=== PATIENT | female | born 1945 | race Caucasian/White ===

== ENCOUNTER 2017-10-16 16:57 | Observation (INO) | payer OTHER ==
[2017-10-16] MEDS ORDERED: FUROSEMIDE 20 MG/ 2ML VIAL IV ONE (18:00)
[2017-10-16 18:02] LABS: Absolute Monocytes 0.8 K/uL (0.1-1.3); Absolute Neutrophil 4.8 K/uL (1.8-8.0); Basophils % 0.4 % (0-1.3); Eosinophils % 2.2 % (0-4.4); Hematocrit 35.9 % (36.0-45.0); Lymphocytes % 14.2 % (15.3-44.8); MCH 26.2 pg (27.0-35.0); MCV 81.9 fL (80-100); MPV 11.2 fL (7.6-11.3); Monocytes % 11.6 % (3.3-12.3); RBC Red Blood Cell Count 4.39 M/uL (3.86-4.86)
[2017-10-16 18:34] LABS: Urine White Blood Cell Casts OK
[2017-10-16 18:35] LABS: Blood Morphology Comment NOT SEEN (NOT SEEN); Platelet Estimate DECR
[2017-10-16 18:55] LABS: Albumin 3.9 g/dL (3.2-5.5); Bilirubin Total 1.7 mg/dL (0.3-1.2); Potassium 3.1 mEq/L (3.6-5.0); Protein, Total 6.8 g/dL (6.0-8.3)
[2017-10-16] MEDS ORDERED: OSELTAMIVIR 75 MG CAP PO ONE (19:32)
[2017-10-16] MEDS ORDERED: POTASSIUM 25 MEQ EFFERV TAB PO ONE (19:32)
[2017-10-16] MEDS: ALBUTEROL 2.5 MG/3 ML NEB SOL NEB SCH (20:19)
[2017-10-16] MEDS ORDERED: HOME MED 1 EA UNK (Gabapentin [Gralise] 300 MG) PO SCH (21:00)
[2017-10-16] MEDS ORDERED: APIXABAN 2.5 MG TABLET PO SCH (21:00)
[2017-10-16] MEDS: ATENOLOL 50 MG TAB PO SCH (21:46)
[2017-10-16] MEDS: HYDROCODONE/APAP 5/325 MG TAB PO PRN (21:46)
[2017-10-16] MEDS: ATORVASTATIN 20 MG TAB PO SCH (21:46)
[2017-10-17] MEDS: ALBUTEROL 2.5 MG/3 ML NEB SOL NEB SCH ×4 (01:14→20:15)
[2017-10-17 04:17] LABS: Urine Appearance CLEAR; Urine Bilirubin NEGATIVE (NEG); Urine Blood NEGATIVE (NEG); Urine Color YELLOW; Urine Glucose NEGATIVE (NEG); Urine Protein NEGATIVE (NEG); Urine Specific Gravity 1.015 (1.005-1.030); Urine pH 6.5 (5.0-7.0)
[2017-10-17 04:55] LABS: Urine Microscopic Reflex ORDER UMIC
[2017-10-17 05:28] LABS: Urine Bacteria <20 /HPF (<20); Urine Culture Reflex Order REFLEXED; Urine RBC <5 /HPF (NONE SEEN)
[2017-10-17] MEDS: AMLODIPINE 10 MG TAB PO SCH (08:49)
[2017-10-17] MEDS: DOXAZOSIN 4 MG TAB PO SCH (08:49)
[2017-10-17] MEDS: HYDROCODONE/APAP 5/325 MG TAB PO PRN ×2 (08:49→19:59)
[2017-10-17] MEDS: ATENOLOL 50 MG TAB PO SCH ×3 (08:49→20:00)
[2017-10-17] MEDS: GABAPENTIN 300 MG CAP PO SCH ×3 (08:49→20:00)
[2017-10-17] MEDS: FUROSEMIDE 40 MG TABLET PO SCH ×2 (08:49→16:48)
--- NOTE | 2017-10-17 08:59 | RAD REPORT ---
EXAM DESCRIPTION: Michael Pa And Lat (2 Views)10/17/2017 7:33 am CLINICAL HISTORY: Shortness of breath COMPARISON: October 16 FINDINGS: The mild bilateral interstitial lung opacities have mostly resolved. The heart remains enl arged IMPRESSION: The mild interstitial pulmonary edema has mostly resolved
--- NOTE | 2017-10-17 12:00 | ECHO ---
HEIGHT: 5 ft 4 in WEIGHT: 338 lb 0 oz DATE OF STUDY: 10/17/[address]: David Lemus MD 2-DIMENSIONAL: YES M.MODE: YES DOPPLER: YES COLOR FLOW: YES TDS: YES PORTABLE: NO DEFINITY: NO BUBBLE STUDY: NO DIAGNOSIS: CONGESTIVE HEART FAILURE CARDIAC HISTORY: CATHERIZATION: NO SURGERY: NO PROSTHETIC VALVE: NO PACEMAKER: NO MEASUREMENTS (cm) DIASTOLIC (NORMALS) SYSTOLIC (NORMALS) IVSd 0.9 (0.6-1.2) LA Diam 5.4 (1.9-4.0) LVEF 77% LVIDd 5.2 (3.5-5.7) LVIDs 2.8 (2.0-3.5) %FS 46% LVPWd 1.1 (0.6-1.2) Ao Diam 2.8 (2.0-3.7) 2 DIMENSIONAL ASSESSMENT: RIGHT ATRIUM: DILATED LEFT ATRIUM: DILATED RIGHT VENTRICLE: DILATED LEFT VENTRICLE: NORMAL TRICUSPID VALVE: NORMAL MITRAL VALVE: NORMAL PULMONIC VALVE: NORMAL AORTIC VALVE: NORMAL PERICARDIAL EFFUSION: NONE AORTIC ROOT: NORMAL LEFT VENTRICULAR WALL MOTION: NORMAL DOPPLER/COLOR FLOW: MILD MITRAL AND TRICUSPID REGURGITATION. ESTIMATED RIGHT VENTRICULAR SYSTOLIC PRESSURE 50mmHg. MODERATE PULMONARY HYPERTENSION. ESTIMATED RIGHT ATRIAL PRESSURE 15mmHg. COMMENTS: NORMAL LEFT VENTRICULAR EJECTION FRACTION. DILATED LEFT AND RIGHT ATRIUM. DILATED RIGHT VENTRICLE. MILD MITRAL AND TRICUSPID REGURGITATION. MODERATE PULMONARY HYPERTENSION. TECHNOLOGIST: Peggy LUQUE
[2017-10-17] MEDS ORDERED: FUROSEMIDE 20 MG/ 2ML VIAL IV ONE (18:00)
[2017-10-17] MEDS: ATORVASTATIN 20 MG TAB PO SCH (20:12)
[2017-10-17] MEDS: POTASSIUM CL SA 10 MEQ TAB PO SCH (20:12)
--- NOTE | 2017-10-17 23:00 | HP ---
Date of Admission: 10/16/2017 Chief Complaint: Shortness of breath, wheezing, and coughing. History Of Present Illness: This patient was brought to the office with history of congestion, wheez ing, and shortness of breath. Outpatient chest x-ray showed evidence of pulmonary edema. The patien t is admitted. The patient denied any chest pain. There is no history of diarrhea, nausea, or other systemic symptoms. Past Medical History: Positive for hyperlipidemia, history of congestive heart failure, sleep apnea, and hypertension. Family History: Noncontributory. Personal History: She is allergic to Cipro and iodine. Home Medicines: Norvasc, Eliquis, atenolol, doxazosin, Lasix, gabapentin, hydrocodone, lovastatin, a nd potassium chloride. Review of Systems: The patient denied any history of urinary symptoms. Physical Examination: General: Revealed a 72-year-old female, morbidly obese. HEENT: Negative. Neck: Supple, JVD negative. Chest: Bilateral wheezes and crackles. Heart: Irregularity noted. Abdomen: Soft, nontender. Extremities: Bilateral pedal edema noted. Laboratory Data: White count normal, hemoglobin 11. Chem profile; potassium 3.1, BNP 146. Platelet count 74. Chest x-ray was done as an outpatient, pulmonary edema. Assessment: 1.Congestive heart failure. 2.Hypertension. 3.Hyperlipidemia. 4.Pain management issues. 5.History of sleep apnea. Plan: The patient is started on home medications. She received IV Lasix. Pending recommendations b y Cardiology Service. She will be continued on these management. PRAVEEN/TRICIA Voice ID: [id number]
[2017-10-18] MEDS: ALBUTEROL 2.5 MG/3 ML NEB SOL NEB SCH ×4 (01:38→19:53)
[2017-10-18] MEDS ORDERED: FUROSEMIDE 20 MG/ 2ML VIAL IV ONE ×2 (08:37→18:22)
[2017-10-18] MEDS: AMLODIPINE 10 MG TAB PO SCH (09:20)
[2017-10-18] MEDS: POTASSIUM CL SA 10 MEQ TAB PO SCH ×2 (09:20→17:13)
[2017-10-18] MEDS: FUROSEMIDE 40 MG TABLET PO SCH ×2 (09:20→17:13)
[2017-10-18] MEDS: GABAPENTIN 300 MG CAP PO SCH ×4 (09:20→21:41)
[2017-10-18] MEDS: ATENOLOL 50 MG TAB PO SCH ×3 (09:20→21:42)
[2017-10-18] MEDS: DOXAZOSIN 4 MG TAB PO SCH (09:20)
[2017-10-18] MEDS: HYDROCODONE/APAP 5/325 MG TAB PO PRN ×2 (09:25→21:41)
[2017-10-18 09:54] LABS: Absolute Lymphocytes (CBC) 1.2 K/uL (0.7-4.9); Absolute Monocytes 0.5 K/uL (0.1-1.3); Basophils % 0.8 % (0-1.3); Eosinophils % 1.6 % (0-4.4); Hematocrit 36.1 % (36.0-45.0); Lymphocytes % 20.9 % (15.3-44.8); MCH 26.1 pg (27.0-35.0); MCV 81.4 fL (80-100); Monocytes % 8.1 % (3.3-12.3); RBC Red Blood Cell Count 4.43 M/uL (3.86-4.86)
--- NOTE | 2017-10-18 21:10 | PN ---
The patient is having less dyspnea. Her lungs clinically sound better. She still has significant pe aileen edema. She will receive another dose of IV Lasix this evening. The patient still is afebrile. As she is responding to these measures, she will be continued on diuresis. Her platelet count is bet ter, however, still it is low and her Eliquis will be on hold. PRAVEEN/TRICIA Voice ID: [id number] Report ID: [id number]
[2017-10-18] MEDS: ATORVASTATIN 20 MG TAB PO SCH (21:42)
[2017-10-19] MEDS: ALBUTEROL 2.5 MG/3 ML NEB SOL NEB SCH ×4 (01:35→20:04)
[2017-10-19 08:48] LABS: Absolute Lymphocytes (CBC) 1.4 K/uL (0.7-4.9); Absolute Monocytes 0.6 K/uL (0.1-1.3); Absolute Neutrophil 3.8 K/uL (1.8-8.0); Basophils % 0.7 % (0-1.3); Eosinophils % 2.4 % (0-4.4); Lymphocytes % 23.5 % (15.3-44.8); MCH 26.2 pg (27.0-35.0); MCV 81.7 fL (80-100); MPV 10.2 fL (7.6-11.3); Monocytes % 10.1 % (3.3-12.3); RBC Red Blood Cell Count 4.66 M/uL (3.86-4.86)
[2017-10-19] MEDS: DOXAZOSIN 4 MG TAB PO SCH (09:00)
[2017-10-19 09:39] LABS: BUN Blood Urea Nitrogen 12 mg/dL (6-20); Glomerular Filtration Rate > 90 mL/min (=/>90); Glucose Level 163 mg/dL (65-120)
[2017-10-19 09:45] LABS: Bicarbonate 33 mEq/L (21-31); Sodium Level 137 mEq/L (135-145)
[2017-10-19] MEDS: HYDROCODONE/APAP 5/325 MG TAB PO PRN ×3 (09:47→22:50)
[2017-10-19] MEDS: GABAPENTIN 300 MG CAP PO SCH ×3 (09:48→22:00)
[2017-10-19] MEDS: POTASSIUM CL SA 10 MEQ TAB PO SCH ×2 (09:48→16:01)
[2017-10-19] MEDS: ATENOLOL 50 MG TAB PO SCH ×3 (09:48→22:00)
[2017-10-19 09:49] LABS: Potassium 2.9 mEq/L (3.6-5.0)
[2017-10-19] MEDS: FUROSEMIDE 40 MG TABLET PO SCH ×2 (09:49→16:00)
[2017-10-19] MEDS: AMLODIPINE 10 MG TAB PO SCH (09:49)
[2017-10-19] MEDS ORDERED: DOXAZOSIN 2 MG TAB ONE (09:50)
[2017-10-19] MEDS ORDERED: POTASSIUM 25 MEQ EFFERV TAB PO ONE (10:30)
[2017-10-19 16:17] LABS: Potassium 3.4 mEq/L (3.6-5.0)
[2017-10-19] MEDS: POTASSIUM 25 MEQ EFFERV TAB PO SCH (17:58)
[2017-10-19] MEDS ORDERED: GUAIFENESIN/DM 5 ML UCUP PO PRN (20:31)
[2017-10-19] MEDS: ATORVASTATIN 20 MG TAB PO SCH (22:00)
--- NOTE | 2017-10-19 22:28 | PN ---
The patient still has some wheezing; however, she is feeling much better. Her extra IV Lasix has cau sed hypokalemia. This is corrected with the extra doses of KCl. The patient's potassium has come up . The patient does receive another extra dose of potassium and she will be re-evaluated in a.m. PRAVEEN/TRICIA Voice ID: [id number] Report ID: [id number]
[2017-10-20] MEDS: ALBUTEROL 2.5 MG/3 ML NEB SOL NEB SCH ×3 (01:22→13:39)
[2017-10-20] MEDS: DOXAZOSIN 4 MG TAB PO SCH (09:00)
[2017-10-20] MEDS ORDERED: DOXAZOSIN 2 MG TAB ONE (09:33)
[2017-10-20] MEDS: POTASSIUM 25 MEQ EFFERV TAB PO SCH (09:40)
[2017-10-20] MEDS: FUROSEMIDE 40 MG TABLET PO SCH (09:41)
[2017-10-20] MEDS: AMLODIPINE 10 MG TAB PO SCH (09:41)
[2017-10-20] MEDS: POTASSIUM CL SA 10 MEQ TAB PO SCH (09:42)
[2017-10-20] MEDS: GABAPENTIN 300 MG CAP PO SCH ×2 (09:43→14:00)
[2017-10-20] MEDS: ATENOLOL 50 MG TAB PO SCH ×2 (09:43→14:54)
[2017-10-20] MEDS: HYDROCODONE/APAP 5/325 MG TAB PO PRN ×2 (09:44→15:09)
--- NOTE | 2017-10-20 10:24 | CON ---
Chief Complaint: Dyspnea. Reason For Consultation: Right-sided congestive heart failure. History Of Present Illness: Mrs. Lawrence has had atrial fibrillation before. She has been known to hav e right-sided congestive heart failure before. We have been very suspicious that she has sleep apnea , but she has never actually done a sleep study. She has underlying hypertension and dyslipidemia. Her outpatient medications had been Eliquis 2.5 b.i.d., amlodipine, atenolol, furosemide, potassium c hloride, doxazosin, hydrocodone, gabapentin, and lovastatin. She reports drug allergies to ciproflox acin and iodine. She has never had myocardial infarction or stroke. Does not use tobacco, alcohol, or illegal drugs. In 2013, she had surgery for a broken bone. She has a problem with chronic pain. Physical Examination: General: She is 5 feet 4 inches, 322 pounds, morbidly obese. Body mass index 55. HEENT: Unremarkable. Lungs: Clear. There are some large airway sounds when she coughs. She still has some phlegm she is producing. Abdomen: Soft. Extremities: 1+ edema. Laboratory Data: Her laboratory exam reveals a hemoglobin of 12.2. Creatinine is 0.66, potassium is 3.4. B-natriuretic peptide is 146. Her echocardiogram shows a normal left ventricle. Left atrium is mildly dilated. The valves look close to normal and function normally. The right side of her hea rt is very dilated. Right atrium and right ventricle are very dilated. There is evidence of pulmona ry hypertension. The left ventricular ejection fraction is 77%. The estimated pulmonary artery pres sure is 50 mmHg. Estimated right atrial pressure is 15 mmHg. Impression: The patient has lung disease that is most likely caused by sleep apnea causing pulmonary hypertension, hypoventilation syndrome. We do not have a blood gas to confirm that. Her chest x-ra y would be consistent with that. I do not think it shows pulmonary edema or pneumonia. Diuretics an d evaluation to see if she would be a patient, who could benefit from CPAP treatment as an outpatient would be very useful. Thank you very much for your kind referral of Ms. Lawrence. I will follow her wi th you. ESPERANZA/TRICIA Voice ID: [id number] Report ID: [id number]
--- NOTE | 2017-10-21 11:34 | CON ---
Date of Consultation: 10/18/2017 The patient was admitted to Dr. Lemus's service on 10/16/2017. I saw the patient on 10/18/2017. Reason For Consultation: Congestive heart failure. History Of Present Illness: Mrs. Lawrence is a 72-year-old woman with history of hypertension, DVT, came in with congestive heart failure versus asthma type symptoms. The patient denied PND, orthopnea, or pedal edema. cough, wheezing, shortness of breath. Echocardiogram before I saw her show ed moderate pulmonary hypertension with normal ejection fraction. Chest x-ray showed congestive hear t failure that has resolved after IV Lasix. Past Medical History: As stated above. Allergies: SHE IS ALLERGIC TO CIPRO AND IODINE. Review of Systems: Negative. Social History: Negative. Family History: Noncontributory. Medications: Include Norvasc, potassium, lovastatin, Eliquis, Lasix, and atenolol. Physical Examination: Vital Signs: Mrs. Lawrence weighs 317 pounds. Her vital signs were stable and afebrile. HEENT: Negative. Neck: Supple. No bruit or JVD or lymphadenopathy. Chest: Clear to auscultation and percussion. Cardiac: Revealed tricuspid regurgitation and murmur. Regular rhythm and rate. No gallops or rubs. Abdomen: Obese, but benign. Extremities: Revealed trace edema. Diagnostic Data: Unremarkable. Her chest x-ray showed CHF that has resolved. Impression And Plan: 1.Acute on chronic diastolic congestive heart failure. 2.Mild pulmonary hypertension. 3.Asthma. 4.Morbid obesity. 5.Hypertension. 6.History of deep venous thrombosis, on Eliquis. I agree with her present regimen. The patient is not a candidate for stress test because of her weight. We will continue her present regimen and she can go home whenever it is okay with Dr. Lemus. GUS/ELIASL Voice ID: [id number] Report ID: [id number]
== END 2017-10-20 15:47 | disposition home or self-care (01) ==
LOC: 2ND 17:08 → INTOOBSV 17:08
PROVIDERS: ADMIT Internal Medicine; ATTEND Internal Medicine
DX: I11.0 Hypertensive heart disease with heart failure (principal); I50.33 Acute on chronic diastolic (congestive) heart failure; E66.01 Morbid (severe) obesity due to excess calories; Z68.43 Body mass index [BMI] 50.0-59.9, adult; J45.909 Unspecified asthma, uncomplicated; E87.6 Hypokalemia; G47.30 Sleep apnea, unspecified; E78.5 Hyperlipidemia, unspecified; Z79.01 Long term (current) use of anticoagulants; Z86.718 Personal history of other venous thrombosis and embolism
CPT/HCPCS: 36415 ×3; 71046; 80048 ×2; 80053; 83880; 85025 ×3; 87070; 87086; 87088; 87205; 87804 ×2; 93306; 94640; G0378; G0379; J1940 ×4; 81003; 81015

== ENCOUNTER 2019-02-27 07:13 | Emergency (ER) | payer OTHER ==
--- NOTE | 2019-02-27 08:29 | EDPHYS ---
Physician Documentation [facility] Name: Le Lawrence Age: 73 yrs Sex: Female : 1945 Arrival Date: 02/27/2019 Time: 07:27 Bed 14 Private MD: ED Physician Joel Bruce HPI: 02/27 08:10 This 73 yrs old Female presents to ER via EMS with complaints of Cut on 5th jr8 toe of Left Foot. 08:10 The patient presents with a laceration, 1 cm(s), clean, simple. The complaints affect jr8 the left foot. Onset: The symptoms/episode began/occurred acutely, today. Modifying factors: The symptoms are alleviated by nothing, the symptoms are aggravated by nothing. Associated signs and symptoms: The patient has no apparent associated signs or symptoms. Severity of symptoms: At their worst the symptoms were very mild, in the emergency department the symptoms are unchanged. The patient has not experienced similar symptoms in the past. The patient has not recently seen a physician. Stated that she was clipping her toes and accidently took a piece of skin off at tip of toe at the 5th digit. On Eliquis and has not been able to keep it from oozing . Historical: - Allergies: 07:12 Cipro; rb1 07:12 iodine; rb1 - Home Meds: 07:12 Furosemide Oral [Active]; Atenolol Oral [Active]; gabapentin oral oral [Active]; rb1 Eliquis oral [Active]; Lovastatin Oral [Active]; Hydrocodone-Acetaminophen Oral [Active]; amlodipine oral [Active]; - PMHx: 07:12 Neuropathy; Atrial Fib; Hypertension; rb1 - PSHx: 07:12 left elbow; rb1 - Immunization history:: Adult Immunizations up to date. - Social history:: Smoking status: Patient/guardian denies using tobacco. - Ebola Screening: : Patient negative for fever greater than or equal to 101.5 degrees Fahrenheit, and additional compatible Ebola Virus Disease symptoms. ROS: 08:10 Eyes: Negative for injury, pain, redness, and discharge, ENT: Negative for injury, jr8 pain, and discharge, Neck: Negative for injury, pain, and swelling, Cardiovascular: Negative for chest pain, palpitations, and edema, Respiratory: Negative for shortness of breath, cough, wheezing, and pleuritic chest pain, Abdomen/GI: Negative for abdominal pain, nausea, vomiting, diarrhea, and constipation, Back: Negative for injury and pain, MS/Extremity: Negative for injury and deformity, Neuro: Negative for headache, weakness, numbness, tingling, and seizure. 08:10 Skin: Positive for laceration(s). Exam: 08:10 Eyes: Pupils equal round and reactive to light, extra-ocular motions intact. Lids and jr8 lashes normal. Conjunctiva and sclera are non-icteric and not injected. Cornea within normal limits. Periorbital areas with no swelling, redness, or edema. ENT: Nares patent. No nasal discharge, no septal abnormalities noted. Tympanic membranes are normal and external auditory canals are clear. Oropharynx with no redness, swelling, or masses, exudates, or evidence of obstruction, uvula midline. Mucous membranes moist. Neck: Trachea midline, no thyromegaly or masses palpated, and no cervical lymphadenopathy. Supple, full range of motion without nuchal rigidity, or vertebral point tenderness. No Meningismus. Cardiovascular: Regular rate and rhythm with a normal S1 and S2. No gallops, murmurs, or rubs. Normal PMI, no JVD. No pulse deficits. Respiratory: Lungs have equal breath sounds bilaterally, clear to auscultation and percussion. No rales, rhonchi or wheezes noted. No increased work of breathing, no retractions or nasal flaring. Abdomen/GI: Soft, non-tender, with normal bowel sounds. No distension or tympany. No guarding or rebound. No evidence of tenderness throughout. Back: No spinal tenderness. No costovertebral tenderness. Full range of motion. MS/ Extremity: Pulses equal, no cyanosis. Neurovascular intact. Full, normal range of motion. Neuro: Awake and alert, GCS 15, oriented to person, place, time, and situation. Cranial nerves II-XII grossly intact. Motor strength 5/5 in all extremities. Sensory grossly intact. Cerebellar exam normal. Normal gait. 08:10 Skin: injury, laceration(s), the wound is approximately 1 cm(s), of the tip of 5th digit left foot, that can be described as clean, no foreign body, linear, with mild bleeding. Vital Signs: 07:12 BP 132 / 67; Pulse 70; Resp 19; Temp 97.7(O); Pulse Ox 100% on R/A; Weight 131.54 kg rb1 (R); Height 5 ft. 4 in. (162.56 cm) (R); Pain 5/10; 08:10 BP 133 / 69; Pulse 65; Resp 17; Temp 97.9(O); Pulse Ox 99% on R/A; Pain 0/10; rb1 08:48 BP 139 / 72; Pulse 68; Resp 17; Temp 98.1(O); Pulse Ox 99% on R/A; Pain 0/10; rb1 07:12 Body Mass Index 49.78 (131.54 kg, 162.56 cm) rb1 07:12 when she actually clipped the tip of her toe off. But denies current pain rb1 MDM: 07:41 Patient medically screened. jr8 08:27 Data reviewed: vital signs, nurses notes, and as a result, I will discharge patient. jr8 Data interpreted: Pulse oximetry: on room air is 100 %. Interpretation: normal. Counseling: I had a detailed discussion with the patient and/or guardian regarding: the historical points, exam findings, and any diagnostic results supporting the discharge/admit diagnosis, the need for outpatient follow up, a family practitioner, to return to the emergency department if symptoms worsen or persist or if there are any questions or concerns that arise at home. Administered Medications: No medications were administered Disposition: 14:19 Co-signature as Attending Physician, Joel Bruce MD I agree with the assessment and kdr plan of care. Disposition: 02/27/19 08:28 Discharged to Home. Impression: Laceration without foreign body of left lesser toe(s) without damage to nail. - Condition is Stable. - Discharge Instructions: Laceration Care, Adult. - Medication Reconciliation Form, Thank You Letter, Antibiotic Education, Prescription Opioid Use form. - Follow up: Private Physician; When: 5 - 6 days; Reason: Wound Recheck, Recheck today's complaints, Continuance of care, Re-evaluation by your physician. - Problem is new. - Symptoms have improved. Signatures: Joel Bruce MD MD [facility] Dallin Heller PA PA jr8 Mel Yap RN RN rb1 Corrections: (The following items were deleted from the chart) 08:58 08:28 02/27/2019 08:28 Discharged to Home. Impression: Laceration without foreign body rb1 of left lesser toe(s) without damage to nail. Condition is Stable. Forms are Medication Reconciliation Form, Thank You Letter, Antibiotic Education, Prescription Opioid Use. Follow up: Private Physician; When: 5 - 6 days; Reason: Wound Recheck, Recheck today's complaints, Continuance of care, Re-evaluation by your physician. Problem is new. Symptoms have improved. jr8
--- NOTE | 2019-02-27 08:29 | ER ---
Nurse's Notes [facility] Name: Le Lawrence Age: 73 yrs Sex: Female : 1945 Arrival Date: 02/27/2019 Time: 07:27 Bed 14 Private MD: Diagnosis: Laceration without foreign body of left lesser toe(s) without damage to nail Presentation: 02/27 07:12 Presenting complaint: EMS states: Pt. was cutting her toenails when she accidently cut rb1 the tip of her 5th toe off on the left foot. Pt. is taking Eliquis and is not able to get the bleeding stopped. Allergies to Cipro and Iodine. BP 108/56. Transition of care: patient was not received from another setting of care. Onset of symptoms was February 27, 2019. Risk Assessment: Do you want to hurt yourself or someone else? Patient reports no desire to harm self or others. Initial Sepsis Screen: Does the patient meet any 2 criteria? No. Patient's initial sepsis screen is negative. Does the patient have a suspected source of infection? No. Patient's initial sepsis screen is negative. Care prior to arrival: None. 07:12 Method Of Arrival: EMS: [facility] rb1 07:12 Acuity: CAROL 3 rb1 Triage Assessment: 07:12 General: Appears in no apparent distress. comfortable, obese, Behavior is calm, rb1 cooperative. Pain: Pain: Denies pain. 07:12 Neuro: Level of Consciousness is awake, alert, obeys commands, Oriented to person, rb1 place, time, situation, Reports neuropathy in her feet, reports not being able to feel anything. Cardiovascular: Capillary refill < 3 seconds is brisk in bilateral fingers. Respiratory: Airway is patent Respiratory effort is even, unlabored, Respiratory pattern is regular, symmetrical. GI: No signs and/or symptoms were reported involving the gastrointestinal system. : No signs and/or symptoms were reported regarding the genitourinary system. Derm: Skin is pink, warm \T\ dry. Musculoskeletal: 5th toe on left foot is bleeding, pt. reports that she cut the tip of her toe off while she was cutting her toenails. She takes Eliquis and is unable to control the bleeding. Historical: - Allergies: 07:12 Cipro; rb1 07:12 iodine; rb1 - Home Meds: 07:12 Furosemide Oral [Active]; Atenolol Oral [Active]; gabapentin oral oral [Active]; rb1 Eliquis oral [Active]; Lovastatin Oral [Active]; Hydrocodone-Acetaminophen Oral [Active]; amlodipine oral [Active]; - PMHx: 07:12 Neuropathy; Atrial Fib; Hypertension; rb1 - PSHx: 07:12 left elbow; rb1 - Immunization history:: Adult Immunizations up to date. - Social history:: Smoking status: Patient/guardian denies using tobacco. - Ebola Screening: : Patient negative for fever greater than or equal to 101.5 degrees Fahrenheit, and additional compatible Ebola Virus Disease symptoms. Screenin:12 Abuse screen: Denies threats or abuse. Nutritional screening: No deficits noted. rb1 Tuberculosis screening: No symptoms or risk factors identified. Fall Risk None identified. Assessment: 07:12 General: See triage assessment. rb1 08:10 Reassessment: Patient appears in no apparent distress at this time. Patient and/or rb1 family updated on plan of care and expected duration. Pain level reassessed. Patient is alert, oriented x 3, equal unlabored respirations, skin warm/dry/pink. bleeding is controlled. Will continue to monitor pt. before discharge. 08:40 Reassessment: Patient appears in no apparent distress at this time. Patient and/or rb1 family updated on plan of care and expected duration. Pain level reassessed. Patient is alert, oriented x 3, equal unlabored respirations, skin warm/dry/pink. Bleeding has stopped. Provider notified. Vital Signs: 07:12 BP 132 / 67; Pulse 70; Resp 19; Temp 97.7(O); Pulse Ox 100% on R/A; Weight 131.54 kg rb1 (R); Height 5 ft. 4 in. (162.56 cm) (R); Pain 5/10; 08:10 BP 133 / 69; Pulse 65; Resp 17; Temp 97.9(O); Pulse Ox 99% on R/A; Pain 0/10; rb1 08:48 BP 139 / 72; Pulse 68; Resp 17; Temp 98.1(O); Pulse Ox 99% on R/A; Pain 0/10; rb1 07:12 Body Mass Index 49.78 (131.54 kg, 162.56 cm) rb1 07:12 when she actually clipped the tip of her toe off. But denies current pain rb1 ED Course: 07:12 Arm band placed on right wrist. rb1 07:12 Patient has correct armband on for positive identification. Bed in low position. Call rb1 light in reach. Side rails up X 1. Pulse ox on. NIBP on. Warm blanket given. 07:27 Patient arrived in ED. rb1 07:32 Triage completed. rb1 07:40 Dallin Heller PA is PHCP. jr8 07:40 Joel Bruce MD is Attending Physician. jr8 08:57 Mel Yap, RN is Primary Nurse. rb1 08:58 No provider procedures requiring assistance completed. Patient did not have IV access rb1 during this emergency room visit. Administered Medications: No medications were administered Outcome: 08:28 Discharge ordered by . jr8 08:58 Patient left the ED. rb1 08:58 Discharged to home via wheelchair, with friend. rb1 08:58 Condition: stable 08:58 Discharge instructions given to patient, Instructed on discharge instructions, follow up and referral plans. Demonstrated understanding of instructions, follow-up care, Prescriptions given X none Signatures: Dallin Heller PA PA jr8 Mel Yap, RN RN rb1 Corrections: (The following items were deleted from the chart) 17:24 07:12 Pain: rb1 rb1 17:43 07:12 BP 132 / 67; Pulse 70bpm; Resp 19bpm; Pulse Ox 100% RA; Temp 97.7F Oral; 131.54 rb1 kg Reported; Height 5 ft. 4 in. Reported; BMI: 49.7; Pain 5/10; rb1
== END 2019-02-27 08:58 | disposition home or self-care (01) ==
LOC: ER 07:13
DX: S91.115A Laceration without foreign body of left lesser toe(s) without damage to nail, initial encounter (principal); W45.8XXA Other foreign body or object entering through skin, initial encounter; Y93.E8 Activity, other personal hygiene; I48.91 Unspecified atrial fibrillation; I10 Essential (primary) hypertension; Z79.01 Long term (current) use of anticoagulants; Z88.1 Allergy status to other antibiotic agents; Z88.8 Allergy status to other drugs, medicaments and biological substances
CPT/HCPCS: 99283

== ENCOUNTER 2020-08-01 18:40 | Observation (INO) | payer OTHER ==
--- NOTE | 2020-08-01 21:02 | RAD REPORT ---
EXAM DESCRIPTION: RAD - Chest Single View - 08/01/2020 8:52 pm CLINICAL HISTORY: SOB Chest pain. COMPARISON: Chest Pa And Lat (2 Views) dated 10/17/2017; Chest Pa And Lat (2 Views) dated 10/16/2017; Chest Pa And Lat (2 Views) dated 09/26/2016; CHEST PA AND LAT 2 VIEW dated 04/21/2013 FINDINGS: Portable technique limits examination quality. Mild interstitial pulmonary edema seen. The heart is significantly enlarged. No displaced fractures.A rthritic changes are noted in the left shoulder. IMPRESSION: Mild CHF.
[2020-08-01 22:02] LABS: Basophils % 0.4 % (0-1.3); Hematocrit 36.2 % (36.0-45.0); Lymphocytes % 13.8 % (15.3-44.8); MPV 10.3 fL (7.6-11.3); RBC Red Blood Cell Count 4.45 M/uL (3.86-4.86)
[2020-08-01 22:03] LABS: Protime INR 1.67
[2020-08-01] MEDS ORDERED: ONDANSETRON 4 MG/2 ML VIAL ONE (22:03)
[2020-08-01] MEDS ORDERED: LIDOCAINE 1% MPF 30 ML VIAL ONE (22:03)
[2020-08-01] MEDS ORDERED: FUROSEMIDE 40 MG/4 ML VIAL ONE (22:03)
[2020-08-01] MEDS ORDERED: MORPHINE 2 MG/ML SYR ONE (22:03)
[2020-08-01 22:17] LABS: Albumin 3.7 g/dL (3.4-5.0); Bilirubin Direct 0.2 mg/dL (0-0.2); Bilirubin Total 0.5 mg/dL (0.2-1.0); Potassium 3.6 mmol/L (3.5-5.1); Protein, Total 8.2 g/dL (6.4-8.2); Troponin (Emerg Dept Use Only) 0.08 ng/mL (0.0-0.045)
--- NOTE | 2020-08-01 23:06 | EDPHYS ---
Physician Documentation [facility] Name: Le Lawrence Age: 75 yrs Sex: Female : 1945 Arrival Date: 08/01/2020 Time: 18:43 Bed 8 Private MD: ED Physician Greg Hamm HPI: 08/01 22:58 This 75 yrs old Female presents to ER via Wheelchair with complaints of tw4 Shortness Of Breath, Spider Bite. 22:58 The patient has shortness of breath at rest. tw4 22:59 Onset: The symptoms/episode began/occurred 2 day(s) ago. Duration: The symptoms are tw4 continuous, and are unchanged since they started. The patient's shortness of breath has no apparent modifying factors. Associated signs and symptoms: The patient has no apparent associated signs or symptoms. Severity of symptoms: At their worst the symptoms were moderate in the emergency department the symptoms are unchanged. The patient has not experienced similar symptoms in the past. Historical: - Allergies: 19:01 Cipro; ll1 19:01 Iodine; ll1 19:01 Amoxicillin; ll1 - PMHx: 19:01 Atrial Fib; Hypertension; neuropathy; ll1 - PSHx: 19:01 left elbow; ll1 - Immunization history:: Flu vaccine is not up to date. - Social history:: Smoking status: Patient denies any tobacco usage or history of. ROS: 22:59 Constitutional: Negative for fever, chills, and weight loss, Eyes: Negative for injury, tw4 pain, redness, and discharge, Cardiovascular: Negative for chest pain, palpitations, and edema, Abdomen/GI: Negative for abdominal pain, nausea, vomiting, diarrhea, and constipation, Back: Negative for injury and pain, MS/Extremity: Negative for injury and deformity, Skin: Negative for injury, rash, and discoloration, Neuro: Negative for headache, weakness, numbness, tingling, and seizure. 22:59 Respiratory: Positive for shortness of breath, Negative for cough, dyspnea on exertion, hemoptysis, orthopnea, pleurisy. Exam: 22:59 Respiratory: the patient does not display signs of respiratory distress, Respirations: tw4 normal, Breath sounds: decreased breath sounds, are located in both bases. 23:01 Constitutional: This is a well developed, well nourished patient who is awake, alert, tw4 and in no acute distress. Head/Face: Normocephalic, atraumatic. Chest/axilla: Normal chest wall appearance and motion. Nontender with no deformity. No lesions are appreciated. Cardiovascular: Regular rate and rhythm with a normal S1 and S2. No gallops, murmurs, or rubs. Normal PMI, no JVD. No pulse deficits. Abdomen/GI: Soft, non-tender, with normal bowel sounds. No distension or tympany. No guarding or rebound. No evidence of tenderness throughout. Back: No spinal tenderness. No costovertebral tenderness. Full range of motion. 23:01 Musculoskeletal/extremity: Extremities: noted in the right leg: swelling, noted in the lateral aspect of left calf, left calf, medial aspect of left calf and left pillai: swelling. 23:01 Skin: abscess, that is moderate sized, approximately 10 cm(s), of the palmar aspect of right forearm, with drainage, with fluctuance, that is moderate, with induration, with pointing, that is obvious, with surrounding cellulitis, that is moderate, cellulitis, that is moderate, irregular, on the palmar aspect of right forearm. Vital Signs: 19:02 BP 125 / 62; Pulse 92; Resp 19; Temp 98.0; Pulse Ox 97% ; Weight 136.08 kg; Height 5 ll1 ft. 4 in. (162.56 cm); Pain 2/10; 23:00 BP 118 / 70; Pulse 80; Resp 16; Pulse Ox 99% ; rr5 08/02 00:08 BP 120 / 68; Pulse 89; Resp 18; Pulse Ox 97% on R/A; mg2 08/01 19:02 Body Mass Index 51.49 (136.08 kg, 162.56 cm) ll1 MDM: 08/01 21:00 Patient medically screened. tw4 22:59 Differential diagnosis: reactive airway disease. Data reviewed: vital signs, nurses tw4 notes. Data interpreted: Pulse oximetry:. Counseling: I had a detailed discussion with the patient and/or guardian regarding: the historical points, exam findings, and any diagnostic results supporting the discharge/admit diagnosis. Special discussion: I discussed with the patient/guardian in detail that at this point there is no indication for admission to the hospital. It is understood, however, that if the symptoms persist or worsen the patient needs to return immediately for re-evaluation. 08/01 21:00 Order name: Basic Metabolic Panel [facility] 08/01 22:57 Interpretation: Normal except: NA 135; GFR 54; GLUC 132. [facility] 08/01 21:00 Order name: CBC with Diff [facility] 08/01 22:57 Interpretation: Normal except: HGB 11.9; MCH 26.7; PLT 122; LYM% 13.8; MEIR% 78.1. [facility] 08/01 21:00 Order name: LFT's [facility] 08/01 22:58 Interpretation: Normal except: A/G 0.8; GLOB 4.5; ALT 11. [facility] 08/01 21:00 Order name: Magnesium [facility] 08/01 21:00 Order name: NT PRO-BNP [facility] 08/01 22:58 Interpretation: Normal except: NT PRO-BNP 1074. [facility] 08/01 21:00 Order name: PT-INR; Complete Time: 22:57 [facility] 08/01 22:58 Interpretation: Within normal limits: PT 19.5. [facility] 08/01 21:00 Order name: Troponin (emerg Dept Use Only) [facility] 08/01 22:58 Interpretation: Within normal limits: TROPED 0.08. [facility] 08/01 23:20 Order name: CBC with Automated Diff [facility] 08/01 23:20 Order name: Comprehensive Metabolic Panel [facility] 08/01 23:20 Order name: NT PRO-BNP [facility] 08/01 23:20 Order name: Troponin I [facility] 08/01 23:20 Order name: Troponin I [facility] 08/01 20:08 Order name: CXR XRAY; Complete Time: 21:23 [facility] 08/01 20:08 Order name: Document PUI#; Complete Time: 22:16 [facility] 08/01 20:08 Order name: Droplet/Contact Precautions; Complete Time: 20:56 [facility] 08/01 20:08 Order name: Labs collected and sent; Complete Time: 22:16 [facility] 08/01 20:08 Order name: O2 Per Protocol; Complete Time: 22:16 [facility] 08/01 21:00 Order name: EKG; Complete Time: 21:01 [facility] 08/01 23:20 Order name: Heart Healthy [facility] 08/01 23:20 Order name: Echo with Doppler [facility] 08/01 23:20 Order name: Troponin I [facility] 08/01 23:41 Order name: COVID-19/FLU A+B [facility] 08/01 21:00 Order name: Cardiac monitoring; Complete Time: 22:15 tw4 08/01 21:00 Order name: EKG - Nurse/Tech; Complete Time: 22:15 tw4 08/01 21:00 Order name: IV Saline Lock; Complete Time: 22:15 tw4 08/01 21:00 Order name: O2 Sat Monitoring; Complete Time: 22:15 tw4 Administered Medications: 22:00 Drug: Lasix 40 mg Route: IVP; Site: left hand; mg2 23:07 Follow up: Response: No adverse reaction rr5 22:54 Drug: Lidocaine (1 %) 5 mg {Note: administered by the provider.} Route: Infiltration; rr5 22:55 Drug: Clindamycin 600 mg Route: IVPB; Infused Over: 30 mins; Site: left hand; rr5 23:30 Follow up: Response: No adverse reaction; IV Status: Completed infusion; IV Intake: 03hxon3 23:04 Not Given (Patient Refused): Zofran (Ondansetron) 4 mg IVP once; over 2 minutes rr5 23:05 Not Given (Patient Refused): morphine 2 mg IVP once; (PAIN>8) RASS on ADMN: Combtv4, rr5 Very Agttd3, Agttd2, Rstlss1, AlertClm0, Drwsy-1, LtSdtn-2, ModSdtn-3, DpSdtn-4, UnArsble-5 x2 Disposition: 08/01/20 23:22 Hospitalization ordered by Jordi Hsu for Inpatient Admission. Preliminary diagnosis are Unspecified combined systolic (congestive) and diastolic (congestive) heart failure, Cellulitis of left upper limb, Cutaneous abscess of left upper limb, Non-ST elevation (NSTEMI) myocardial infarction. - Bed requested for Telemetry/MedSurg (Inpatient). - Status is Inpatient Admission. mg2 - Condition is Stable. - Problem is new. - Symptoms have improved. Signatures: Dispatcher [employer] [facility] Tracy Orosco RN RN Greg Hamm MD MD tw4 Cesar Cook RN RN [facility] George Conroy RN RN rr5 Owen Casillas RN RN ll1 Corrections: (The following items were deleted from the chart) 22:54 20:09 CORONAVIRUS+MR.LAB.BRZ ordered. [facility] EDMS 22:54 20:09 Influenza Screen (A \T\ B)+BA.LAB.BRZ ordered. [facility] EDMS 23:02 22:59 Constitutional: This is a well developed, well nourished patient who is awake, tw4 alert, and in no acute distress. Head/Face: Normocephalic, atraumatic. Chest/axilla: Normal chest wall appearance and motion. Nontender with no deformity. No lesions are appreciated. Cardiovascular: Regular rate and rhythm with a normal S1 and S2. No gallops, murmurs, or rubs. Normal PMI, no JVD. No pulse deficits. tw4 23:02 22:59 Abdomen/GI: Soft, non-tender, with normal bowel sounds. No distension or tympany. tw4 No guarding or rebound. No evidence of tenderness throughout. Back: No spinal tenderness. No costovertebral tenderness. Full range of motion. MS/ Extremity: Pulses equal, no cyanosis. Neurovascular intact. Full, normal range of motion. Neuro: Awake and alert, GCS 15, oriented to person, place, time, and situation. Cranial nerves II-XII grossly intact. Motor strength 5/5 in all extremities. Sensory grossly intact. Cerebellar exam normal. Normal gait. tw4 23:10 23:05 08/01/2020 23:05 Discharged to Home. Impression: Cellulitis of left upper limb; tw4 Cutaneous abscess of left upper limb; Unspecified combined systolic (congestive) and diastolic (congestive) heart failure. Condition is Stable. Forms are Medication Reconciliation Form, Thank You Letter, Antibiotic Education, Prescription Opioid Use. Follow up: Private Physician; When: Upon discharge from the Emergency Department; Reason: Recheck today's complaints, Continuance of care, Re-evaluation by your physician. Follow up: Amaury Cueto; When: Upon discharge from the Emergency Department; Reason: Recheck today's complaints, Continuance of care, Re-evaluation by your physician. Problem is new. Symptoms have improved. tw4 23:52 23:22 Hospitalization Ordered by Jordi Hsu MD for Inpatient Admission. mw Preliminary diagnosis is Unspecified combined systolic (congestive) and diastolic (congestive) heart failure; Cellulitis of left upper limb; Cutaneous abscess of left upper limb; Non-ST elevation (NSTEMI) myocardial infarction. Bed requested for Telemetry/MedSurg (Inpatient). Status is Inpatient Admission. Condition is Stable. Problem is new. Symptoms have improved. tw4 08/02 00:16 08/01 23:52 08/01/2020 23:22 Hospitalization Ordered by Jordi Hsu MD for mg2 Inpatient Admission. Preliminary diagnosis is Unspecified combined systolic (congestive) and diastolic (congestive) heart failure; Cellulitis of left upper limb; Cutaneous abscess of left upper limb; Non-ST elevation (NSTEMI) myocardial infarction. Bed requested for Telemetry/MedSurg (Inpatient). Status is Inpatient Admission. Condition is Stable. Problem is new. Symptoms have improved. mw
--- NOTE | 2020-08-01 23:06 | ER ---
Nurse's Notes [facility] Name: Le Lawrence Age: 75 yrs Sex: Female : 1945 Arrival Date: 08/01/2020 Time: 18:43 Bed 8 Private MD: Diagnosis: Unspecified combined systolic (congestive) and diastolic (congestive) heart failure;Cellulitis of left upper limb;Cutaneous abscess of left upper limb;Non-ST elevation (NSTEMI) myocardial infarction Presentation: 08/01 19:02 Chief complaint: Patient states: 1. Abscess to R FA for 9 days. Has surrounding ll1 cellulitis, drains bloody pus. No fever. 2. SOB with leg swelling for 2 days. Coronavirus screen: Client denies travel out of the [place] in the last 14 days. difficulty breathing, Client presents with at least one sign or symptom that may indicate coronavirus-19. Standard/surgical mask placed on the client. Ebola Screen: Patient denies travel to an Ebola-affected area in the 21 days before illness onset. Initial Sepsis Screen: Does the patient meet any 2 criteria? HR > 90 bpm. No. Patient's initial sepsis screen is negative. Does the patient have a suspected source of infection? Yes: Skin breakdown/wound. Risk Assessment: Do you want to hurt yourself or someone else? Patient reports no desire to harm self or others. Onset of symptoms was July 22, 2020. 19:02 Method Of Arrival: Wheelchair ll1 19:02 Acuity: CAROL 3 ll1 Triage Assessment: 22:00 Respiratory: Reports shortness of breath Onset: The symptoms/episode began/occurred rr5 gradually, the patient reports symptoms have resolved. 22:00 General: Appears in no apparent distress. comfortable, Behavior is calm, cooperative, rr5 appropriate for age. Historical: - Allergies: 19:01 Cipro; ll1 19:01 Iodine; ll1 19:01 Amoxicillin; ll1 - PMHx: 19:01 Atrial Fib; Hypertension; neuropathy; ll1 - PSHx: 19:01 left elbow; ll1 - Immunization history:: Flu vaccine is not up to date. - Social history:: Smoking status: Patient denies any tobacco usage or history of. Screenin:22 Abuse screen: Denies threats or abuse. Denies injuries from another. Nutritional mg2 screening: No deficits noted. Tuberculosis screening: No symptoms or risk factors identified. Fall Risk IV access (20 points). Assessment: 22:00 General: Appears in no apparent distress. comfortable, Behavior is calm, cooperative. mg2 Pain: Complains of pain in back and right arm. Neuro: Level of Consciousness is awake, alert, obeys commands, Oriented to person, place, time, situation. Cardiovascular: Rhythm is atrial fibrillation. Respiratory: Airway is patent Respiratory effort is even, unlabored, Respiratory pattern is regular, symmetrical, GI: No signs and/or symptoms were reported involving the gastrointestinal system. : No signs and/or symptoms were reported regarding the genitourinary system. EENT: No signs and/or symptoms were reported regarding the EENT system. Derm: Abscess located on right arm is half dollar sized. Musculoskeletal: Circulation, motion, and sensation intact. Capillary refill < 3 seconds. 23:06 Reassessment: Patient appears in no apparent distress at this time. rr5 08/02 00:00 Reassessment: Patient appears in no apparent distress at this time. Patient is alert, rr5 oriented x 3, equal unlabored respirations, skin warm/dry/pink. admitted transfer to medical surgical floor. 07:30 Reassessment:. mg2 Vital Signs: 08/01 19:02 BP 125 / 62; Pulse 92; Resp 19; Temp 98.0; Pulse Ox 97% ; Weight 136.08 kg; Height 5 ll1 ft. 4 in. (162.56 cm); Pain 2/10; 23:00 BP 118 / 70; Pulse 80; Resp 16; Pulse Ox 99% ; rr5 08/02 00:08 BP 120 / 68; Pulse 89; Resp 18; Pulse Ox 97% on R/A; mg2 08/01 19:02 Body Mass Index 51.49 (136.08 kg, 162.56 cm) ll1 ED Course: 08/01 18:43 Patient arrived in ED. rg4 19:01 Arm band placed on. ll1 19:05 Triage completed. ll1 19:55 Greg Hamm MD is Attending Physician. tw4 20:51 CXR XRAY In Process Unspecified. EDMS 21:25 George Conroy RN is Primary Nurse. rr5 21:45 Inserted saline lock: 20 gauge in left hand, using aseptic technique. Blood collected. mg2 22:22 Patient has correct armband on for positive identification. Door closed. Warm blanket mg2 given. 23:03 Amaury Cueto MD is Referral Physician. tw4 23:06 Assist provider with I \T\ D: of an abscess on Set up I\T\D tray. Performed by Greg rr 5 Hansel SANCHEZ Wound packed. iodoform gauze, Dressing with 4X4s, Patient tolerated. 23:11 Jordi Hsu MD is Hospitalizing Provider. tw4 08/02 00:08 Patient admitted, IV remains in place. mg2 Administered Medications: 08/01 22:00 Drug: Lasix 40 mg Route: IVP; Site: left hand; mg2 23:07 Follow up: Response: No adverse reaction rr5 22:54 Drug: Lidocaine (1 %) 5 mg {Note: administered by the provider.} Route: Infiltration; rr5 22:55 Drug: Clindamycin 600 mg Route: IVPB; Infused Over: 30 mins; Site: left hand; rr5 23:30 Follow up: Response: No adverse reaction; IV Status: Completed infusion; IV Intake: [id number] 23:04 Not Given (Patient Refused): Zofran (Ondansetron) 4 mg IVP once; over 2 minutes rr5 23:05 Not Given (Patient Refused): morphine 2 mg IVP once; (PAIN>8) RASS on ADMN: Combtv4, rr5 Very Agttd3, Agttd2, Rstlss1, AlertClm0, Drwsy-1, LtSdtn-2, ModSdtn-3, DpSdtn-4, UnArsble-5 x2 Intake: 23:30 IV: 50ml; Total: 50ml. rr5 Outcome: 23:05 Discharge ordered by . tw4 23:22 Decision to Hospitalize by Provider. 08/02 00:16 Admitted to Med/surg accompanied by tech, via wheelchair, room 223, with chart, Report mg2 called to HARVEY Alan Condition: stable Instructed on the need for admit, Demonstrated understanding of instructions. 00:16 Patient left the ED. mg2 Signatures: Dispatcher [employer] EDMS Kiara Brewster 4 Greg Hamm MD MD tw4 Cesar Cook RN RN mg2 George Conroy RN RN rr5 Owen Casillas RN RN ll1 Corrections: (The following items were deleted from the chart) 07:32 03 22:00 Respiratory: Airway is patent Respiratory effort is even, unlabored, rr5 Respiratory pattern is regular, symmetrical, mg2
[2020-08-01] MEDS ORDERED: CLINDAMYCIN 600MG/D5W 600 MG/50 ML BAG IV ONE (23:11)
--- NOTE | 2020-08-01 23:25 | P.HP ---
Certification for Inpatient Patient admitted to: Observation With expected LOS: <2 Midnights Patient will require the following post-hospital care: None Practitioner: I am a practitioner with admitting privileges, knowledge of patient current condition, hospital course, and medical plan of care. Services: Services provided to patient in accordance with Admission requirements found in Title 42 Section 412.3 of the Code of Federal Regulations Patient History Date of Service: 08/01/20 Reason for admission: SOB and spider bite History of Present Illness: Patient is 75 years of age morbidly obese and in complaining of shortness of breath past 3 days her atrial fibrillation became worse started having more palpitations patient also developed a right forearm spider bite for the past 7 days became worse came here to the emergency room and underwent incision and drainage by the ER physician still complaining of shortness of breath as some lower extremity edema for 3 weeks Allergies ciprofloxacin [From Cipro] Allergy (Verified 10/16/17 17:24) Nausea/Vomiting iodine Allergy (Verified 10/16/17 17:24) Itching/Hives/Rash Home Medications: Amlodipine [Norvasc] 10 mg PO DAILY 10/16/17 Apixaban [Eliquis] 5 mg PO BID 10/16/17 Doxazosin Mesylate 4 mg PO DAILY 10/16/17 Furosemide [Lasix] 40 mg PO BIDL 10/16/17 Gabapentin [Gralise] 300 mg PO TID 10/16/17 Hydrocodone 7.5/APAP 325 [Avery 7.5/325 mg] 1 tab PO TID 10/16/17 Lovastatin 40 mg PO BEDTIME 10/16/17 Potassium Chloride 20 meq PO BIDWM 10/16/17 atenoloL [Tenormin] 50 mg PO TID 10/16/17 - Past Medical/Surgical History Diabetic: No -: CHF -: HTN -: Afib -: diverticulosis - Social History Alcohol use: No CD- Drugs: No Caffeine use: No Review of Systems General: Weakness Respiratory: Shortness of Breath Cardiovascular: Edema Physical Examination - Vital Signs Temperature: 98 F Blood Pressure: 125/62 Pulse: 92 Respirations: 19 Pulse Ox (%): 95 - Physical Exam General: Alert, Mild distress Respiratory: Clear to auscultation bilaterally, Diminished, Crackles/rales Cardiovascular: Irregular heart rate/rhythm Gastrointestinal: Normal bowel sounds, Soft and benign Musculoskeletal: No clubbing, Other (Patient has a bandage on the right forearm) - Studies Laboratory Data (last 24 hrs) 08/01/20 21:35: PT 19.5 H, INR 1.67 08/01/20 21:35: WBC 7.1, Hgb 11.9 L, Hct 36.2, Plt Count 122 L 08/01/20 21:35: Sodium 135 L, Potassium 3.6, BUN 13, Creatinine 1.00, Glucose 132 H, Magnesium 2.0, Total Bilirubin 0.5, AST 17, ALT 11 L, Alkaline Phosphatase 70 Assessment and Plan - Problems (Diagnosis) (1) CHF (congestive heart failure) Onset Date: 10/30/17 Current Visit: No Status: Acute Plan: Patient is 75 years of age admitted with worsening dyspnea atrial fibrillation labs reviewed troponin is mildly elevated BNP is also elevated presume patient's home medications start on Lasix Qualifiers: Heart failure type: unspecified (2) Abscess of right forearm Current Visit: Yes Status: Acute Plan: Status post incision and drainage start on p.o. doxycycline - Advance Directives Does patient have a Living Will: No Does patient have a Durable POA for Healthcare: No
[2020-08-01 23:40] LABS: SARS-COV-2 RT PCR NEGATIVE (NEGATIVE)
[2020-08-02 00:30] VITALS: O2SAT 97
[2020-08-02 03:16] VITALS: BMI 51.5
[2020-08-02 06:11] LABS: Absolute Lymphocytes (CBC) 0.9 K/uL (0.7-4.9); Basophils % 0.6 % (0-1.3); Hematocrit 33.9 % (36.0-45.0); Lymphocytes % 13.7 % (15.3-44.8); MPV 10.2 fL (7.6-11.3); RBC Red Blood Cell Count 4.17 M/uL (3.86-4.86)
[2020-08-02 06:37] LABS: Albumin 3.5 g/dL (3.4-5.0); Bilirubin Total 0.5 mg/dL (0.2-1.0); Potassium 3.4 mmol/L (3.5-5.1); Protein, Total 7.7 g/dL (6.4-8.2)
[2020-08-02] MEDS: POTASSIUM CL SA 10 MEQ TAB PO SCH ×2 (08:00→16:57)
[2020-08-02] MEDS: GABAPENTIN 100 MG CAP PO SCH ×2 (08:31→13:16)
[2020-08-02] MEDS: FUROSEMIDE 40 MG/4 ML VIAL IV SCH ×2 (08:32→16:58)
[2020-08-02] MEDS: HYDROCODONE/APAP 7.5/325 MG TAB PO SCH ×2 (08:32→13:16)
[2020-08-02] MEDS ORDERED: DOXAZOSIN 2 MG TAB ONE (08:43)
[2020-08-02] MEDS ORDERED: AMLODIPINE 10 MG TAB PO SCH (09:00)
[2020-08-02] MEDS: atenoloL 50 MG TAB PO SCH ×2 (09:00→13:17)
[2020-08-02] MEDS ORDERED: APIXABAN 2.5 MG TABLET PO SCH (09:00)
[2020-08-02] MEDS ORDERED: DOXYCYCLINE 100 MG CAP PO SCH (09:00)
[2020-08-02] MEDS ORDERED: POTASSIUM CL SA 10 MEQ TAB PO ONE (09:00)
[2020-08-02] MEDS ORDERED: DOXAZOSIN 4 MG TAB PO SCH (09:00)
--- NOTE | 2020-08-02 10:29 | EKG ---
Test Date: 2020-08-01 Test Time: 21:40:34 Genetics Teacher: MG MEASUREMENT RESULTS: Intervals: Rate: 75 TX: QRSD: 92 QT: 410 QTc: 457 Delta: P: TX: QRS: 129 T: 37 INTERPRETIVE STATEMENTS: Atrial fibrillation with premature ventricular or aberrantly conducted complexes Low voltage QRS Septal infarct, age undetermined Lateral infarct, age undetermined Abnormal ECG Compared to ECG 10/03/2004 08:42:00 Ventricular premature complex(es) now present Low QRS voltage now present Sinus rhythm no longer present Myocardial infarct finding still present Electronically Signed On 08-02-20 10:27:49 [employer]ONEWORK TR[employer]ER by Amaury Cueto
--- NOTE | 2020-08-02 15:20 | ECHO ---
HEIGHT: 5 ft 4 in WEIGHT: 300 lb 0 oz DATE OF STUDY: 08/02/[address]: Jordi Hsu MD 2-DIMENSIONAL: YES M.MODE: YES DOPPLER: YES COLOR FLOW: YES TDS: PORTABLE: DEFINITY: BUBBLE STUDY: DIAGNOSIS: CONGESTIVE HEART FAILURE CARDIAC HISTORY: CATHERIZATION: SURGERY: PROSTHETIC VALVE: PACEMAKER: MEASUREMENTS (cm) DIASTOLIC (NORMALS) SYSTOLIC (NORMALS) IVSd 1.2 (0.6-1.2) LA Diam 5.4 (1.9-4.0) LVEF 55-60% LVIDd 5.2 (3.5-5.7) LVIDs 3.1 (2.0-3.5) %FS 42% LVPWd 1.4 (0.6-1.2) Ao Diam 2.9 (2.0-3.7) 2 DIMENSIONAL ASSESSMENT: RIGHT ATRIUM: NORMAL LEFT ATRIUM: NORMAL RIGHT VENTRICLE: NORMAL LEFT VENTRICLE: NORMAL TRICUSPID VALVE: SEVEVE TRICUSPID REGURGITATION MITRAL VALVE: NORMAL PULMONIC VALVE: NORMAL AORTIC VALVE: NORMAL PERICARDIAL EFFUSION: NONE AORTIC ROOT: NORMAL LEFT VENTRICULAR WALL MOTION: NORMAL DOPPLER/COLOR FLOW: SEE BELOW COMMENTS: NORMAL LEFT VENTRICULAR EJECTION FRACTION 55-60% WITH NORMAL WALL MOTION. SEVERE TRICUSPID REGURGITATION. MODERATE PULMONARY HYPERTENSION WITH RIGHT VENTRICULAR SYSTOLIC PRESSURE OF 55-60mmHg. TECHNOLOGIST: RADHA LUQUE
--- NOTE | 2020-08-02 16:11 | P.DS ---
Admission Date: 08/01/20 Discharge Date: 08/02/20 Disposition: [place] HOME/HOME HEALTH CARE Discharge Condition: FAIR Reason for Admission: SOB and spider bite Brief History of Present Illness: 75-year-old morbidly obese woman with a history of congestive heart failure, chronic atrial fibrillation presented to the emergency department with a complaint of increased lower extremity swelling, shortness of breath and palpitation. Patient also reported an abscess on the right forearm from spider bite 11 days ago. She took Bactrim without improvement. She was in atrial fibrillation but rate controllled. Chest x-ray demonstrated mild interstitial pulmonary edema. I and D was performed on her right forearm abscess by the ED provider and the wound packed. Patient was hospitalized for further management. Hospital Course: Patient placed under observation on the medical floor and treated with IV Lasix for CHF exacerbation. Echocardiogram performed demonstrated normal EF, severe tricuspid regurgitation and moderate pulmonary hypertension. Patient was placed on oral doxycycline for the forearm abscess. The abscess was evaluated by the wound care team. Wound care team recommend daily dressing with Santyl ointment, no packing. Patient requests to go home today. She is discharged with Cefuroxime and doxycycline to treat the abscess. Her home dose Lasix is 40 mg twice a day. Patient is instructed to take 60 mg twice a day for the next 7 days and then continue with her usual dose of 40 mg twice a day. Noted patient is also on metolazone and potassium supplementation. She is discharged with home health for wound care. Vital Signs/Physical Exam: Temp Pulse Resp BP Pulse Ox 97.9 F 71 18 125/57 L 95 08/02/20 12:00 08/02/20 12:08/02/20 12:00 08/02/20 12:08/02/20 12:00 General: Alert, In no apparent distress, Obese Neck: Supple, JVD not distended Respiratory: Clear to auscultation bilaterally, Normal air movement Cardiovascular: Normal S1 S2, Edema (2+ bilateral lower extremity edema.), Irregular heart rate/rhythm Gastrointestinal: Normal bowel sounds, Soft and benign, No tenderness Musculoskeletal: No swelling, No tenderness Integumentary: Other (Raised abscess s/p I&D and packing on the anterior aspect of the right forearm.) Neurological: Normal speech, Normal strength at 5/5 x4 extr Laboratory Data at Discharge: WBC 7.1 K/uL (4.3-10.9) 08/01/20 21:35 Hgb 11.9 g/dL (12.0-15.0) L 08/01/20 21:35 Hct 36.2 % (36.0-45.0) 08/01/20 21:35 Plt Count 122 K/uL (152-406) L 08/01/20 21:35 PT 19.5 SECONDS (9.5-12.5) H 08/01/20 21:35 INR 1.67 08/01/20 21:35 Sodium 135 mmol/L (136-145) L 08/01/20 21:35 Potassium 3.6 mmol/L (3.5-5.1) 08/01/20 21:35 BUN 13 mg/dL (7-18) 08/01/20 21:35 Creatinine 1.00 mg/dL (0.55-1.3) 08/01/20 21:35 Glucose 132 mg/dL (74-106) H 08/01/20 21:35 Magnesium 2.0 mg/dL (1.8-2.4) 08/01/20 21:35 Total Bilirubin 0.5 mg/dL (0.2-1.0) 08/01/20 21:35 AST 17 U/L (15-37) 08/01/20 21:35 ALT 11 U/L (12-78) L 08/01/20 21:35 Alkaline Phosphatase 70 U/L (45-117) 08/01/20 21:35 Troponin I 0.08 ng/mL (0.0-0.045) H 08/02/20 15:15 Home Medications: Amlodipine [Norvasc*] 10 mg PO DAILY 10/16/17 Apixaban [Eliquis *] 5 mg PO BID 10/16/17 Doxazosin Mesylate 4 mg PO DAILY 10/16/17 Hydrocodone 7.5/APAP 325 [[place] 7.5/325 mg*] 1 tab PO TID 10/16/17 Lovastatin 40 mg PO BEDTIME 10/16/17 Potassium Chloride 20 meq PO BIDWM 10/16/17 atenoloL [Tenormin*] 50 mg PO TID 10/16/17 Cefuroxime Axetil [Cefuroxime] 500 mg PO BID #14 tab 08/02/20 Collagenase [Santyl Ointment] 1 appl TOP DAILY #1 tube 08/02/20 Doxycycline Hyclate [Vibramycin] 100 mg PO BID #14 capsule 08/02/20 Furosemide [Lasix] 60 mg PO BID #60 tablet 08/02/20 Gabapentin 100 mg PO TID 08/02/20 metOLazone [Zaroxolyn*] 1 tab PO SEECOM 08/02/20 New Medications: Cefuroxime Axetil [Cefuroxime] 500 mg PO BID #14 tab Furosemide [Lasix] 60 mg PO BID #60 tablet Collagenase [Santyl Ointment] 1 appl TOP DAILY #1 tube Doxycycline Hyclate [Vibramycin] 100 mg PO BID #14 capsule Diet: AHA Activity: Ad juan Followup: David Lemus MD [Primary Care Provider] - 1-2 Weeks
[2020-08-02 17:05] VITALS: BP 114/56; TEMP 97.3
[2020-08-02] MEDS ORDERED: ATORVASTATIN 20 MG TAB PO SCH (21:00)
[2020-08-09] MEDS ORDERED: METOLAZONE 2.5 MG TABLET PO SCH (08:00)
== END 2020-08-02 18:45 | disposition home health service (06) ==
LOC: ER 18:40 → ERHOLD 23:15 → 2ND 08-02 00:04
PROVIDERS: ADMIT Internal Medicine Sleep Medicine; ATTEND Internal Medicine
PROC: 0H9DXZZ Drainage of Right Lower Arm Skin, External Approach (ICD-10-PCS; principal; 2020-08-01)
DX: I11.0 Hypertensive heart disease with heart failure (principal); I50.9 Heart failure, unspecified; E66.01 Morbid (severe) obesity due to excess calories; I48.20 Chronic atrial fibrillation, unspecified; I36.1 Nonrheumatic tricuspid (valve) insufficiency; L02.413 Cutaneous abscess of right upper limb; Z20.822 Contact with and (suspected) exposure to COVID-19; R94.31 Abnormal electrocardiogram [ECG] [EKG]; Z68.43 Body mass index [BMI] 50.0-59.9, adult; Z79.01 Long term (current) use of anticoagulants
CPT/HCPCS: 0240U; 36415; 71045; 80048; 80053; 80076; 82947; 83735; 83880; 84484; 85025; 85610; 93005; 93306; 96365; 96375; 99251; 99285; G0378; J1940; J2270; J2405

== ENCOUNTER 2022-09-09 19:08 | Inpatient (IN) | payer OTHER ==
--- OUTSIDE RECORDS SUMMARY | 2022-09-09 19:11 | XMS REPORT | Continuity of Care Document ---
:1945 Author Organization [facility] t Address [address] [place] [address] Care Team Providers Name Role Phone MICHAEL DORAN Attending Clinician Unavailable [id number] Attending Clinician Unavailable MD AMARI Attending Clinician Unavailable Payers Payer Name Policy Type Policy Number Effective Date Expiration Date S radha MCKAY 7 [id number] 2022 00:00:00 PLUS 42 OA Problems Condition Condition Condition Status Onset Resolution Last Treating Co mments Source Name Details Category Date Date Treatment Clinician Date Hyperlipid Hyperlipid Disease Active K elsey emia emia 1-16 Seybold 00:00: - 00 Externa l Neuropathy Neuropathy Disease Active K elsey 1-16 Seybold 00:00: - 00 Externa l Paroxysmal Paroxysmal Disease Active K elsey A-fib A-fib 1-16 Seybold 00:00: - 00 Externa l Primary Primary Disease Active Angela hypertensi hypertensi 1-16 Se ybold on on 00:00: - 00 Externa l Venous Venous Disease Active Angela insufficie insufficie 1-16 Se ybold ncy of ncy of 00:00: - both lower both lower 00 Ex terna extremitie extremitie l s s CHF CHF Disease Active Angela (congestiv (congestiv 1-16 Se ybold e heart e heart 00:00: - failure) failure) 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 Allergies, Adverse Reactions, Alerts Allergy Allergy Status Severity Reaction(s) Onset Inactive Treating Comm ents Source Name Type Date Date Clinician Augmenti Propensi Active Nausea and Ke lsey n ty to Vomiting -18 Seybold adverse 00:00: - reaction 00 Externa s l Ciproflo Propensi Active Other Angela baez ty to 3-20 reaction( Seybold Hydrochl adverse 00:00: s): - oride reaction 00 Nausea/Vo Exter na s miting l Iodine Propensi Active Other Angela ty to 3-20 reaction( Seybold adverse 00:00: s): - reaction 00 Itching/H Exter na s rasheed/Rash l Social History Social Habit Start Date Stop Date Quantity Comments Source Alcohol intake 2022-08-21 2022-08-21 Lifetime Angela Harkins bold - 00:00:00 00:00:00 non-drinker External (finding) Sex [birth year] Angela schneider - 00:00:00 00:00:00 External Smoking Status Start Date Stop Date Source Never smoked tobacco Angela Braswell old - External Medications Ordered Filled Start Stop Current Ordering Indication Dosage Frequency Signature Comments Components Source Medication Medication Date Date Medication? Clinician (SIG) Name Name Lovastatin Yes 40mg Take 40 mg K elsey 40 MG oral -23 by mouth Seybo ld Tablet 15:04: nightly - 04 Externa l metOLazone Yes 2.5mg Take 2.5 Ke lsey 2.5 MG oral 1-23 mg by Seybold Tablet 15:04: mouth - tablet 04 daily Externa l Doxazosin Yes 4mg Take 4 mg Obey jg Mesylate 4 -23 by mouth Seybo ld MG oral 15:04: nightly - Tablet 04 Externa l Amoxicillin 0 2022- No [id number] 1{tbl} Take 1 Angela -Pot 1-18 08-21 tablet by Seybold Clavulanate 00:00: 00:00 mouth 3 - 500-125 MG 00 :00 times Externa oral Tablet daily l Lovastatin Yes 40mg Take 40 mg K elsey 40 MG oral 1-16 by mouth Seybo ld Tablet 11:13: nightly - 31 Externa l metOLazone Yes 2.5mg Take 2.5 Ke lsey 2.5 MG oral 1-16 mg by Seybold Tablet 11:13: mouth - tablet 31 daily Externa l Doxazosin 2022-0 Yes 4mg Take 4 mg Obey sey Mesylate 4 1-16 by mouth Seybo ld MG oral 11:13: nightly - Tablet 31 Externa l Furosemide 2022-0 Yes 40mg Take 40 mg K elsey 40 MG oral 1-13 by mouth 2 Sey bold Tablet 00:00: times - 00 daily Externa l HYDROcodone 2022-0 Yes TAKE 1 Kaitlin ey -Acetaminop 1-13 TABLET 2 Seyb old hen 7.5-325 00:00: TO 3 TIMES - MG oral 00 A DAY Externa Tablet NEEDED FOR l PAIN Furosemide 2022-0 Yes 40mg Take 40 mg K elsey 40 MG oral 1-13 by mouth 2 Sey bold Tablet 00:00: times - 00 daily Externa l HYDROcodone 2022-0 Yes TAKE 1 Kaitlin ey -Acetaminop 1-13 TABLET 2 Seyb old hen 7.5-325 00:00: TO 3 TIMES - MG oral 00 A DAY Externa Tablet NEEDED FOR l PAIN Amlodipine 2022-0 Yes 10mg Take 10 mg K elsey Besylate 10 1-12 by mouth Seyb old MG oral 00:00: daily - Tablet 00 Externa l Atenolol 50 2022-0 Yes 50mg Take 50 mg Angela MG oral 1-12 by mouth 3 Seybol d Tablet 00:00: times - 00 daily Externa l Eliquis 5 2022-0 Yes 5mg Take 5 mg Obey sey MG oral 1-12 by mouth 2 Seybol d Tablet 00:00: times - 00 daily Externa l Amlodipine 2022-0 Yes 10mg Take 10 mg K elsey Besylate 10 1-12 by mouth Seyb old MG oral 00:00: daily - Tablet 00 Externa l Atenolol 50 2022-0 Yes 50mg Take 50 mg Angela MG oral 1-12 by mouth 3 Seybol d Tablet 00:00: times - 00 daily Externa l Eliquis 5 2022-0 Yes 5mg Take 5 mg Obey sey MG oral 1-12 by mouth 2 Seybol d Tablet 00:00: times - 00 daily Externa l Gabapentin 2021-07 Yes TAKE 1 Kelse y 100 MG oral 2-01 CAPSULE Seybo ld Capsule 00:00: THREE - 00 TIMES A Externa DAY FOR 28 l DAY(S) Gabapentin 2021-07 Yes TAKE 1 Kelse y 100 MG oral 2-01 CAPSULE Seybo ld Capsule 00:00: THREE - 00 TIMES A Externa DAY FOR 28 l DAY(S) Potassium 2021-07 Yes 20meq Take 20 Kaitlin ey Chloride 1-10 mEq by Seybold Marisol ER 20 00:00: mouth - MEQ oral 00 every Externa Tab CR morning l tablet Potassium 2021-07 Yes 20meq Take 20 Kaitlin ey Chloride 1-10 mEq by Seybold Marisol ER 20 00:00: mouth - MEQ oral 00 every Externa Tab CR morning l tablet Vital Signs Vital Name Observation Time Observation Value Comments Source Systolic blood 2022-08-21 20:59:00 123 mm[Hg] Angela Seybold - pressure External Diastolic blood 2022-08-21 20:59:00 68 mm[Hg] Obeyse sears Seybold - pressure External Heart rate 2022-08-21 20:59:00 59 /min Angela Blanco eybold - External Body temperature 2022-08-21 20:59:00 36.56 Pearl Katilin ey Seybold - External Respiratory rate 2022-08-21 20:59:00 14 /min Kailtin ey Seybold - External Body height 2022-08-21 20:59:00 160 cm Angela Blanco eybold - External Body weight 2022-08-21 20:59:00 114.306 kg Angela Blanco eybold - External BMI 2022-08-21 20:59:00 44.64 kg/m2 Angela S eybold - External Systolic blood 2022-08-14 16:59:00 104 mm[Hg] Angela Seybold - pressure External Diastolic blood 2022-08-14 16:59:00 54 mm[Hg] Twyla y Seybold - pressure External Heart rate 2022-08-14 16:59:00 81 /min Angela S eybold - External Body temperature 2022-08-14 16:59:00 36.56 Pearl Kaitlin ey Seybold - External Respiratory rate 2022-08-14 16:59:00 16 /min Kaitlin ey Seybold - External Body height 2022-08-14 16:59:00 160 cm Angela milanboarielle - External Body weight 2022-08-14 16:59:00 114.306 kg Angela ramos - External BMI 2022-08-14 16:59:00 44.64 kg/m2 Angela ramos - External Procedures This patient has no known procedures. Encounters Start End Encounter Admission Attending Care Care Encounter Source Date/Time Date/Time Type Type Clinicians Facility Department ID 2022-09-18 2022-09-18 Outpatient ANGELA DORAN [id number] Angela 14:00:00 14:00:00 MICHAEL Seybol d 2022-08-30 2022-08-30 Outpatient ANGELA DORAN [id number] Angela 00:00:00 00:00:00 MICHAEL Seybol d 2022-08-22 2022-08-22 Outpatient ANGELA JADE [id number] Angela 00:00:00 00:00:00 Seybol d 2022-08-22 2022-08-22 Outpatient ANGELA DORAN [id number] Angela 00:00:00 00:00:00 MICHAEL Seybol d 2022-08-21 2022-08-21 Outpatient LAB90 ANGELA JADE [id number] Angela 16:00:00 16:00:00 Seybol d 2022-08-21 2022-08-21 Outpatient ANGELA DORAN [id number] Angela 15:00:00 15:00:00 MICHAEL Seybol d 2022-08-16 2022-08-16 Outpatient ANGELA DORAN [id number] Angela 00:00:00 00:00:00 MICHAEL Seybol d 2022-08-15 2022-08-15 Outpatient ANGELA JADE [id number] Angela 00:00:00 00:00:00 Seybol d 2022-08-15 2022-08-15 Outpatient ANGELA JADE [id number] Angela 00:00:00 00:00:00 Seybol d 2022-08-15 2022-08-15 Outpatient ANGELA DORAN [id number] Angela 00:00:00 00:00:00 MICHAEL Seybol d 2022-08-15 2022-08-15 Outpatient ANGELA JADE [id number] Angela 00:00:00 00:00:00 Frenchol tyler 2022-08-14 2022-08-14 Outpatient LAB90 ANGELA JADE [id number] Angela 12:20:00 12:20:00 Juan Francisco scott 2022-08-14 2022-08-14 Outpatient ANGELA DORAN [id number] Angela 11:00:00 11:00:00 MICHAEL scott 2022-08-14 2022-08-14 Outpatient MYKELJGONEmilia JADE [id number] Angela 00:00:00 00:00:00 MD Juan Francisco AMAYA Results This patient has no known results.
--- NOTE | 2022-09-09 19:47 | RAD REPORT ---
EXAM DESCRIPTION: CTChest Abd Pelvis Wo Con - 09/09/2022 7:31 pm CLINICAL HISTORY: TRAUMA COMPARISON: Chest Single View dated 08/01/2020; Abdomen Wo Contrast dated 02/04/2021 TECHNIQUE: CT of the chest, abdomen, and pelvis was performed. All CT scans are performed using dose optimization technique as appropriate and may include automated exposure control or mA/KV adjustment according to patient size. FINDINGS: Thorax: Chest Wall: No abnormal mass Lungs: No acute abnormality. Pleura: No effusions or pneumothorax. Flory/Mediastinum: No lymphadenopathy. Aorta/Pulmonary Arteries: Unremarkable Heart: Cardiomegaly. Aortic valve calcifications. Abdomen/Pelvis: Liver: Low-density lesion posterior aspect of right hepatic lobe has water attenuation and is presuma maryse benign. It is unchanged since 2020. Biliary: Cholelithiasis. Extrahepatic biliary duct dilatation measuring 11 millimeters. Stomach: No significant focal abnormality. Duodenum: No significant focal abnormality. Pancreas: No significant abnormality. Spleen: No significant abnormality. Adrenal: No suspicious lesions. Kidney/ureter: No hydronephrosis. No renal calculi. Retroperitoneum: No retroperitoneal adenopathy. Vascular: No aneurysm. Bowel: Normal appendix. No bowel obstruction. Scattered air-fluid levels are present within the colon .. Peritoneum: Small fat containing umbilical hernias. Body wall edema. Bladder: Grossly unremarkable. Reproductive: No adnexal masses. Bones: Right L1, L2, L3 and L4 transverse process fractures left L1, L2, L3 transverse process fractu res. Multilevel degenerative changes are present in the spine. Grade 1 anterolisthesis of L4 on L5. Other: n/a IMPRESSION: Bilateral transverse process fractures in the lumbar spine. No other evidence of signifi cant trauma is identified. Cholelithiasis. Extrahepatic biliary duct dilatation. Correlate with LFTs. MRCP could further evaluat e if clinically indicated.
[2022-09-09] MEDS ORDERED: DIAZEPAM 5 MG TABLET ONE (19:51)
[2022-09-09 21:57] LABS: SARS-CoV-2 Antigen Rapid Res Negative (Negative)
--- NOTE | 2022-09-09 21:59 | EDPHYS ---
Physician Documentation [facility] Name: Le Lawrence Age: 77 yrs Sex: Female : 1945 Arrival Date: 09/09/2022 Time: 19:13 Bed 19 Private MD: ED Physician Faraz Flor HPI: 09/09 19:20 This 77 yrs old Female presents to ER via Unassigned with complaints of fall. snw 19:20 The patient presents with pain that is acute, and contusion. The symptoms are located snw in the mid back area. Onset: The symptoms/episode began/occurred suddenly, just prior to arrival. The pain does not radiate. The problem was sustained slipped and fell backward in bathroom, struck mid back on edge of bathtub, no contact with head, no LOC. Severity of symptoms: At their worst the symptoms were moderate. The patient has not experienced similar symptoms in the past. It is unknown whether or not the patient has recently seen a physician. pt took 2 hydrocodone prior to arrival. Historical: - Allergies: 19:26 Amoxicillin; ha1 19:26 Cipro; ha1 19:26 Iodine; ha1 - Home Meds: 19:26 amlodipine oral [Active]; Atenolol Oral [Active]; Eliquis Oral [Active]; Furosemide ha1 Oral [Active]; gabapentin Oral [Active]; Lovastatin Oral [Active]; - PMHx: 19:26 Atrial Fib; Hypertension; neuropathy; ha1 - Immunization history:: Adult Immunizations not up to date. - Social history:: Smoking status: unknown. ROS: 19:20 Constitutional: Negative for fever, chills, and weight loss, Eyes: Negative for injury, snw pain, redness, and discharge, ENT: Negative for injury, pain, and discharge, Neck: Negative for injury, pain, and swelling, Cardiovascular: Negative for chest pain, palpitations, and edema, Respiratory: Negative for shortness of breath, cough, wheezing, and pleuritic chest pain, Abdomen/GI: Negative for abdominal pain, nausea, vomiting, diarrhea, and constipation, : Negative for injury, bleeding, discharge, and swelling, MS/Extremity: Negative for injury and deformity, Skin: Negative for injury, rash, and discoloration, Neuro: Negative for headache, weakness, numbness, tingling, and seizure, Psych: Negative for depression, anxiety, suicide ideation, homicidal ideation, and hallucinations. 19:20 Back: Positive for injury or acute deformity, decreased range of motion, of the mid back area. Exam: 19:19 Constitutional: This is a well developed, well nourished patient who is awake, alert, snw and in no acute distress. Head/Face: Normocephalic, atraumatic. Eyes: Pupils equal round and reactive to light, extra-ocular motions intact. Lids and lashes normal. Conjunctiva and sclera are non-icteric and not injected. Cornea within normal limits. Periorbital areas with no swelling, redness, or edema. ENT: Nares patent. No nasal discharge, no septal abnormalities noted. Tympanic membranes are normal and external auditory canals are clear. Oropharynx with no redness, swelling, or masses, exudates, or evidence of obstruction, uvula midline. Mucous membranes moist. Neck: Trachea midline, no thyromegaly or masses palpated, and no cervical lymphadenopathy. Supple, full range of motion without nuchal rigidity, or vertebral point tenderness. No Meningismus. Chest/axilla: Normal chest wall appearance and motion. Nontender with no deformity. No lesions are appreciated. Cardiovascular: Regular rate and rhythm with a normal S1 and S2. No gallops, murmurs, or rubs. Normal PMI, no JVD. No pulse deficits. Respiratory: Lungs have equal breath sounds bilaterally, clear to auscultation and percussion. No rales, rhonchi or wheezes noted. No increased work of breathing, no retractions or nasal flaring. Abdomen/GI: Soft, non-tender, with normal bowel sounds. No distension or tympany. No guarding or rebound. No evidence of tenderness throughout. Skin: Warm, dry with normal turgor. Normal color with no rashes, no lesions, and no evidence of cellulitis. MS/ Extremity: Pulses equal, no cyanosis. Neurovascular intact. Full, normal range of motion. Neuro: Awake and alert, GCS 15, oriented to person, place, time, and situation. Cranial nerves II-XII grossly intact. Motor strength 5/5 in all extremities. Sensory grossly intact. Cerebellar exam normal. Normal gait. Psych: Awake, alert, with orientation to person, place and time. Behavior, mood, and affect are within normal limits. 19:19 Back: pain, that is moderate, of the mid back area, ROM is painful, muscle spasm, is appreciated in the mid back area. Vital Signs: 19:13 BP 145 / 65; Pulse 65; Resp 16 S; Pulse Ox 99% on R/A; ha1 19:23 BP 145 / 65; Pulse 65; Resp 16 S; Temp 98.4(O); Pulse Ox 99% on R/A; Weight 115.67 kg; ha1 Height 5 ft. 4 in. (162.56 cm); 20:00 BP 139 / 74; Pulse 64; Resp 20 S; Pulse Ox 99% on R/A; ha1 21:00 BP 129 / 55; Pulse 59; Resp 19 S; Pulse Ox 100% on R/A; ha1 22:00 BP 124 / 58; Pulse 62; Resp 19 S; Pulse Ox 99% on R/A; ha1 23:00 BP 146 / 99; Pulse 71; Resp 19 S; Pulse Ox 98% ; ha1 23:30 BP 140 / 95; Pulse 70; Resp 19 S; Pulse Ox 98% on R/A; ha1 09/10 00:06 BP 138 / 62; Pulse 64; Resp 18 S; Pulse Ox 99% on R/A; ha1 00:30 BP 139 / 70; Pulse 62; Resp 16 S; Pulse Ox 99% on R/A; 1 09/09 19:23 Body Mass Index 43.77 (115.67 kg, 162.56 cm) [facility] MDM: 09/09 19:23 Patient medically screened. snw 21:55 Differential diagnosis: arthritis, Fracture Obesity Osteoarthritis spinal injury. Data snw reviewed: vital signs, nurses notes, radiologic studies, CT scan. Consideration of Admission/Observation Patient was admitted/placed on observation. Management of patient was discussed with the following: Co Teacher: Dr. Lagunas, trauma consult. Management of patient was discussed with the following: Hospitalist: Stewart Moon. Care significantly affected by the following chronic conditions: Hypertension, a. fib. Counseling: I had a detailed discussion with the patient and/or guardian regarding: the historical points, exam findings, and any diagnostic results supporting the discharge/admit diagnosis, radiology results, the need for further work-up and treatment in the hospital. 09/09 21:24 Order name: SARS RAPID; Complete Time: 21:58 snw 09/09 21:54 Order name: CBC with Diff; Complete Time: 00:13 snw 09/09 19:19 Order name: CT Chest Abdomen Pelvis W/O Contrast; Complete Time: 19:57 snw 09/09 21:54 Order name: CMP; Complete Time: 00:13 snw 09/09 21:54 Order name: Lipase; Complete Time: 00:13 snw 09/09 21:54 Order name: SL; Complete Time: 23:57 snw Administered Medications: 19:48 Drug: Valium (diazepam) 10 mg Route: PO; ha1 20:00 Follow up: Response: No adverse reaction; Anxiety decreased; RASS: Alert and Calm (0) ha1 23:40 Drug: morphine 4 mg Route: IVP; Infused Over: 4 mins; Site: right antecubital; ha1 09/10 00:06 Follow up: Response: No adverse reaction; Pain is decreased; RASS: Alert and Calm (0) [facility] 09/09 23:44 Drug: Zofran (Ondansetron) 4 mg Route: IVP; Site: right antecubital; 1 09/10 00:05 Follow up: Response: No adverse reaction [facility] Disposition: 09/09 20:24 I reviewed the patient's care provided by Advanced Practice Provider \T\ agree w/ the ms3 diagnosis \T\ care plan. I personally saw the pt \T\ performed a substantive portion of the visit, incldng all aspects of the (History/Exam/Medical Decision Making). PA/NON CDL DRIVER's history reviewed, patient interviewed, and examined. HPI: 77-year-old female presents via [facility] 45 minutes after falling and striking her back on her bathtub. Patient states she was in her bathroom, lost balance, and fell backwards. Patient denies loss of consciousness. Patient denies neck pain. My personal exam of patient reveals: Patient is alert and orient x4, no apparent distress. Heart rate and rhythm are regular that murmurs rubs or gallops. Lungs clear to auscultation bilaterally. Abdomen is nontender to palpation with bowel sounds present. Patient with bilateral lumbar back pain. I agree with assessment and care plan and confirm the diagnosis (es) above. Disposition Summary: 09/09/22 21:58 Hospitalization Ordered Hospitalization Status: Observation snw Provider: Francisco Salazar Location: Telemetry/MedSurg (observation) snw Condition: Stable snw Problem: new snw Symptoms: are unchanged snw Bed/Room Type: Standard snw Room Assignment: 230(09/10/22 00:21) ll3 Diagnosis - Fall on same level from slipping, tripping and stumbling with subsequent striking snw against object - Fracture of lumbar vertebra - Transverse process fractures snw Forms: - Medication Reconciliation Form snw - SBAR form snw Signatures: Dispatcher [employer] EDMS Loretta Hayes, ERP IMPLEMENTATION CONSULTANT-C ERP IMPLEMENTATION CONSULTANT-Csnw Faraz Flor, DO ms3 Liya Car RN RN ll3 Nakita Willams RN RN ha1 Amina Florez, PASherryC PA-C sb4 Corrections: (The following items were deleted from the chart) 09/10 00:21 09/09 21:58 snw ll3
--- NOTE | 2022-09-09 21:59 | ER ---
Nurse's Notes [facility] Name: Le Lawrence Age: 77 yrs Sex: Female : 1945 Arrival Date: 09/09/2022 Time: 19:13 Bed 19 Private MD: Diagnosis: Fall on same level from slipping, tripping and stumbling with subsequent striking against object;Fracture of lumbar vertebra-Transverse process fractures Presentation: 09/09 19:20 Chief complaint: EMS states: 77 year old female called because she fell while at home. ha1 reports not losing conscious. 19:23 Coronavirus screen: Vaccine status: Patient reports being unvaccinated. Ebola Screen: ha1 No symptoms or risks identified at this time. Initial Sepsis Screen: Does the patient meet any 2 criteria? No. Patient's initial sepsis screen is negative. Does the patient have a suspected source of infection? No. Patient's initial sepsis screen is negative. Risk Assessment: Do you want to hurt yourself or someone else? Patient reports no desire to harm self or others. Onset of symptoms was September 09, 2022. 19:23 Method Of Arrival: EMS: [facility] ha1 19:23 Acuity: CAROL 2 ha1 Triage Assessment: 19:13 General: Appears uncomfortable, Behavior is cooperative. Pain: Complains of pain in mid ha1 back area Pain does not radiate. Pain currently is 9 out of 10 on a pain scale. Quality of pain is described as throbbing, Alleviated by rest. EENT: No deficits noted. No signs and/or symptoms were reported regarding the EENT system. Neuro: Level of Consciousness is awake, alert, obeys commands, Oriented to person, place, time, situation. Cardiovascular: Heart tones S1 S2 present. Respiratory: Airway is patent Respiratory effort is even, unlabored, Respiratory pattern is regular, symmetrical. GI: No signs and/or symptoms were reported involving the gastrointestinal system. Abdomen is non-distended, obese, Bowel sounds present X 4 quads. : No signs and/or symptoms were reported regarding the genitourinary system. Derm: Skin is fragile, Skin is pink, warm \T\ dry. Musculoskeletal: Circulation, motion, and sensation intact. Historical: - Allergies: 19:26 Amoxicillin; ha1 19:26 Cipro; ha1 19:26 Iodine; ha1 - Home Meds: 19:26 amlodipine oral [Active]; Atenolol Oral [Active]; Eliquis Oral [Active]; Furosemide ha1 Oral [Active]; gabapentin Oral [Active]; Lovastatin Oral [Active]; - PMHx: 19:26 Atrial Fib; Hypertension; neuropathy; ha1 - Immunization history:: Adult Immunizations not up to date. - Social history:: Smoking status: unknown. Screenin:13 [facility] ED Fall Risk Assessment (Adult) History of falling in the last 3 months, ha1 including since admission Yes- single mechanical fall (1 pt) Confusion or Disorientation No (0 pts) Intoxicated or Sedated No (0 pts) Impaired Gait Yes (1 pt) Mobility Assist Device Used Yes (1 pt) Altered Elimination No (0 pt) Score/Fall Risk Level 3 or more points = High Risk Oriented to surroundings, Maintained a safe environment, Educated pt \T\ family on fall prevention, incl call for assistance when getting out of bed, Assessed \T\ reinforced patient's understanding of fall precautions, Hourly rounding (assess needs \T\ fall precautionary measures) done. 19:30 Abuse screen: Denies threats or abuse. Denies injuries from another. Nutritional ha1 screening: No deficits noted. Tuberculosis screening: No symptoms or risk factors identified. Assessment: 19:13 Reassessment: see triage assessment. ha1 20:00 Reassessment: Patient and/or family updated on plan of care and expected duration. Pain ha1 level reassessed. Patient is alert, oriented x 3, equal unlabored respirations, skin warm/dry/pink. pain 6/10 Patient states symptoms have improved. 20:30 Reassessment: Patient and/or family updated on plan of care and expected duration. Pain ha1 level reassessed. Patient is alert, oriented x 3, equal unlabored respirations, skin warm/dry/pink. 21:30 Reassessment: Patient and/or family updated on plan of care and expected duration. Pain ha1 level reassessed. Patient is alert, oriented x 3, equal unlabored respirations, skin warm/dry/pink. 22:30 Reassessment: Patient and/or family updated on plan of care and expected duration. Pain ha1 level reassessed. Patient is alert, oriented x 3, equal unlabored respirations, skin warm/dry/pink. 23:30 Reassessment: Patient and/or family updated on plan of care and expected duration. Pain ha1 level reassessed. Patient is alert, oriented x 3, equal unlabored respirations, skin warm/dry/pink. pain 05/08. 02 00:30 Reassessment: Patient and/or family updated on plan of care and expected duration. Pain ha1 level reassessed. Patient is alert, oriented x 3, equal unlabored respirations, skin warm/dry/pink. being admitted. Vital Signs: 09/09 19:13 BP 145 / 65; Pulse 65; Resp 16 S; Pulse Ox 99% on R/A; ha1 19:23 BP 145 / 65; Pulse 65; Resp 16 S; Temp 98.4(O); Pulse Ox 99% on R/A; Weight 115.67 kg; ha1 Height 5 ft. 4 in. (162.56 cm); 20:00 BP 139 / 74; Pulse 64; Resp 20 S; Pulse Ox 99% on R/A; ha1 21:00 BP 129 / 55; Pulse 59; Resp 19 S; Pulse Ox 100% on R/A; ha1 22:00 BP 124 / 58; Pulse 62; Resp 19 S; Pulse Ox 99% on R/A; ha1 23:00 BP 146 / 99; Pulse 71; Resp 19 S; Pulse Ox 98% ; ha1 23:30 BP 140 / 95; Pulse 70; Resp 19 S; Pulse Ox 98% on R/A; ha1 09/10 00:06 BP 138 / 62; Pulse 64; Resp 18 S; Pulse Ox 99% on R/A; ha1 00:30 BP 139 / 70; Pulse 62; Resp 16 S; Pulse Ox 99% on R/A; ha1 09/09 19:23 Body Mass Index 43.77 (115.67 kg, 162.56 cm) 1 ED Course: 09/09 19:13 Patient arrived in ED. mw2 19:13 Patient has correct armband on for positive identification. Placed in gown. Bed in low ha1 position. Call light in reach. Side rails up X 1. 19:16 Loretta Hayes FNP-C is [facility]. snw 19:16 Faraz Flor DO is Attending Physician. snw 19:20 Willams, Nakita, RN is Primary Nurse. ha1 19:26 Triage completed. ha1 19:30 Arm band placed on right wrist. ha1 19:33 CT Chest Abdomen Pelvis W/O Contrast In Process Unspecified. EDMS 21:57 Francisco Salazar is Hospitalizing Provider. snw 22:47 COVID swab sent to lab. jw7 23:57 Lipase Sent. ha1 23:57 CMP Sent. ha1 23:57 CBC with Diff Sent. 1 09/10 00:06 Inserted saline lock: 22 gauge in right antecubital area, using aseptic technique. ll3 Blood collected. 00:41 No provider procedures requiring assistance completed. Patient admitted, IV remains in ha1 place. Administered Medications: 09/09 19:48 Drug: Valium (diazepam) 10 mg Route: PO; [facility] 20:00 Follow up: Response: No adverse reaction; Anxiety decreased; RASS: Alert and Calm (0) [facility] 23:40 Drug: morphine 4 mg Route: IVP; Infused Over: 4 mins; Site: right antecubital; [facility] 09/10 00:06 Follow up: Response: No adverse reaction; Pain is decreased; RASS: Alert and Calm (0) [facility] 09/09 23:44 Drug: Zofran (Ondansetron) 4 mg Route: IVP; Site: right antecubital; [facility] 09/10 00:05 Follow up: Response: No adverse reaction [facility] Medication: 00:42 VIS not applicable for this client. [facility] Outcome: 09/09 21:58 Decision to Hospitalize by Provider. snw 09/10 00:41 Admitted to Med/surg accompanied by nurse, family with patient, via stretcher, room ha1 218, Report called to HARVEY Otoole Condition: stable 00:43 Patient left the ED. [facility] Signatures: Dispatcher [employer] EDMA Loretta Hayes, AGUSTINA DIRECTOR OF COUNTERINTELLIGENCE-CsnTyler Lord mw2 Liya Car, RN RN 3 Gardenia Maurer jw7 Nakita Willams, RN RN [facility] Corrections: (The following items were deleted from the chart) 09/09 23:56 23:40 Zofran (Ondansetron) 4 mg IVP in right antecubital [place] [id number]
[2022-09-09] MEDS ORDERED: MORPHINE 4 MG/ML SYR ONE (22:59)
[2022-09-09] MEDS ORDERED: ONDANSETRON 4 MG/2 ML VIAL ONE (23:00)
[2022-09-10 00:04] LABS: Absolute Lymphocytes (CBC) 1.2 K/uL (0.7-4.9); Hematocrit 34.2 % (36.0-45.0); Lymphocytes % 14.2 % (15.3-44.8); MCV 80.8 fL (80-100); MPV 9.4 fL (7.6-11.3); RBC Red Blood Cell Count 4.23 M/uL (3.86-4.86)
[2022-09-10 00:13] LABS: Albumin 3.4 g/dL (3.4-5.0); Potassium 3.5 mmol/L (3.5-5.1); Protein, Total 6.9 g/dL (6.4-8.2)
[2022-09-10] MEDS ORDERED: ONDANSETRON 4 MG/2 ML VIAL IV PRN (00:25)
--- NOTE | 2022-09-10 00:28 | P.HP ---
Certification for Inpatient Patient admitted to: Observation With expected LOS: <2 Midnights Patient will require the following post-hospital care: None Practitioner: I am a practitioner with admitting privileges, knowledge of patient current condition, hospital course, and medical plan of care. Services: Services provided to patient in accordance with Admission requirements found in Title 42 Section 412.3 of the Code of Federal Regulations Patient History Date of Service: 09/10/22 Reason for admission: Lumbar Fracture History of Present Illness: Patient is a 77 year old female with past medical history of atrial fibrillation on eliquis, chronic diastolic congestive heart failure, hypertension, and morbid obesity who presented to the emergency department via EMS s/p fall. Patient reports she was at home, moved awkwardly, and fell down hitting her lower back on the edge of the bath tub. CT abdomen pelvis showed "Bilateral transverse process fractures in the lumbar spine. No other evidence of significant trauma is identified. Cholelithiasis. Extrahepatic biliary duct dilatation. Correlate with LFTs." LFTs negative. Patient with significant pain. No bowel/bladder incontinence or saddle paresthesias. General surgery was contacted and has agreed to consult. Patient is admitted for further management, pain control. Allergies ciprofloxacin [From Cipro] Allergy (Verified 10/16/17 17:24) Nausea/Vomiting iodine Allergy (Verified 10/16/17 17:24) Itching/Hives/Rash Home medications list reviewed: Yes Home Medications: Amlodipine [Norvasc*] 10 mg PO DAILY 10/16/17 Apixaban [Eliquis *] 5 mg PO BID 10/16/17 Doxazosin Mesylate 4 mg PO DAILY 10/16/17 Hydrocodone 7.5/APAP 325 [[place] 7.5/325 mg*] 1 tab PO TID 10/16/17 Lovastatin 40 mg PO BEDTIME 10/16/17 Potassium Chloride 20 meq PO BIDWM 10/16/17 atenoloL [Tenormin*] 50 mg PO TID 10/16/17 Cefuroxime Axetil [Cefuroxime] 500 mg PO BID #14 tab 08/02/20 Collagenase [Santyl Ointment] 1 appl TOP DAILY #1 tube 08/02/20 Doxycycline Hyclate [Vibramycin] 100 mg PO BID #14 capsule 08/02/20 Furosemide [Lasix] 60 mg PO BID #60 tablet 08/02/20 Gabapentin 100 mg PO TID 08/02/20 metOLazone [Zaroxolyn*] 1 tab PO SEECOM 08/02/20 - Past Medical/Surgical History Diabetic: No -: CHF -: HTN -: Afib -: diverticulosis -: neuropathy -: left elbow sx Psychosocial/ Personal History: Patient is . - Family History Family History: Reviewed- Non-Contributory - Social History Smoking Status: Never smoker Alcohol use: No CD- Drugs: No Caffeine use: No Place of Residence: Home Review of Systems Musculoskeletal: Back Pain Physical Examination - Vital Signs Temperature: 98.4 F Blood Pressure: 146/99 Pulse: 71 Respirations: 19 Pulse Ox (%): 98 - Physical Exam General: Alert, In no apparent distress, Obese HEENT: Atraumatic, EOMI, Sclerae nonicteric Neck: Supple, 2+ carotid pulse no bruit Respiratory: Clear to auscultation bilaterally, Normal air movement Cardiovascular: Regular rate/rhythm, Normal S1 S2 Gastrointestinal: Normal bowel sounds, No tenderness Musculoskeletal: Tenderness, Other (Pain with ROM) Integumentary: No rashes Neurological: Normal speech, Sensation intact, Normal affect - Studies Laboratory Data (last 24 hrs) 09/09/22 23:39: Sodium 141, Potassium 3.5, BUN 15, Creatinine 0.72, Glucose 113 H, Total Bilirubin 1.0, AST 14 L, ALT 11 L, Alkaline Phosphatase 43 L, Lipase 138 09/09/22 23:39: WBC 8.50, Hgb 11.2 L, Hct 34.2 L, Plt Count 108 L Assessment and Plan - Problems (Diagnosis) (1) Fracture of transverse process of lumbar vertebra Current Visit: Yes Status: Acute Qualifiers: Encounter type: initial encounter Fracture type: closed Qualified Code(s): S32.009A - Unspecified fracture of unspecified lumbar vertebra, initial encounter for closed fracture (2) CHF (congestive heart failure) Current Visit: Yes Status: Chronic Qualifiers: Heart failure type: diastolic Heart failure chronicity: chronic Qualified Code(s): I50.32 - Chronic diastolic (congestive) heart failure (3) Hyperlipidemia Current Visit: Yes Status: Chronic Qualifiers: Hyperlipidemia type: unspecified Qualified Code(s): E78.5 - Hyperlipidemia, unspecified (4) Hypertension Current Visit: Yes Status: Chronic Qualifiers: Hypertension type: primary hypertension Qualified Code(s): I10 - Essential (primary) hypertension (5) Atrial fibrillation Current Visit: Yes Status: Chronic Qualifiers: Atrial fibrillation type: paroxysmal Qualified Code(s): I48.0 - Paroxysmal atrial fibrillation - Plan Patient is admitted for pain control of bilateral transverse process fractures in the lumbar spine. General surgery, Dr. Lagunas, consulted. Repeat CBC in the morning. Physical therapy. Pain medications as needed. Continue home eliquis for VTE prophylaxis. Full code. Discharge Plan: Home Plan to discharge in: 24 Hours - Advance Directives Does patient have a Living Will: No Does patient have a Durable POA for Healthcare: No - Code Status/Comfort Care Code Status Assessed: Yes Code Status: Full Code Physician Review: Patient Assessed, Agree with Above Assessment and Plan Critical Care: No Time Spent Managing Pts Care (In Minutes): 50
[2022-09-10 01:26] VITALS: BMI 45.1
[2022-09-10] MEDS: MORPHINE 4 MG/ML SYR IV PRN ×2 (03:15→06:45)
[2022-09-10 03:56] LABS: Urine Bilirubin NEGATIVE (Negative); Urine Blood Negative (Negative); Urine Clarity Clear (Clear); Urine Color Light-Yellow (Yellow); Urine Glucose NEGATIVE (Negative); Urine Protein NEGATIVE (Negative); Urine Urobilinogen Normal (Normal); Urine pH 7.5 (5.0-7.0)
[2022-09-10 06:53] LABS: Absolute Lymphocytes (CBC) 1.1 K/uL (0.7-4.9); Lymphocytes % 16.4 % (15.3-44.8); MCV 80.8 fL (80-100); MPV 9.7 fL (7.6-11.3)
[2022-09-10 07:14] LABS: Magnesium 2.1 mg/dL (1.6-2.4); Phosphorus 3.8 mg/dL (2.5-4.9); Potassium 3.6 mmol/L (3.5-5.1)
[2022-09-10] MEDS ORDERED: HYDROCODONE/APAP 5/325 MG TAB PO PRN (07:44)
[2022-09-10] MEDS ORDERED: PNEUMOCOCCAL VACCINE 0.5 ML IMVAC ONE (08:00)
[2022-09-10] MEDS ORDERED: INFLUENZA VACCINE (for 6+ mo) 0.5 ML DOSE IMVAC ONE (08:00)
[2022-09-10] MEDS ORDERED: POTASSIUM 25 MEQ EFFERV TAB PO ONE (09:00)
[2022-09-10] MEDS ORDERED: CYCLOBENZAPRINE 10 MG TAB PO ONE (09:16)
[2022-09-10] MEDS: HYDROMORPHONE HCL 2 MG/ML inj IV PRN (09:27)
--- NOTE | 2022-09-10 11:54 | CON ---
Date of Consultation: 09/10/2022 Brief History Of Present Illness: The patient is a 77-year-old female with past medical history of a trial fibrillation, on Eliquis, chronic diastolic congestive heart failure, hypertension, morbid obes ity, who presents to the emergency room after a fall from standing. She had been using her walker an d fell backwards in the bathroom and hit her lower back area against the side of the bathtub and expe rienced some pain at that area and the area of her back. She has a history of chronic pain, has been seen by Dr. Herrera for bilateral rotator cuff chronic pain and shoulder pain, maintained on [place] at home. She states she has a high tolerance for pain medication. She has no other complaints. No dizziness. Denies amnesia to event. Denies chest pain, abdominal pain, pelvic pain, extremity pain, or any other issues. Past Medical History: Chronic pain, diastolic CHF, hypertension, atrial fibrillation, diverticulosis , neuropathy. Past Surgical History: Includes left elbow surgery. Social History: She is . She denies smoking, alcohol, or recreational drug use. Review of Systems: Ten-point review of systems other than HPI, denies. Physical Examination: Vital Signs: At the time of my examination, her BMI is 45.2. She has had a blood pressure of 119/68 , pulse 73, respiratory rate 16, temperature 98.4, SpO2 96% on room air. General: She is awake, alert, oriented. Psychiatric: She is appropriate, conversive. HEENT: She is normocephalic. Sclerae anicteric. Mucous membranes moist. Oropharynx clear. Neck: Supple without JVD. Chest: Expansion and excursion. Cardiovascular: Regular rate and rhythm. Pulmonary: Clear to auscultation bilaterally. Abdomen: Soft, nontender, nondistended. No rebound. No guarding. No focal peritonitis. Extremities: No clubbing, cyanosis, or edema. Pelvis: Stable. Back: She has lower lumbar tenderness bilaterally in the area of the supra just superior to her sacr um. Laboratory Data: Reveals a white blood cell count of 6.5, hemoglobin 11.1, hematocrit 34.0, platelet count is 103. Her sodium 139, potassium 3.6, chloride 104, carbon dioxide is 32, BUN 14, creatinine 0.67, glucose was 123, calcium 8.9, phosphorus 3.9, magnesium 2.1. Her LFTs at admission were total bilirubin was 1.0, AST 14, ALT 11, alkaline phosphatase 43. Her lipase was 139. UA was essentially negative. She had a CT traumagram chest, abdomen, and pelvis on 09/09/2022, officially read as righ t L1, L2, L3, L4 transverse process fractures, left L1-3 transverse process fractures, multilevel deg enerative changes are present in the spine, grade 1 anterior listhesis of L4 and L5. She has extrahe patic biliary ductal dilatation measuring 11 mm and cholelithiasis. She has a low-density lesion pos terior aspect of the right hepatic lobe unchanged since 2020, small fat containing umbilical hernias, bowel wall edema. Assessment And Plan: This is a 77-year-old female, who presents after a fall from standing with sanchez sverse process fractures. 1.IV fluid hydration. 2.Pain management. 3.Continue medical management per primary medical team. 4.Physical Therapy consulted. 5.Recommend transition to p.o. pain pills and coordination with her pain specialist tomorrow. 6.I have discussed the patient needs to have a workup for her biliary ductal dilatation as an outpat ient to follow up with gastrologist regarding this. She has explained this. She displayed understan ding of above stated plan and agrees to proceed as indicated. FERMIN/TRICIA Voice ID: [id number] Report ID: [id number]
--- NOTE | 2022-09-10 13:41 | P.PN ---
Date of Service: 09/10/22 Patient seen and examined. She states that she has been experiencing severe back pain and spasms overnight, not able to sleep due to the pain. CT spine result reviewed and noted bilateral transverse process fractures of L1, L2 and L3. Left transverse process of L4. Plan: Patient with uncontrolled pain on current IV morphine. She is complaining of itching to morphine. We will switch IV opioids to IV Dilaudid. P.o. [place] as needed. Flexeril for muscle relaxation. PT evaluation. Activity as tolerated. Hold antihypertensives as patient is currently normotensive. Resume other home medications.
[2022-09-10] MEDS: GABAPENTIN 100 MG CAP PO SCH ×2 (14:22→21:02)
[2022-09-10] MEDS: HYDROCODONE/APAP 10/325 TAB PO PRN ×2 (17:08→23:51)
[2022-09-10] MEDS: CYCLOBENZAPRINE 10 MG TAB PO PRN (18:22)
[2022-09-10] MEDS: FUROSEMIDE 20 MG TABLET PO SCH (21:00)
[2022-09-10] MEDS: ATORVASTATIN 20 MG TAB PO SCH (21:02)
[2022-09-10] MEDS: APIXABAN 5 MG TABLET PO SCH (21:02)
[2022-09-11] MEDS: CYCLOBENZAPRINE 10 MG TAB PO PRN ×2 (05:32→21:30)
[2022-09-11] MEDS: FUROSEMIDE 20 MG TABLET PO SCH ×2 (09:00→21:00)
[2022-09-11] MEDS: APIXABAN 5 MG TABLET PO SCH ×2 (09:48→21:19)
[2022-09-11] MEDS: POTASSIUM CL SA 10 MEQ TAB PO SCH (09:49)
[2022-09-11] MEDS: HYDROCODONE/APAP 10/325 TAB PO PRN (09:49)
[2022-09-11] MEDS: GABAPENTIN 100 MG CAP PO SCH ×3 (09:50→21:19)
--- NOTE | 2022-09-11 15:06 | RAD REPORT ---
EXAM DESCRIPTION: RAD - Ankle Right 3 View - 09/11/2022 2:19 pm CLINICAL HISTORY: Ankle pain. Swelling. Status post fall 2 days ago COMPARISON: None. TECHNIQUE: Three views of the right ankle were obtained. FINDINGS: No fracture, dislocation or periosteal reaction. Slight deformity and spurring at the base of the med ial malleolus, could reflect sequelae of remote sprain or fracture. Mild overlying soft tissue swelli ng. Moderate calcaneal spur. Scattered mild degenerative changes along the midfoot and forefoot. No j oint effusion seen. No joint space narrowing. IMPRESSION: No evidence of acute osseous abnormality. Mild soft tissue swelling overlying the medial malleolus, could relate to acute on top of chronic sprain. Please correlate clinically.
--- NOTE | 2022-09-11 15:14 | P.PN ---
Subjective Date of Service: 09/11/22 Chief Complaint: Lumbar Fracture Patient with intermittent lower back spasm limiting her mobility in bed. She also has intermittent severe back pain up to 8/10 in intensity. She also reports pain and has right ankle, worse with movement. No recorded fever. Physical Examination - Vital Signs Temperature: 98.9 F Blood Pressure: 106/46 Pulse: 86 Respirations: 14 Pulse Ox (%): 95 - Physical Exam General: Alert, Moderate distress (Due to pain) HEENT: Mucous membr. moist/pink, Sclerae nonicteric Neck: Supple, JVD not distended Respiratory: Clear to auscultation bilaterally, Normal air movement Cardiovascular: No edema, Regular rate/rhythm, Normal S1 S2 Gastrointestinal: Normal bowel sounds, Soft and benign, Non-distended Musculoskeletal: No warmth, Swelling (Mild right ankle swelling, tender to palpation.), Other (Lower back tenderness-bilateral paraspinal area.) Integumentary: No rashes, No cyanosis Neurological: Normal speech, Normal strength at 5/5 x4 extr, Cranial nerves 3-12 intact - Studies Laboratory Data (last 24 hrs) 09/11/22 03:31: Sodium 140, Potassium 4.0, BUN 14, Creatinine 0.65, Glucose 115 H Assessment And Plan - Current Problems (Diagnosis) (1) Chronic diastolic heart failure Current Visit: Yes Status: Acute (2) Fracture of transverse process of lumbar vertebra Current Visit: Yes Status: Acute Qualifiers: Encounter type: initial encounter Fracture type: closed Qualified Code(s): S32.009A - Unspecified fracture of unspecified lumbar vertebra, initial encounter for closed fracture (3) Atrial fibrillation Current Visit: Yes Status: Chronic Qualifiers: Atrial fibrillation type: paroxysmal Qualified Code(s): I48.0 - Paroxysmal atrial fibrillation (4) Hypertension Current Visit: Yes Status: Chronic Qualifiers: Hypertension type: primary hypertension Qualified Code(s): I10 - Essential (primary) hypertension (5) Chronic pain syndrome Current Visit: Yes Status: Acute - Plan Patient with uncontrolled pain secondary to multiple transverse process fractures. Patient need aggressive pain management. Continue IV hydromorphone, oral [place] Flexeril 3 times daily for muscle spasms. Noted patient at baseline takes 3 to 4 tablets of [place] 10/325 per day. Right ankle x-ray shows no fracture. It did report soft tissue swelling indicative of acute sprain. Continue PT. Activity as tolerated Diet as tolerated Resume other home medications for CHF and atrial fibrillation. Antihypertensives on hold due to soft blood pressure readings. Patient is on 3 L of oxygen by nasal cannula to maintain an oxygen saturation. I recommend incentive spirometer to curb Hypoxia secondary to atelectasis.
--- NOTE | 2022-09-11 18:09 | P.PN ---
Date of Service: 09/12/22 Subjective: slight improvement still requiring IV dilaudid for breakthrough falling asleep during our discussioon secodnay to pain medication ROS: A complete review of systems was performed and is negative except as mentioned above Physical Exam: Gen: alert, awake, NAD at rest HEENT: normal conjunctiva, sclera anicteric CV: regular rate & rhythm, no edema Pulm: non-labored respirations, clear bilaterally Abd: soft, non-tender, non-distended MSK: Mild right ankle swelling, tender to palpation, Lower back tenderness- bilateral paraspinal area. Neuro: normal speech, normal affect, moves all extremities vitals reviewed Problem List acute fracture of transverse process of lumbar vertebrae, s/p fall afib, paroxysmal; on chronic eliquis HTN Chronic diastolic heart failure Chronic pain syndrome Patient with uncontrolled pain secondary to multiple transverse process fractures slight improvement still requiring IV dilaudid Patient needs aggressive pain management. Continue IV hydromorphone, oral [place] Flexeril 3 times daily for muscle spasms. Noted patient at baseline takes 3 to 4 tablets of [place] 10/325 per day. Right ankle x-ray shows no fracture. +soft tissue swelling indicative of acute sprain. Continue PT. Activity as tolerated Diet as tolerated Resume other home medications for CHF and atrial fibrillation. O2 as needed VTE: home eliquis Code: full Dispo: SNF vs rehab
[2022-09-11] MEDS: ATORVASTATIN 20 MG TAB PO SCH (21:19)
[2022-09-12] MEDS: HYDROCODONE/APAP 10/325 TAB PO PRN ×3 (00:06→20:55)
[2022-09-12 07:27] LABS: Phosphorus 2.7 mg/dL (2.5-4.9)
[2022-09-12 07:29] LABS: Magnesium 2.1 mg/dL (1.6-2.4)
[2022-09-12] MEDS: POTASSIUM CL SA 10 MEQ TAB PO SCH (08:50)
[2022-09-12] MEDS: APIXABAN 5 MG TABLET PO SCH ×2 (08:50→20:54)
[2022-09-12] MEDS: FUROSEMIDE 20 MG TABLET PO SCH ×2 (08:50→20:53)
[2022-09-12] MEDS: GABAPENTIN 100 MG CAP PO SCH ×3 (08:50→20:54)
[2022-09-12] MEDS: HYDROMORPHONE HCL 2 MG/ML inj IV PRN ×2 (11:39→22:30)
[2022-09-12] MEDS: ATORVASTATIN 20 MG TAB PO SCH (20:54)
[2022-09-13] MEDS: HYDROMORPHONE HCL 2 MG/ML inj IV PRN (04:02)
[2022-09-13] MEDS ORDERED: HYDROMORPHONE HCL 1 MG/ML INJ IV PRN (07:08)
--- NOTE | 2022-09-13 07:09 | P.PN ---
Date of Service: 09/13/22 Subjective: slight improvement with some swelling and redness of b/l fingers reports was using closed fist to get up in bed low grade temp overnight ROS: A complete review of systems was performed and is negative except as mentioned above Physical Exam: Gen: alert, awake, NAD at rest HEENT: normal conjunctiva, sclera anicteric CV: regular rate & rhythm, no edema Pulm: non-labored respirations, clear bilaterally Abd: soft, non-tender, non-distended MSK: Mild right ankle swelling, significantly tender to palpation, Lower back tenderness-bilateral paraspinal area. Skin: b/l fingers - PIP joints with redness, swelling, mild tenderness Neuro: normal speech, normal affect, moves all extremities vitals reviewed Problem List acute fracture of transverse process of lumbar vertebrae, s/p fall afib, paroxysmal; on chronic eliquis HTN Chronic diastolic heart failure Chronic pain syndrome Patient with uncontrolled pain secondary to multiple transverse process fractures slight improvement still requiring IV dilaudid decrease dose and frequency working towards PO meds start lidocaine patch as well 09/13 Patient needs aggressive pain management. Continue oral [place] Flexeril 3 times daily for muscle spasms. Noted patient at baseline takes 3 to 4 tablets of [place] 10/325 per day. Right ankle x-ray shows no fracture. +soft tissue swelling indicative of acute sprain. tender. prohibiting patient from ambulating Continue PT. Activity as tolerated Diet as tolerated Resumed chronic home meds O2 as needed VTE: home eliquis Code: full Dispo: SNF vs rehab
[2022-09-13] MEDS: FUROSEMIDE 20 MG TABLET PO SCH ×2 (09:00→20:51)
[2022-09-13] MEDS: POTASSIUM CL SA 10 MEQ TAB PO SCH ×2 (09:21→09:22)
[2022-09-13] MEDS: HYDROCODONE/APAP 10/325 TAB PO PRN (09:21)
[2022-09-13] MEDS: APIXABAN 5 MG TABLET PO SCH ×2 (09:22→20:44)
[2022-09-13] MEDS: GABAPENTIN 100 MG CAP PO SCH ×3 (09:22→20:44)
[2022-09-13] MEDS: CYCLOBENZAPRINE 10 MG TAB PO PRN (13:13)
[2022-09-13] MEDS: LIDOCAINE 4% PATCH TOP SCH (15:32)
[2022-09-13] MEDS: ATORVASTATIN 20 MG TAB PO SCH (20:44)
[2022-09-14] MEDS: HYDROCODONE/APAP 10/325 TAB PO PRN ×3 (05:18→21:48)
--- NOTE | 2022-09-14 06:51 | P.PN ---
Date of Service: 09/14/22 Subjective: improving slowly no new/worsening symptoms ROS: A complete review of systems was performed and is negative except as mentioned above Physical Exam: Gen: alert, awake, NAD at rest HEENT: normal conjunctiva, sclera anicteric CV: regular rate & rhythm, no edema Pulm: non-labored respirations, clear bilaterally Abd: soft, non-tender, non-distended MSK: Mild right ankle swelling, significantly tender to palpation, Lower back tenderness-bilateral paraspinal area. Skin: b/l fingers - PIP joints with mnild redness,mild swelling Neuro: normal speech, normal affect, moves all extremities vitals reviewed Problem List acute fracture of transverse process of lumbar vertebrae, s/p fall afib, paroxysmal; on chronic eliquis HTN Chronic diastolic heart failure Chronic pain syndrome NIKI, suspected Patient admitted with uncontrolled pain secondary to multiple transverse process fractures slight improvement daily pain control decrease dilaudid start lidocaine patch as well 09/13 Continue oral [place] Flexeril 3 times daily for muscle spasms. Noted patient at baseline takes 3 to 4 tablets of [place] 10/325 per day. Right ankle x-ray shows no fracture. +soft tissue swelling indicative of acute sprain. tender. prohibiting patient from ambulating more Continue PT Activity as tolerated Diet as tolerated Resumed chronic home meds O2 as needed - reprots previously told in other hospital she likely has NIKI, never had formal sleep study; recommended sleep study as outpatient VTE: home eliquis Code: full Dispo: [facility]
[2022-09-14] MEDS: LIDOCAINE 4% PATCH TOP SCH ×2 (09:00→21:05)
[2022-09-14] MEDS: FUROSEMIDE 20 MG TABLET PO SCH ×2 (09:15→21:08)
[2022-09-14] MEDS: APIXABAN 5 MG TABLET PO SCH ×2 (09:16→21:04)
[2022-09-14] MEDS: GABAPENTIN 100 MG CAP PO SCH ×4 (09:16→21:05)
[2022-09-14] MEDS: ATORVASTATIN 20 MG TAB PO SCH (21:04)
[2022-09-15] MEDS: CYCLOBENZAPRINE 10 MG TAB PO PRN (04:48)
[2022-09-15] MEDS: MAGNESIUM HYDROXIDE 8% 30 ML PO PRN (06:57)
[2022-09-15] MEDS: DOCUSATE NA 100 MG CAP PO SCH ×2 (08:28→20:52)
[2022-09-15] MEDS: POTASSIUM CL SA 10 MEQ TAB PO SCH (08:28)
[2022-09-15] MEDS: HYDROCODONE/APAP 10/325 TAB PO PRN ×3 (08:28→23:19)
[2022-09-15] MEDS: GABAPENTIN 100 MG CAP PO SCH ×3 (08:28→20:50)
[2022-09-15] MEDS: FUROSEMIDE 20 MG TABLET PO SCH ×2 (08:29→20:50)
[2022-09-15] MEDS: APIXABAN 5 MG TABLET PO SCH ×2 (08:29→20:52)
--- NOTE | 2022-09-15 16:55 | P.PN ---
Date of Service: 09/15/22 Subjective: improving slowly no BM in several days, starting to feel rectal pressure passing flatus up until this morning, feels like stool is "Right there" but not coming out worked more with PT yesterday ROS: A complete review of systems was performed and is negative except as mentioned above Physical Exam: Gen: alert, awake, NAD at rest HEENT: normal conjunctiva, sclera anicteric CV: regular rate & rhythm, no edema Pulm: non-labored respirations, clear bilaterally Abd: soft, non-tender, non-distended MSK: Mild right ankle swelling, significantly tender to palpation, Lower back tenderness-bilateral paraspinal area. Skin: b/l fingers - PIP joints with mild redness, mild swelling Neuro: normal speech, normal affect, moves all extremities vitals reviewed Problem List acute fracture of transverse process of lumbar vertebrae, s/p fall afib, paroxysmal; on chronic eliquis HTN Chronic diastolic heart failure Chronic pain syndrome NIKI, suspected Patient admitted with uncontrolled pain secondary to multiple transverse process fractures slight improvement daily pain control decrease dilaudid further start lidocaine patch as well 09/13 Continue oral [place] Flexeril 3 times daily for muscle spasms. Noted patient at baseline takes 3 to 4 tablets of [place] 10/325 per day. Right ankle x-ray shows no fracture. +soft tissue swelling indicative of acute sprain. tender. prohibiting patient from ambulating more Continue PT Activity as tolerated Diet as tolerated Resumed chronic home meds O2 as needed - reports previously told in other hospital she likely has NIKI, never had formal sleep study; recommended sleep study as outpatient colace enema VTE: home eliquis Code: full Dispo: SNF
[2022-09-15] MEDS: ATORVASTATIN 20 MG TAB PO SCH (20:50)
[2022-09-15] MEDS: atenoloL 50 MG TAB PO SCH (20:51)
[2022-09-15] MEDS: LIDOCAINE 4% PATCH TOP SCH (20:52)
[2022-09-16] MEDS: HYDROMORPHONE HCL 0.5 MG/0.5 ML INJ IV PRN (01:40)
[2022-09-16 05:46] LABS: Hematocrit 26.5 % (36.0-45.0); MCV 79.8 fL (80-100); RBC Red Blood Cell Count 3.31 M/uL (3.86-4.86)
[2022-09-16 05:58] LABS: Potassium 3.6 mmol/L (3.5-5.1)
[2022-09-16] MEDS: GABAPENTIN 100 MG CAP PO SCH ×3 (09:40→20:45)
[2022-09-16] MEDS: APIXABAN 5 MG TABLET PO SCH ×2 (09:40→20:46)
[2022-09-16] MEDS: DOCUSATE NA 100 MG CAP PO SCH ×2 (09:40→20:45)
[2022-09-16] MEDS: POTASSIUM CL SA 10 MEQ TAB PO SCH (09:40)
[2022-09-16] MEDS: FUROSEMIDE 20 MG TABLET PO SCH ×2 (09:41→20:46)
[2022-09-16] MEDS: atenoloL 50 MG TAB PO SCH ×3 (09:41→20:44)
[2022-09-16] MEDS: HYDROCODONE/APAP 10/325 TAB PO PRN (10:54)
[2022-09-16] MEDS: MAGNESIUM HYDROXIDE 8% 30 ML PO PRN (14:07)
--- NOTE | 2022-09-16 16:41 | P.PN ---
Date of Service: 09/16/22 Subjective: improving ambulated more slightly increased redness of fingers, and R ankle tender had BM yesterday ROS: A complete review of systems was performed and is negative except as mentioned above Physical Exam: Gen: alert, awake, NAD at rest CV: regular rate & rhythm, no edema Pulm: non-labored respirations, clear bilaterally Abd: soft, non-tender, non-distended MSK: Mild right ankle swelling, tender to palpation, Lower back tenderness- bilateral paraspinal area. Skin: b/l fingers - PIP joints with mild redness, mild swelling - mostly on 2nd digits bilaterally Neuro: normal speech, normal affect, moves all extremities vitals reviewed Problem List acute fracture of transverse process of lumbar vertebrae, s/p fall afib, paroxysmal; on chronic eliquis HTN Chronic diastolic heart failure Chronic pain syndrome NIKI, suspected acute on chronic gout Patient admitted with uncontrolled pain secondary to multiple transverse process fractures slight improvement daily pain control decrease dilaudid further start lidocaine patch as well 09/13 Continue oral [place] Flexeril Noted patient at baseline takes 3 to 4 tablets of [place] 10/325 per day. Right ankle x-ray shows no fracture. +soft tissue swelling indicative of acute sprain. tender. prohibiting patient from ambulating more suspect acute gout flare, start prednisone 20mg daily; monitor closely with recent fracture, h/o CHF Continue PT Activity as tolerated Diet as tolerated Resumed chronic home meds O2 as needed - reports previously told in other hospital she likely has NIKI, never had formal sleep study; recommended sleep study as outpatient colace enema PRN hgb decreased, no evidence of bleed; suspect iron deficiency, some component from stress/fractures/blood draws recheck in am VTE: home eliquis Code: full Dispo: SNF once approved
[2022-09-16] MEDS: predniSONE 20 MG TAB PO SCH (16:57)
[2022-09-16] MEDS: LIDOCAINE 4% PATCH TOP SCH (20:44)
[2022-09-16] MEDS: ATORVASTATIN 20 MG TAB PO SCH (20:45)
[2022-09-17] MEDS: HYDROMORPHONE HCL 0.5 MG/0.5 ML INJ IV PRN (03:03)
[2022-09-17 03:19] LABS: Hematocrit 27.5 % (36.0-45.0); MCV 79.5 fL (80-100); MPV 8.9 fL (7.6-11.3); RBC Red Blood Cell Count 3.45 M/uL (3.86-4.86)
[2022-09-17 03:45] LABS: Potassium 3.8 mmol/L (3.5-5.1)
[2022-09-17] MEDS: predniSONE 20 MG TAB PO SCH (08:39)
[2022-09-17] MEDS: DOCUSATE NA 100 MG CAP PO SCH ×2 (08:39→20:11)
[2022-09-17] MEDS: APIXABAN 5 MG TABLET PO SCH ×2 (08:39→20:12)
[2022-09-17] MEDS: atenoloL 50 MG TAB PO SCH ×3 (08:40→20:13)
[2022-09-17] MEDS: FUROSEMIDE 20 MG TABLET PO SCH ×2 (08:40→20:12)
[2022-09-17] MEDS: GABAPENTIN 100 MG CAP PO SCH ×3 (08:40→20:13)
[2022-09-17] MEDS: POTASSIUM CL SA 10 MEQ TAB PO SCH (08:40)
[2022-09-17] MEDS ORDERED: POTASSIUM CL SA 10 MEQ TAB PO ONE (09:00)
[2022-09-17] MEDS: MAGNESIUM HYDROXIDE 8% 30 ML PO PRN (09:35)
--- NOTE | 2022-09-17 12:09 | P.PN ---
Date of Service: 09/17/22 Subjective: constipated again multiple joints aching; back aches still as well but overall seems to be improving ROS: A complete review of systems was performed and is negative except as mentioned above Physical Exam: Gen: alert, awake, NAD at rest CV: regular rate & rhythm, no edema Pulm: non-labored respirations, clear bilaterally Abd: soft, non-tender, non-distended MSK: Mild right ankle swelling, tender to palpation, Lower back tenderness-bilateral paraspinal area. Skin: b/l fingers - PIP joints: minimal erythema and swelling. back with hematoma and ecchymosis on right lwoer thorax Neuro: normal speech, normal affect, moves all extremities vitals reviewed Problem List acute fracture of transverse process of lumbar vertebrae, s/p fall afib, paroxysmal; on chronic eliquis hematoma, posterior thorax constiptation HTN Chronic diastolic heart failure Chronic pain syndrome NIKI, suspected acute on chronic gout Patient admitted with uncontrolled pain secondary to multiple transverse process fractures slight improvement daily pain control decrease dilaudid further start lidocaine patch as well 09/13 Continue oral [place] Flexeril Noted patient at baseline takes 3 to 4 tablets of [place] 10/325 per day. Right ankle x-ray shows no fracture. +soft tissue swelling indicative of acute sprain. tender. prohibiting patient from ambulating more suspect acute gout flare, start prednisone 20mg daily; monitor closely with recent fracture, h/o CHF Continue PT Activity as tolerated' Diet as tolerated Resumed chronic home meds O2 as needed - reports previously told in other hospital she likely has NIKI, never had formal sleep study; recommended sleep study as outpatient colace enema PRN hgb decreased, suspect secoondary to fall / hematoma, opn background of iron deficiency, some component from stress/fractures/blood draws recheck in am stable VTE: home eliquis Code: full Dispo: SNF once approved
[2022-09-17] MEDS: HYDROCODONE/APAP 10/325 TAB PO PRN ×2 (15:46→20:14)
[2022-09-17] MEDS: LIDOCAINE 4% PATCH TOP SCH (20:11)
[2022-09-17] MEDS: ATORVASTATIN 20 MG TAB PO SCH (20:13)
[2022-09-17] MEDS: CYCLOBENZAPRINE 10 MG TAB PO PRN (20:14)
[2022-09-18] MEDS: HYDROCODONE/APAP 10/325 TAB PO PRN ×3 (04:26→16:03)
[2022-09-18 06:18] LABS: Magnesium 2.3 mg/dL (1.6-2.4); Phosphorus 3.4 mg/dL (2.5-4.9); Potassium 3.2 mmol/L (3.5-5.1)
[2022-09-18] MEDS: POTASSIUM CL SA 10 MEQ TAB PO SCH (08:02)
[2022-09-18] MEDS: FUROSEMIDE 20 MG TABLET PO SCH (08:33)
[2022-09-18] MEDS: predniSONE 20 MG TAB PO SCH (08:33)
[2022-09-18] MEDS: GABAPENTIN 100 MG CAP PO SCH ×2 (08:33→16:03)
[2022-09-18] MEDS: DOCUSATE NA 100 MG CAP PO SCH (08:34)
[2022-09-18] MEDS: APIXABAN 5 MG TABLET PO SCH (08:34)
[2022-09-18] MEDS ORDERED: POTASSIUM CL SA 10 MEQ TAB PO ONE (09:00)
[2022-09-18] MEDS: atenoloL 50 MG TAB PO SCH ×2 (09:00→16:04)
[2022-09-18 09:08] VITALS: TEMP 97.2
[2022-09-18 09:45] VITALS: O2SAT 94
[2022-09-18 13:06] LABS: SARS-CoV-2 Antigen Rapid Res Negative (Negative)
--- NOTE | 2022-09-18 14:39 | RAD REPORT ---
EXAM DESCRIPTION: RAD - Knee Right 3 View - 09/18/2022 2:31 pm CLINICAL HISTORY: knee pain COMPARISON: No comparisons FINDINGS: Moderate tricompartmental osteoarthritis is present. Generalized osteopenia. No fracture o r joint effusion. If symptomology persists, consider MRI follow-up.
[2022-09-18 16:04] VITALS: BP 116/69
--- NOTE | 2022-09-25 17:59 | P.DS ---
Admission Date: 09/11/22 Discharge Date: 09/18/22 Disposition: TRANSFER TO SNF - REHAB Reason for Admission: Lumbar Fracture Consultations: General Surgery / Trauma - Dr. Lagunas Brief History of Present Illness: 77 year old female with past medical history of atrial fibrillation on eliquis, chronic diastolic congestive heart failure, hypertension, and morbid obesity who presented to the emergency department via EMS s/p fall. Patient reports she was at home, moved awkwardly, and fell down hitting her lower back on the edge of the bath tub. CT abdomen pelvis showed "Bilateral transverse process fractures in the lumbar spine. No other evidence of significant trauma is identified. Cholelithiasis. Extrahepatic biliary duct dilatation. Correlate with LFTs." LFTs negative. Patient with significant pain. No bowel/bladder incontinence or saddle paresthesias. General surgery was contacted and has agreed to consult. Patient is admitted for further management, pain control. Hospital Course: Problem List acute fracture of transverse process of lumbar vertebrae, s/p fall afib, paroxysmal; on chronic eliquis hematoma, posterior thorax; s/p fall acute on chronic anemia, blood loss and iron deficiency constiptation HTN Chronic diastolic heart failure Chronic pain syndrome NIKI, suspected acute on chronic gout Patient admitted with uncontrolled pain secondary to multiple transverse process fractures. She had gradual improvement with pain medication. She worked with PT and improvement each day. Physically limited secondary to ankle sprain, and as that got better, she developed a mild gout attack. Pain control with opioids, gabapentin, and muscle relaxers seemed to help. Prednisone was added for her gout attack which lead to further improvement of her pain. Throughout hospitalization she had constipation, which improved after enemas. She was started on daily stool softeners and miralax, to tirate as needed for soft bowel movement daily Right knee and ankle x-rays were negative for any acute fractures. Hemoglobin was noted to slightly downtrend. This was secondary to patient's fall, leading to hematoma on her back, and has iron deficiency anemia. Hemoglobin stabilized. She was too unsteady to safely be discharged home. She and her family were agreeable to SNF for ongoing rehab and monitoring of her pain. Vital Signs/Physical Exam: Temp Pulse Resp BP Pulse Ox 97.2 F 77 18 116/69 92 09/18/22 12:00 09/18/22 16:04 09/18/22 16:03 09/18/22 16:04 09/18/22 16:03 Physical Exam: Gen: alert, awake, NAD at rest CV: regular rate & rhythm, no edema Pulm: non-labored respirations, clear bilaterally Abd: soft, non-tender, non-distended MSK: Mild right ankle swelling, tender to palpation, Lower back tenderness- bilateral paraspinal area. Skin: b/l fingers - PIP joints: minimal erythema and swelling. back with hematoma and ecchymosis on right lower thorax Neuro: normal speech, normal affect, moves all extremities Laboratory Data at Discharge: WBC 8.60 K/uL (4.3-10.9) 09/17/22 02:55 Hgb 9.1 g/dL (12.0-15.0) L 09/17/22 02:55 Hct 27.5 % (36.0-45.0) L 09/17/22 02:55 Plt Count 223 K/uL (152-406) 09/17/22 02:55 Sodium 137 mmol/L (136-145) 09/18/22 05:23 Potassium 3.2 mmol/L (3.5-5.1) L D 09/18/22 05:23 BUN 18 mg/dL (7-18) 09/18/22 05:23 Creatinine 0.67 mg/dL (0.55-1.02) 09/18/22 05:23 Glucose 130 mg/dL (74-106) H 09/18/22 05:23 Phosphorus 3.4 mg/dL (2.5-4.9) 09/18/22 05:23 Magnesium 2.3 mg/dL (1.6-2.4) 09/18/22 05:23 Total Bilirubin 1.0 mg/dL (0.2-1.0) 09/09/22 23:39 AST 14 U/L (15-37) L 09/09/22 23:39 ALT 11 U/L (13-56) L 09/09/22 23:39 Alkaline Phosphatase 43 U/L (45-117) L 09/09/22 23:39 Lipase 138 U/L (73-393) 09/09/22 23:39 Home Medications: Apixaban [Eliquis *] 5 mg PO BID 10/16/17 Doxazosin Mesylate 4 mg PO BEDTIME 10/16/17 Lovastatin 40 mg PO BEDTIME 10/16/17 Potassium Chloride 20 meq PO DAILY 10/16/17 atenoloL [Tenormin*] 50 mg PO TID 10/16/17 Gabapentin 100 mg PO TID 08/02/20 Furosemide [Lasix] 40 mg PO BID 09/10/22 Cyclobenzaprine HCl [Flexeril] 10 mg PO TID PRN 09/18/22 Docusate [Colace Cap*] 100 mg PO BID cap 09/18/22 Hydrocodone 10/APAP 325 [[place] 10/325*] 1 tab PO TID 09/18/22 predniSONE [Prednisone*] 20 mg PO DAILY tab 09/18/22 Physician Discharge Instructions: Problem List acute fracture of transverse process of lumbar vertebrae, s/p fall afib, paroxysmal; on chronic eliquis hematoma, posterior thorax; s/p fall acute on chronic anemia, blood loss and iron deficiency constiptation HTN Chronic diastolic heart failure Chronic pain syndrome NIKI, suspected acute on chronic gout Patient admitted with uncontrolled pain secondary to multiple transverse process fractures. She had gradual improvement with pain medication. She worked with PT and improvement each day. Physically limited secondary to ankle sprain, and as that got better, she developed a mild gout attack. Pain control with opioids, gabapentin, and muscle relaxers seemed to help. Prednisone was added for her gout attack which lead to further improvement of her pain. Throughout hospitalization she had constipation, which improved after enemas. She was started on daily stool softeners and miralax, to tirate as needed for soft bowel movement daily Right knee and ankle x-rays were negative for any acute fractures. Hemoglobin was noted to slightly downtrend. This was secondary to patient's fall, leading to hematoma on her back, and has iron deficiency anemia. Hemoglobin stabilized. She was too unsteady to safely be discharged home. She and her family were agreeable to SNF for ongoing rehab and monitoring of her pain. Followup: NONE,NONE [Primary Care Provider] - Time spent managing pt's care (in minutes): 45
== END 2022-09-18 19:45 | DRG 552 ==
LOC: ER 19:08 → 2ND 09-10 00:23 → OBSVTOIN 09-11 13:30
PROVIDERS: ADMIT Internal Medicine; ATTEND Hospitalist
DX: S32.019A Unspecified fracture of first lumbar vertebra, initial encounter for closed fracture (principal); I50.32 Chronic diastolic (congestive) heart failure; Z68.41 Body mass index [BMI] 40.0-44.9, adult; E66.01 Morbid (severe) obesity due to excess calories; I11.0 Hypertensive heart disease with heart failure; I48.0 Paroxysmal atrial fibrillation; M10.9 Gout, unspecified; K59.00 Constipation, unspecified; E78.5 Hyperlipidemia, unspecified; G89.4 Chronic pain syndrome; S32.029A Unspecified fracture of second lumbar vertebra, initial encounter for closed fracture; S32.039A Unspecified fracture of third lumbar vertebra, initial encounter for closed fracture; S32.049A Unspecified fracture of fourth lumbar vertebra, initial encounter for closed fracture; S20.229A Contusion of unspecified back wall of thorax, initial encounter; Z88.1 Allergy status to other antibiotic agents; Z63.5 Disruption of family by separation and divorce; Z79.01 Long term (current) use of anticoagulants; Z91.048 Other nonmedicinal substance allergy status; Z79.899 Other long term (current) drug therapy; Z20.822 Contact with and (suspected) exposure to COVID-19; W01.10XA Fall on same level from slipping, tripping and stumbling with subsequent striking against unspecified object, initial encounter; Y92.091 Bathroom in other non-institutional residence as the place of occurrence of the external cause
CPT/HCPCS: 36415; 71250; 74176; 80048; 80053; 81003; 83036; 83540; 83690; 83735; 84100; 84466; 85025; 85027; 85044; 87811; 94010; 96374; 96375; 97110; 97116; 97161; 97530; 99285; G0378; J1170; J2001; J2405; J7512

== ENCOUNTER 2023-03-07 17:33 | Inpatient (IN) | payer OTHER ==
--- OUTSIDE RECORDS SUMMARY | 2023-03-07 17:40 | XMS REPORT | Continuity of Care Document ---
:1945 Author Organization [facility] t Address [address] [place] [address] [place] [id number] Care Team Providers Name Role Phone NIALL HARRIS Attending Clinician Unavailable [id number] Attending Clinician Unavailable MICHAEL DORAN Attending Clinician Unavailable THIEN COYNE Attending Clinician Unavailable NIC SANTANA Attending Clinician Unavailable GENEVIEVE CHOWDHURY Attending Clinician Unavailable CHELSEA CASTRO Attending Clinician Unavailable EMILI NEVAREZ Attending Clinician Unavailable MD AMARI Attending Clinician Unavailable Payers Payer Name Policy Type Policy Number Effective Date Expiration Date S radha MCKAY 7 [id number] 2022 00:00:00 PLUS 42 OA Problems Condition Condition Condition Status Onset Resolution Last Treating Co mments Source Name Details Category Date Date Treatment Clinician Date Chronic Chronic Disease Active Angela diastolic diastolic 01-05 Seyb old CHF CHF 00:00: - (congestiv (congestiv 00 Ex terna e heart e heart l failure) failure) Chronic Chronic Disease Active Angela anticoagul anticoagul - Se ybold ation ation 00:00: - 00 Externa l 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 Externa hyperlipid hyperlipid l emia 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 00 Installer Technician a sites sites l without without tophus tophus 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 Seyb 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 00:00: - pain pain 00 Externa without without l sciatica sciatica Chronic Chronic Disease Active Angela pain of pain of 6 Seybold both both 00:00: - shoulders shoulders 00 Exte rna l 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 00:00: - 00 Externa l Obesity Obesity Disease Active Angela due to due to 6 Seybold excess excess 00:00: - calories calories 00 Installer Technician a l Hypercoagu Hypercoagu Disease Active K feroz rondonle lable 3-07 Seybold state due state due 00:00: - to atrial to atrial 00 Exte rna fibrillati fibrillati l on on Hypercoagu Hypercoagu Disease Active K feroz lable lable 307 Seybold state due state due 00:00: - to atrial to atrial 00 Exte rna fibrillati fibrillati l on on Hyperlipid Hyperlipid Disease Active K feroz emia emia 1-16 Seybold 00:00: - 00 [...] Ex terna extremitie extremitie l s s Mixed Mixed Disease Active Angela hyperlipid hyperlipid 1-16 Se ybold emia emia 00:00: - 00 Externa l CHF CHF Disease Active Angela (congestiv (congestiv 1-16 Se ybold e heart e heart 00:00: - failure) failure) 00 Installer Technician a l Allergies, Adverse Reactions, Alerts Allergy Allergy Status Severity Reaction(s) Onset Inactive Treating Comm ents Source Name Type Date Date Clinician Ciprofib Propensi Active Angela rate ty to 2-20 Seybold adverse 00:00: - reaction 00 Externa s l Iodine I Propensi Active Angela 131 ty to 2-20 Seybold Tositumo adverse 00:00: - mab reaction 00 Externa s l Augmenti Propensi Active Nausea and Ke lsey n ty to Vomiting 1-18 Seybold adverse 00:00: - reaction 00 Externa s l Ciproflo Propensi Active Other Angela xacin ty to 3-20 reaction( Seybold Hydrochl adverse 00:00: s): - oride reaction 00 Nausea/Vo Exter na s miting l Iodine Propensi Active Other Angela ty to 3-20 reaction( Seybold adverse 00:00: s): - reaction 00 Itching/H Exter na s rasheed/Rash l Social History Social Habit Start Date Stop Date Quantity Comments Source Gender identity Angela schneider - External Sexual orientation Angela Hewitt - External Alcohol intake 2023-02-21 2023-02-21 Lifetime Angela Harkins bold - 00:00:00 00:00:00 non-drinker External (finding) History of Social 2022-08-14 2022-08-14 Angela Braswellold - function 00:00:00 00:00:00 External Sex [birth year] Angela schneider - 00:00:00 00:00:00 External Smoking Status Start Date Stop Date Source Never smoked tobacco Angela Braswell old - External Medications Ordered Filled Start Stop Current Ordering Indication Dosage Frequency Signature Comments Components Source Medication Medication Date Date Medication? Clinician (SIG) Name Name Famotidine Yes [id number] 20mg Take 1 Angela (Pepcid) 20 02-21 tablet (20 Se ybold MG oral 00:00: mg total) - tablet 00 by mouth 2 Externa times l daily Blood Yes [id number] Check BS K deandreorion Glucose 02-21 3 twice Seybold Monitoring 00:00: daily - Suppl 00 Externa (Blood l Glucose Monitor System) w/Device does not apply Kit Glucose Yes [id number] 1{each} 1 each by Angela Blood in 02-21 3 other Seybold vitro Strip 00:00: route - 00 daily Externa Check BS l twice daily Lancets 33G Yes [id number] 1U 1 unit by Angela does not 02-21 3 does not Seybold apply Misc 00:00: apply - 00 route 2 Externa times l daily Check BS twice daily Lovastatin 2022-0 Yes 40mg Take 1 Kelse y 40 MG oral 6-29 tablet (40 Sey bold Tablet 11:16: mg total) - 15 by mouth Externa nightly l Ferrous 2022-0 Yes 325mg Take 1 Angela Sulfate 325 6-29 tablet Seybol d (65 Fe) MG 11:16: (325 mg - oral Tablet 15 total) by Ext aaron mouth l daily (with breakfast) HYDROcodone 0 Yes [id number] 1{tbl} Q.[id number] Take 1 Angela -Acetaminop 6-29 [id number] tablet by Ahead hen 10 11:16: 3D mouth 3 - MG oral 15 times Externa Tablet daily as l needed for pain Lovastatin 0 Yes 40mg Take 1 Kelse y 40 MG oral 6-29 tablet (40 Sey bold Tablet 11:16: mg total) - 15 by mouth Externa nightly l Ferrous 0 Yes 325mg Take 1 Angela Sulfate 325 6-29 tablet Seybol d (65 Fe) MG 11:16: (325 mg - oral Tablet 15 total) by Ext aaron mouth l daily (with breakfast) HYDROcodone 2022-0 Yes [id number] 1{tbl} Q.[id number] Take 1 Angela -Acetaminop 6-29 [id number] tablet by Ahead hen 10 11:16: 3D mouth 3 - MG oral 15 times Externa Tablet daily as l needed for pain Allopurinol 0 Yes [id number] 300mg Take 1 Nagela 300 MG oral 6-29 tablet Seybol d Tablet 00:00: (300 mg - 00 total) by Externa mouth l daily Allopurinol 2022-0 Yes [id number] 300mg Take 1 Angela 300 MG oral 6-28 tablet Seybol d Tablet 00:00: (300 mg - 00 total) by Externa mouth l daily HYDROcodone 2022-0 Yes [id number] 1{tbl} Q.[id number] Take 1 Angela -Acetaminop 01-05 [id number] tablet by Seybold hen 10325 16:49: 3D mouth 3 - MG oral 29 times Externa Tablet daily as l needed for pain Polyethylen 2022-0 2022- No 17g Take 17 g Angela e Glycol 01-05 by mouth 2 Seyb old 3350 16:47: 00:00 times - (MiraLax) 59 :00 daily Externa 17 g oral l Pack Magnesium 2022-0 2022- No 30mL QD Take 30 mL K elsey Hydroxide 01-05 by mouth Seybo ld (MILK OF 16:47: 00:00 daily as - MAGNESIA 06 :00 needed Externa CONCENTRATE l OR) metOLazone Yes [id number] 2.5mg QD Take 1 Angela 2.5 MG oral 01-05 tablet Seybol d Tablet 00:00: (2.5 mg - tablet 00 total) by Externa mouth l daily as needed (edema) Potassium Yes [id number] 20meq Take 1 Angela Chloride 01-05 tablet (20 Seybo ld Marisol ER 20 00:00: mEq total) - MEQ oral 00 by mouth Externa Tab CR daily When l tablet taking Lasix Polyethylen Yes [id number] 17g QD Take 17 g Angela e Glycol 01-05 by mouth Seybold 3350 00:00: daily as - (MiraLax) 00 needed Externa 17 g oral (constipat l Pack ion) Gabapentin 0 Yes [id number] 100mg Take 1 Angela 100 MG oral 01-05 capsule Seybo ld Capsule 00:00: (100 mg - 00 total) by Externa mouth 2 l times daily Apixaban 2022-0 Yes [id number] 5mg Take 1 Ke lsey (Eliquis) 5 - tablet (5 Sey bold MG oral 00:00: mg total) - Tablet 00 by mouth 2 Externa times l daily metOLazone 2022-0 Yes [id number] 2.5mg QD Take 1 Angela 2.5 MG oral - tablet Seybol d Tablet 00:00: (2.5 mg - tablet 00 total) by Externa mouth l daily as needed (edema) Potassium 2022-0 Yes [id number] 20meq Take 1 Angela Chloride 6-09 tablet (20 Seybo ld Marisol ER 20 00:00: mEq total) - MEQ oral 00 by mouth Externa Tab CR daily When l tablet taking Lasix Polyethylen 2022-0 Yes [id number] 17g QD Take 17 g Angela e Glycol 6-09 by mouth Seybold 3350 00:00: daily as - (MiraLax) 00 needed Externa 17 g oral (constipat l Pack ion) Gabapentin 2022-0 Yes [id number] 100mg Take 1 Angela 100 MG oral 6-09 capsule Seybo ld Capsule 00:00: (100 mg - 00 total) by Externa mouth 2 l times daily Apixaban 2022-0 Yes [id number] 5mg Take 1 Ke lsey (Eliquis) 5 6-09 tablet (5 Sey bold MG oral 00:00: mg total) - Tablet 00 by mouth 2 Externa times l daily metOLazone 2022-0 Yes [id number] 2.5mg QD Take 1 Angela 2.5 MG oral 6-09 tablet Seybol d Tablet 00:00: (2.5 mg - tablet 00 total) by Externa mouth l daily as needed (edema) Potassium 2022-0 Yes [id number] 20meq Take 1 Angela Chloride 6-09 tablet (20 Seybo ld Marisol ER 20 00:00: mEq total) - MEQ oral 00 by mouth Externa Tab CR daily When l tablet taking Lasix Polyethylen 2022-0 Yes [id number] 17g QD Take 17 g Angela e Glycol 6-09 by mouth Seybold 3350 00:00: daily as - (MiraLax) 00 needed Externa 17 g oral (constipat l Pack ion) Gabapentin 2022-0 Yes [id number] 100mg Take 1 Angela 100 MG oral 6-09 capsule Seybo ld Capsule 00:00: (100 mg - 00 total) by Externa mouth 2 l times daily Apixaban 2022-0 Yes [id number] 5mg Take 1 Ke lsey (Eliquis) 5 6-09 tablet (5 Sey bold MG oral 00:00: mg total) - Tablet 00 by mouth 2 Externa times l daily Lovastatin 2023-0 Yes 40mg Take 1 Kelse y 40 MG oral 6-02 tablet (40 Sey bold Tablet 16:54: mg total) - 12 by mouth Externa nightly l Polyethylen 0 Yes 17g Take 17 g K elsey e Glycol 6-02 by mouth 2 Seybo ld 3350 16:54: times - (MiraLax) 12 daily Externa 17 g oral l Pack Magnesium 0 Yes 30mL QD Take 30 mL Ke lsey Hydroxide 6-02 by mouth Seybol d (MILK OF 16:54: daily as - MAGNESIA 12 needed Externa CONCENTRATE l OR) Ferrous 2022-0 Yes 325mg Take 1 Angela Sulfate 325 6-02 tablet Seybol d (65 Fe) MG 16:54: (325 mg - oral Tablet 12 total) by Ext aaron mouth l daily (with breakfast) Lovastatin 0 Yes 40mg Take 1 Kelse y 40 MG oral 6-02 tablet (40 Sey bold Tablet 16:54: mg total) - 12 by mouth Externa nightly l Ferrous 2022-0 Yes 325mg Take 1 Angela Sulfate 325 6-02 tablet Seybol d (65 Fe) MG 16:54: (325 mg - oral Tablet 12 total) by Ext aaron mouth l daily (with breakfast) metOLazone 2022-0 Yes [id number] 2.5mg Take 1 Angela 2.5 MG oral 6-02 tablet Seybol d Tablet 00:00: (2.5 mg - tablet 00 total) by Externa mouth l daily Spironolact 2022-0 Yes [id number] 25mg Take 1 Angela one 25 MG 6-02 tablet (25 Seyb old oral Tablet 00:00: mg total) - 00 by mouth Externa daily l Spironolact 2022-0 Yes [id number] 25mg Take 1 Angela one 25 MG 6-02 tablet (25 Seyb old oral Tablet 00:00: mg total) - 00 by mouth Externa daily l Spironolact 2022-0 Yes [id number] 25mg Take 1 Angela one 25 MG 6-02 tablet (25 Seyb old oral Tablet 00:00: mg total) - 00 by mouth Externa daily l Spironolact 2022-0 Yes [id number] 25mg Take 1 Angela one 25 MG 6-02 tablet (25 Seyb old oral Tablet 00:00: mg total) - 00 by mouth Externa daily l metOLazone 3-0 3- No [id number] 2.5mg Take 1 Angela 2.5 MG oral 6-09 04- tablet Seybo ld Tablet 00:00: 00:00 (2.5 mg - tablet 00 :00 total) by Externa mouth l daily metOLazone 3-0 3- No [id number] 2.5mg Take 1 Angela 2.5 MG oral 5-22 01- tablet Seybo ld Tablet 00:00: 00:00 (2.5 mg - tablet 00 :00 total) by Externa mouth l daily Doxazosin 3-0 3- No 4mg Take 4 mg Ke lsey Mesylate 4 3-08 03-08 by mouth Seyb old MG oral 12:34: 00:00 nightly - Tablet 01 :00 Externa l Lovastatin 2022-0 Yes 40mg Take 40 mg K elsey 40 MG oral 3-08 by mouth Seybo ld Tablet 11:48: nightly - 33 Externa l metOLazone 2022-0 Yes 2.5mg Take 2.5 Ke lsey 2.5 MG oral 3-08 mg by Seybold Tablet 11:48: mouth - tablet 33 daily Externa l Spironolact 2022-0 Yes [id number] 25mg Take 1 Angela one 25 MG 3-08 tablet (25 Seyb old oral Tablet 00:00: mg total) - 00 by mouth Externa daily l Allopurinol 2022-0 Yes [id number] 100mg Take 1 Angela 100 MG oral 3-08 tablet Seybol d Tablet 00:00: (100 mg - 00 total) by Externa mouth l daily Doxazosin 3-0 Yes [id number] 4mg Take 1 Ke lsey Mesylate 4 3-08 tablet (4 Seyb old MG oral 00:00: mg total) - Tablet 00 by mouth Externa nightly l Potassium 3-0 Yes [id number] 20meq Take 1 K elsey Chloride 3-08 tablet (20 Seybo ld Marisol ER 20 00:00: mEq total) - MEQ oral 00 by mouth Externa Tab CR every l tablet morning Allopurinol 2022-0 Yes [id number] 100mg Take 1 Angela 100 MG oral 3-08 tablet Seybol d Tablet 00:00: (100 mg - 00 total) by Externa mouth l daily Doxazosin 2023-0 Yes [id number] 4mg Take 1 Ke lsey Mesylate 4 3-08 tablet (4 Seyb old MG oral 00:00: mg total) - Tablet 00 by mouth Externa nightly l Potassium 2023-0 Yes [id number] 20meq Take 1 K elsey Chloride 3-08 tablet (20 Seybo ld Marisol ER 20 00:00: mEq total) - MEQ oral 00 by mouth Externa Tab CR every l tablet morning Allopurinol 3-0 Yes [id number] 100mg Take 1 Angela 100 MG oral 3-08 tablet Seybol d Tablet 00:00: (100 mg - 00 total) by Externa mouth l daily Doxazosin 2023-0 Yes [id number] 4mg Take 1 Ke lsey Mesylate 4 3-08 tablet (4 Seyb old MG oral 00:00: mg total) - Tablet 00 by mouth Externa nightly l Doxazosin 2023-0 Yes [id number] 4mg Take 1 Ke lsey Mesylate 4 3-08 tablet (4 Seyb old MG oral 00:00: mg total) - Tablet 00 by mouth Externa nightly l Doxazosin 2023-0 Yes [id number] 4mg Take 1 Ke lsey Mesylate 4 3-08 tablet (4 Seyb old MG oral 00:00: mg total) - Tablet 00 by mouth Externa nightly l Potassium 2023-0 2023- No [id number] 20meq Take 1 Angela Chloride 3-08 06-09 tablet (20 Seyb old Marisol ER 20 00:00: 00:00 mEq total) - MEQ oral 00 :00 by mouth Externa Tab CR every l tablet morning Spironolact 2023-0 2023- No [id number] 25mg Take 1 Angela one 25 MG 3-08 06-02 tablet (25 Sey bold oral Tablet 00:00: 00:00 mg total) - 00 :00 by mouth Externa daily l Spironolact 2023-0 2023- No Kelse y one 25 MG 3-05 03-08 Seybold oral Tablet 00:00: 00:00 - 00 :00 Externa l Cyclobenzap 3-0 Yes 10mg 10 mg Kelse y rine HCl 5 2-20 Seybold MG oral 00:00: - Tablet 00 Externa l Docusate 2022-0 Yes 100mg 100 mg Angela Sodium 100 2-20 Seybold MG oral 00:00: - Capsule 00 Externa l predniSONE 2022-0 Yes 20mg 20 mg Angela (DELTASONE) 2-20 Seybold 20 MG oral 00:00: - tablet 00 Externa l Cyclobenzap 2022-0 Yes 10mg Q.25D Take 2 Obey sey rine HCl 5 2-20 tablets Seybol d MG oral 00:00: (10 mg - Tablet 00 total) by Externa mouth l every 6 hours as needed (pain) Docusate 2022-0 Yes 100mg Take 1 Angela Sodium 100 2-20 capsule Seybol d MG oral 00:00: (100 mg - Capsule 00 total) by Externa mouth 2 l times daily predniSONE 2022-0 Yes 20mg 1 tablet Obey sey (DELTASONE) 2-20 (20 mg Seybol d 20 MG oral 00:00: total) - tablet 00 Externa l Docusate 2022-0 Yes 100mg Take 1 Angela Sodium 100 2-20 capsule Seybol d MG oral 00:00: (100 mg - Capsule 00 total) by Externa mouth 2 l times daily Docusate 2022-0 Yes 100mg Take 1 Angela Sodium 100 2-20 capsule Seybol d MG oral 00:00: (100 mg - Capsule 00 total) by Externa mouth 2 l times daily Docusate 3-0 Yes 100mg Take 1 Angela Sodium 100 2-20 capsule Seybol d MG oral 00:00: (100 mg - Capsule 00 total) by Externa mouth 2 l times daily Cyclobenzap 3-0 2023- No 10mg Q.25D Take 2 Ke lsey rine HCl 5 2-20 06-09 tablets Seybo ld MG oral 00:00: 00:00 (10 mg - Tablet 00 :00 total) by Externa mouth l every 6 hours as needed (pain) predniSONE 2022-0 2023- No 20mg 1 tablet Ke lsey (DELTASONE) 2-20 06-09 (20 mg Seybo ld 20 MG oral 00:00: 00:00 total) - tablet 00 :00 Externa l Lovastatin 2022-0 Yes 40mg Take 40 mg K elsey 40 MG oral 1-23 by mouth Seybo ld Tablet 15:04: nightly - 04 Externa l metOLazone 2022-0 Yes 2.5mg Take 2.5 Ke lsey 2.5 MG oral 1-23 mg by Seybold Tablet 15:04: mouth - tablet 04 daily Externa l Doxazosin 2022-0 Yes 4mg Take 4 mg Obey sey Mesylate 4 -23 by mouth Seybo ld MG oral 15:04: nightly - Tablet 04 Externa l Amoxicillin 2022-0 3- No [id number] 1{tbl} Take 1 Angela -Pot 1-18 08-21 tablet by Seybold Clavulanate 00:00: 00:00 mouth 3 - 500-125 MG 00 :00 times Externa oral Tablet daily l Lovastatin 0 Yes 40mg Take 40 mg K elsey 40 MG oral 1-16 by mouth Seybo ld Tablet 11:13: nightly - 31 Externa l metOLazone 2022-0 Yes 2.5mg Take 2.5 Ke lsey 2.5 [...] l PAIN Furosemide 2022-0 Yes 40mg Take 1 Kelse y 40 MG oral 1-13 tablet (40 Sey bold Tablet 00:00: mg total) - 00 by mouth 2 Externa times l daily HYDROcodone 2022-0 Yes TAKE 1 Kaitlin ey -Acetaminop 1-13 TABLET 2 Seyb old hen 7.5-325 00:00: TO 3 TIMES - MG oral 00 A DAY Externa Tablet NEEDED FOR l PAIN Furosemide 2022-0 Yes 40mg Take 1 Kelse y 40 MG oral 1-13 tablet (40 Sey bold Tablet 00:00: mg total) - 00 by mouth 2 Externa times l daily Furosemide 2022-0 Yes 40mg Take 1 Kelse y 40 MG oral 1-13 tablet (40 Sey bold Tablet 00:00: mg total) - 00 by mouth 2 Externa times l daily Furosemide 2022-0 Yes 40mg Take 40 mg K elsey 40 MG oral 1-13 by mouth 2 Sey bold Tablet 00:00: times - 00 daily Externa l Furosemide 2022-0 Yes 40mg Take 1 Kelse y 40 MG oral 1-13 tablet (40 Sey bold Tablet 00:00: mg total) - 00 by mouth 2 Externa times l daily HYDROcodone 2022-0 Yes TAKE 1 Kaitlin ey [...] DAY Externa Tablet NEEDED FOR l PAIN HYDROcodone 3-0 2022- No TAKE 1 Obey sey -Acetaminop 1-13 06-09 TABLET 2 Sey bold hen 7.5-325 00:00: 00:00 TO 3 TIMES - MG oral 00 :00 A DAY Externa Tablet NEEDED FOR l PAIN Eliquis 5 2022-0 Yes 5mg Take 5 mg Obey sey MG oral 1-12 by mouth 2 Seybol d Tablet 00:00: times - 00 daily Externa l Amlodipine 2022-0 Yes 10mg Take 1 Kelse y Besylate 10 1-12 tablet (10 Se ybold MG oral 00:00: mg total) - Tablet 00 by mouth Externa daily l Atenolol 50 2022-0 Yes 50mg Take 1 Kaitlin ey MG oral 1-12 tablet (50 Seybol d Tablet 00:00: mg total) - 00 by mouth 3 Externa times l daily Eliquis 5 2022-0 Yes 2.5mg Take 0.5 Obey sey MG oral 1-12 tablets Seybold Tablet 00:00: (2.5 mg - 00 total) by Externa mouth 2 l times daily Amlodipine 2022-0 Yes 10mg Take 1 Kelse y Besylate 10 1-12 tablet (10 Se ybold MG oral 00:00: mg total) - Tablet 00 by mouth Externa daily l Atenolol 50 2022-0 Yes 50mg Take 1 Kaitlin ey MG oral 1-12 tablet (50 Seybol d Tablet 00:00: mg total) - 00 by mouth 3 Externa times l daily Amlodipine 2022-0 Yes 10mg Take 1 Kelse y Besylate 10 1-12 tablet (10 Se ybold MG oral 00:00: mg total) - Tablet 00 by mouth Externa daily l Atenolol 50 2022-0 Yes 50mg Take 1 Kaitlin ey MG oral 1-12 tablet (50 Seybol d Tablet 00:00: mg total) - 00 by mouth 3 Externa times l daily Amlodipine 2022-0 Yes 10mg Take 10 mg K elsey Besylate 10 1-12 by mouth Seyb old MG oral 00:00: daily - Tablet 00 Externa l Atenolol 50 2022-0 Yes 50mg Take 50 mg Angela MG oral 1-12 by mouth 3 Seybol d Tablet 00:00: times - 00 daily Externa l Amlodipine 2022-0 Yes 10mg Take 1 Kelse y Besylate 10 1-12 tablet (10 Se ybold MG oral 00:00: mg total) - Tablet 00 by mouth Externa daily l Atenolol 50 2022-0 Yes 50mg Take 1 Kaitlin ey MG oral 1-12 tablet (50 Seybol d Tablet 00:00: mg total) - 00 by mouth 3 Externa times l daily Eliquis 5 2022-0 Yes 5mg Take 5 mg Obey sey MG oral 1-12 by mouth 2 Seybol d Tablet 00:00: times - 00 daily Externa l Amlodipine 3-0 Yes 10mg Take 10 mg K elsey Besylate 10 1-12 by mouth Seyb old MG oral 00:00: daily - Tablet 00 Externa l Atenolol 50 2022-0 Yes 50mg Take 50 mg Angela MG oral 1-12 by mouth 3 Seybol d Tablet 00:00: times - 00 daily Externa l Eliquis 5 Yes 5mg Take 5 mg Obey sey MG oral 1-12 by mouth 2 Seybol d Tablet 00:00: times - 00 daily Externa l Amlodipine 0 Yes 10mg Take 10 mg K elsey Besylate 10 -12 by mouth Seyb old MG oral 00:00: daily - Tablet 00 Externa l Atenolol 50 Yes 50mg Take 50 mg Angela MG oral 1-12 by mouth 3 Seybol d Tablet 00:00: times - 00 daily Externa l Eliquis 5 2022-0 2022- No 2.5mg Take 0.5 Ke lsey MG oral -12 - tablets Seybold Tablet 00:00: 00:00 (2.5 mg - 00 :00 total) by Externa mouth 2 l times daily Gabapentin 2021-07 Yes 100mg Take 1 Kaitlin ey 100 MG oral 2-01 capsule Seybo ld Capsule 00:00: (100 mg - 00 total) by Externa mouth 3 l times daily Gabapentin 2021-07 Yes TAKE 1 Kelse y [...] Externa DAY FOR 28 l DAY(S) Gabapentin 2021-07- No 100mg Take 1 Obey sey 100 MG oral 2-01 -09 capsule Seyb old Capsule 00:00: 00:00 (100 mg - 00 :00 total) by Externa mouth 3 l times daily Potassium 2021-07 Yes 20meq Take 20 Kaitlin ey Chloride 1-10 mEq by Seybold Marisol ER 20 00:00: mouth - MEQ oral 00 every Externa Tab CR morning l tablet Potassium 2021-07 Yes 20meq Take 20 Kaitlin ey Chloride 1-10 mEq by Seybold Marisol ER 20 00:00: mouth - MEQ oral 00 every Externa Tab CR morning l tablet Potassium 2021-07- No 20meq Take 20 Obey sey Chloride 1-10 03-08 mEq by Marcelina Damon ER 20 00:00: 00:00 mouth - MEQ oral 00 :00 every Externa Tab CR morning l tablet Vital Signs Vital Name Observation Time Observation Value Comments Source Systolic blood 2023-02-21 21:08:00 143 mm[Hg] Angela Seybold - pressure External Diastolic blood 2023-02-21 21:08:00 78 mm[Hg] Obeyse y Seybold - pressure External Body temperature 2023-02-21 21:08:00 36.44 Pearl Kaitlin ey Seybold - External Respiratory rate 2023-02-21 21:08:00 14 /min Kaitlin milan Seybold - External Body height 2023-02-21 21:08:00 160 cm Angela Blanco eybold - External Body weight 2023-02-21 21:08:00 123.832 kg Angela S eybold - External BMI 2023-02-21 21:08:00 48.36 kg/m2 Angela S eybold - External Oxygen saturation in 2023-02-21 21:08:00 98 /min Angela Hewitt - Arterial blood by External Pulse oximetry Systolic blood 2023-01-25 16:15:00 138 mm[Hg] Angela Doughertyybold - pressure External Diastolic blood 2023-01-25 16:15:00 80 mm[Hg] Obey y Seybold - pressure External Heart rate 2023-01-25 16:15:00 64 /min Angela S eybold - External Body temperature 2023-01-25 16:15:00 37.06 Pearl Kaitlin milan Seybold - External Respiratory rate 2023-01-25 16:15:00 21 /min Kaitlin milan Seybold - External Body height 2023-01-25 16:15:00 160 cm Angela S eybold - External Body weight 2023-01-25 16:15:00 119.75 kg Angela S eybold - External BMI 2023-01-25 16:15:00 46.77 kg/m2 Angela S eybold - External Oxygen saturation in 2023-01-25 16:15:00 97 /min Angela Seybold - Arterial blood by External Pulse oximetry Systolic blood 2023-01-05 21:23:00 142 mm[Hg] Angela Seybold - pressure External Diastolic blood 2023-01-05 21:23:00 67 mm[Hg] Kelse y Seybold - pressure External Heart rate 2023-01-05 21:23:00 69 /min Angela S eybold - External Body temperature 2023-01-05 21:23:00 36.94 Pearl Kaitlin ey Seybold - External Respiratory rate 2023-01-05 21:23:00 15 /min Kaitlin ey Seybold - External Body height 2023-01-05 21:23:00 160 cm Angela S eybold - External Body weight 2023-01-05 21:23:00 122.471 kg Angela S eybold - External BMI 2023-01-05 21:23:00 47.83 kg/m2 Angela Blanco eybold - External Oxygen saturation in 2023-01-05 21:23:00 96 /min Angela Seybold - Arterial blood by External Pulse oximetry Systolic blood 2022-12-29 21:49:00 140 mm[Hg] Angela Seybold - pressure External Diastolic blood 2022-12-29 21:49:00 69 mm[Hg] Twyla y Seybold - pressure External Heart rate 2022-12-29 21:49:00 99 /min Angela S eybold - External Respiratory rate 2022-12-29 21:49:00 18 /min Kaitlin ey Seybold - External Body height 2022-12-29 21:49:00 160 cm Angela S eybold - External Body weight 2022-12-29 21:49:00 123.197 kg Angela S eybold - External BMI 2022-12-29 21:49:00 48.11 kg/m2 Angela S eybold - External Oxygen saturation in 2022-12-29 21:49:00 98 /min Angela Seybold - Arterial blood by External Pulse oximetry Systolic blood 2022-10-04 17:43:00 120 mm[Hg] Angela Seybold - pressure External Diastolic blood 2022-10-04 17:43:00 64 mm[Hg] Kelse y Seybold - pressure External Heart rate 2022-10-04 17:43:00 84 /min Angela S eybold - External Body temperature 2022-10-04 17:43:00 36.67 Pearl Kaitlin ey Seybold - External Respiratory rate 2022-10-04 17:43:00 14 /min Kaitlin ey Seybold - External Body height 2022-10-04 17:43:00 160 cm Angela S eybold - External Body weight 2022-10-04 17:43:00 112.492 kg Angela S eybold - External BMI 2022-10-04 17:43:00 43.93 kg/m2 Angela S eybold - External Systolic blood 2022-08-21 20:59:00 123 mm[Hg] Angela Seybold - pressure External Diastolic blood 2022-08-21 20:59:00 68 mm[Hg] Twyla y Seybold - pressure External Heart rate 2022-08-21 20:59:00 59 /min Angela S eybold - External Body temperature 2022-08-21 20:59:00 36.56 Pearl Kaitlin ey Seybold - External Respiratory rate 2022-08-21 20:59:00 14 /min Kaitlin ey Seybold - External Body height 2022-08-21 [...] Body height 2022-08-14 16:59:00 160 cm Angela bacharielle - External Body weight 2022-08-14 16:59:00 114.306 kg Angela ramos - External BMI 2022-08-14 16:59:00 44.64 kg/m2 Angela Blanco richard - External Procedures This patient has no known procedures. Encounters Start End Encounter Admission Attending Care Care Encounter Source Date/Time Date/Time Type Type Clinicians Facility Department ID 2023-04-27 2023-04-27 Outpatient ANGELA HARRIS [id number] Angela 14:00:00 14:00:00 NIALL Seybol d 2023-03-09 2023-03-09 Outpatient ANGELA HARRIS [id number] Angela 16:30:00 16:30:00 NIALL Seybol d 2023-03-07 2023-03-07 Outpatient ANGELA HARRIS [id number] Angela 00:00:00 00:00:00 NIALL Seybol d 2023-03-07 2023-03-07 Outpatient ANGELA JADE [id number] Angela 00:00:00 00:00:00 Seybol d 2023-03-07 2023-03-07 Outpatient ANGELA HARRIS [id number] Angela 00:00:00 00:00:00 NIALL Seybol d 2023-03-06 2023-03-06 Outpatient LAB90 ANGELA JADE [id number] Angela 11:20:00 11:20:00 Seybol d 2023-03-05 2023-03-05 Outpatient ANGELA HARRIS [id number] Angela 00:00:00 00:00:00 NIALL Seybol d 2023-03-03 2023-03-03 Outpatient ANGELA HARRIS [id number] Angela 00:00:00 00:00:00 NIALL Seybol d 2023-02-21 2023-02-21 Outpatient ANGELA HARRIS [id number] Angela 16:30:00 16:30:00 NIALL Seybol d 2023-02-19 2023-02-19 Outpatient ANGELA HARRIS [id number] Angela 00:00:00 00:00:00 NIALL Seybol d 2023-02-15 2023-02-15 Outpatient PREZAS, ANGELA JADE [id number] Angela 00:00:00 00:00:00 NIALL Seybol d 2023-02-02 2023-02-02 Outpatient ANGELA JADE [id number] Angela 00:00:00 00:00:00 Seybol d 2023-01-29 2023-01-29 Outpatient ANGELA JADE [id number] Angela 00:00:00 00:00:00 Seybol d 2023-01-29 2023-01-29 Outpatient PREZAS, ANGELA JADE [id number] Angela 00:00:00 00:00:00 NIALL Seybol d 2023-01-26 2023-01-26 Outpatient PREZAS, ANGELA JADE [id number] Angela 00:00:00 00:00:00 NIALL Seybol d 2023-01-25 2023-01-25 Outpatient PREZAS, ANGELA JADE [id number] Angela 11:30:00 11:30:00 NIALL Seybol d 2023-01-24 2023-01-24 Outpatient PREZAS, ANGELA JADE [id number] Angela 00:00:00 00:00:00 NIALL Seybol d 2023-01-22 2023-01-22 Outpatient LAB90 ANGELA JADE [id number] Angela 11:20:00 11:20:00 Seybol d 2023-01-19 2023-01-19 Outpatient PREZAS, ANGELA JADE [id number] Angela 16:30:00 16:30:00 NIALL Seybol d 2023-01-15 2023-01-15 Outpatient PREZAS, ANGELA JADE [id number] Angela 00:00:00 00:00:00 NIALL Seybol d 2023-01-05 2023-01-05 Outpatient PREZASANGELA [id number] Angela 16:45:00 16:45:00 NIALL Seybol d 2023-01-02 2023-01-02 Outpatient PREZAS, ANGELA JADE [id number] Angela 16:30:00 16:30:00 NIALL Seybol d 2023-01-01 2023-01-01 Outpatient ANGELA JADE [id number] Angela 00:00:00 00:00:00 Seybol d 2022-12-29 2022-12-29 Outpatient ANGELA DORAN [id number] Angela 16:45:00 16:45:00 MICHAEL Seybol d 2022-12-22 2022-12-22 Outpatient ANGELA DORAN [id number] Angela 00:00:00 00:00:00 MICHAEL Seybol d 2022-12-04 2022-12-04 Outpatient COYNETHIEN ANGELA JADE [id number] Angela 14:00:00 14:00:00 Seybol d 2022-11-16 2022-11-16 Outpatient ANGELA DORAN [id number] Angela 00:00:00 00:00:00 MICHAEL Seybol d 2022-11-09 2022-11-09 Outpatient ANGELA SANTANA [id number] Angela 13:40:00 13:40:00 NIC Seybol d 2022-10-27 2022-10-27 Outpatient ANGELA CHOWDHURY [id number] Angela 00:00:00 00:00:00 MUHAMMED Seybo ld 2022-10-16 2022-10-16 Outpatient ANGELA JADE [id number] Angela 00:00:00 00:00:00 Seybol d 2022-10-11 2022-10-11 Outpatient ANGELA CASTRO [id number] Angela 00:00:00 00:00:00 TRENETH Seybol d 2022-10-11 2022-10-11 Outpatient ANGELA NEVAREZ [id number] Angela 00:00:00 00:00:00 RASHNO Seybol d 2022-10-06 2022-10-06 Outpatient ANGELA HARRIS [id number] Angela 00:00:00 00:00:00 NIALL Seybol d 2022-10-04 2022-10-04 Outpatient ANGELA DORAN [id number] Angela 11:30:00 11:30:00 MICHAEL Seybol d 2022-10-04 2022-10-04 Outpatient MAGUE ANGELA JADE [id number] Angela 00:00:00 00:00:00 MD MONIQUE Seybol d 2022-10-04 2022-10-04 Outpatient ANGELA DORAN [id number] Angela 00:00:00 00:00:00 MICHAEL Seybol d 2022-10-04 2022-10-04 Outpatient ANGELA JADE [id number] Angela 00:00:00 00:00:00 Seybol d 2022-10-03 2022-10-03 Outpatient ANGELA DORAN [id number] Angela 00:00:00 00:00:00 MICHAEL Seybol d 2022-09-20 2022-09-20 Outpatient ANGELA JADE [id number] Angela 00:00:00 00:00:00 Seybol d 2022-09-18 2022-09-18 Outpatient ANGELA DORAN [id number] Angela 14:00:00 14:00:00 MICHAEL Seybol d 2022-09-14 2022-09-14 Outpatient ANGELA JADE [id number] Angela 00:00:00 00:00:00 Seybol d 2022-08-30 2022-08-30 Outpatient ANGELA DORAN [id number] Angela 00:00:00 00:00:00 MICHAEL Seybol d 2022-08-22 2022-08-22 Outpatient ANGELA JADE [id number] Angela 00:00:00 00:00:00 Seybol d 2022-08-22 2022-08-22 Outpatient ANGELA DORAN [id number] Angela 00:00:00 00:00:00 MICHAEL Seybol d 2022-08-21 2022-08-21 Outpatient LAB90 ANGELA JADE [id number] Angela 16:00:00 16:00:00 Seybol d 2022-08-21 2022-08-21 Outpatient ANGELA DORAN [id number] Angela 15:00:00 15:00:00 MICHAEL Seybol d 2022-08-16 2022-08-16 Outpatient ANGELA DORAN [id number] Angela 00:00:00 00:00:00 MICHAEL Seybol d 2022-08-15 2022-08-15 Outpatient ANGELA JADE [id number] Angela 00:00:00 00:00:00 Seybol d 2022-08-15 2022-08-15 Outpatient ANGELA JADE [id number] Anglea 00:00:00 00:00:00 Seybol d 2022-08-15 2022-08-15 Outpatient ANGELA JADE [id number] Angela 00:00:00 00:00:00 Seybol d 2022-08-15 2022-08-15 Outpatient ANGELA DORAN [id number] Angela 00:00:00 00:00:00 MICHAEL Seybol d 2022-08-14 2022-08-14 Outpatient LAB90 ANGELA JADE [id number] Angela 12:20:00 12:20:00 Seybol d 2022-08-14 2022-08-14 Outpatient ANGELA DORAN [id number] Angela 11:00:00 11:00:00 MICHAEL Seybol d 2022-08-14 2022-08-14 Outpatient MAGUE JADE [id number] Angela 00:00:00 00:00:00 MD MONIQUE Seybol d Results This patient has no known results.
[2023-03-07 21:20] LABS: Absolute Lymphocytes (CBC) 1.1 K/uL (0.7-4.9); Hematocrit 33.7 % (36.0-45.0); Lymphocytes % 14.2 % (15.3-44.8); MCV 82.1 fL (80-100); MPV 9.4 fL (7.6-11.3); Platelets 123 thou/uL (152-406); RBC Red Blood Cell Count 4.11 M/uL (3.86-4.86)
[2023-03-07 21:21] LABS: Protime INR 2.26
--- NOTE | 2023-03-07 21:22 | ER ---
Nurse's Notes [facility] Name: Le Lawrence Age: 77 yrs Sex: Female : 1945 Arrival Date: 03/07/2023 Time: 17:33 Bed 16 Private MD: Diagnosis: Systolic (congestive) heart failure;Edema, unspecified Presentation: 03/07 17:50 Chief complaint: Patient states: swelling in legs and oozing X 4 days, is seeing Dr. radha Solano at [facility] and was told she has hx of CHF. Coronavirus screen: At this time, the client does not indicate any symptoms associated with coronavirus-19. Ebola Screen: Patient negative for fever greater than or equal to 101.5 degrees Fahrenheit, and additional compatible Ebola Virus Disease symptoms Patient denies exposure to infectious person. Patient denies travel to an Ebola-affected area in the 21 days before illness onset. No symptoms or risks identified at this time. Initial Sepsis Screen: Does the patient meet any 2 criteria? No. Patient's initial sepsis screen is negative. Does the patient have a suspected source of infection? No. Patient's initial sepsis screen is negative. Risk Assessment: Do you want to hurt yourself or someone else? Patient reports no desire to harm self or others. Onset of symptoms was March 03, 2023. 17:50 Method Of Arrival: Ambulatory iw 17:50 Acuity: CAROL 3 iw Historical: - Allergies: 17:52 Amoxicillin; iw 17:52 Cipro; iw 17:52 Iodine; iw - Home Meds: 17:53 furosemide 40 mg Oral tablet 2 times per day [Active]; allopurinol 300 mg Oral tablet iw daily [Active]; spironolactone 25 mg Oral tablet daily [Active]; metolazone 2.5 mg oral tablet daily [Active]; Eliquis 5 mg oral tablet once [Active]; gabapentin 100 mg oral capsule 3 times per day [Active]; famotidine 20 mg Oral tablet 2 times per day [Active]; atenolol 50 mg Oral tablet three times a day [Active]; potassium chloride 20 mEq Oral tablet, extended release daily [Active]; doxazosin 4 mg oral tablet daily [Active]; amlodipine 10 mg tablet daily [Active]; lovastatin 40 mg Oral tablet daily [Active]; - PMx: 17:52 Atrial Fib; Hypertension; neuropathy; iw - Immunization history:: Adult Immunizations not up to date. - Social history:: Smoking status: Patient denies any tobacco usage or history of. - Family history:: not pertinent. Screenin:12 [facility] ED Fall Risk Assessment (Adult) History of falling in the last 3 months, mb9 including since admission No falls in past 3 months (0 pts) Confusion or Disorientation No (0 pts) Intoxicated or Sedated No (0 pts) Impaired Gait No (0 pts) Mobility Assist Device Used Yes (1 pt) Altered Elimination No (0 pt) Score/Fall Risk Level 0 - 2 = Low Risk Oriented to surroundings, Maintained a safe environment, Educated pt \T\ family on fall prevention, incl call for assistance when getting out of bed. Abuse screen: Denies threats or abuse. Nutritional screening: No deficits noted. Tuberculosis screening: No symptoms or risk factors identified. Assessment: 19:45 Neuro: Simpson Agitation-Sedation Scale (RASS): 0 - Alert and Calm Level of mb9 Consciousness is awake, alert, obeys commands, Oriented to person, place, time, situation, Appropriate for age. Cardiovascular: Patient's skin is warm and dry. Respiratory: Airway is patent Respiratory effort is even, unlabored, Respiratory pattern is regular, symmetrical, Breath sounds are clear bilaterally. GI: Abdomen is obese. : No signs and/or symptoms were reported regarding the genitourinary system. EENT: No signs and/or symptoms were reported regarding the EENT system. Derm: Skin is pink, warm \T\ dry. Musculoskeletal: Range of motion: intact in all extremities, Swelling present in left leg. 20:45 Reassessment: No changes from previously documented assessment. Patient and/or family mb9 updated on plan of care and expected duration. Pain level reassessed. Patient is alert, oriented x 3, equal unlabored respirations, skin warm/dry/pink. 21:45 Reassessment: No changes from previously documented assessment. Patient and/or family mb9 updated on plan of care and expected duration. Pain level reassessed. Patient is alert, oriented x 3, equal unlabored respirations, skin warm/dry/pink. 22:45 Reassessment: No changes from previously documented assessment. Patient and/or family mb9 updated on plan of care and expected duration. Pain level reassessed. Patient is alert, oriented x 3, equal unlabored respirations, skin warm/dry/pink. Vital Signs: 17:50 BP 127 / 84; Pulse 73; Resp 16; Temp 99; Pulse Ox 100% on R/A; Weight 115.67 kg; Height iw 5 ft. 3 in. ; 20:00 BP 108 / 50; Pulse 62; Resp 18; Pulse Ox 98% on R/A; mb9 21:07 BP 106 / 51; Pulse 67; Resp 17; Pulse Ox 100% on R/A; mb9 22:10 BP 130 / 64; Pulse 69; Resp 19; Pulse Ox 99% on R/A; mb9 23:23 BP 110 / 98; Pulse 74; Resp 16; Pulse Ox 98% on R/A; mb9 17:50 Body Mass Index 45.17 (115.67 kg, 160.02 cm) iw ED Course: 17:36 Patient arrived in ED. mg5 17:38 Anma Hare MD is Attending Physician. cp3 17:52 Triage completed. iw 17:53 Arm band placed on. iw 18:19 Tory Flor, RN is Primary Nurse. ld1 19:06 Report received from HARVEY Spears. mb9 19:06 Placed in gown. Bed in low position. Call light in reach. Side rails up X 1. Client mb9 placed on continuous cardiac and pulse oximetry monitoring. NIBP monitoring applied. patent solicitor on. 21:09 Inserted saline lock: 20 gauge in left antecubital area, using aseptic technique. mb9 21:13 No provider procedures requiring assistance completed. mb9 21:20 Attending Physician role handed off by Amna Hare MD osvaldo 21:20 Tom Otero MD is Attending Physician. osvaldo 21:21 Lisa Sheffield MD is Hospitalizing Provider. [facility] 23:57 Report given to HARVEY Galan. mb9 03/08 00:57 Patient admitted, IV remains in place. ll3 Administered Medications: 03/07 22:10 Drug: Potassium Chloride IV 20 mEq Route: IV; Rate: per protocol; Site: right mb9 antecubital; 22:10 Drug: Potassium PO Effervescent Tablet 50 mEq Route: PO; mb9 23:24 Follow up: Response: No adverse reaction mb9 Medication: 19:07 VIS not applicable for this client. mb9 Outcome: 21:22 Decision to Hospitalize by Provider. osvaldo 03/08 00:57 Admitted to Tele accompanied by tech, via wheelchair, room 211, with chart, Report ll3 called to HARVEY Pederson Condition: stable Instructed on the need for admit, Demonstrated understanding of instructions. 01:22 Patient left the ED. ll3 Signatures: Tom Otero MD MD cha Pinckney, MD DANIEL Woo cp3 Jolie Haile RN RN iw Tory Flor RN RN ld1 Liya Car RN RN ll3 Martha Bravo RN RN mb9 Mireille Feliciano mg5 Corrections: (The following items were deleted from the chart) 03/07 17:53 17:50 BP 127 / 84; Pulse 73bpm; Resp 16bpm; Pulse Ox 100% RA; Temp 99F; iw iw 21:12 21:08 General: Appears in no apparent distress. Behavior is calm, cooperative, mb9 appropriate for age, mb9 23:21 21:08 Pain: mb9 mb9 23:21 19:45 General: Appears in no apparent distress. Behavior is calm, cooperative, mb9 mb9
--- NOTE | 2023-03-07 21:22 | EDPHYS ---
Physician Documentation [facility] Name: Le Lawrence Age: 77 yrs Sex: Female : 1945 Arrival Date: 03/07/2023 Time: 17:33 Bed 16 Private MD: ED Physician Tom Otero HPI: 03/07 20:55 This 77 yrs old Female presents to ER via Ambulatory with complaints of Shortness of cp3 breath and leg Swelling - Fluid/Draining. 20:55 The patient has shortness of breath at rest. Patient is a 77-year-old female with a cp3 history of A-fib, hypertension, neuropathy who was at her PCP office today for evaluation of shortness of breath and left lower leg with swelling with persistent drainage. Patient endorses she has been very uncomfortable and notes that the left leg has been draining continuously and Dr. Sawant wanted her to come to the ED for evaluation of volume overload. Symptoms have been acutely worse for the last 3 days. Historical: - Allergies: 17:52 Amoxicillin; iw 17:52 Cipro; iw 17:52 Iodine; iw - Home Meds: 17:53 furosemide 40 mg Oral tablet 2 times per day [Active]; allopurinol 300 mg Oral tablet iw daily [Active]; spironolactone 25 mg Oral tablet daily [Active]; metolazone 2.5 mg oral tablet daily [Active]; Eliquis 5 mg oral tablet once [Active]; gabapentin 100 mg oral capsule 3 times per day [Active]; famotidine 20 mg Oral tablet 2 times per day [Active]; atenolol 50 mg Oral tablet three times a day [Active]; potassium chloride 20 mEq Oral tablet, extended release daily [Active]; doxazosin 4 mg oral tablet daily [Active]; amlodipine 10 mg tablet daily [Active]; lovastatin 40 mg Oral tablet daily [Active]; - PMHx: 17:52 Atrial Fib; Hypertension; neuropathy; iw - Immunization history:: Adult Immunizations not up to date. - Social history:: Smoking status: Patient denies any tobacco usage or history of. - Family history:: not pertinent. ROS: 20:55 Constitutional: Negative for fever, chills, and weight loss, Eyes: Negative for injury, cp3 pain, redness, and discharge, ENT: Negative for injury, pain, and discharge, Neck: Negative for injury, pain, and swelling, Cardiovascular: Negative for chest pain, palpitations, and edema, Abdomen/GI: Negative for abdominal pain, nausea, vomiting, diarrhea, and constipation, Back: Negative for injury and pain, MS/Extremity: Negative for injury and deformity, Skin: Negative for injury, rash, and discoloration. 20:55 Neuro: Negative for headache, weakness, numbness, tingling, and seizure, Psych: Negative for depression, anxiety, suicide ideation, homicidal ideation, and hallucinations, Allergy/Immunology: Negative for hives, rash, and allergies, Endocrine: Negative for neck swelling, polydipsia, polyuria, polyphagia, and marked weight changes, Hematologic/Lymphatic: Negative for swollen nodes, abnormal bleeding, and unusual bruising. 20:55 Respiratory: Positive for shortness of breath. 20:55 MS/extremity: Positive for Left lower leg swelling with clear drainage. 20:55 Skin: Positive for Left leg weeping. Exam: 20:55 Constitutional: This is a well developed, well nourished patient who is awake, alert, cp3 and in no acute distress. Head/Face: Normocephalic, atraumatic. Eyes: Pupils equal round and reactive to light, extra-ocular motions intact. Lids and lashes normal. Conjunctiva and sclera are non-icteric and not injected. Cornea within normal limits. Periorbital areas with no swelling, redness, or edema. ENT: Nares patent. No nasal discharge, no septal abnormalities noted. Tympanic membranes are normal and external auditory canals are clear. Oropharynx with no redness, swelling, or masses, exudates, or evidence of obstruction, uvula midline. Mucous membranes moist. Neck: Trachea midline, no thyromegaly or masses palpated, and no cervical lymphadenopathy. Supple, full range of motion without nuchal rigidity, or vertebral point tenderness. No Meningismus. Chest/axilla: Normal chest wall appearance and motion. Nontender with no deformity. No lesions are appreciated. Cardiovascular: Regular rate and rhythm with a normal S1 and S2. No gallops, murmurs, or rubs. Normal PMI, no JVD. No pulse deficits. Respiratory: Lungs have equal breath sounds bilaterally, clear to auscultation and percussion. No rales, rhonchi or wheezes noted. No increased work of breathing, no retractions or nasal flaring. Abdomen/GI: Soft, non-tender, with normal bowel sounds. No distension or tympany. No guarding or rebound. No evidence of tenderness throughout. Back: No spinal tenderness. No costovertebral tenderness. Full range of motion. 20:55 MS/ Extremity: Pulses equal, no cyanosis. Neurovascular intact. Full, normal range of motion. Psych: Awake, alert, with orientation to person, place and time. Behavior, mood, and affect are within normal limits. 20:55 Musculoskeletal/extremity: Bilateral lower extremities with 1+ edema, left leg with excoriations that are oozing clear serous fluid. Vital Signs: 17:50 BP 127 / 84; Pulse 73; Resp 16; Temp 99; Pulse Ox 100% on R/A; Weight 115.67 kg; Height iw 5 ft. 3 in. ; 20:00 BP 108 / 50; Pulse 62; Resp 18; Pulse Ox 98% on R/A; mb9 21:07 BP 106 / 51; Pulse 67; Resp 17; Pulse Ox 100% on R/A; mb9 22:10 BP 130 / 64; Pulse 69; Resp 19; Pulse Ox 99% on R/A; mb9 23:23 BP 110 / 98; Pulse 74; Resp 16; Pulse Ox 98% on R/A; mb9 17:50 Body Mass Index 45.17 (115.67 kg, 160.02 cm) iw Procedures: 20:55 EKG interpreted by me at 2027: Atrial fibrillation with a rate of 69 no evidence acute cp3 MT. MDM: 17:40 Patient medically screened. cp3 20:55 ED course: anode machine operator interpreted by me: Rate 73, A-fib. cp3 03/07 19:14 Order name: BMP; Complete Time: 21:49 cp3 03/07 19:14 Order name: Blood Culture Adult (2) cp3 03/07 19:14 Order name: CBC with Diff; Complete Time: 21:49 cp3 03/07 19:14 Order name: CPK; Complete Time: 21:49 cp3 03/07 19:14 Order name: Hepatic Function; Complete Time: 21:49 cp3 03/07 19:14 Order name: Lipase; Complete Time: 21:49 cp3 03/07 19:14 Order name: Magnesium; Complete Time: 21:49 cp3 08/ 19:14 Order name: NT PRO-BNP; Complete Time: 21:49 cp3 / 19:14 Order name: PT-INR; Complete Time: 21:49 cp3 / 19:14 Order name: Ptt, Activated; Complete Time: 21:49 cp3 / 19:14 Order name: Troponin HS; Complete Time: 21:49 cp3 08/ 19:16 Order name: Wound Culture cp3 03/07 22:06 Order name: Urinalysis w/ reflexes EDMS 03/07 22:06 Order name: Urinalysis w/ reflexes EDMS 03/07 22:06 Order name: Basic Metabolic Panel EDMS 03/07 22:06 Order name: Basic Metabolic Panel EDMS 03/07 22:06 Order name: Basic Metabolic Panel EDMS 03/07 22:06 Order name: Basic Metabolic Panel EDMS 03/07 22:06 Order name: CBC with Automated Diff EDMS 03/07 22:06 Order name: CBC with Automated Diff EDMS 03/07 22:07 Order name: CBC with Automated Diff EDMS 03/07 22:07 Order name: CBC with Automated Diff EDMS 03/07 22:07 Order name: Magnesium EDMS 03/07 22:07 Order name: Magnesium EDMS 03/07 22:07 Order name: Magnesium EDMS 03/07 22:07 Order name: Magnesium EDMS 03/07 22:07 Order name: NT PRO-BNP EDMS 03/07 22:07 Order name: NT PRO-BNP EDMS 03/07 22:07 Order name: Troponin High Sensitivity EDMS 03/07 22:07 Order name: Troponin High Sensitivity EDMS 03/07 22:07 Order name: Troponin High Sensitivity EDMS 03/07 21:51 Order name: Chest Single View XRAY osvaldo 03/07 22:25 Order name: RAD EDMS 03/07 19:14 Order name: EKG; Complete Time: 19:15 cp3 03/07 22:06 Order name: 60g Consistent Carbohydrate (ADA 1800/2000) EDMS 03/07 22:06 Order name: Renal EDMS 03/07 19:14 Order name: Cardiac monitoring; Complete Time: 19:27 cp3 03/07 19:14 Order name: EKG - Nurse/Tech; Complete Time: 19:27 cp3 03/07 19:14 Order name: IV Saline Lock; Complete Time: : 3 03/07 19:14 Order name: Labs collected and sent; Complete Time: : 3 03/07 19:14 Order name: O2 Per Protocol; Complete Time: : 3 03/07 19:14 Order name: O2 Sat Monitoring; Complete Time: : cp3 Administered Medications: 22:10 Drug: Potassium Chloride IV 20 mEq Route: IV; Rate: per protocol; Site: right mb9 antecubital; 22:10 Drug: Potassium PO Effervescent Tablet 50 mEq Route: PO; mb9 23:24 Follow up: Response: No adverse reaction mb9 Disposition Summary: 03/07/23 21:22 Hospitalization Ordered Hospitalization Status: Observation osvaldo Provider: Lisa Sheffield cha Location: Telemetry/MedSurg (observation) osvaldo Condition: Fair osvaldo Problem: new osvaldo Symptoms: have improved osvaldo Bed/Room Type: Standard osvaldo Room Assignment: 211(03/08/23 00:25) cg Diagnosis - Systolic (congestive) heart failure osvaldo - Edema, unspecified osvaldo Forms: - Medication Reconciliation Form osvaldo - SBAR form osvaldo Signatures: Dispatcher [employer] Tom López MD MD cha Pinckney, Cwanza, MD MD cp3 Jolie Haile RN RN iw Garcia, Cindy, RN RN cg Breneman, Mary Beth, RN RN mb9 Corrections: (The following items were deleted from the chart) 03/08 00:25 03/07 21:22 osvaldo cg
[2023-03-07 21:37] LABS: Albumin 3.5 g/dL (3.4-5.0); Bilirubin Direct 0.4 mg/dL (0-0.2); Bilirubin Indirect, Calculated 0.7 mg/dL (0.2-0.8); Bilirubin Total 1.1 mg/dL (0.2-1.0); Magnesium 2.1 mg/dL (1.6-2.4); Troponin High Sensitivity 132.7 pg/mL (<58.9)
[2023-03-07 21:43] LABS: Potassium 2.6 mEq/L (3.5-5.1)
--- NOTE | 2023-03-07 21:49 | P.HP ---
Certification for Inpatient Patient admitted to: Inpatient With expected LOS: <2 Midnights Patient will require the following post-hospital care: None Practitioner: I am a practitioner with admitting privileges, knowledge of patient current condition, hospital course, and medical plan of care. Services: Services provided to patient in accordance with Admission requirements found in Title 42 Section 412.3 of the Code of Federal Regulations Patient History Date of Service: 03/07/23 Reason for admission: acute on chronic heart failure History of Present Illness: 77-year-old female with a past medical history of atrial fibrillation on Eliquis, chronic diastolic congestive heart failure, hypertension, morbid obesity, presents to the emergency room for bilateral lower extremity edema. She reports symptoms worse today, started 3 days ago. She reports serosanguineous draining from the lower extremity. Denies fever she reports being treated with diuretics from her primary care physician, she denies shortness of breath on exertion, she reports symptoms has improved with diuretics. She denies cough, chest pain, nausea vomiting diarrhea, syncope. Plan to admit for NSTEMI, acute on chronic heart failure, bilateral lower extremity. Laboratory evaluation hypokalemia potassium is 2.6, acute kidney injury unknown baseline BUN 23 potassium 1.11, mild hyponatremia at 134, troponin elevated at 132.7, BNP 608, CBC normocytic and anemia hemoglobin 10.9, 33, chest x-ray x-ray ordered pending. EKG 5 EKG Atrial fibrillation with a rate of 69 no evidence acute OK. Allergies ciprofloxacin [From Cipro] Allergy (Verified 10/16/17 17:24) Nausea/Vomiting iodine Allergy (Verified 10/16/17 17:24) Itching/Hives/Rash Home Medications: Apixaban [Eliquis *] 5 mg PO BID 10/16/17 Doxazosin Mesylate 4 mg PO BEDTIME 10/16/17 Lovastatin 40 mg PO BEDTIME 10/16/17 Potassium Chloride 20 meq PO DAILY 10/16/17 atenoloL [Tenormin*] 50 mg PO TID 10/16/17 Gabapentin 100 mg PO TID 08/02/20 Furosemide [Lasix] 40 mg PO BID 09/10/22 Cyclobenzaprine HCl [Flexeril] 10 mg PO TID PRN 09/18/22 Docusate [Colace Cap*] 100 mg PO BID cap 09/18/22 Hydrocodone 10/APAP 325 [[place] 10/325*] 1 tab PO TID 09/18/22 predniSONE [Prednisone*] 20 mg PO DAILY tab 09/18/22 - Past Medical/Surgical History Diabetic: No -: CHF -: HTN -: Afib -: diverticulosis -: neuropathy -: bad rotator cuffs -: left elbow sx Psychosocial/ Personal History: Patient is . - Social History Alcohol use: No CD- Drugs: No Caffeine use: No Review of Systems 10-point ROS is otherwise unremarkable Physical Examination - Physical Exam General: Alert, In no apparent distress, Oriented x3 HEENT: Atraumatic, Normocephalic, PERRLA Neck: Supple, 2+ carotid pulse no bruit, JVD not distended Respiratory: Clear to auscultation bilaterally, Normal air movement Cardiovascular: Other (Atrial fibrillation, bilateral lower extremity edema +2) Capillary refill: <2 Seconds Gastrointestinal: Normal bowel sounds, Soft and benign Musculoskeletal: No clubbing, No swelling Integumentary: Other (Bilateral lower extremity) Neurological: Normal speech, Normal strength at 5/5 x4 extr, Cranial nerves 3-12 intact - Studies Laboratory Data (last 24 hrs) 03/07/23 03/07/23 03/07/23 21:00 21:00 21:00 WBC 7.70 Hgb 10.9 L Hct 33.7 L Plt Count 123 L PT 24.9 H INR 2.26 APTT 40.6 H Sodium 134 L Potassium 2.6 L* BUN 23 H Creatinine 1.11 H Glucose 183 H Magnesium 2.1 Total Bilirubin 1.1 H AST 19 ALT 15 Alkaline Phosphatase 69 Lipase 57 Assessment and Plan - Plan Assessment plan NSTEMI Hypokalemia Acute on chronic heart failure Acute on chronic kidney injury unknown baseline Atrial fibrillation on chronic anticoagulation Eliquis Morbid obesity Assessment plan NSTEMI cont eliquis, trend trop Acute on chronic heart failure unknown baseline Cardiology consult, telemetry, Echo ordered am Trend BMP, trend troponin, hypokalemia potassium is 2.6, acute kidney injury unknown baseline BUN 23 potassium 1.11, mild hyponatremia at 134, EKG Atrial fibrillation with a rate of 69 no evidence acute OK chest x-ray x-ray ordered pending. Hypokalemia Acute on chronic kidney injury unknown baseline Trend kidney function gentle IV fluids Trend electrolytes replace as needed acute kidney injury unknown baseline BUN 23 potassium 1.11, mild hyponatremia at 134 Atrial fibrillation on chronic anticoagulation Eliquis Morbid obesity Cardiac diet Full code DVT Eliquis . Discharge Plan: Home Plan to discharge in: 48 Hours - Advance Directives Does patient have a Living Will: No Does patient have a Durable POA for Healthcare: No - Code Status/Comfort Care Code Status: Full Code Physician Review: Patient Assessed, Agree with Above Assessment and Plan Critical Care: No Time Spent Managing Pts Care (In Minutes): 50
[2023-03-07] MEDS ORDERED: ONDANSETRON 4 MG/2 ML VIAL IV PRN (22:02)
[2023-03-07] MEDS ORDERED: ACETAMINOPHEN 500 MG TAB PO PRN (22:02)
[2023-03-07] MEDS ORDERED: POTASSIUM CL 40 MEQ in NA CHLORIDE 0.9% 500 ML IV ONE (22:02)
[2023-03-07] MEDS: NA CHLORIDE 0.9% 1,000 ML IV SCH (22:02)
[2023-03-07] MEDS ORDERED: POTASSIUM 25 MEQ EFFERV TAB PO ONE (22:02)
[2023-03-07] MEDS ORDERED: POTASSIUM 25 MEQ EFFERV TAB ONE (22:10)
[2023-03-07] MEDS ORDERED: KCL 20 MEQ/100 mL IVPB 100 ML IV ONE (22:11)
--- NOTE | 2023-03-07 22:24 | RAD REPORT ---
EXAM DESCRIPTION: RAD - Chest Single View - 03/07/2023 10:12 pm CLINICAL HISTORY: SOB COMPARISON: Chest Single View dated 08/01/2020; Chest Pa And Lat (2 Views) dated 10/17/2017; Chest Pa A nd Lat (2 Views) dated 10/16/2017; Chest Pa And Lat (2 Views) dated 09/26/2016 FINDINGS: Lines: None. Lungs: No evidence of edema or pneumonia. Pleural: No significant pleural effusions or pneumothorax. Cardiac: Cardiomegaly. Mediastinum: Within normal limits. Bones: No acute fractures. Other: Atherosclerosis. IMPRESSION: No acute cardiopulmonary disease.
[2023-03-07] MEDS ORDERED: NA CHLORIDE 0.9% 1,000 ML ONE (22:26)
[2023-03-07] MEDS: APIXABAN 5 MG TABLET PO SCH (23:17)
[2023-03-08 02:12] LABS: Absolute Lymphocytes (CBC) 1.3 K/uL (0.7-4.9); Hematocrit 33.6 % (36.0-45.0); Lymphocytes % 17.4 % (15.3-44.8); MCV 82.6 fL (80-100); MPV 9.7 fL (7.6-11.3); Platelets 126 thou/uL (152-406); RBC Red Blood Cell Count 4.07 M/uL (3.86-4.86)
[2023-03-08 02:31] LABS: Potassium 3.1 mEq/L (3.5-5.1)
[2023-03-08 02:55] VITALS: BMI 45.1
[2023-03-08 02:57] LABS: Specific Gravity 1.015 (1.005-1.030); Urine Bacteria None Seen /HPF (<20); Urine Bilirubin NEGATIVE (Negative); Urine Blood Negative (Negative); Urine Clarity Turbid (Clear); Urine Color Yellow (Yellow); Urine Glucose NEGATIVE (Negative); Urine Mucus Slight /HPF (None Seen); Urine Protein NEGATIVE (Negative); Urine RBC <5 /HPF (None Seen); Urine Urobilinogen Normal (Normal); Urine pH 7.5 (5.0-7.0)
[2023-03-08] MEDS: POTASSIUM 25 MEQ EFFERV TAB PO ONE ×2 (09:00→09:34)
[2023-03-08] MEDS: APIXABAN 5 MG TABLET PO SCH ×2 (09:34→21:28)
[2023-03-08] MEDS ORDERED: POTASSIUM CL SA 10 MEQ TAB PO ONE (10:00)
[2023-03-08] MEDS: MEDIHONEY 44 ML TOPICAL TUBE TOP SCH (13:58)
[2023-03-08] MEDS: GABAPENTIN 100 MG CAP PO SCH ×2 (14:00→21:31)
--- NOTE | 2023-03-08 14:48 | CON ---
Date of Consultation: 03/08/2023 Reason For Consultation: Heart failure exacerbation. History Of Present Illness: A 77-year-old female with history of diastolic heart failure, atrial fib rillation, hypertension, morbid obesity, presented with bilateral lower extremity edema. She is usin g fluids. Denies shortness of breath or orthopnea. Denies having any fever. No nausea or vomiting. No chest pain. Past Medical History: As outlined above in the HPI. Medications: Refer to reconciliation sheet for detailed list. Allergies: AMOXICILLIN, CIPROFLOXACIN, AND IODINE. Family History: No premature coronary artery disease or cancer. Social History: Does not smoke or drink. Does not use any drugs. Review of Systems: All systems reviewed and they were negative except what mentioned in HPI. Physical Examination: Vital Signs: Reviewed. Head and Neck: Pupils are equal, reactive to light. Intact eye movements. No JVD. No cervical lym phadenopathy. Neck is supple. Thyroid is not enlarged. Lungs: Clear to auscultation bilaterally. No rhonchi, wheezing, or crackles. No accessory muscle u se. Heart: Irregular. No extra sounds. Abdomen: Soft, nontender. Bowel sounds positive. No organomegaly. No masses or hernia. No rigidi ty or rebound. Extremities: Massive edema bilaterally below the knee with multiple wounds and some significant eryt song. Neurologic: Alert, awake, oriented x3. No acute focal deficits appreciated. Investigations: BUN 24, creatinine 1.1. Troponin is trending down and hemoglobin is 10.7. Assessment And Recommendations: 1.Chronic diastolic heart failure. Apparently, she is slightly fluid overloaded, but no shortness o f breath. She will benefit from diuresis as she has likely venous stasis ulcerations. I recommend t o start her on Lasix 40 mg twice a day, carefully monitoring BUN, creatinine, and electrolytes. 2.Bilateral wound in lower extremities. Obtain arterial Doppler to look for peripheral vascular dis ease, and the patient needs aggressive wound care and diuresis as above to get swelling down. 3.Atrial fibrillation. Condition is controlled. Continue current management including Eliquis. 4.Elevated troponin. This is demand. The patient is not having any chest pain. We will plan for s tress test at a later time once her condition is more stable. Cardiology will sign off on this case. SR/MODL Voice ID: [id number] Report ID: [id number]
[2023-03-08] MEDS: HYDROCODONE/APAP 10/325 TAB PO SCH ×2 (15:27→21:29)
[2023-03-08] MEDS: atenoloL 50 MG TAB PO SCH ×2 (15:28→21:29)
[2023-03-08] MEDS: FUROSEMIDE 40 MG/4 ML VIAL IV SCH (17:07)
[2023-03-08] MEDS: DOXAZOSIN 4 MG TAB PO SCH (21:00)
[2023-03-08] MEDS: DOCUSATE NA 100 MG CAP PO SCH (21:29)
[2023-03-08] MEDS ORDERED: DOXAZOSIN 2 MG TAB ONE (21:36)
[2023-03-08] MEDS ORDERED: POTASSIUM 25 MEQ EFFERV TAB PO ONE (21:44)
[2023-03-09] MEDS: NA CHLORIDE 0.9% 1,000 ML IV SCH ×2 (02:44→14:02)
[2023-03-09 03:29] LABS: Absolute Lymphocytes (CBC) 1.4 K/uL (0.7-4.9); Hematocrit 31.5 % (36.0-45.0); Lymphocytes % 19.9 % (15.3-44.8); MCV 82.5 fL (80-100); MPV 9.8 fL (7.6-11.3); Platelets 113 thou/uL (152-406); RBC Red Blood Cell Count 3.81 M/uL (3.86-4.86)
[2023-03-09 03:48] LABS: Magnesium 2.2 mg/dL (1.6-2.4); Phosphorus 3.1 mg/dL (2.5-4.9); Potassium 3.5 mEq/L (3.5-5.1)
--- NOTE | 2023-03-09 07:50 | RAD REPORT ---
EXAM DESCRIPTION: US - Lower Extremity Artery Uni Ltd - 03/09/2023 12:13 am CLINICAL HISTORY: Swelling in bilateral legs COMPARISON: None FINDINGS: Color Doppler, grayscale, and spectral analysis was performed. The common femoral, superficial femoral and popliteal arteries demonstrate triphasic waveforms The posterior tibial and dorsalis pedis arteries demonstrate triphasic waveforms. IMPRESSION: No flow limiting arterial stenosis within the left lower extremity.
[2023-03-09] MEDS: FUROSEMIDE 40 MG/4 ML VIAL IV SCH ×2 (08:57→16:44)
[2023-03-09] MEDS: HYDROCODONE/APAP 10/325 TAB PO SCH ×3 (08:57→21:21)
[2023-03-09] MEDS: AMLODIPINE 10 MG TAB PO SCH (08:58)
[2023-03-09] MEDS: allopurinoL 300 MG TAB PO SCH (08:58)
[2023-03-09] MEDS: GABAPENTIN 100 MG CAP PO SCH ×3 (08:58→21:23)
[2023-03-09] MEDS: APIXABAN 5 MG TABLET PO SCH ×2 (08:58→21:23)
[2023-03-09] MEDS: POTASSIUM CL SA 10 MEQ TAB PO SCH (08:58)
[2023-03-09] MEDS: atenoloL 50 MG TAB PO SCH ×3 (08:59→21:23)
[2023-03-09] MEDS ORDERED: POTASSIUM 25 MEQ EFFERV TAB PO ONE (09:00)
[2023-03-09] MEDS ORDERED: HOME MED 1 EA UNK (Potassium Chloride [Potassium Chloride] 20 MEQ Tablet.Er) PO SCH (09:00)
[2023-03-09] MEDS: SPIRONOLACTONE 25 MG TABLET PO SCH (09:00)
[2023-03-09] MEDS: MEDIHONEY 44 ML TOPICAL TUBE TOP SCH (09:00)
[2023-03-09] MEDS: DOCUSATE NA 100 MG CAP PO SCH ×2 (09:00→21:24)
[2023-03-09] MEDS ORDERED: MAGNESIUM HYDROXIDE 8% 30 ML PO ONE (18:21)
[2023-03-09] MEDS ORDERED: DOXAZOSIN 2 MG TAB ONE (20:52)
[2023-03-09] MEDS: DOXAZOSIN 4 MG TAB PO SCH (21:00)
[2023-03-10 06:03] LABS: Magnesium 2.4 mg/dL (1.6-2.4); Potassium 3.5 mEq/L (3.5-5.1)
[2023-03-10 06:11] LABS: Absolute Lymphocytes (CBC) 1.2 K/uL (0.7-4.9); Hematocrit 32.4 % (36.0-45.0); Lymphocytes % 22.5 % (15.3-44.8); MCV 83.6 fL (80-100); MPV 10.1 fL (7.6-11.3); Platelets 113 thou/uL (152-406); RBC Red Blood Cell Count 3.88 M/uL (3.86-4.86)
[2023-03-10 08:37] VITALS: O2SAT 97
[2023-03-10] MEDS ORDERED: POTASSIUM CL SA 10 MEQ TAB PO ONE (09:00)
[2023-03-10] MEDS: FUROSEMIDE 40 MG/4 ML VIAL IV SCH (09:00)
[2023-03-10] MEDS: AMLODIPINE 10 MG TAB PO SCH (09:18)
[2023-03-10] MEDS: APIXABAN 5 MG TABLET PO SCH (09:19)
[2023-03-10] MEDS: DOCUSATE NA 100 MG CAP PO SCH (09:19)
[2023-03-10] MEDS: atenoloL 50 MG TAB PO SCH (09:19)
[2023-03-10] MEDS: allopurinoL 300 MG TAB PO SCH (09:19)
[2023-03-10] MEDS: SPIRONOLACTONE 25 MG TABLET PO SCH (09:19)
[2023-03-10] MEDS: HYDROCODONE/APAP 10/325 TAB PO SCH (09:20)
[2023-03-10] MEDS: GABAPENTIN 100 MG CAP PO SCH (09:20)
[2023-03-10] MEDS: POTASSIUM CL SA 10 MEQ TAB PO SCH (09:20)
[2023-03-10] MEDS: MEDIHONEY 44 ML TOPICAL TUBE TOP SCH (09:23)
[2023-03-10 09:24] VITALS: BP 123/57
--- NOTE | 2023-03-10 09:31 | P.PN ---
Date of Service: 03/08/23 Subjective Patient is currently doing well. Patient denies any new complaints. Patient getting wound care today. We will also arrange for home health. Anticipate discharge over the next 48 hours. Continue with aggressive IV diuresing. Patient still needs IV Lasix at this time. She is not able to go home until we diurese her little bit more effectively. Monitor her renal function closely. Physical Examination -Vitals Reviewed -Physical Exam General: Alert, In no apparent distress, Oriented x3 Respiratory: Clear to auscultation bilaterally, Normal air movement Cardiovascular: Other (Atrial fibrillation, bilateral lower extremity edema +2) Gastrointestinal: Normal bowel sounds, Soft and benign Musculoskeletal: No clubbing, No swelling, no edema Integumentary: Other (Bilateral lower extremity) Neurological: No focal deficits Assessment and Plan - Assessment Assessment 1. NSTEMI 2. Hypokalemia 3. Acute on chronic heart failure 4. Acute on chronic kidney injury IV 5. Atrial fibrillation on chronic anticoagulation(Eliquis) 6. Morbid obesity Assessment plan NSTEMI -cont eliquis, trending troponins; has a history of cardiac disease. Monitor cardiac status. Acute on chronic heart failure unknown baseline -Cardiology consult, telemetry, Echo pending; IV diuretics. Patient volume overloaded. -Monitor electrolytes closely. Currently patient with hypokalemia. Potassium is 2.6. Patient has history of chronic kidney disease will need to monitor cardiac status. -chest x-ray x-ray ordered pending. Acute on chronic kidney injury unknown baseline -monitor renal function; heplock IV and diurese -monitor electrolytes; gently replace as needed -acute kidney injury unknown baseline BUN 23 potassium 1.11, mild hyponatremia at 134 Atrial fibrillation on chronic anticoagulation Eliquis -Medication for rate control. -Anticoagulation at this time Morbid obesity -Calorie Restrictions Discharge Plan: Home Plan to discharge in: 48 Hours - Advance Directives Does patient have a Living Will: No Does patient have a Durable POA for Healthcare: No - Code Status/Comfort Care Code Status: Full Code Physician Review: Patient Assessed, Agree with Above Assessment and Plan Critical Care: No Time Spent Managing Pts Care (In Minutes): 50
--- NOTE | 2023-03-10 09:36 | P.PN ---
Date of Service: 03/09/23 Subjective Continue with wound care. Minimal drainage. Anticipate discharge in the morning. Recommended continue with IV diuretics per cardiology. Physical Examination -Vitals Reviewed -Physical Exam General: Alert, In no apparent distress, Oriented x3 Respiratory: Clear to auscultation bilaterally, Normal air movement Cardiovascular: Other (Atrial fibrillation, bilateral lower extremity edema +2) Gastrointestinal: Normal bowel sounds, Soft and benign Musculoskeletal: No clubbing, No swelling, no edema Integumentary: Other (Bilateral lower extremity) Neurological: No focal deficits Assessment and Plan - Assessment Assessment 1. NSTEMI 2. Hypokalemia 3. Acute on chronic heart failure 4. Acute on chronic kidney injury IV 5. Atrial fibrillation on chronic anticoagulation(Eliquis) 6. Morbid obesity Assessment plan NSTEMI -Troponins are stable. Continue with current plan of care. Acute on chronic heart failure unknown baseline -Cardiology consult, telemetry, echocardiogram needs to be reviewed, prior EF was 55-60%; IV diuretics. Patient volume overloaded. Patient looks to be almost compensated -Monitor electrolytes closely. Currently patient with hypokalemia. Potassium is 2.6. Patient has history of chronic kidney disease will need to monitor cardiac status. -volume status is stable Acute on chronic kidney injury unknown baseline -monitor renal function; heplock IV and diurese -monitor electrolytes; gently replace as needed -acute kidney injury unknown baseline BUN 23 potassium 1.11, mild hyponatremia at 134 Atrial fibrillation on chronic anticoagulation Eliquis -Medication for rate control. -Anticoagulation at this time Morbid obesity -Calorie Restrictions Discharge Plan: Home Plan to discharge in: 48 Hours - Advance Directives Does patient have a Living Will: No Does patient have a Durable POA for Healthcare: No - Code Status/Comfort Care Code Status: Full Code Physician Review: Patient Assessed, Agree with Above Assessment and Plan Critical Care: No Time Spent Managing Pts Care (In Minutes): 50
--- NOTE | 2023-03-10 09:37 | P.DS ---
Discharge Date: 03/10/23 Reason for Admission: acute on chronic heart failure Brief History of Present Illness: 77-year-old female with a past medical history of atrial fibrillation on Eliquis, chronic diastolic congestive heart failure, hypertension, morbid obesity, presents to the emergency room for bilateral lower extremity edema. She reports symptoms worse today, started 3 days ago. She reports serosanguineous draining from the lower extremity. Denies fever she reports being treated with diuretics from her primary care physician, she denies shortness of breath on exertion, she reports symptoms has improved with diuretics. She denies cough, chest pain, nausea vomiting diarrhea, syncope. Plan to admit for NSTEMI, acute on chronic heart failure, bilateral lower extremity. Laboratory evaluation hypokalemia potassium is 2.6, acute kidney injury unknown baseline BUN 23 potassium 1.11, mild hyponatremia at 134, troponin elevated at 132.7, BNP 608, CBC normocytic and anemia hemoglobin 10.9, 33, chest x-ray x-ray ordered pending. EKG 5 EKG Atrial fibrillation with a rate of 69 no evidence acute NE. Vital Signs/Physical Exam: Temp Pulse Resp BP Pulse Ox 97.5 F 60 16 123/57 L 99 03/10/23 04:00 03/10/23 09:19 03/10/23 09:20 03/10/23 09:19 03/10/23 09:20 Laboratory Data at Discharge: WBC 5.30 thou/uL (4.3-10.9) 03/10/23 05:21 Hgb 10.2 g/dL (12.0-15.0) L 03/10/23 05:21 Hct 32.4 % (36.0-45.0) L 03/10/23 05:21 Plt Count 113 thou/uL (152-406) L 03/10/23 05:21 PT 24.9 SECONDS (9.5-12.5) H 03/07/23 21:00 INR 2.26 03/07/23 21:00 APTT 40.6 SECONDS (24.3-36.9) H 03/07/23 21:00 Sodium 135 mEq/L (136-145) L 03/10/23 05:21 Potassium 3.5 mEq/L (3.5-5.1) 03/10/23 05:21 BUN 30 mg/dL (7-18) H 03/10/23 05:21 Creatinine 0.94 mg/dL (0.55-1.02) 03/10/23 05:21 Glucose 118 mg/dL (74-106) H 03/10/23 05:21 Phosphorus 3.1 mg/dL (2.5-4.9) 03/09/23 02:19 Magnesium 2.4 mg/dL (1.6-2.4) 03/10/23 05:21 Total Bilirubin 1.1 mg/dL (0.2-1.0) H 03/07/23 21:00 AST 19 U/L (15-37) 03/07/23 21:00 ALT 15 U/L (13-56) 03/07/23 21:00 Alkaline Phosphatase 69 U/L (45-117) 03/07/23 21:00 Lipase 57 U/L (13-75) 03/07/23 21:00 Home Medications: Apixaban [Eliquis *] 5 mg PO BID 10/16/17 Doxazosin Mesylate 4 mg PO BEDTIME 10/16/17 Lovastatin 40 mg PO BEDTIME 10/16/17 Potassium Chloride 20 meq PO DAILY 10/16/17 atenoloL [Tenormin*] 50 mg PO TID 10/16/17 Gabapentin 100 mg PO TID 08/02/20 Furosemide [Lasix] 40 mg PO BID 09/10/22 Hydrocodone 10/APAP 325 [[place] 10/325*] 1 tab PO TID 09/18/22 Allopurinol 300 mg PO DAILY 03/08/23 Amlodipine Besylate 10 mg PO DAILY 03/08/23 Docusate [Colace Cap*] 200 mg PO BID 03/08/23 Famotidine 20 mg PO BID 03/08/23 Spironolactone 25 mg PO DAILY 03/08/23 Followup: Hilario Solano DO [Primary Care Provider] -
[2023-03-10 09:51] VITALS: TEMP 98.1
[2023-03-10] MEDS: NA CHLORIDE 0.9% 1,000 ML IV SCH (10:02)
--- NOTE | 2023-03-10 12:29 | PN ---
Date of Progress Note: 03/09/2023 Subjective: Seen by bedside, doing well. No shortness of breath. Edema is better. Review of Systems: No chest pain, shortness of breath, orthopnea, cough. No nausea, vomiting, diarrhea. All other syst ems reviewed are negative. Physical Examination: Vital Signs: Reviewed. Head and Neck: Pupils are equal, reactive to light. Intact eye movements. No JVD. No cervical lym phadenopathy. Neck is supple. Thyroid is not enlarged. Lungs: Clear to auscultation bilaterally. No rhonchi, rales, or crackles. No accessory muscle use. Heart: Regular rate and rhythm with diffuse holosystolic murmur. Abdomen: Soft, nontender. Bowel sounds positive. No organomegaly. No masses or hernia. No rigidi ty or rebound. Extremities: Edema bilaterally with wounds and surrounding cellulitis and appears to be better ricci red to yesterday. Neurologic: Alert, awake, oriented x3. No acute focal deficits appreciated. Investigations: On echo, she has severe tricuspid valve regurgitation, but no heart failure. Assessment And Recommendation: 1.Significant lower extremity edema, probably a component of diastolic heart failure. I agree with the diuresis. Carefully monitoring BUN and creatinine and electrolytes, and also, I would recommend to discontinue amlodipine as it is a contributing factor of the significant lower extremity edema and replace it with other antihypertensive agents. 2.Tricuspid valve regurgitation severe. She will need valve repair, which can be arrange d for as an outpatient. 3.Elevated troponin. No chest pain. It is likely demand, but I will obtain a Lexiscan stress test on her before discharge. SR/MODL Voice ID: [id number] Report ID: [id number]
--- NOTE | 2023-03-11 15:38 | EKG ---
Test Date: 2023-03-07 Test Time: 18:24:28 [employer]uminum Pool Installer: MILO MEASUREMENT RESULTS: Intervals: Rate: 69 MT: QRSD: 106 QT: 438 QTc: 469 [place]: P: MT: QRS: 108 T: -28 INTERPRETIVE STATEMENTS: Atrial fibrillation Rightward axis Low voltage QRS Septal infarct, age undetermined Abnormal ECG Compared to ECG 08/01/2020 21:40:34 Right-axis deviation now present Ventricular premature complex(es) no longer present Myocardial infarct finding still present Electronically Signed On 03-11-23 15:33:31 CDT by Feliciano Weston
--- NOTE | 2023-03-12 07:01 | ECHO ---
HEIGHT: 5 ft 3 in WEIGHT: 255 lb 0 oz DATE OF STUDY: 03/09/[address]: Alena Castro 2-DIMENSIONAL: YES M.MODE: YES DOPPLER: YES COLOR FLOW: YES TDS: PORTABLE: YES DEFINITY: BUBBLE STUDY: DIAGNOSIS: ACUTE CONGESTIVE HEART FAILURE CARDIAC HISTORY: CATHERIZATION: SURGERY: PROSTHETIC VALVE: PACEMAKER: MEASUREMENTS (cm) DIASTOLIC (NORMALS) SYSTOLIC (NORMALS) IVSd 0.9 (0.6-1.2) LA Diam 4.6 (1.9-4.0) LVEF 65% LVIDd 4.8 (3.5-5.7) LVIDs 3.1 (2.0-3.5) %FS 36% LVPWd 1.3 (0.6-1.2) Ao Diam 2.6 (2.0-3.7) 2 DIMENSIONAL ASSESSMENT: RIGHT ATRIUM: ENLARGED LEFT ATRIUM: ENLARGED RIGHT VENTRICLE: NORMAL LEFT VENTRICLE: NORMAL TRICUSPID VALVE: SEVERE TRICUSPID REGURGITATION MITRAL VALVE: MILD MITRAL REGURGITATION PULMONIC VALVE: MILD PULMONIC INSUFFICIENCY AORTIC VALVE: NORMAL PERICARDIAL EFFUSION: NONE AORTIC ROOT: NORMAL LEFT VENTRICULAR WALL MOTION: NORMAL DOPPLER/COLOR FLOW: SEE BELOW COMMENTS: 1. NORMAL LEFT VENTRICULAR EJECTION FRACTION 60-65% 2. NORMAL WALL MOTION 3. BI-ATRIAL ENLARGEMENT 4. SEVERE TRICUSPID REGURGITATION 5. MILD PULMONIC INSUFFICIENCY 6. MILD MITRAL REGURGITATION TECHNOLOGIST: RADHA LUQUE
== END 2023-03-10 11:30 | disposition home health service (06) | DRG 281 ==
LOC: ER 17:33 → ERHOLD 21:51 → 2ND 03-08 00:34
PROVIDERS: ADMIT Hospitalist; ATTEND Hospitalist
DX: I21.4 Non-ST elevation (NSTEMI) myocardial infarction (principal); E87.1 Hypo-osmolality and hyponatremia; I50.32 Chronic diastolic (congestive) heart failure; N17.9 Acute kidney failure, unspecified; Z68.42 Body mass index [BMI] 45.0-49.9, adult; E66.01 Morbid (severe) obesity due to excess calories; I11.0 Hypertensive heart disease with heart failure; I48.91 Unspecified atrial fibrillation; I07.1 Rheumatic tricuspid insufficiency; E87.6 Hypokalemia; Z88.1 Allergy status to other antibiotic agents; Z63.5 Disruption of family by separation and divorce; Z79.01 Long term (current) use of anticoagulants; Z79.52 Long term (current) use of systemic steroids; Z91.048 Other nonmedicinal substance allergy status; Z79.899 Other long term (current) drug therapy
CPT/HCPCS: 36415; 71045; 80048; 80076; 81001; 82550; 83690; 83735; 83880; 84100; 84132; 84484; 85025; 85610; 85730; 87040; 87070; 87077; 87186; 87205; 93005; 93306; 93926; 96374; 99285; J1940; J3480; J7030; J7040

== ENCOUNTER 2023-11-27 01:54 | Inpatient (IN) | payer MEDICAID, OTHER ==
--- OUTSIDE RECORDS SUMMARY | 2023-11-27 01:59 | XMS REPORT | Continuity of Care Document ---
Author Name Unknown Address [address] [place] [address] thconnect Address [address] [facility]. [address] [place] [address] Care Team Providers Care Engineering Research Manager Name Role Phone NIALL HARRIS Attending Clinician Unavailable MICHAEL DORAN Attending Clinician Unava ANNIE Parada Attending Clinician Unavailable MD AMARI Attending Clinician Unavailab JAMEEL Verdugo Attending Clinician Unavailable FRANCIA TROY Attending Clinician Unavailab JANET Razo Attending Clinician Unavaila MATHIEU Godinez Attending Clinician Unavail able NICK DEVINE Attending Clinician Unavailable LAB90 Attending Clinician Unavailable DON SCHULZ Attending Clinician Unavailable THIEN COYNE Attending Clinician Unavailable NIC SANTANA Attending Clinician Unavailable GENEVIEVE CHOWDHURY Attending Clinician Unavaila CHELSEA Allne Attending Clinician Unavailable EMILI NEVAREZ Attending Clinician Unavailable Payers Payer Name Policy Type Policy Number Effective Date Expirati on Date Source [employer]-POS 16 [id number] 2023 00:00:00 HUMANA MA GOLD PLUS 42 OA 7 [id number] 2022 00:00:00 Problems Condition Name Condition Details Condition Category Status Onset Date Resolution Date Last Treatment Date Treating Clinician Comments Source Other constipati on Other constipati on Disease Active 2-14 00:00: 00 Angela clark Chronic kidney disease, stage 3a Chronic kidney disease, stage 3a Disease Active 03-30 00:00: 00 Angela Stokesa eduardo Chronic diastolic CHF (congestiv e heart failure) (multi HCC) Chronic diastolic CHF (congestiv e heart failure) (multi HCC) Disease Active 01-05 00:00: 00 Angela Stokesa eduardo Chronic anticoagul ation Chronic anticoagul ation Disease Active 01-05 00:00: 00 Angela Stokesa eduardo DM type 2 with diabetic mixed hyperlipid emia (multi HCC) DM type 2 with diabetic mixed hyperlipid emia (multi HCC) Disease Active 01-05 00:00: 00 Angela Stokesa eduardo 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 Disease Active 01-05 00:00: 00 Angela Stokesa eduardo Chronic bilateral low back pain without sciatica Chronic bilateral low back pain without sciatica Disease Active 01-05 00:00: 00 Angela Stokesa eduardo Chronic pain of both shoulders Chronic pain of both shoulders Disease Active 01-05 00:00: 00 Angela Stokesa eduardo Chronic pain syndrome Chronic pain syndrome Disease Active 01-05 00:00: 00 Angela Stokesa eduardo Obesity due to excess calories Obesity due to excess calories Disease Active 01-05 00:00: 00 Angela Stokesa eduardo Obesity due to excess calories Obesity due to excess calories Disease Active 01-05 00:00: 00 Angela Stokesa eduardo Hypercoagu lable state due to atrial fibrillati on (multi HCC) Hypercoagu lable state due to atrial fibrillati on (multi HCC) Disease Active 10-03 00:00: 00 Angela Powell Externa eduardo Hypercoagu lable state due to atrial fibrillati on Hypercoagu lable state due to atrial fibrillati on Disease Active 10-03 00:00: 00 Angela Stokesa eduardo Hyperlipid emia Hyperlipid emia Disease Active 08-14 00:00: 00 Angela Stokesa eduardo Neuropathy Neuropathy Disease Active 08-14 00:00: 00 Angela Powell Externa eduardo Paroxysmal A-fib (multi HCC) Paroxysmal A-fib (multi HCC) Disease Active 08-14 00:00: 00 Angela Powell Externa eduardo Primary hypertensi on Primary hypertensi on Disease Active 08-14 00:00: 00 Angela Powell Externa eduardo Venous insufficie ncy of both lower extremitie s Venous insufficie ncy of both lower extremitie s Disease Active 08-14 00:00: 00 Angela Powell Externa eduardo Mixed hyperlipid emia Mixed hyperlipid emia Disease Active 08-14 00:00: 00 Angela Hewitt - Externa eduardo CHF (congestiv e heart failure) CHF (congestiv e heart failure) Disease Active 08-14 00:00: 00 Angela Powell Externa eduardo Allergies, Adverse Reactions, Alerts Allergy Name Allergy Type Status Severity Reaction(s) Onset Date Inactive Date Treating Clinician Comments Source Ciprofib rate Propensi ty to adverse reaction s Active 09-18 00:00: 00 Angela Hewitt - Externa eduardo Iodine I 131 Tositumo mab Propensi ty to adverse reaction s Active 09-18 00:00: 00 Angela Hewitt - Externa eduardo Augmenti n Propensi ty to adverse reaction s Active Nausea and Vomiting 08-16 00:00: 00 Angela Stokesa eduardo Ciproflo xacin Hydrochl oride Propensi ty to adverse reaction s Active 10-16 00:00: 00 Other reaction( s): Nausea/Vo miting Angela Powell Externa eduardo Iodine Propensi ty to adverse reaction s Active 10-16 00:00: 00 Other reaction( s): Itching/H rasheed/Rash Angela Stokesa eduardo Social History Social Habit Start Date Stop Date Quantity Comments Source Gender identity Kaitlin Hewitt - External Sexual orientation Doug Hewitt - External Alcohol intake 2023-09-12 00:00:00 2023-09-12 00:00:00 Lifetime non-drinker (finding) Angela Quezada History of Social function 2023-03-14 00:00:00 2023-03-14 00:00:00 Angela Quezada Sex [birth year] At 1945 00:00:00 1945 00:00:00 Angela Powell External Smoking Status Start Date Stop Date Source Never smoked tobacco Angela Hewitt - External Medications Ordered Medication Name Filled Medication Name Start Date Stop Date Current Medication? Ordering Clinician Indication Dosage Frequency Signature (SIG) Comments Components Source HYDROcodone -Acetaminop hen (Lily) 7.5-325 MG oral Tablet 09-18 14:46: 13 Yes 1{tbl} Q.91463452 [id number] 3D Take 1 tablet by mouth every 8 hours as needed for pain. Angela Powell Externa l HYDROcodone -Acetaminop hen (Lily) 7.5-325 MG oral Tablet 09-12 15:11: 17 Yes 1{tbl} Q.85934449 [id number] 3D Take 1 tablet by mouth every 8 hours as needed for pain. Angela clark HYDROcodone -Acetaminop hen 10-325 MG oral Tablet 09-12 15:11: 03 09-12 00:00 :00 No [id number] 1{tbl} Q.29298594 [id number] 3D Take 1 tablet by mouth 3 times daily as needed for pain. Angela clark Ferrous Sulfate 325 (65 Fe) MG oral Tablet 09-12 15:10: 46 09-12 00:00 :00 No 325mg Take 1 tablet (325 mg total) by mouth daily (with breakfast) . Angela clark Lovastatin 40 MG oral Tablet 2022-07 00:00: 00 Yes 40mg Take 1 tablet (40 mg total) by mouth nightly. Anegla clark Furosemide 40 MG oral Tablet 2022-07 00:00: 00 Yes 40mg Take 1 tablet (40 mg total) by mouth 2 times daily. Angela clark Atenolol (TENORMIN) 50 MG oral Tablet 2022-07 00:00: 00 Yes 50mg Take 1 tablet (50 mg total) by mouth 3 times daily. Angela clark Allopurinol 300 MG oral Tablet 2022-07 00:00: 00 Yes [id number] 300mg Take 1 tablet (300 mg total) by mouth daily. Angela clark Famotidine (PEPCID) 20 MG oral tablet 04-23 00:00: 00 Yes [id number] 20mg TAKE 1 TABLET BY MOUTH TWICE A DAY Angela clark metOLazone 2.5 MG oral Tablet tablet 04-03 00:00: 00 Yes [id number] 2.5mg QD Take 1 tablet (2.5 mg total) by mouth daily as needed (edema). Angela clark metOLazone 2.5 MG oral Tablet tablet 03-29 00:00: 00 Yes [id number] 2.5mg QD Take 1 tablet (2.5 mg total) by mouth daily as needed (edema). Angela clark Apixaban (Eliquis) 5 MG oral Tablet 03-29 00:00: 00 Yes [id number] 9103 5mg Take 1 tablet (5 mg total) by mouth 2 times daily. Angela clark Ferrous Sulfate 325 (65 Fe) MG oral Tablet 03-27 15:27: 19 Yes 325mg Take 1 tablet (325 mg total) by mouth daily (with breakfast) . Angela clark HYDROcodone -Acetaminop hen 10-325 MG oral Tablet 03-27 15:27: 19 Yes [id number] 1{tbl} Q.88297687 [id number] 3D Take 1 tablet by mouth 3 times daily as needed for pain. Angela clark Apixaban (Eliquis) 5 MG oral Tablet 03-27 00:00: 00 Yes [id number] 5mg Take 1 tablet (5 mg total) by mouth 2 times daily. Angela clark Lovastatin 40 MG oral Tablet 03-27 00:00: 00 Yes 40mg Take 1 tablet (40 mg total) by mouth nightly. Angela clark Famotidine (Pepcid) 20 MG oral tablet 03-27 00:00: 00 Yes [id number] 20mg Take 1 tablet (20 mg total) by mouth 2 times daily. Angela clark Allopurinol 300 MG oral Tablet 03-27 00:00: 00 Yes [id number] 300mg Take 1 tablet (300 mg total) by mouth daily. Angela clark Doxazosin Mesylate 4 MG oral Tablet 03-27 00:00: 00 Yes [id number] 4mg Take 1 tablet (4 mg total) by mouth nightly. Angela clark Furosemide 40 MG oral Tablet 03-15 00:00: 00 Yes 40mg Take 1 tablet (40 mg total) by mouth 2 times daily Angela clark Atenolol (TENORMIN) 50 MG oral Tablet 03-15 00:00: 00 Yes 50mg Take 1 tablet (50 mg total) by mouth 3 times daily Angela clark Famotidine (Pepcid) 20 MG oral tablet 02-21 00:00: 00 Yes [id number] 20mg Take 1 tablet (20 mg total) by mouth 2 times daily Angela clark Glucose Blood in vitro Strip 02-21 00:00: 00 Yes [id number] 3 1{each} 1 each by other route daily Check BS twice daily Angela clark Blood Glucose Monitoring Suppl (Blood Glucose Monitor System) w/Device does not apply Kit 02-21 00:00: 00 Yes [id number] 3 Check BS twice daily Angela clark Glucose Blood in vitro Strip 02-21 00:00: 00 Yes [id number] 3 1{each} 1 each by other route daily Check BS twice daily Angela clark Lancets 33G does not apply Misc 02-21 00:00: 00 Yes [id number] 3 1U 1 unit by does not apply route 2 times daily Check BS twice daily Angela clark Lovastatin 40 MG oral Tablet 01-25 11:16: 15 Yes 40mg Take 1 tablet (40 mg total) by mouth nightly Angela clark Ferrous Sulfate 325 (65 Fe) MG oral Tablet 01-25 11:16: 15 Yes 325mg Take 1 tablet (325 mg total) by mouth daily (with breakfast) Angela clark HYDROcodone -Acetaminop hen 10-325 MG oral Tablet 01-25 11:16: 15 Yes [id number] 1{tbl} Q.19718251 [id number] 3D Take 1 tablet by mouth 3 times daily as needed for pain Angela clark Allopurinol 300 MG oral Tablet 01-25 00:00: 00 Yes [id number] 300mg Take 1 tablet (300 mg total) by mouth daily Angela clark Allopurinol 300 MG oral Tablet 01-24 00:00: 00 Yes [id number] 300mg Take 1 tablet (300 mg total) by mouth daily Angela clark HYDROcodone -Acetaminop hen 10-325 MG oral Tablet 01-05 16:49: 29 Yes [id number] 1{tbl} Q.28765140 [id number] 3D Take 1 tablet by mouth 3 times daily as needed for pain Angela clark Polyethylen e Glycol 3350 (MiraLax) 17 g oral Pack 01-05 16:47: 59 01-05 00:00 :00 No 17g Take 17 g by mouth 2 times daily Angela clark Magnesium Hydroxide (MILK OF MAGNESIA CONCENTRATE OR) 01-05 16:47: 06 01-05 00:00 :00 No 30mL QD Take 30 mL by mouth daily as needed Angela clark metOLazone 2.5 MG oral Tablet tablet 01-05 00:00: 00 Yes [id number] 2.5mg QD Take 1 tablet (2.5 mg total) by mouth daily as needed (edema) Angela clark Apixaban (Eliquis) 5 MG oral Tablet 01-05 00:00: 00 Yes [id number] 5mg Take 1 tablet (5 mg total) by mouth 2 times daily Angela clark Potassium Chloride Marisol ER 20 MEQ oral Tab CR tablet 01-05 00:00: 00 Yes [id number] 20meq Take 1 tablet (20 mEq total) by mouth daily When taking Lasix Angela clark Gabapentin 100 MG oral Capsule 01-05 00:00: 00 Yes [id number] 100mg Take 1 capsule (100 mg total) by mouth 2 times daily Angela clark Polyethylen e Glycol 3350 (MiraLax) 17 g oral Pack 01-05 00:00: 00 09-12 00:00 :00 No [id number] 17g QD Take 17 g by mouth daily as needed (constipat ion) Angela clark Lovastatin 40 MG oral Tablet 12-29 16:54: 12 Yes 40mg Take 1 tablet (40 mg total) by mouth nightly Angela clark Polyethylen e Glycol 3350 (MiraLax) 17 g oral Pack 12-29 16:54: 12 Yes 17g Take 17 g by mouth 2 times daily Angela clark Magnesium Hydroxide (MILK OF MAGNESIA CONCENTRATE OR) 12-29 16:54: 12 Yes 30mL QD Take 30 mL by mouth daily as needed Angela clark Ferrous Sulfate 325 (65 Fe) MG oral Tablet 12-29 16:54: 12 Yes 325mg Take 1 tablet (325 mg total) by mouth daily (with breakfast) Angela clark Spironolact one 25 MG oral Tablet 12-29 00:00: 00 Yes [id number] 25mg Take 1 tablet (25 mg total) by mouth daily Angela clark metOLazone 2.5 MG oral Tablet tablet 12-29 00:00: 00 01-05 00:00 :00 No [id number] 2.5mg Take 1 tablet (2.5 mg total) by mouth daily Angela clark metOLazone 2.5 MG oral Tablet tablet 5-26 00:00: 00 12-29 00:00 :00 No [id number] 2.5mg Take 1 tablet (2.5 mg total) by mouth daily Angela clark Doxazosin Mesylate 4 MG oral Tablet 10-04 12:34: 01 10-04 00:00 :00 No 4mg Take 4 mg by mouth nightly Angela clark Lovastatin 40 MG oral Tablet 10-04 11:48: 33 Yes 40mg Take 40 mg by mouth nightly Angela clark metOLazone 2.5 MG oral Tablet tablet 10-04 11:48: 33 Yes 2.5mg Take 2.5 mg by mouth daily Angela clark Allopurinol 100 MG oral Tablet 10-04 00:00: 00 Yes [id number] 100mg Take 1 tablet (100 mg total) by mouth daily Angela clark Doxazosin Mesylate 4 MG oral Tablet 10-04 00:00: 00 Yes [id number] 4mg Take 1 tablet (4 mg total) by mouth nightly Angela clark Potassium Chloride Marisol ER 20 MEQ oral Tab CR tablet 10-04 00:00: 00 01-05 00:00 :00 No [id number] 20meq Take 1 tablet (20 mEq total) by mouth every morning Angela clark Spironolact one 25 MG oral Tablet 08 00:00: 00 12-29 00:00 :00 No [id number] 25mg Take 1 tablet (25 mg total) by mouth daily Angela clark Spironolact one 25 MG oral Tablet 305 00:00: 00 10-04 00:00 :00 No Angela clark Docusate Sodium 100 MG oral Capsule 2-20 00:00: 00 Yes 100mg Take 1 capsule (100 mg total) by mouth 2 times daily. Angela clark Cyclobenzap rine HCl 5 MG oral Tablet 2-20 00:00: 00 01-05 00:00 :00 No 10mg Q.25D Take 2 tablets (10 mg total) by mouth every 6 hours as needed (pain) Angela clark predniSONE (DELTASONE) 20 MG oral tablet 2-20 00:00: 00 01-05 00:00 :00 No 20mg 1 tablet (20 mg total) Angela clark Lovastatin 40 MG oral Tablet 08-21 15:04: 04 Yes 40mg Take 40 mg by mouth nightly Angela clark metOLazone 2.5 MG oral Tablet tablet 08-21 15:04: 04 Yes 2.5mg Take 2.5 mg by mouth daily Angela clark Doxazosin Mesylate 4 MG oral Tablet 08-21 15:04: 04 Yes 4mg Take 4 mg by mouth nightly Angela clark Amoxicillin -Pot Clavulanate 500-125 MG oral Tablet 08-16 00:00: 00 08-21 00:00 :00 No [id number] 1{tbl} Take 1 tablet by mouth 3 times daily Angela clark Lovastatin 40 MG oral Tablet 08-14 11:13: 31 Yes 40mg Take 40 mg by mouth nightly Angela clark metOLazone 2.5 MG oral Tablet tablet 08-14 11:13: 31 Yes 2.5mg Take 2.5 mg by mouth daily Angela clark Doxazosin Mesylate 4 MG oral Tablet 08-14 11:13: 31 Yes 4mg Take 4 mg by mouth nightly Angela clark Furosemide 40 MG oral Tablet 08-11 00:00: 00 03-15 00:00 :00 No 40mg Take 1 tablet (40 mg total) by mouth 2 times daily Angela clark HYDROcodone -Acetaminop hen 7.5-325 MG oral Tablet - 00:00: 00 01-05 00:00 :00 No TAKE 1 TABLET 2 TO 3 TIMES A DAY NEEDED FOR PAIN Angela clark Eliquis 5 MG oral Tablet 08-10 00:00: 00 Yes 5mg Take 5 mg by mouth 2 times daily Angela clark Amlodipine Besylate 10 MG oral Tablet 08-10 00:00: 00 03-15 00:00 :00 No 10mg Take 1 tablet (10 mg total) by mouth daily Angela clark Atenolol 50 MG oral Tablet 08-10 00:00: 00 03-15 00:00 :00 No 50mg Take 1 tablet (50 mg total) by mouth 3 times daily Angela clark Eliquis 5 MG oral Tablet 08-10 00:00: 00 01-05 00:00 :00 No 2.5mg Take 0.5 tablets (2.5 mg total) by mouth 2 times daily Angela clark Gabapentin 100 MG oral Capsule 2021-07 00:00: 00 01-05 00:00 :00 No 100mg Take 1 capsule (100 mg total) by mouth 3 times daily Angela clark Potassium Chloride Marisol ER 20 MEQ oral Tab CR tablet 2021-07 00:00: 00 10-04 00:00 :00 No 20meq Take 20 mEq by mouth every morning Angela clark Vital Signs Vital Name Observation Time Observation Value Comments S ource Body weight 2023-09-12 21:17:00 125.193 kg Kaitlin Hewitt - External BMI 2023-09-12 21:17:00 48.89 kg/m2 Kaitlin Hewitt - External Systolic blood pressure 2023-09-12 20:59:00 145 mm[Hg] Angela guzmán - External Diastolic blood pressure 2023-09-12 20:59:00 61 mm[Hg] Angela guzmán - External Heart rate 2023-09-12 20:59:00 75 /min Kelse y Seybold - External Body temperature 2023-09-12 20:59:00 36.5 Pearl Angela Seybold - External Respiratory rate 2023-09-12 20:59:00 21 /min Angela Seybold - External Body height 2023-09-12 20:59:00 160 cm Kaitlin ey Seybold - External Systolic blood pressure 2023-03-14 16:22:00 121 mm[Hg] Angela Seybo ld - External Diastolic blood pressure 2023-03-14 16:22:00 62 mm[Hg] Angela Seybo ld - External Heart rate 2023-03-14 16:22:00 68 /min Kelse y Seybold - External Body temperature 2023-03-14 16:22:00 36.11 Pearl Angela Seybold - External Respiratory rate 2023-03-14 16:22:00 18 /min Angela Seybold - External Body height 2023-03-14 16:22:00 160 cm Kaitlin ey Seybold - External Body weight 2023-03-14 16:22:00 129.729 kg Kaitlin ey Seybold - External BMI 2023-03-14 16:22:00 50.66 kg/m2 Kaitlin ey Seybold - External Oxygen saturation in Arterial blood by Pulse oximetry 2023-03-14 16:22:00 99 /min Angela Doughertyybo ld - External Systolic blood pressure 2023-02-21 21:08:00 143 mm[Hg] Angela Seybo ld - External Diastolic blood pressure 2023-02-21 21:08:00 78 mm[Hg] Angela Seybo ld - External Body temperature 2023-02-21 21:08:00 36.44 Pearl Angela Seybold - External Respiratory rate 2023-02-21 21:08:00 14 /min Angela Seybold - External Body height 2023-02-21 21:08:00 160 cm Kaitlin ey Seybold - External Body weight 2023-02-21 21:08:00 123.832 kg Kaitlin ey Seybold - External BMI 2023-02-21 21:08:00 48.36 kg/m2 Kaitlin ey Seybold - External Oxygen saturation in Arterial blood by Pulse oximetry 2023-02-21 21:08:00 98 /min Angela Seybo ld - External Systolic blood pressure 2023-01-25 16:15:00 138 mm[Hg] Angela Seybo ld - External Diastolic blood pressure 2023-01-25 16:15:00 80 mm[Hg] Angela Seybo ld - External Heart rate 2023-01-25 16:15:00 64 /min Kelse y Seybold - External Body temperature 2023-01-25 16:15:00 37.06 Pearl Angela Seybold - External Respiratory rate 2023-01-25 16:15:00 21 /min Angela Seybold - External Body height 2023-01-25 16:15:00 160 cm Kaitlin ey Seybold - External Body weight 2023-01-25 16:15:00 119.75 kg Kaitlin ey Seybold - External BMI 2023-01-25 16:15:00 46.77 kg/m2 Kaitlin ey Seybold - External Oxygen saturation in Arterial blood by Pulse oximetry 2023-01-25 16:15:00 97 /min Angela Seybo ld - External Systolic blood pressure 2023-01-05 21:23:00 142 mm[Hg] Angela Seybo ld - External Diastolic blood pressure 2023-01-05 21:23:00 67 mm[Hg] Angela Seybo ld - External Heart rate 2023-01-05 21:23:00 69 /min Obeyse y Seybold - External Body temperature 2023-01-05 21:23:00 36.94 Pearl Angela Seybold - External Respiratory rate 2023-01-05 21:23:00 15 /min Angela Seybold - External Body height 2023-01-05 21:23:00 160 cm Kaitlin ey Seybold - External Body weight 2023-01-05 21:23:00 122.471 kg Kaitlin ey Seybold - External BMI 2023-01-05 21:23:00 47.83 kg/m2 Kaitlin ey Seybold - External Oxygen saturation in Arterial blood by Pulse oximetry 2023-01-05 21:23:00 96 /min Angela Seybo ld - External Systolic blood pressure 2022-12-29 21:49:00 140 mm[Hg] Angela Seybo ld - External Diastolic blood pressure 2022-12-29 21:49:00 69 mm[Hg] Angela Seybo ld - External Heart rate 2022-12-29 21:49:00 99 /min Kelse y Seybold - External Respiratory rate 2022-12-29 21:49:00 18 /min Angela Seybold - External Body height 2022-12-29 21:49:00 160 cm Kaitlin ey Seybold - External Body weight 2022-12-29 21:49:00 123.197 kg Kaitlin ey Seybold - External BMI 2022-12-29 21:49:00 48.11 kg/m2 Kaitlin ey Seybold - External Oxygen saturation in Arterial blood by Pulse oximetry 2022-12-29 21:49:00 98 /min Angela Seybo ld - External Systolic blood pressure 2022-10-04 17:43:00 120 mm[Hg] Angela Seybo ld - External Diastolic blood pressure 2022-10-04 17:43:00 64 mm[Hg] Angela Seybo ld - External Heart rate 2022-10-04 17:43:00 84 /min Kelse y Seybold - External Body temperature 2022-10-04 17:43:00 36.67 Pearl Angela Seybold - External Respiratory rate 2022-10-04 17:43:00 14 /min Angela Seybold - External Body height 2022-10-04 17:43:00 160 cm Kaitlin ey Seybold - External Body weight 2022-10-04 17:43:00 112.492 kg Kaitlin ey Seybold - External BMI 2022-10-04 17:43:00 43.93 kg/m2 Kaitlin ey Seybold - External Systolic blood pressure 2022-08-21 20:59:00 123 mm[Hg] Angela Seybo ld - External Diastolic blood pressure 2022-08-21 20:59:00 68 mm[Hg] Angela Seybo ld - External Heart rate 2022-08-21 20:59:00 59 /min Kelse y Seybold - External Body temperature 2022-08-21 20:59:00 36.56 Pearl Angela Seybold - External Respiratory rate 2022-08-21 20:59:00 14 /min Angela Seybold - External Body height 2022-08-21 20:59:00 160 cm Kaitlin ey Seybold - External Body weight 2022-08-21 20:59:00 114.306 kg Kaitlin ey Seybold - External BMI 2022-08-21 20:59:00 44.64 kg/m2 Kaitlin ey Seybold - External Systolic blood pressure 2022-08-14 16:59:00 104 mm[Hg] Angela Seybo ld - External Diastolic blood pressure 2022-08-14 16:59:00 54 mm[Hg] Angela Seybo ld - External Heart rate 2022-08-14 16:59:00 81 /min Kelse y Seybold - External Body temperature 2022-08-14 16:59:00 36.56 Pearl Angela Seybold - External Respiratory rate 2022-08-14 16:59:00 16 /min Angela Seybold - External Body height 2022-08-14 16:59:00 160 cm Kaitlin ey Seybold - External Body weight 2022-08-14 16:59:00 114.306 kg Kaitlin ey Seybold - External BMI 2022-08-14 16:59:00 44.64 kg/m2 Kaitlin ey Seybold - External Encounters Start Date/Time End Date/Time Encounter Type Admission Type Attending [facility] Care Department Encounter ID Source 2023-12-27 14:30:00 2023-12-27 14:30:00 Outpatient NIALL HARRIS [id number] Angela wyatt 2023-11-27 11:00:00 2023-11-27 11:00:00 Outpatient NIALL HARRIS [id number] Angela ybfunmilayo 2023-11-26 00:00:00 2023-11-26 00:00:00 Outpatient ANGELA MILLER [id number] Angela wyatt 2023-11-20 00:00:00 2023-11-20 00:00:00 Outpatient NIALL HARRIS [id number] Angela ybfunmilayo 2023-11-13 00:00:00 2023-11-13 00:00:00 [facility] [id number] [facility]11 00:00:00 2023-11-11 00:00:00 Outpatient NIALL HARRIS ANGELA MILLER [id number] Angela Seybold 2023-11-02 00:00:00 2023-11-02 00:00:00 Outpatient ESPINOZAMICHAEL DAVILA ANGELA MILLER [id number] Angela Seybold 2023-10-31 14:30:00 2023-10-31 14:30:00 Outpatient NIALL HARRIS ANGELA MILLER [id number] Angela Seybold 2023-10-29 00:00:00 2023-10-29 00:00:00 Outpatient [facility] [id number] [facility] 2023-10-25 00:00:00 2023-10-25 00:00:00 Outpatient [facility] MILL[facility] [id number] [facility] 2023-10-24 00:00:00 2023-10-24 00:00:00 Outpatient ANNIE ARREOLA [id number] [facility] 2023-10-02 00:00:00 2023-10-02 00:00:00 Outpatient [facility]EL[facility] MILL[facility] [id number] [facility] 2023-09-20 00:00:00 2023-09-20 00:00:00 Outpatient MD ANGELA SAAB [id number] Angela Seybold 2023-09-18 14:40:00 2023-09-18 14:40:00 Outpatient JAMEEL ELIZABETH [id number] Angela Seybold 2023-09-18 00:00:00 2023-09-18 00:00:00 Outpatient FRANCIA TROY [id number] Angela Seybold 2023-09-12 15:00:00 2023-09-12 15:00:00 Outpatient NIALL HARRIS ANGELA MILLER [id number] Angela Seybold 2023-09-04 00:00:00 2023-09-04 00:00:00 Outpatient ANGELA MILLER [id number] Angela Seybold 2023-08-07 00:00:2023-08-07 00:00:00 Outpatient ANGELAJG MILLER [id number] Angela Seybold 2023-08-07 00:00:00 2023-08-07 00:00:00 Outpatient ANGELA MILLER [id number] Angela Seybold 2023-08-06 00:00:00 2023-08-06 00:00:00 Outpatient PREZAS, NIALL ANGELA MILLER [id number] Angela Seybold 2023-07-26 14:20:00 2023-07-26 14:20:00 Outpatient VU, JAMEEL MILLER [id number] Angela Seybold 2023-07-11 00:00:00 2023-07-11 00:00:00 Outpatient PREZAS, NIALL ANGELA MILLER [id number] Angela Seybold 2023-07-10 00:00:00 2023-07-10 00:00:00 Outpatient PREZAS, NIALLALIS [facility]ILLER [id number] [facility] 2023-[facility]-10 00:00:00 2023-07-10 00:00:00 Outpatient ESPINOZAMICHAEL DAVILA [id number] Angela Seybold 2023-07-04 00:00:00 2023-07-04 00:00:00 Outpatient ESPINOZA, MICHAEL MILLER [id number] Angela Seybold 2023-07-03 15:00:00 2023-07-03 15:00:00 Outpatient VU, JAMEEL MILLER [id number] Angela Seybold 2023-07-03 13:00:00 2023-07-03 13:00:00 Outpatient VU, JAMEEL MILLER [id number] Angela Seybold 2023-06-19 14:40:00 2023-06-19 14:40:00 Outpatient VU, JAMEEL MILLER [id number] Angela Seybold 2023-06-13 00:00:00 2023-06-13 00:00:00 Outpatient ESPINOZAMICHAEL DAVILA [id number] Angela Seybold 2023-06-01 00:00:00 2023-06-01 00:00:00 Outpatient VU, JAMEEL MILLER [id number] Angela Seybold 2023-05-31 00:00:00 2023-05-31 00:00:00 Outpatient MICHAEL DORAN ANGELA ANGELA [id number] [facility] [facility] 2023-05-29 15:00:00 2023-05-29 15:00:00 Outpatient PREZANIALL Blanco ANGELA [id number] [facility] 2023-05-08 00:00:00 2023-05-08 00:00:00 Outpatient ANGELA ANGELA [id number] [facility] 2023-05-02 00:00:00 2023-05-02 00:00:00 Outpatient ANGELA ANGELA [id number] [facility] 2023-04-27 14:00:00 2023-04-27 14:00:00 Outpatient PREZANIALL Blanco ANGELA ANGEL[facility] [id number] [facility] 2023-04-21 00:00:00 2023-04-21 00:00:00 Outpatient PREZAS, NIALL ANGELA MILLER [id number] [facility] 2023-04-16 00:00:00 2023-04-16 00:00:00 Outpatient PREZAS, NIALL ANGELA MILLER [id number] [facility] 2023-04-16 00:00:00 2023-04-16 00:00:00 Outpatient ANGELA ANGELA [id number] [facility] 2023-04-12 00:00:00 2023-04-12 00:00:00 Outpatient ESPINOZAMICHAEL ANGELA MILLER [id number] [facility] 2023-04-09 00:00:00 2023-04-09 00:00:00 Outpatient ALEKSJANET CARRINGTON [id number] [facility] 2023-04-06 00:00:00 2023-04-06 00:00:00 Outpatient PREZASNIALL ANGELA MILLER [id number] [facility] 2023-04-03 00:00:00 2023-04-03 00:00:00 Outpatient PREZASNIALL ANGELA IMLLER [id number] [facility] 2023-03-30 15:30:00 2023-03-30 15:30:00 Outpatient MATHIEU URBANO ANGELA MILLER [id number] Angela [facility] 2023-03-29 00:00:00 2023-03-29 00:00:00 Outpatient PREZAS, NIALL ANGELA MILLER [id number] Angela [facility] 2023-03-29 00:00:00 2023-03-29 00:00:00 Outpatient ANGELA MILLER [id number] Angela [facility] 2023-03-27 00:00:00 2023-03-27 00:00:00 Outpatient ANGELA MILLER [id number] [facility] 2023-03-27 00:00:00 2023-03-27 00:00:00 Outpatient ELIAS DORANAN ANGELA MILLER [id number] [facility] 2023-03-26 13:30:00 2023-03-26 13:30:00 Outpatient MICHAEL DORAN [id number] Angela [facility] 2023-03-22 00:00:00 2023-03-22 00:00:00 Outpatient ANGELA MILLER [id number] [facility] 2023-03-21 00:00:00 2023-03-21 00:00:00 Outpatient HUNDEduardoNICK ANGELA MILLER [id number] [facility] 2023-03-20 00:00:00 2023-03-20 00:00:00 Outpatient PREZAS, NIALL MILLER [id number] Angela [facility] 2023-03-20 00:00:00 2023-03-20 00:00:00 Outpatient PREZAS, NIALL ANGELA MILLER [id number] Angela [facility] 2023-03-20 00:00:00 2023-03-20 00:00:00 Outpatient PREZAS, NIALL MILLER [id number] Angela [facility] 2023-03-19 16:10:00 2023-03-19 16:10:00 Outpatient LAB90 ANGELA MILLER [id number] Angela [facility] 2023-03-19 00:00:00 2023-03-19 00:00:00 Outpatient PREZAS, NIALL MILLER [id number] Miller [facility] 2023-03-16 00:00:00 2023-03-16 00:00:00 Outpatient NICK DEVINE ANGELA MILLER [id number] [facility] 2023-03-15 00:00:00 2023-03-15 00:00:00 Outpatient PREZAS, NIALL ANGELA MILLER [id number] Angela [facility] 2023-03-14 13:00:00 2023-03-14 13:00:00 Outpatient YAZMIN ANGELA MILLER [id number] [facility] 2023-03-14 11:00:00 2023-03-14 11:00:00 Outpatient NICK DEVINE ANGELA MILLER [id number] [facility] 2023-03-14 00:00:00 2023-03-14 00:00:00 Outpatient PREZAS, NIALL ANGELA MILLER [id number] [facility] 2023-03-13 00:00:00 2023-03-13 00:00:00 Outpatient JAZZ KRISTAJORGE ANGELA MILLER [id number] [facility] 2023-03-13 00:00:00 2023-03-13 00:00:00 Outpatient ANGELA MILLER [id number] Angela [facility] 2023-03-12 00:00:00 2023-03-12 00:00:00 Outpatient MICHAEL DORAN [id number] Angela [facility] 2023-03-12 00:00:00 2023-03-12 00:00:00 Outpatient MICHAEL DORAN [id number] Angela Sey[facility] 2023-03-09 16:30:00 2023-03-09 16:30:00 Outpatient PREZASNIALL ANGELA MILLER [id number] Angela Sey[facility] 2023-03-08 00:00:00 2023-03-08 00:00:00 Outpatient ANGELA MILLER [id number] Angela [facility] 2023-03-07 00:00:00 2023-03-07 00:00:00 Outpatient PREZAS, NIALL ANGELA MILLER [id number] Angela [facility] 2023-03-07 00:00:00 2023-03-07 00:00:00 Outpatient ANGELA MILLER [id number] [facility] 2023-03-07 00:00:00 2023-03-07 00:00:00 Outpatient PREZAS, NIALL MILLER [id number] [facility] 2023-03-06 11:20:00 2023-03-06 11:20:00 Outpatient LAB90 ANGELA ANGELA [id number] [facility] 2023-03-05 00:00:00 2023-03-05 00:00:00 Outpatient PREZAS, NIALL MILLER ANGELA [id number] [facility] 2023-03-03 00:00:00 2023-03-03 00:00:00 Outpatient PREZAS, NIALL MILLER ANGELA [id number] [facility] 2023-02-21 16:30:00 2023-02-21 16:30:00 Outpatient PREZAS, NI[facility]ER [facility] [id number] [facility]:00:00 2023-02-19 00:00:00 Outpatient PREZAS, NIALL MILLER ANGELA [id number] [facility] 2023-02-15 00:00:00 2023-02-15 00:00:00 Outpatient PREZAS, NIALL MILLER ANGELA [id number] [facility] 2023-02-02 00:00:00 2023-02-02 00:00:00 Outpatient ANGELA MILLER [id number] [facility] 2023-01-29 00:00:00 2023-01-29 00:00:00 Outpatient ANGELA ANGELA [id number] [facility] 2023-01-29 00:00:00 2023-01-29 00:00:00 Outpatient PREZAS, NIALL ANGELA ANGELA [id number] [facility] 2023-01-26 00:00:00 2023-01-26 00:00:00 Outpatient PREZAS, NIALL ANGELA ANGELA [id number] [facility] 2023-01-25 11:30:00 2023-01-25 11:30:00 Outpatient PREZAS, NIALL ANGELA MILLER [id number] [facility] 2023-01-24 00:00:00 2023-01-24 00:00:00 Outpatient PREZANIALL Blanco ANGELA [id number] [facility] 2023-01-22 11:20:00 2023-01-22 11:20:00 Outpatient YAZMIN MILLER ANGELA [id number] [facility] 2023-01-19 16:30:00 2023-01-19 16:30:00 Outpatient PREZASNIALL ANGELA [id number] [facility] 2023-01-15 00:00:00 2023-01-15 00:00:00 Outpatient PREZAS, NIALL ANGELA MILLER [id number] [facility] 2023-01-05 16:45:00 2023-01-05 16:45:00 Outpatient PREZASNIALL ANGELA MILLER [id number] [facility] 2023-01-02 16:30:00 2023-01-02 16:30:00 Outpatient PREZAS, NIALL MILLER ANGELA [id number] [facility] 2023-01-01 00:00:00 2023-01-01 00:00:00 Outpatient ANGELA MILLER [id number] [facility] 2022-12-29 16:45:00 2022-12-29 16:45:00 [facility] [id number] [facility] 00:00:00 2022-12-22 00:00:00 Outpatient MICHAEL DORAN [id number] [facility] 2022-12-04 14:00:00 2022-12-04 14:00:00 Outpatient THIEN COYNE [id number] [facility] 2022-11-16 00:00:00 2022-11-16 00:00:00 Outpatient MICHAEL DORAN [id number] [facility] 2022-11-09 13:40:00 2022-11-09 13:40:00 Outpatient NIC SANTANA [id number] [facility] 2022-10-27 00:00:00 2022-10-27 00:00:00 Outpatient GENEVIEVE CHOWDHURY ANGELA MILLER [id number] Angela [facility] 2022-10-16 00:00:00 2022-10-16 00:00:00 Outpatient ANGELA MILLER [id number] Angela [facility] 2022-10-11 00:00:00 2022-10-11 00:00:00 Outpatient BERTIN CASTROBhupinder ANGELA MILLER [id number] Angela [facility] 2022-10-11 00:00:00 2022-10-11 00:00:00 Outpatient EMILI NEVAREZ [id number] Angela [facility] 2022-10-06 00:00:00 2022-10-06 00:00:00 Outpatient NIALL HARRIS [id number] Angela [facility] 2022-10-04 11:30:00 2022-10-04 11:30:00 Outpatient MICHAEL DORAN [id number] Angela [facility] 2022-10-04 00:00:00 2022-10-04 00:00:00 Outpatient MD ANGELA SAAB [id number] Angela [facility] 2022-10-04 00:00:00 2022-10-04 00:00:00 Outpatient MICHAEL DORAN [id number] Angela [facility] 2022-10-04 00:00:00 2022-10-04 00:00:00 Outpatient ANGELA MILLER [id number] Angela [facility] 2022-10-03 00:00:00 2022-10-03 00:00:00 Outpatient MICHAEL DORAN [id number] Angela [facility] 2022-09-20 00:00:00 2022-09-20 00:00:00 Outpatient ANGELA MILLER [id number] Angela [facility] 2022-09-18 14:00:00 2022-09-18 14:00:00 Outpatient MICHAEL DORAN [id number] Angela [facility] 2022-09-14 00:00:00 2022-09-14 00:00:00 Outpatient ANGELA MILLER [id number] Angela [facility] 2022-08-30 00:00:00 2022-08-30 00:00:00 Outpatient MICHAEL DORAN ANGELA MILLER [id number] Angela [facility] 2022-08-22 00:00:00 2022-08-22 00:00:00 Outpatient ANGELA ANGELA [id number] Angela Seybold 2022-08-22 00:00:00 2022-08-22 00:00:00 Outpatient MICHAEL DORAN ANGELA MILLER [id number] Angela [facility] 2022-08-21 16:00:00 2022-08-21 16:00:00 Outpatient LABFarhana ANGELA MILLER [id number] Angela [facility] 2022-08-21 15:00:00 2022-08-21 15:00:00 Outpatient MICHAEL DORAN ANGELA MILLER [id number] Angela [facility] 2022-08-16 00:00:00 2022-08-16 00:00:00 Outpatient MICHAEL DORAN ANGELA MILLER [id number] Angela [facility] 2022-08-15 00:00:00 2022-08-15 00:00:00 Outpatient ANGELA MILLER [id number] Angela [facility] 2022-08-15 00:00:00 2022-08-15 00:00:00 Outpatient ANGELA MILLER [id number] Angela [facility] 2022-08-15 00:00:00 2022-08-15 00:00:00 Outpatient ANGELA MILLER [id number] Angela [facility] 2022-08-15 00:00:00 2022-08-15 00:00:00 Outpatient ESPINOZAMICHAEL DAVILA ANGELA MILLER [id number] Angela Seybold 2022-08-14 12:20:00 2022-08-14 12:20:00 Outpatient LABFarhana ANGELA MILLER [id number] Angela Seybold 2022-08-14 11:00:00 2022-08-14 11:00:00 Outpatient MICHAEL DORAN [id number] Angela [facility] 2022-08-14 00:00:00 2022-08-14 00:00:00 Outpatient MD ANGELA SAAB [id number] Angela Hewitt Notes Date/Time Note Provider Source 2023-03-14 11:23:20 [id number]:23:20Formatt ing of this note might be different from the original.Patient is here for hospital follow up, reports she had weeping edema. Hospital paperwork brought to appt. VSS. [id number] [id number]:24:23Nurse [id number] able for patient [id number] [facility] [id number]. [id number] [facility]"
[2023-11-27] MEDS ORDERED: KETOROLAC 30 MG/ML INJ ONE (02:54)
[2023-11-27] MEDS ORDERED: ONDANSETRON 4 MG/2 ML VIAL ONE ×3 (02:54→09:08)
[2023-11-27] MEDS ORDERED: NA CHLORIDE 0.9% 1,000 ML ONE (02:55)
[2023-11-27] MEDS ORDERED: FAMOTIDINE 20 MG/2 ML VIAL IV ONE (02:55)
[2023-11-27] MEDS ORDERED: FENTANYL CITR 100 MCG/2 ML ONE ×2 (02:55→06:09)
[2023-11-27 03:29] LABS: Absolute Lymphocytes (CBC) 0.9 K/uL (0.7-4.9); Absolute Monocytes 0.3 K/uL (0.1-1.3); Absolute Neutrophil 6.5 K/uL (1.8-8.0); Basophils % 0.6 % (0-1.3); Eosinophils % 0.3 % (0-4.4); Hematocrit 42.6 % (36.0-45.0); Hemoglobin 13.9 g/dL (12.0-15.0); Lymphocytes % 11.3 % (15.3-44.8); MCH 26.3 pg (27.0-35.0); MCHC 32.6 g/dL (32.0-36.0); MCV 80.8 fL (80-100); MPV 9.8 fL (7.6-11.3); Monocytes % 4.5 % (3.3-12.3); Neutrophils % 83.3 % (41.7-73.7); Platelets 154 thou/uL (152-406); RBC Red Blood Cell Count 5.27 M/uL (3.86-4.86); Red Cell Distribution Width 15.6 % (12.1-15.2)
[2023-11-27 03:37] LABS: Albumin/Globulin Ratio 0.9 (1.1-1.8); Anion Gap 7.7 mEq/L (5.0-15.0); Bilirubin Total 1.3 mg/dL (0.2-1.0); Globulin 4.7 g/dL (2.3-3.5); Potassium 2.7 mEq/L (3.5-5.1); Protein, Total 8.7 g/dL (6.4-8.2)
[2023-11-27 04:05] LABS: Troponin High Sensitivity 174.8 pg/mL (<58.9)
[2023-11-27] MEDS ORDERED: POTASSIUM CL SA 10 MEQ TAB PO ONE (06:08)
[2023-11-27] MEDS ORDERED: FUROSEMIDE 40 MG/4 ML VIAL ONE (06:08)
--- NOTE | 2023-11-27 06:08 | ER ---
Nurse's Notes [facility] Name: Le Lawrence Age: 78 yrs Sex: Female : 1945 Arrival Date: 11/27/2023 Time: 01:54 Bed 2 Private MD: Diagnosis: Acute on chronic diastolic (congestive) heart failure;Cholelithiasis without cholecystitis, NSTEMI, hypokalemia, generalized weakness, nausea with vomiting Presentation: 11/26 02:00 Chief complaint: Patient states: Right Lower Back Pain that stated 1 week ago; nausea jw7 and vomiting that started yesterday; and RUQ Pain that started yesterday. 02:00 Coronavirus screen: At this time, the client does not indicate any symptoms associated jw7 with coronavirus-19. Ebola Screen: No symptoms or risks identified at this time. Initial Sepsis Screen: Does the patient meet any 2 criteria? No. Patient's initial sepsis screen is negative. Does the patient have a suspected source of infection? No. Patient's initial sepsis screen is negative. Risk Assessment: Do you want to hurt yourself or someone else? Patient reports no desire to harm self or others. Onset of symptoms was November 20, 2023. 02:00 Method Of Arrival: EMS: [facility] jw7 02:00 Acuity: CAROL 3 jw7 02:00 Care prior to arrival: Medication(s) given: Reglan 10mg IV initiated. 22 GA, in the jw7 left hand, Glucose check: 165. Triage Assessment: 02:00 General: Appears in no apparent distress. uncomfortable, Behavior is calm, cooperative, jw7 appropriate for age. Pain: Complains of pain in Right Lower Back, RUQ Pain does not radiate. Pain currently is 5 out of 10 on a pain scale. Quality of pain is described as aching, dull, sharp, Pain began 1 week ago Is intermittent. EENT: No deficits noted. No signs and/or symptoms were reported regarding the EENT system. Neuro: Level of Consciousness is awake, alert, obeys commands, Oriented to person, place, time, situation, Appropriate for age. Cardiovascular: Heart tones S1 S2 present Capillary refill < 3 seconds Clubbing of nail beds is absent JVD is absent Patient's skin is warm and dry. Respiratory: Airway is patent Trachea midline Respiratory effort is even, unlabored, Respiratory pattern is regular, symmetrical, Breath sounds are clear bilaterally. GI: Abdomen is round non-distended, obese, Bowel sounds present X 4 quads. Abd is soft and non tender Reports upper abdominal pain, nausea, vomiting. : No deficits noted. No signs and/or symptoms were reported regarding the genitourinary system. Derm: Skin is intact, is healthy with good turgor, Skin is dry, Skin is normal, Skin temperature is warm. Musculoskeletal: Circulation, motion, and sensation intact. Range of motion: intact in all extremities. Historical: - Allergies: 02:00 Amoxicillin; jw7 02:00 Cipro; jw7 02:00 Iodine; jw7 02:00 Augmentin; jw7 02:00 Morphine; jw7 - Home Meds: 02:00 allopurinol 300 mg Oral tablet daily [Active]; atenolol 50 mg Oral tablet [Active]; jw7 doxazosin 4 mg Oral tablet daily [Active]; Eliquis 5 mg Oral tablet once [Active]; famotidine 20 mg Oral tablet 2 times per day [Active]; furosemide 40 mg Oral tablet 2 times per day [Active]; gabapentin 100 mg Oral capsule 3 times per day [Active]; Hydrocodone-Acetaminophen Oral [Active]; lovastatin 40 mg Oral tablet daily [Active]; potassium chloride 20 mEq Oral tablet daily [Active]; spironolactone 25 mg Oral tablet daily [Active]; - PMHx: 02:00 Atrial Fib; Hypertension; neuropathy; Congestive heart failure; Asthma; Diabetes jw7 mellitus; - PSHx: 02:00 Right Arm; jw7 - Immunization history:: Adult Immunizations up to date, Client reports having NOT received the Covid vaccine. Pneumococcal vaccine is not up to date, Flu vaccine is not up to date. - Infectious Disease History:: Denies. - Social history:: Smoking status: Patient denies any tobacco usage or history of. Patient/guardian denies using alcohol, street drugs, IV drugs. - Family history:: not pertinent. Screenin:00 [facility] ED Fall Risk Assessment (Adult) History of falling in the last 3 months, jw7 including since admission No falls in past 3 months (0 pts) Confusion or Disorientation No (0 pts) Intoxicated or Sedated No (0 pts) Impaired Gait Yes (1 pt) Mobility Assist Device Used Yes (1 pt) Altered Elimination No (0 pt) Score/Fall Risk Level 0 - 2 = Low Risk Oriented to surroundings, Maintained a safe environment, Educated pt \T\ family on fall prevention, incl call for assistance when getting out of bed. Abuse screen: Denies threats or abuse. Denies injuries from another. Nutritional screening: No deficits noted. Tuberculosis screening: No symptoms or risk factors identified. Assessment: 02:00 General: See Triage Assessment. [facility] 03:00 Reassessment: Patient appears in no apparent distress at this time. No changes from [facility] previously documented assessment. Patient and/or family updated on plan of care and expected duration. Pain level reassessed. Patient is alert, oriented x 3, equal unlabored respirations, skin warm/dry/pink. 04:00 Reassessment: Patient appears in no apparent distress at this time. No changes from 7 previously documented assessment. Patient and/or family updated on plan of care and expected duration. Pain level reassessed. Patient is alert, oriented x 3, equal unlabored respirations, skin warm/dry/pink. 05:00 Reassessment: Patient appears in no apparent distress at this time. No changes from jw7 previously documented assessment. Patient and/or family updated on plan of care and expected duration. Pain level reassessed. Patient is alert, oriented x 3, equal unlabored respirations, skin warm/dry/pink. 06:01 Reassessment: Patient appears in no apparent distress at this time. No changes from [facility] previously documented assessment. Patient and/or family updated on plan of care and expected duration. Pain level reassessed. Patient is alert, oriented x 3, equal unlabored respirations, skin warm/dry/pink. 07:04 Reassessment: Patient appears in no apparent distress at this time. No changes from 7 previously documented assessment. Patient and/or family updated on plan of care and expected duration. Pain level reassessed. Patient is alert, oriented x 3, equal unlabored respirations, skin warm/dry/pink. Vital Signs: 02:00 BP 96 / 65; Pulse 52; Resp 18 S; Temp 98.5(O); Pulse Ox 100% on R/A; Weight 117.03 kg; jw7 Height 5 ft. 4 in. ; Pain 5/10; 03:00 BP 158 / 59; Pulse 42; Resp 13 S; Pulse Ox 100% on 2 lpm NC; jw7 04:00 BP 145 / 55; Pulse 55; Resp 14 S; Pulse Ox 100% on 2 lpm NC; jw7 05:00 BP 159 / 51; Pulse 52; Resp 13 S; Pulse Ox 100% on 2 lpm NC; jw7 06:00 BP 161 / 52; Pulse 53; Resp 12 S; Pulse Ox 100% on 2 lpm NC; jw7 02:00 Body Mass Index 44.29 (117.03 kg, 162.56 cm) jw7 02:00 Pain Scale: Adult jw7 [place] Coma Score: 06:03 Eye Response: spontaneous(4). Motor Response: obeys commands(6). Verbal Response: sp4 oriented(5). Total: 15. ED Course: 01:57 Patient arrived in ED. jj6 02:00 Maintain EMS IV. Dressing intact. Site clean \T\ dry. Gauge \T\ site: 22G Left Hand. jw 7 02:00 Arm band placed on. jw7 02:00 Patient has correct armband on for positive identification. Bed in low position. Call jw7 light in reach. Side rails up X2. Provided Education on: Use of Call Light. 02:11 Sawyer Aguilar MD is Attending Physician. sp4 02:30 Inserted saline lock: 20 gauge in right antecubital area, using aseptic technique. jw7 Blood collected. 02:30 Initial lab(s) drawn, by me, sent to lab. jw7 03:18 Triage completed. jw7 03:55 EKG done, by ED staff, reviewed by Sawyer Aguilar MD. oe 04:08 Abdomen In Process Unspecified. EDMS 06:01 No provider procedures requiring assistance completed. jw7 06:06 Francisco Salazar is Hospitalizing Provider. sp4 06:08 US Abdomen Limited In Process Unspecified. EDMS 07:02 Urinalysis W/Microscopic Sent. jw7 07:02 Urinalysis w/ reflexes Sent. jw7 12:14 Kenzie Gonsales, HARVEY is Primary Nurse. me1 Administered Medications: 03:00 Drug: fentaNYL (PF) IVP 100 mcg IVP once Route: IVP; Site: right antecubital; jw7 04:00 Follow up: Response: No adverse reaction; Marked relief of symptoms; Pain is decreased jw7 03:00 Drug: NS 0.9% IV 1000 ml IV at 1 bolus Per protocol; 1000 mL bolus Route: IV; Rate: 1 jw7 bolus; Site: right antecubital; 04:00 Follow up: Response: No adverse reaction; Marked relief of symptoms; IV Status: jw7 Completed infusion; IV Intake: 1000ml 03:00 Drug: Famotidine IVP 20 mg IVP once; dilute with 10 mL 0.9% NaCl; give over 2 minutes jw7 Route: IVP; Site: right antecubital; 04:00 Follow up: Response: No adverse reaction; Marked relief of symptoms; Nausea is decreasedjw7 03:00 Drug: TORadol - Ketorolac IVP 15 mg IVP once Route: IVP; Site: right antecubital; jw7 04:00 Follow up: Response: No adverse reaction; Marked relief of symptoms; Pain is decreased jw7 03:32 Drug: Ondansetron IVP 8 mg IVP once; over 2 minutes Route: IVP; Site: right antecubital;jw7 04:00 Follow up: Response: No adverse reaction; Marked relief of symptoms; Nausea is decreasedjw7 06:30 Drug: fentaNYL (PF) IVP 50 mcg IVP once Route: IVP; Site: right antecubital; jw7 06:30 Drug: Ondansetron IVP 4 mg IVP once; over 2 minutes Route: IVP; Site: right antecubital;jw7 06:30 Drug: Furosemide IVP 40 mg IVP once; give over 2 minutes Route: IVP; Site: right jw7 antecubital; 07:03 Drug: Potassium Chloride PO 40 mEq PO once Route: PO; jw7 07:03 Drug: Potassium Chloride IV 20 mEq IV at calculated rate once; administer over 1-2 jw7 hours Route: IV; Rate: calculated rate; Site: right antecubital; Medication: 06:01 VIS not applicable for this client. jw7 Intake: 04:00 IV: 1000ml; Total: 1000ml. jw7 Outcome: 06:07 Decision to Hospitalize by Provider. sp4 15:34 Patient left the ED. ld1 Signatures: [facility] Samuel Shoemaker Lauren, RN RN ld1 Gina Fofana6 Gardenia Maurer RN RN jw7 Sawyer Aguilar MD MD sp4 Kenzie Gonsales RN RN me1
--- NOTE | 2023-11-27 06:08 | EDPHYS ---
Physician Documentation [facility] Name: Le Lawrence Age: 78 yrs Sex: Female : 1945 Arrival Date: 11/27/2023 Time: 01:54 Bed 2 Private MD: ED Physician Sawyer Aguilar HPI: 11/26 02:11 This 78 yrs old Female presents to ER via Unassigned with complaints of sp4 Nausea/Vomiting, Low Back Pain. 05:56 This is a 78-year-old female with past medical history of morbid obesity, atrial sp4 fibrillation on Eliquis, chronic diastolic heart failure, hypertension, hypokalemia, presents to the emergency room with EMS for acute onset lower back pain, also chest discomfort, also persistent vomiting. Patient states back pain is moderate to severe mostly on the right side. Last admission for acute on chronic heart failure 03/10/2023. At that time patient was diagnosed with NSTEMI, acute heart failure exacerbation, and bilateral lower extremity edema. Also history of chronic kidney disease. Occasions include Eliquis 5 mg p.o. twice daily, doxazosin, lovastatin, potassium p.o., atenolol, gabapentin, Lasix 40 mg p.o. twice daily, hydrocodone 10 p.o. 3 times daily, allopurinol 300 daily, amlodipine besylate 10 mg daily, famotidine, spironolactone 25 mg p.o. daily, Medihoney,. Historical: - Allergies: 02:00 Amoxicillin; jw7 02:00 Cipro; jw7 02:00 Iodine; jw7 02:00 Augmentin; jw7 02:00 Morphine; jw7 - Home Meds: 02:00 allopurinol 300 mg Oral tablet daily [Active]; atenolol 50 mg Oral tablet [Active]; jw7 doxazosin 4 mg Oral tablet daily [Active]; Eliquis 5 mg Oral tablet once [Active]; famotidine 20 mg Oral tablet 2 times per day [Active]; furosemide 40 mg Oral tablet 2 times per day [Active]; gabapentin 100 mg Oral capsule 3 times per day [Active]; Hydrocodone-Acetaminophen Oral [Active]; lovastatin 40 mg Oral tablet daily [Active]; potassium chloride 20 mEq Oral tablet daily [Active]; spironolactone 25 mg Oral tablet daily [Active]; - PMHx: 02:00 Atrial Fib; Hypertension; neuropathy; Congestive heart failure; Asthma; Diabetes jw7 mellitus; - PSHx: 02:00 Right Arm; jw7 - Immunization history:: Adult Immunizations up to date, Client reports having NOT received the Covid vaccine. Pneumococcal vaccine is not up to date, Flu vaccine is not up to date. - Infectious Disease History:: Denies. - Social history:: Smoking status: Patient denies any tobacco usage or history of. Patient/guardian denies using alcohol, street drugs, IV drugs. - Family history:: not pertinent. ROS: 06:03 Constitutional: Positive back pain positive vomiting positive abdominal pain positive sp4 feeling unwell overall 06:03 All other systems are negative, Exam: 06:03 Constitutional: This is a well developed, well nourished patient who is awake, alert, sp4 morbidly obese female, uncomfortable appearing Head/Face: Normocephalic, atraumatic. Eyes: Pupils equal round and reactive to light, extra-ocular motions intact. Lids and lashes normal. Conjunctiva and sclera are not injected. Cornea within normal limits. Periorbital areas with no swelling, redness, or edema. ENT: Nares patent. No nasal discharge, no septal abnormalities noted. Tympanic membranes are normal and external auditory canals are clear. Oropharynx with no redness, swelling, or masses, exudates, or evidence of obstruction, uvula midline. Mucous membranes moist. Neck: Trachea midline, no thyromegaly or masses palpated, and no cervical lymphadenopathy. Supple, full range of motion without nuchal rigidity, or vertebral point tenderness. Chest/axilla: Normal chest wall appearance and motion. Nontender with no deformity. No lesions are appreciated. Cardiovascular: Regular rate and rhythm with a normal S1 and S2. No gallops, murmurs, or rubs. Normal PMI, no JVD. No pulse deficits. Respiratory: Lungs have equal breath sounds bilaterally, clear to auscultation and percussion. No rales, rhonchi or wheezes noted. No increased work of breathing, no retractions or nasal flaring. Abdomen/GI: Soft, with normal bowel sounds. No distension or tympany. No guarding or rebound. No evidence of tenderness throughout. Back: No spinal tenderness. No costovertebral tenderness. Skin: Warm, dry with normal turgor. Normal color with no rashes, no lesions, and no evidence of cellulitis. MS/ Extremity: Pulses equal, no cyanosis. Neurovascular intact. Full, normal range of motion. Neuro: Awake and alert, GCS 15, oriented to person, place, time, and situation. Cranial nerves II-XII grossly intact. Motor strength 5/5 in all extremities. Sensory grossly intact. Psych: Awake, alert, with orientation to person, place and time. Behavior, mood, and affect are within normal limits 06:03 ECG was reviewed by the Attending Physician. EKG at 0 345 atrial fibrillation with slow ventricular response at rate of 41. Vital Signs: 02:00 BP 96 / 65; Pulse 52; Resp 18 S; Temp 98.5(O); Pulse Ox 100% on R/A; Weight 117.03 kg; jw7 Height 5 ft. 4 in. ; Pain 5/10; 03:00 BP 158 / 59; Pulse 42; Resp 13 S; Pulse Ox 100% on 2 lpm NC; [facility] 04:00 BP 145 / 55; Pulse 55; Resp 14 S; Pulse Ox 100% on 2 lpm NC; [facility] 05:00 BP 159 / 51; Pulse 52; Resp 13 S; Pulse Ox 100% on 2 lpm NC; [facility] 06:00 BP 161 / 52; Pulse 53; Resp 12 S; Pulse Ox 100% on 2 lpm NC; [facility] 02:00 Body Mass Index 44.29 (117.03 kg, 162.56 cm) [facility] 02:00 Pain Scale: Adult [facility] Barron Coma Score: 06:03 Eye Response: spontaneous(4). Motor Response: obeys commands(6). Verbal Response: sp4 oriented(5). Total: 15. MDM: 02:12 Patient medically screened. sp4 05:44 ED course: EXAM: CTAbdomen and Pelvis Without Intravenous Contrast CLINICAL HISTORY: sp4 The patient is 78 years old and is Female; ABD PAIN TECHNIQUE: Axial computed tomography images of the abdomen and pelvis without intravenous contrast. Sagittal and coronal reformatted images were created and reviewed. This CT exam was performed using one or more of the following dose reduction techniques: automated exposure control, adjustment of the mA and/or kV according to patient size, and/or use of iterative reconstruction technique. COMPARISON: No relevant prior studies available. FINDINGS: Lung bases: Unremarkable. No mass. No consolidation. Mediastinum: Small hiatal hernia. ABDOMEN: Liver: 2.6 cm cyst in the right posterior liver. Gallbladder and bile ducts: 2.2 cm gallstone in the gallbladder. Mildly dilated common bile duct. Pancreas: Unremarkable. No ductal dilation. Spleen: Unremarkable. No splenomegaly. Adrenals: Unremarkable. No mass. Kidneys and ureters: Unremarkable. No obstructing stones. No hydronephrosis. Stomach and bowel: Unremarkable. No obstruction. No mucosal thickening. PELVIS: Appendix: No findings to suggest acute appendicitis. Bladder: Unremarkable. Reproductive: Unremarkable as visualized. ABDOMEN and PELVIS: Intraperitoneal space: Unremarkable. No free air. No significant fluid collection. Bones/joints: Disc space narrowing with degenerative endplate changes in the spine. 7 mm of anterolisthesis of L4 on L5. No acute fracture. No dislocation. Soft tissues: There is a 4.7 x 3.1 x 7.4 cm fat-containing periumbilical hernia. Vasculature: Unremarkable. No abdominal aortic aneurysm. Lymph nodes: Unremarkable. No enlarged lymph nodes. IMPRESSION: 1. 2.2 cm gallstone in the gallbladder. 2. Mildly dilated common bile duct. 3. There is a 4.7 x 3.1 x 7.4 cm fat-containing periumbilical hernia. Electronically signed by: To Patton MD 11/27/2023 05:30 AM. 06:07 Differential diagnosis: Nonspecific abd pain, gastritis, cholecystitis, pancreatitis, sp4 diverticulitis, viral gastroenteritis, gastroenteritis. Data reviewed: vital signs, nurses notes, EMS record, lab test result(s), EKG, radiologic studies, CT scan, ultrasound. Consideration of Admission/Observation Patient was admitted/placed on observation. Escalation of care including admission/observation considered. Management of patient was discussed with the following: Hospitalist: Marie SANCHEZ . Block Captain: Enrico SANCHEZ . 11/26 02:12 Order name: CBC with Diff; Complete Time: 03:35 4 11/26 02:12 Order name: CMP; Complete Time: 05:25 sp4 11/26 02:12 Order name: Lipase; Complete Time: 05:25 sp4 11/26 02:12 Order name: Urinalysis w/ reflexes sp4 11/26 03:34 Order name: Troponin High Sensitivity; Complete Time: 05:25 sp4 11/26 03:34 Order name: BNP; Complete Time: 05:25 sp4 11/26 03:35 Order name: CK; Complete Time: 05:25 sp4 11/26 05:58 Order name: Urinalysis W/Microscopic sp4 11/26 06:23 Order name: Urinalysis w/ reflexes EDMS 11/26 06:23 Order name: Basic Metabolic Panel EDMS 11/26 06:23 Order name: Basic Metabolic Panel EDMS 11/26 06:23 Order name: Basic Metabolic Panel EDMS 11/26 06:23 Order name: Basic Metabolic Panel EDMS 11/26 06:23 Order name: Basic Metabolic Panel EDMS 11/26 06:23 Order name: Basic Metabolic Panel EDMS 11/26 06:23 Order name: CBC with Automated Diff EDMS 11/26 06:23 Order name: CBC with Automated Diff EDMS 11/26 06:24 Order name: CBC with Automated Diff EDMS 11/26 06:24 Order name: CBC with Automated Diff EDMS 11/26 06:24 Order name: CBC with Automated Diff EDMS 11/26 06:24 Order name: CBC with Automated Diff EDMS 11/26 06:24 Order name: Magnesium EDMS 11/26 06:24 Order name: Magnesium EDMS 11/26 06:24 Order name: Magnesium EDMS 11/26 06:24 Order name: Magnesium EDMS 11/26 06:24 Order name: Magnesium EDMS 11/26 06:24 Order name: Magnesium EDMS 11/26 06:24 Order name: Troponin High Sensitivity EDMS 11/26 06:24 Order name: Troponin High Sensitivity EDMS 11/26 06:24 Order name: Troponin High Sensitivity EDMS 11/26 06:24 Order name: Troponin High Sensitivity EDMS 11/26 06:27 Order name: Lipase EDMS 11/26 06:27 Order name: Lipase EDMS 11/26 06:27 Order name: Lipase EDMS 11/26 06:27 Order name: Lipase EDMS 11/26 04:08 Order name: Abdomen EDMS 11/26 05:44 Order name: US Abdomen Limited sp4 11/26 02:12 Order name: IV Saline Lock; Complete Time: 02:47 sp4 11/26 02:12 Order name: Labs collected and sent; Complete Time: 02:47 sp4 11/26 03:34 Order name: EKG - Nurse/Tech; Complete Time: 03:54 sp4 EC:03 Rate is 41 beats/min. Rhythm is irregularly irregular, A fib. QRS [place] is Normal. No ST sp4 changes noted. Clinical impression: No evidence of ischemia. Reviewed by me. Administered Medications: 03:00 Drug: fentaNYL (PF) IVP 100 mcg IVP once Route: IVP; Site: right antecubital; jw7 04:00 Follow up: Response: No adverse reaction; Marked relief of symptoms; Pain is decreased jw7 03:00 Drug: NS 0.9% IV 1000 ml IV at 1 bolus Per protocol; 1000 mL bolus Route: IV; Rate: 1 jw7 bolus; Site: right antecubital; 04:00 Follow up: Response: No adverse reaction; Marked relief of symptoms; IV Status: jw7 Completed infusion; IV Intake: 1000ml 03:00 Drug: Famotidine IVP 20 mg IVP once; dilute with 10 mL 0.9% NaCl; give over 2 minutes jw7 Route: IVP; Site: right antecubital; 04:00 Follow up: Response: No adverse reaction; Marked relief of symptoms; Nausea is decreasedjw7 03:00 Drug: TORadol - Ketorolac IVP 15 mg IVP once Route: IVP; Site: right antecubital; jw7 04:00 Follow up: Response: No adverse reaction; Marked relief of symptoms; Pain is decreased jw7 03:32 Drug: Ondansetron IVP 8 mg IVP once; over 2 minutes Route: IVP; Site: right antecubital;jw7 04:00 Follow up: Response: No adverse reaction; Marked relief of symptoms; Nausea is decreasedjw7 06:30 Drug: fentaNYL (PF) IVP 50 mcg IVP once Route: IVP; Site: right antecubital; jw7 06:30 Drug: Ondansetron IVP 4 mg IVP once; over 2 minutes Route: IVP; Site: right antecubital;jw7 06:30 Drug: Furosemide IVP 40 mg IVP once; give over 2 minutes Route: IVP; Site: right jw antecubital; 07:03 Drug: Potassium Chloride PO 40 mEq PO once Route: PO; jw7 07:03 Drug: Potassium Chloride IV 20 mEq IV at calculated rate once; administer over 1-2 jw7 hours Route: IV; Rate: calculated rate; Site: right antecubital; Disposition Summary: 11/27/23 06:07 Hospitalization Ordered Notes: Hospitalization Status: Inpatient Admission sp4 Provider: Francisco Salazar sp4 Condition: Stable sp4 Problem: new sp4 Symptoms: have improved sp4 Bed/Room Type: Standard sp4 Location: Telemetry/MedSurg (Inpatient)(11/27/23 14:36) bd Room Assignment: 210(11/27/23 14:36) bd Diagnosis - Acute on chronic diastolic (congestive) heart failure sp4 - Cholelithiasis without cholecystitis, NSTEMI, hypokalemia, generalized weakness, sp4 nausea with vomiting Forms: - Medication Reconciliation Form sp4 - SBAR form sp4 - Leadership Thank You Letter sp4 Signatures: Dispatcher [employer] EDMS Lucia Brown Jodi, RN RN jw7 Sawyer Aguilar MD MD sp4 Corrections: (The following items were deleted from the chart) 02:13 02:13 CBC+H.LAB.BRZ ordered. EDMS EDMS 02:13 02:13 COMPREHENSIVE METABOLIC PANEL+C.LAB.BRZ ordered. EDMS EDMS 02:13 02:13 LIPASE+C.LAB.BRZ ordered. EDMS EDMS 02:13 02:13 Urinalysis+U.LAB.BRZ ordered. EDMS EDMS 03:35 03:35 Troponin High Sensitivity+C.LAB.BRZ ordered. EDMS EDMS 03:35 03:35 PROBNP+C.LAB.BRZ ordered. EDMS EDMS 04:08 02:13 Abdomen Pelvis W Con+CT.RAD.BRZ ordered. EDMS EDMS 05:59 05:59 Urinalysis W/Microscopic+U.LAB.BRZ ordered. EDMS EDMS 06:04 05:58 Young ordered. sp4 jw7 07:12 06:07 Telemetry/MedSurg (Inpatient) sp4 bd 07:12 06:07 sp4 bd 14:36 07:12 [facility] ER HOLD bd bd 14:36 07:12 ERHOLD- bd bd
[2023-11-27] MEDS ORDERED: KCL 20 MEQ/100 mL IVPB 100 ML IV ONE (06:09)
[2023-11-27] MEDS ORDERED: NA CHLORIDE 0.9% 250 ML ONE (06:09)
--- NOTE | 2023-11-27 06:17 | P.HP ---
Certification for Inpatient Patient admitted to: Inpatient Patient will require the following post-hospital care: None Practitioner: I am a practitioner with admitting privileges, knowledge of patient current condition, hospital course, and medical plan of care. Services: Services provided to patient in accordance with Admission requirements found in Title 42 Section 412.3 of the Code of Federal Regulations <Alena Castro - Last Filed: 11/28/23 06:59> Patient History Date of Service: 11/28/23 Reason for admission: Elevated troponin History of Present Illness: 78-year-old female with a past medical history of atrial fibrillation on Eliquis, chronic diastolic congestive heart failure, hypertension, morbid obesity, presents to the emergency room presented to the emergency room with intractable nausea vomiting. She denies alcohol intake, no fever, diarrhea. Reports shortness of breath that is worse with exertion. History of acute on chronic heart failure, reports associated right hip pain, no reported chest pain, HPI is vague, daughter is at bedside, plan to admit for NSTEMI, elevated troponin, acute on chronic heart failure, intractable nausea vomiting, elevated lipase, cholelithiasis without cholecystitis, - Past Medical/Surgical History Diabetic: No -: CHF -: HTN -: Afib -: diverticulosis -: neuropathy -: bad rotator cuffs -: left elbow sx Psychosocial/ Personal History: Patient is . - Family History Mother -: Heart disease, Diabetes Notes: CHF Brother -: Heart disease, Diabetes Notes: CHF and diabetes complications. and heart attack Father -: Cancer Notes: of colon cancer Sister -: Cancer Notes: skin cancer-living - Social History Alcohol use: No CD- Drugs: No Caffeine use: No <Alena Castro - Last Filed: 11/28/23 06:59> Date of Service: 11/27/23 <Lisa Sheffield - Last Filed: 11/30/23 13:17> Allergies amoxicillin Allergy (Verified 03/08/23 01:57) Nausea/Vomiting ciprofloxacin [From Cipro] Allergy (Verified 10/16/17 17:24) Nausea/Vomiting iodine Allergy (Verified 10/16/17 17:24) Itching/Hives/Rash Home Medications: Apixaban [Eliquis *] 5 mg PO BID 10/16/17 Doxazosin Mesylate 4 mg PO BEDTIME 10/16/17 Lovastatin 40 mg PO BEDTIME 10/16/17 Potassium Chloride 20 meq PO DAILY 10/16/17 atenoloL [Tenormin*] 50 mg PO TID 10/16/17 Gabapentin 100 mg PO TID 08/02/20 Furosemide [Lasix] 40 mg PO BID 09/10/22 Hydrocodone 10/APAP 325 [[place] 10/325*] 1 tab PO TID 09/18/22 Allopurinol 300 mg PO DAILY 03/08/23 Amlodipine Besylate 10 mg PO DAILY 03/08/23 Docusate [Colace Cap*] 200 mg PO BID 03/08/23 Famotidine 20 mg PO BID 03/08/23 Spironolactone 25 mg PO DAILY 03/08/23 Hydrocodone 10/APAP 325 [[place] 10/325] 1 tab PO Q8H PRN #30 tab 03/10/23 Medihoney [Medihoney Woundcare Gel*] 1 appl TOP DAILY #1 tube 03/10/23 Potassium Chloride [K-Dur] 10 meq PO DAILY #30 tab 03/10/23 Potassium Oral Tab [Klor-Con 10 mEq Tab*] 20 meq PO DAILY #30 tab 03/10/23 Review of Systems per HPI <Alena Castro - Last Filed: 11/28/23 06:59> Physical Examination - Physical Exam General: Alert, In no apparent distress, Mild distress, Obese HEENT: Atraumatic, Normocephalic Neck: 2+ carotid pulse no bruit, JVD not distended Respiratory: Normal air movement, Crackles/rales Cardiovascular: Normal pulses, Regular rate/rhythm Capillary refill: <2 Seconds Gastrointestinal: Tenderness (Generalized abdominal tenderness) Musculoskeletal: No clubbing, No swelling Integumentary: No breakdown, No significant lesion Neurological: Normal speech, Normal strength at 5/5 x4 extr, Other (Generalized weak) - Studies Laboratory Data (last 24 hrs) 11/27/23 11/27/23 02:46 02:46 WBC 7.80 Hgb 13.9 Hct 42.6 Plt Count 154 Sodium 132 L Potassium 2.7 L BUN 21 H Creatinine 1.22 H Glucose 170 H Total Bilirubin 1.3 H AST 17 ALT 18 Alkaline Phosphatase 61 Lipase 144 H <Alena Castro - Last Filed: 11/28/23 06:59> Assessment and Plan - Plan Assessment and Plan NSTEMI Acute hypoxic hypercarbic respiratory failure secondary to decompensated heart failure Acute on chronic heart failure Acute on chronic kidney injury unknown baseline Atrial fibrillation on chronic anticoagulation Eliquis Cardiology consult, telemetry, Echo ordered am Trend BMP, trend troponin, cont eliquis, trend trop Elevated CO2 33 Troponin 178 BNP 439 Echo 03/09/2023 COMMENTS: 1. NORMAL LEFT VENTRICULAR EJECTION FRACTION 60-65% 2. NORMAL WALL MOTION 3. BI-ATRIAL ENLARGEMENT 4. SEVERE TRICUSPID REGURGITATION 5. MILD PULMONIC INSUFFICIENCY 6. MILD MITRAL REGURGITATION Intractable nausea vomiting Elevated lipase Mild pancreatitis Trend lipase, as needed antiemetics, as needed analgesics Pancreatitis surgery consult Dr. Anne cholecystitis Morbid obesity Diabetes type 2 [id number] unknown control Accu-Cheks, sliding scale insulin Acute on chronic kidney injury unknown baseline likely secondary to prerenal CHF Trend kidney function gentle IV fluids Trend electrolytes replace as needed Hypokalemia Trend electrolytes replace as needed Cardiac diet Full code DVT Eliquis . Discharge Plan: Home Plan to discharge in: 48 Hours Discharge Plan: Home - Advance Directives Does patient have a Living Will: No Does patient have a Durable POA for Healthcare: No - Code Status/Comfort Care Code Status: Full Code Critical Care: No Time Spent Managing Pts Care (In Minutes): 55 <Alena Castro - Last Filed: 11/28/23 06:59> Date of Service: 11/27/23 Patient chart was reviewed and patient was seen and examined. BRENDA history and physical reviewed as well. Agree with the assessment and plan. Patient presented with intractable nausea and vomiting. Patient continues with nausea and vomiting at this time. Continue with antiemetics. Will need GI evaluation if not improving. Will start Reglan. Patient's troponins are elevated. Will get cardiology consultation. Patient's creatinine also elevated. Nephrology consultation pending. Gentle hydration. Most of the MDM was done by myself and plan of care was discussed with BRENDA as well as the patient. Plan to discharge over the next 24 to 48 hours once nausea and vomiting has improved and cardiology and nephrology evaluation completed. Anticipated length of stay is 2-3 days. <Lisa Sheffield - Last Filed: 11/30/23 13:17>
[2023-11-27 07:04] LABS: Specific Gravity 1.014 (1.005-1.030); Urine Bilirubin NEGATIVE (Negative); Urine Blood Negative (Negative); Urine Clarity Clear (Clear); Urine Color Light-Yellow (Yellow); Urine Glucose NEGATIVE (Negative); Urine Ketones NEGATIVE (Negative); Urine Microscopic Reflex YN NO UMIC; Urine Nitrite NEGATIVE (Negative); Urine Protein NEGATIVE (Negative); Urine Urobilinogen Normal (Normal)
--- NOTE | 2023-11-27 08:07 | RAD REPORT ---
EXAM DESCRIPTION: US - Abdomen Exam Limited - 11/27/2023 6:06 am CLINICAL HISTORY: Abdominal pain. COMPARISON: 2020 FINDINGS: 1.8 centimeter stone within the neck of the gallbladder. Gallbladder wall not thickened Common bile duct 7.5 millimeters. The duct measured 1 centimeter on a 2020 exam IMPRESSION: Cholelithiasis without evidence cholecystitis. Given the patient's age there is borderline dilatation of the common bile duct
[2023-11-27] MEDS ORDERED: HYDROMORPHONE HCL 0.5 MG/0.5 ML INJ IV PRN (08:58)
[2023-11-27] MEDS: FUROSEMIDE 40 MG/4 ML VIAL IV SCH (09:00)
[2023-11-27] MEDS: ONDANSETRON 4 MG/2 ML VIAL IV PRN (09:10)
[2023-11-27] MEDS: ONDANSETRON 4 MG/2 ML VIAL IV ONE (13:31)
[2023-11-27] MEDS: PROMETHAZINE INJ 25 MG/ML AMP IV PRN (14:02)
[2023-11-27] MEDS: HYDROMORPHONE HCL 0.5 MG/0.5 ML INJ IV ONE (16:13)
[2023-11-27] MEDS: HYDROCODONE/APAP 7.5/325 MG TAB PO PRN (16:40)
--- NOTE | 2023-11-27 17:40 | RAD REPORT ---
EXAM DESCRIPTION: CT - Abdomen Pelvis Wo Contrast - 11/27/2023 6:35 am CLINICAL HISTORY: The patient is 78 years old and is Female; ABD PAIN TECHNIQUE: Axial computed tomography images of the abdomen and pelvis without intravenous contrast. Sagittal and coronal reformatted images were created and reviewed. This CT exam was performed usi ng one or more of the following dose reduction techniques: automated exposure control, adjustment o f the mA and/or kV according to patient size, and/or use of iterative reconstruction technique. COMPARISON: No relevant prior studies available. FINDINGS: Lung bases: Unremarkable. No mass. No consolidation. Mediastinum: Small hiatal hernia. ABDOMEN: Liver: 2.6 cm cyst in the right posterior liver. Gallbladder and bile ducts: 2.2 cm gallstone in the gallbladder. Mildly dilated common bile duct. Pancreas: Unremarkable. No ductal dilation. Spleen: Unremarkable. No splenomegaly. Adrenals: Unremarkable. No mass. Kidneys and ureters: Unremarkable. No obstructing stones. No hydronephrosis. Stomach and bowel: Unremarkable. No obstruction. No mucosal thickening. PELVIS: Appendix: No findings to suggest acute appendicitis. Bladder: Unremarkable. Reproductive: Unremarkable as visualized. ABDOMEN and PELVIS: Intraperitoneal space: Unremarkable. No free air. No significant fluid collection. Bones/joints: Disc space narrowing with degenerative endplate changes in the spine. 7 mm of anterolisthesis of L4 on L5. No acute fracture. No dislocation. Soft tissues: There is a 4.7 x 3.1 x 7.4 cm fat-containing periumbilical hernia. Vasculature: Unremarkable. No abdominal aortic aneurysm. Lymph nodes: Unremarkable. No enlarged lymph nodes. IMPRESSION: 1. 2.2 cm gallstone in the gallbladder. 2. Mildly dilated common bile duct. 3. There is a 4.7 x 3.1 x 7.4 cm fat-containing periumbilical hernia. Electronically signed by: To Patton MD 11/27/2023 05:30 AM CDT Due to temporary technical issues with the PACS/Fluency reporting system, reports are being signed by the in house radiologists without review as a courtesy to insure prompt reporting. The interpreting radiologist is fully responsible for the content of the report.
--- NOTE | 2023-11-27 19:12 | CON ---
Date of Consultation: 11/27/2023 Reason For Consultation: Elevated troponin. History Of Present Illness: A 78-year-old female, history of atrial fibrillation, diastolic heart fa ilure, hypertension, morbid obesity, presented to the emergency room with intractable nausea and vomi ting, also severe pain to the right buttock. Denies having any chest pain. No shortness of breath. No orthopnea. No cough or diarrhea. Past Medical History: As outlined above in the HPI, which is CHF, hypertension, AFib, and neuropathy , congestive heart failure and hypertension. Medications: Refer to reconciliation sheet for detailed list. Allergies: AMOXICILLIN, CIPROFLOXACIN, IODINE. Family History: No premature coronary artery disease or cancer. Social History: She does not smoke or drink. Does not use any drugs. Review of Systems: All systems reviewed and they were negative except as mentioned in the HPI. Physical Examination: Vital Signs: Reviewed. Head and Neck: Pupils are equal, reactive to light. Intact eye movements. No JVD. No cervical lym phadenopathy. Neck is supple. Thyroid is not enlarged. Lungs: Clear to auscultation bilaterally. No rhonchi, wheezing, or crackles. No accessory muscle u se. Heart: Regular rate and rhythm. No extra sounds. Abdomen: Soft, nontender. Bowel sounds positive. No organomegaly. No masses or hernia. No rigidi ty or rebound. Extremities: No edema, clubbing, or cyanosis. Intact pulses. Skin: No rash. No nodule. Neurologic: Alert, awake, oriented x3. No acute focal deficits appreciated. Investigations: Troponin first one is 174, second one is pending. BUN is 21, creatinine 1.22, potas sium 2.7, and hemoglobin 13.6. Assessment And Recommendations: 1.Elevated troponin. No chest pain. This is probably demand ischemia. Start the patient on aspiri n 81 mg and do 2 more sets of cardiac enzymes and obtain an echo and plan accordingly. If there is s ubstantial rise of the troponin, then heparin drip will be recommended and coronary angiogram afterwa rds. If troponin remains at the lower levels, likely will be demand and we will plan for outpatient ischemia workup. 2.Congestive heart failure. Appears to be euvolemic. I recommend switch of her Lasix to oral and t o give her oral dose. 3.Hypertension. Blood pressure is uncontrolled. Resume home medications. Adjust further, if neede d. SR/MODL Voice ID: [id number] Report ID: [id number]
[2023-11-28 02:05] LABS: Absolute Monocytes 0.7 K/uL (0.1-1.3); Absolute Neutrophil 9.3 K/uL (1.8-8.0); Basophils % 0.4 % (0-1.3); Hemoglobin 13.6 g/dL (12.0-15.0); Lymphocytes % 9.2 % (15.3-44.8); MCH 26.2 pg (27.0-35.0); MCHC 32.4 g/dL (32.0-36.0); MCV 80.8 fL (80-100); MPV 9.4 fL (7.6-11.3); Monocytes % 6.1 % (3.3-12.3); Neutrophils % 84.3 % (41.7-73.7); Platelets 138 thou/uL (152-406); RBC Red Blood Cell Count 5.19 M/uL (3.86-4.86); Red Cell Distribution Width 15.5 % (12.1-15.2)
[2023-11-28 02:20] LABS: Anion Gap 7.6 mEq/L (5.0-15.0); Magnesium 1.9 mg/dL (1.6-2.4)
[2023-11-28 02:25] LABS: Potassium 2.6 mEq/L (3.5-5.1)
[2023-11-28] MEDS: KCL 20 MEQ/100 mL IVPB 20 MEQ/100 ML BAG IV SCH ×2 (05:00→07:56)
--- NOTE | 2023-11-28 06:49 | P.PN ---
Subjective Date of Service: 11/28/23 Chief Complaint: Elevated troponin Admitted with intractable nausea vomiting moderate abdominal pain, admitted for pancreatitis, cannot do judicious IV fluid due to acute on chronic heart failure As needed analgesics added, surgery consulted for cholelithiasis with pancreatitis - Physical Exam General: Alert, In no apparent distress, Mild distress, Obese HEENT: Atraumatic, Normocephalic Neck: 2+ carotid pulse no bruit, JVD not distended Respiratory: Normal air movement, Crackles/rales Cardiovascular: Normal pulses, Regular rate/rhythm Capillary refill: <2 Seconds Gastrointestinal: Tenderness (Generalized abdominal tenderness) Musculoskeletal: No clubbing, No swelling Integumentary: No breakdown, No significant lesion Neurological: Normal speech, Normal strength at 5/5 x4 extr, Other (Generalized weak) <Alena Castro - Last Filed: 11/28/23 07:02> Date of Service: 11/28/23 <Lisa Sheffield - Last Filed: 11/28/23 12:31> Review of Systems Per HPI <Alena Castro - Last Filed: 11/28/23 07:02> Physical Examination - Vital Signs Temperature: 97.8 F Blood Pressure: 151/61 Pulse: 61 Respirations: 18 Pulse Ox (%): 98 <Alena Castro - Last Filed: 11/28/23 07:02> Assessment And Plan - Plan Assessment and Plan NSTEMI Acute hypoxic hypercarbic respiratory failure secondary to decompensated heart failure Acute on chronic heart failure Acute on chronic kidney injury unknown baseline Atrial fibrillation on chronic anticoagulation Eliquis Cardiology consult, telemetry, Echo ordered am Trend BMP, trend troponin, cont eliquis, trend trop Elevated CO2 33 Troponin 178 BNP 439, Echo 03/09/2023 COMMENTS: 1. NORMAL LEFT VENTRICULAR EJECTION FRACTION 60-65% 2. NORMAL WALL MOTION 3. BI-ATRIAL ENLARGEMENT 4. SEVERE TRICUSPID REGURGITATION 5. MILD PULMONIC INSUFFICIENCY 6. MILD MITRAL REGURGITATION Intractable nausea vomiting Elevated lipase Mild pancreatitis Trend lipase, as needed antiemetics, as needed analgesics Pancreatitis- surg consult Dayana cholelithiasis without cholecystitis Lipase 140 Morbid obesity Diabetes type 2 wtj-[id number] unknown control Accu-Cheks, sliding scale insulin Acute on chronic kidney injury unknown baseline likely secondary to prerenal CHF Trend kidney function gentle IV fluids Trend electrolytes replace as needed Hypokalemia Trend electrolytes replace as needed Cardiac diet Full code DVT Eliquis . Discharge Plan: Home Plan to discharge in: 48 Hours Discharge Plan: Home - Code Status/Comfort Care Code Status: Full Code Critical Care: No Time Spent Managing PTS Care (In Minutes): 35 <Alena Castro - Last Filed: 11/28/23 07:02>
[2023-11-28] MEDS: POTASSIUM 25 MEQ EFFERV TAB PO ONE (09:59)
--- NOTE | 2023-11-28 13:05 | EKG ---
Test Date: 2023-11-28 Test Time: 10:34:54 School Aide: ES MEASUREMENT RESULTS: Intervals: Rate: 54 [place]: QRSD: 96 QT: 472 QTc: 447 [place]: P: MN: QRS: 113 T: 36 INTERPRETIVE STATEMENTS: Atrial fibrillation with slow ventricular response Septal infarct, age undetermined Lateral infarct, age undetermined Abnormal ECG Compared to ECG 11/27/2023 03:45:48 No significant changes Electronically Signed On 11-28-23 13:04:59 CDT by Feliciano Weston
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
--- NOTE | 2023-11-28 13:12 | EKG ---
Test Date: 2023-11-27 Test Time: 03:43:53 General Production Manager: MAIKEL MEASUREMENT RESULTS: Intervals: Rate: 47 [place]: QRSD: 100 QT: 502 QTc: 444 [place]: P: CA: QRS: 49 T: -43 INTERPRETIVE STATEMENTS: Junctional rhythm Anterior infarct, age undetermined Abnormal ECG Compared to ECG 03/07/2023 18:24:28 Junctional rhythm now present Atrial fibrillation no longer present Right-axis deviation no longer present Myocardial infarct finding still present Electronically Signed On 11-28-23 13:07:18 CDT by Feliciano Weston
--- NOTE | 2023-11-28 15:20 | P.CNS ---
Date of Consult: 11/28/23 PC: Has asked to see and evaluate this 78-year-old female who presented to the emergency room with nausea and vomiting. HPC: Patient was having pain in her lower back on the right side. More in the hip area as she describes it. Was being treated over the last few months for chronic pain. Has been trying to wean herself off hydrocodone. Now has nausea and vomiting. As well as pain. PMHx: Atrial fibrillation Social Hx: Allergic to amoxicillin's, Cipro, iodine Sys R: No cough, wheeze, shortness of breath. No chest pain. Has shoulder pain. Has been trying to come off of her hydrocodone []. Does not use alcohol. Does not smoke. O/E: Awake alert comfortable at the moment HEENT: Not jaundiced Chest: Chest movement equal bilaterally Abd: Has a large reducible umbilical hernia. Otherwise relatively benign exam. Data: Elevated serum lipase Impression: Possible gallstone pancreatitis Plan: The patient has been admitted and because of her chest pain and complaints, they are ruling out a possible DC. Also has atrial fibrillation. History of low cardiac output. Borderline renal function. At the current time she is stable, pain is manageable on antibiotics. She does not require immediate surgical intervention. After she has had her cardiac and renal issues investigated a bit more, may be able to do her surgery and perhaps 4 to 6 weeks. I explained this to the patient. She is comfortable with this.
[2023-11-28] MEDS: LORazepam 2 MG/ML VIAL IV ONE (15:32)
--- NOTE | 2023-11-28 16:24 | RAD REPORT ---
EXAM DESCRIPTION: MRI - Cholangiogram - 11/28/2023 4:17 pm CLINICAL HISTORY: elev lipase,cholithaisis COMPARISON: Abdomen Exam Limited dated 11/27/2023; Abdomen Pelvis Wo Contrast dated 11/27/2023 FINDINGS: Three-dimensional MRCP was performed using maximum intensity projection reconstruction on the same work station. No intrahepatic biliary tree dilatation is seen. The common bile duct is normal caliber without evide nce of retained stone, stricture or mass. The pancreatic duct is not pathologically dilated. There is a large gallstone in the gallbladder. Limited T2 sequences through the abdomen demonstrates no bulky adenopathy, significant free fluid or abscess. Benign liver cyst suspected. IMPRESSION: Large gallstone in the gallbladder.
[2023-11-28] MEDS: GABAPENTIN 100 MG CAP PO SCH (16:38)
[2023-11-28] MEDS ORDERED: HOME MED 1 EA UNK (Lovastatin [Lovastatin] 40 MG Tablet) PO SCH (21:00)
[2023-11-28] MEDS: APIXABAN 5 MG TABLET PO SCH (21:21)
[2023-11-28] MEDS: ATORVASTATIN 20 MG TAB PO SCH (21:21)
[2023-11-28] MEDS: DOXAZOSIN 4 MG TAB PO SCH (21:22)
[2023-11-29] MEDS: AMIODARONE HCL 900 MG in Dextrose 5%-Water 482 ML IV SCH ×2 (00:21→18:10)
[2023-11-29] MEDS: SODIUM CHL 0.9% 1000 ML BAG IV SCH (00:25)
--- NOTE | 2023-11-29 00:36 | P.PN ---
Date of Service: 11/29/23 Code Blue Note Patient was noted to have irregular rhythm and rapid response was called On examination patient did not had a pulse , and CODE BLUE was called Started on ACLS protocol. CPR started Monitor shows ventricular fibrillation Had to administer 2 shocks and ROSC was achieved Also was started on amiodarone bolus with drip Appreciate help from ER MD Patient was intubated and transferred to ICU and was placed on mechanical ventilator support Patient noted to be in hypotensive and IV fluids, albumin been started initially Added on Levophed to titrate to MAP more than 65. Appreciate help from the team Family was notified .
[2023-11-29] MEDS: NOREPINEPHRINE 4 MG in D5W 250 ML IV SCH (00:45)
[2023-11-29] MEDS: NOREPINEPHRINE BITARTRATE/D5W 4 MG/250 ML BAG IV ONE (00:49)
[2023-11-29] MEDS: MIDAZOLAM HCL 2 MG/2 ML INJ IV PRN (00:56)
[2023-11-29] MEDS: MIDAZOLAM HCL 2 MG/2 ML INJ ONE (00:56)
[2023-11-29] MEDS: propofoL 1,000 MG/100 ML VIAL IV SCH (01:20)
[2023-11-29 01:21] LABS: Absolute Basophils 0.1 K/uL (0-0.5); Absolute Lymphocytes (CBC) 2.9 K/uL (0.7-4.9); Absolute Neutrophil 9.3 K/uL (1.8-8.0); Basophils % 0.7 % (0-1.3); Eosinophils % 0.2 % (0-4.4); Hematocrit 43.8 % (36.0-45.0); Hemoglobin 14.3 g/dL (12.0-15.0); Lymphocytes % 21.9 % (15.3-44.8); MCH 26.3 pg (27.0-35.0); MCHC 32.6 g/dL (32.0-36.0); MCV 80.7 fL (80-100); MPV 9.6 fL (7.6-11.3); Monocytes % 7.3 % (3.3-12.3); Neutrophils % 69.9 % (41.7-73.7); Nucleated Red Blood Cells % 0.1 % (0-0); Platelets 161 thou/uL (152-406); RBC Red Blood Cell Count 5.43 M/uL (3.86-4.86); Red Cell Distribution Width 15.3 % (12.1-15.2)
[2023-11-29 01:32] LABS: Albumin 3.8 g/dL (3.4-5.0); Albumin/Globulin Ratio 0.9 (1.1-1.8); Anion Gap 13.6 mEq/L (5.0-15.0); Bilirubin Total 1.5 mg/dL (0.2-1.0); Globulin 4.3 g/dL (2.3-3.5); Phosphorus 3.8 mg/dL (2.5-4.9); Protein, Total 8.1 g/dL (6.4-8.2)
[2023-11-29 01:33] LABS: Troponin High Sensitivity 265.7 pg/mL (<58.9)
[2023-11-29 01:34] LABS: Potassium 2.6 mEq/L (3.5-5.1)
[2023-11-29] MEDS: KCL 20 MEQ/100 mL IVPB 20 MEQ/100 ML BAG IV SCH ×2 (02:02→15:18)
[2023-11-29] MEDS: NA CHLORIDE 0.9% 250 ML ONE (02:03)
[2023-11-29] MEDS: AMIODARONE HCL 150 MG in D5W 100 ML IV STA (02:10)
[2023-11-29] MEDS: NA CHLORIDE 0.9% 1,000 ML ONE (02:17)
[2023-11-29] MEDS: LORazepam 2 MG/ML VIAL ONE (02:18)
[2023-11-29 02:41] LABS: Arterial Blood Carboxyhemoglob 1.2 % (0-1.5); Blood Gas Oxyhemoglobin 97.3 % (94-97); Blood Gas THB 15.6 g/dl (12-18); Blood O2 Saturation 99.5 % (92-98.5)
[2023-11-29] MEDS: ALBUMIN HUMAN 25% 100 ML IV ONE (03:13)
[2023-11-29 04:36] LABS: Absolute Lymphocytes (CBC) 1.3 K/uL (0.7-4.9); Absolute Monocytes 1.3 K/uL (0.1-1.3); Absolute Neutrophil 14.1 K/uL (1.8-8.0); Basophils % 0.2 % (0-1.3); Hematocrit 42.5 % (36.0-45.0); Hemoglobin 13.7 g/dL (12.0-15.0); Lymphocytes % 7.8 % (15.3-44.8); MCHC 32.3 g/dL (32.0-36.0); MCV 80.6 fL (80-100); MPV 9.3 fL (7.6-11.3); Monocytes % 7.9 % (3.3-12.3); Neutrophils % 84.1 % (41.7-73.7); Platelets 147 thou/uL (152-406); RBC Red Blood Cell Count 5.27 M/uL (3.86-4.86); Red Cell Distribution Width 15.5 % (12.1-15.2)
[2023-11-29 04:59] LABS: Anion Gap 9.8 mEq/L (5.0-15.0); Magnesium 1.9 mg/dL (1.6-2.4); Potassium 2.8 mEq/L (3.5-5.1)
[2023-11-29] MEDS: AMIODARONE IN DEXTROSE,ISO-OSM 360 MG/200 ML BAG IV ONE (06:09)
--- NOTE | 2023-11-29 07:02 | P.PN ---
Subjective Date of Service: 11/29/23 Chief Complaint: Elevated troponin Admitted with intractable nausea vomiting moderate abdominal pain, admitted for pancreatitis, cannot do judicious IV fluid due to acute on chronic heart failure, surgery consulted for cholelithiasis with pancreatitis Nausea vomiting and abdominal pain overnight patient was transferred to ICU after CODE BLUE, patient intubated, placed on amiodarone drip cardiology notified of the patient, stat echo ordered, stat labs ordered per cardio Pulmonology, consulted for vent management, vent weaning per pulmonary - Physical Exam General: Intubated, HEENT: Atraumatic, Normocephalic Neck: 2+ carotid pulse no bruit, JVD not distended Respiratory: Normal air movement, Crackles/rales Cardiovascular: Normal pulses, Regular rate/rhythm Capillary refill: <2 Seconds Gastrointestinal: Tenderness (Generalized abdominal tenderness) Musculoskeletal: No clubbing, No swelling Integumentary: No breakdown, No significant lesion Neurological: Normal strength at 5/5 x4 extr, Other (Generalized weak) Review of Systems Per HPI Physical Examination - Vital Signs Temperature: 97.3 F Blood Pressure: 118/76 Pulse: 64 Respirations: 18 Pulse Ox (%): 99 Assessment And Plan - Plan Assessment and Plan Cardiac arrest Cardiogenic versus septic shock 11/28 Transferred to ICU overnight Lactic acidosis Hypotension on Levophed drip Unable to obtain aggressive fluid due to heart failure, NSTEMI Trend lactic, Merrem, vancomycin 11/28 Cardiology notified, stat echo ordered Repeat labs, troponin, stat BMP ordered Nephrology consulted for acute kidney Postcode troponin 3070.1, l 11/28 Stat echo ordered per cardiology NSTEMI Acute hypoxic hypercarbic respiratory failure secondary to decompensated heart failure Acute on chronic heart failure Acute on chronic kidney injury unknown baseline Atrial fibrillation on chronic anticoagulation Eliquis Cardiology consult, telemetry, Echo ordered am Trend BMP, trend troponin, cont eliquis, trend trop Elevated CO2 33 Troponin 178, 240, [address] Weston BNP 439, Echo 03/09/2023 COMMENTS: 1. NORMAL LEFT VENTRICULAR EJECTION FRACTION 60-65% 2. NORMAL WALL MOTION 3. BI-ATRIAL ENLARGEMENT 4. SEVERE TRICUSPID REGURGITATION 5. MILD PULMONIC INSUFFICIENCY 6. MILD MITRAL REGURGITATION Intractable nausea vomiting Elevated lipase Mild pancreatitis Trend lipase, as needed antiemetics, as needed analgesics Pancreatitis- surg consult Dayana cholelithiasis without cholecystitis Lipase 140, repeat MRCP ordered 11/28 IMPRESSION: Large gallstone in the gallbladder. 11/28 Surgery consulted to follow Morbid obesity Diabetes type 2 [id number]-cmbqqcfal unknown control Accu-Cheks, sliding scale insulin Acute on chronic kidney injury unknown baseline likely secondary to prerenal CHF Trend kidney function gentle IV fluids Trend electrolytes replace as needed Nephrology consult Hypokalemia Trend electrolytes replace as needed Replace per protocol Diet n.p.o. GI prophylaxis PPI twice daily Full code DVT heparin . Discharge Plan: Home Plan to discharge in: 48 Hours Discharge Plan: Home - Code Status/Comfort Care Code Status: Full Code Critical Care: No Time Spent Managing PTS Care (In Minutes): 55
[2023-11-29] MEDS ORDERED: KCL 20 MEQ/100 mL IVPB 20 MEQ/100 ML BAG IV SCH (08:00)
[2023-11-29 08:10] LABS: Absolute Basophils 0.1 K/uL (0-0.5); Absolute Lymphocytes (CBC) 1.5 K/uL (0.7-4.9); Absolute Monocytes 1.4 K/uL (0.1-1.3); Absolute Neutrophil 12.4 K/uL (1.8-8.0); Basophils % 0.4 % (0-1.3); Eosinophils % 0.1 % (0-4.4); Hematocrit 42.4 % (36.0-45.0); Hemoglobin 13.5 g/dL (12.0-15.0); Lymphocytes % 9.7 % (15.3-44.8); MCH 25.9 pg (27.0-35.0); MCHC 31.9 g/dL (32.0-36.0); MCV 81.1 fL (80-100); MPV 9.4 fL (7.6-11.3); Monocytes % 9.1 % (3.3-12.3); Neutrophils % 80.7 % (41.7-73.7); Platelets 137 thou/uL (152-406); RBC Red Blood Cell Count 5.23 M/uL (3.86-4.86); Red Cell Distribution Width 15.3 % (12.1-15.2)
[2023-11-29 08:29] LABS: Anion Gap 9.4 mEq/L (5.0-15.0); Magnesium 1.9 mg/dL (1.6-2.4); Potassium 3.4 mEq/L (3.5-5.1)
[2023-11-29 08:38] LABS: Troponin High Sensitivity 3070.1 pg/mL (<58.9)
[2023-11-29] MEDS ORDERED: AMIODARONE IN DEXTROSE,ISO-OSM 360 MG/200 ML BAG IV ONE (08:53)
[2023-11-29] MEDS ORDERED: EPINEPHrine 1 MG/10 ML SYR IV ONE (08:53)
[2023-11-29] MEDS ORDERED: AMIODARONE HCL 150 MG/3 ML INJ IV ONE (08:53)
[2023-11-29] MEDS ORDERED: HOME MED 1 EA UNK (Potassium Chloride [K-Dur] 10 MEQ Tab.Er.Prt) PO SCH (09:00)
[2023-11-29] MEDS: SPIRONOLACTONE 25 MG TABLET PO SCH (10:22)
[2023-11-29] MEDS: FAMOTIDINE 20 MG TAB PO SCH (10:22)
[2023-11-29] MEDS: POTASSIUM CL SA 10 MEQ TAB PO SCH (10:22)
[2023-11-29] MEDS: AMLODIPINE 10 MG TAB PO SCH (10:23)
[2023-11-29] MEDS: Mupirocin NASAL 2 APPL/1 GM TUBE NAS SCH (10:24)
[2023-11-29] MEDS: Meropenem 1,000 MG in NA CHLORIDE 0.9% 100 ML IV SCH (10:28)
--- NOTE | 2023-11-29 10:41 | P.CNS ---
Date of Consult: 11/29/23 Reason for Consult: ALMA/ Electrolyte Abn Requesting Physician: Lisa Sheffield Chief Complaint: Elevated troponin History of Present Illness: 78-year-old female with a past medical history of atrial fibrillation on Eliquis, chronic diastolic congestive heart failure, hypertension, morbid obesity, presents to the emergency room presented to the emergency room with intractable nausea vomiting. She denies alcohol intake, no fever, diarrhea. Reports shortness of breath that is worse with exertion. History of acute on chronic heart failure, reports associated right hip pain, no reported chest pain, HPI is vague, daughter is at bedside, plan to admit for NSTEMI, elevated troponin, acute on chronic heart failure, intractable nausea vomiting, elevated lipase, cholelithiasis without cholecystitis [id number] 02:11 This 78 yrs old Female presents to ER via Unassigned with complaints of sp4 Nausea/Vomiting, Low Back Pain. 05:56 This is a 78-year-old female with past medical history of morbid obesity, atrial sp4 fibrillation on Eliquis, chronic diastolic heart failure, hypertension, hypokalemia, presents to the emergency room with EMS for acute onset lower back pain, also chest discomfort, also persistent vomiting. Patient states back pain is moderate to severe mostly on the right side. Last admission for acute on chronic heart failure 03/10/2023. At that time patient was diagnosed with NSTEMI, acute heart failure exacerbation, and bilateral lower extremity edema. Also history of chronic kidney disease. Occasions include Eliquis 5 mg p.o. twice daily, doxazosin, lovastatin, potassium p.o., atenolol, gabapentin, Lasix 40 mg p.o. twice daily, hydrocodone 10 p.o. 3 times daily, allopurinol 300 daily, amlodipine besylate 10 mg daily, famotidine, spironolactone 25 mg p.o. daily, Medihoney,. Allergies amoxicillin Allergy (Verified 03/08/23 01:57) Nausea/Vomiting ciprofloxacin [From Cipro] Allergy (Verified 10/16/17 17:24) Nausea/Vomiting iodine Allergy (Verified 10/16/17 17:24) Itching/Hives/Rash Home medications list reviewed: Yes Home Medications: Apixaban [Eliquis *] 5 mg PO BID 10/16/17 Doxazosin Mesylate 4 mg PO BEDTIME 10/16/17 Lovastatin 40 mg PO BEDTIME 10/16/17 Potassium Chloride 20 meq PO DAILY 10/16/17 atenoloL [Tenormin*] 50 mg PO TID 10/16/17 Gabapentin 100 mg PO TID 08/02/20 Furosemide [Lasix] 40 mg PO BID 09/10/22 Hydrocodone 10/APAP 325 [[place] 10/325*] 1 tab PO TID 09/18/22 Allopurinol 300 mg PO DAILY 03/08/23 Amlodipine Besylate 10 mg PO DAILY 03/08/23 Docusate [Colace Cap*] 200 mg PO BID 03/08/23 Famotidine 20 mg PO BID 03/08/23 Spironolactone 25 mg PO DAILY 03/08/23 Hydrocodone 10/APAP 325 [[place] 10/325] 1 tab PO Q8H PRN #30 tab 03/10/23 Medihoney [Medihoney Woundcare Gel*] 1 appl TOP DAILY #1 tube 03/10/23 Potassium Chloride [K-Dur] 10 meq PO DAILY #30 tab 03/10/23 Potassium Oral Tab [Klor-Con 10 mEq Tab*] 20 meq PO DAILY #30 tab 03/10/23 - Past Medical/Surgical History Diabetic: No -: Diastolic CHF/ Severe TR -: HTN -: Afib -: HLD -: Neuropathy -: CAD -: diverticulosis -: bad rotator cuffs -: left elbow sx Psychosocial/ Personal History: Patient is . - Family History Mother Medical History: Heart disease, Diabetes Notes: CHF Brother Medical History: Heart disease, Diabetes Notes: CHF and diabetes complications. and heart attack Father Medical History: Cancer Notes: of colon cancer Sister Medical History: Cancer Notes: skin cancer-living - Social History Smoking Status: Unknown if ever smoked Alcohol use: No CD- Drugs: No Caffeine use: No Review of Systems is unable to be obtained Physical Examination Temp Pulse Resp BP Pulse Ox 97.3 F 66 18 122/84 100 11/29/23 07:47 11/29/23 10:27 11/29/23 07:47 11/29/23 10:27 11/29/23 07:55 General: In no apparent distress, Obese HEENT: Atraumatic Neck: Supple Respiratory: Clear to auscultation bilaterally, Normal air movement Cardiovascular: No edema, Regular rate/rhythm Gastrointestinal: Non-distended, Tenderness Musculoskeletal: No clubbing, No contractures Integumentary: No rashes, No cyanosis Urinary: Young catheter Blood work reviewed in the chart. Imagings Data: [id number] EXAM DESCRIPTION: CT - Abdomen Pelvis Wo Contrast - 11/27/2023 6:35 am CLINICAL HISTORY: The patient is 78 years old and is Female; ABD PAIN TECHNIQUE: Axial computed tomography images of the abdomen and pelvis without intravenous contrast. Sagittal and coronal reformatted images were created and reviewed. This CT exam was performed using one or more of the following dose reduction techniques: automated exposure control, adjustment of the mA and/or kV according to patient size, and/or use of iterative reconstruction technique. COMPARISON: No relevant prior studies available. FINDINGS: Lung bases: Unremarkable. No mass. No consolidation. Mediastinum: Small hiatal hernia. ABDOMEN: Liver: 2.6 cm cyst in the right posterior liver. Gallbladder and bile ducts: 2.2 cm gallstone in the gallbladder. Mildly dilated common bile duct. Pancreas: Unremarkable. No ductal dilation. Spleen: Unremarkable. No splenomegaly. Adrenals: Unremarkable. No mass. Kidneys and ureters: Unremarkable. No obstructing stones. No hydronephrosis. Stomach and bowel: Unremarkable. No obstruction. No mucosal thickening. PELVIS: Appendix: No findings to suggest acute appendicitis. Bladder: Unremarkable. Reproductive: Unremarkable as visualized. ABDOMEN and PELVIS: Intraperitoneal space: Unremarkable. No free air. No significant fluid collection. Bones/joints: Disc space narrowing with degenerative endplate changes in the spine. 7 mm of anterolisthesis of L4 on L5. No acute fracture. No dislocation. Soft tissues: There is a 4.7 x 3.1 x 7.4 cm fat-containing periumbilical hernia. Vasculature: Unremarkable. No abdominal aortic aneurysm. Lymph nodes: Unremarkable. No enlarged lymph nodes. IMPRESSION: 1. 2.2 cm gallstone in the gallbladder. 2. Mildly dilated common bile duct. 3. There is a 4.7 x 3.1 x 7.4 cm fat-containing periumbilical hernia. [id number] EXAM DESCRIPTION: US - Abdomen Exam Limited - 11/27/2023 6:06 am CLINICAL HISTORY: Abdominal pain. COMPARISON: 2020 FINDINGS: 1.8 centimeter stone within the neck of the gallbladder. Gallbladder wall not thickened Common bile duct 7.5 millimeters. The duct measured 1 centimeter on a 2020 exam IMPRESSION: Cholelithiasis without evidence cholecystitis. Given the patient's age there is borderline dilatation of the common bile duct [id number] EXAM DESCRIPTION: MRI - Cholangiogram - 11/28/2023 4:17 pm CLINICAL HISTORY: elev lipase,cholithaisis COMPARISON: Abdomen Exam Limited dated 11/27/2023; Abdomen Pelvis Wo Contrast dated 11/27/2023 FINDINGS: Three-dimensional MRCP was performed using maximum intensity projection reconstruction on the same work station. No intrahepatic biliary tree dilatation is seen. The common bile duct is normal caliber without evidence of retained stone, stricture or mass. The pancreatic duct is not pathologically dilated. There is a large gallstone in the gallbladder. Limited T2 sequences through the abdomen demonstrates no bulky adenopathy, significant free fluid or abscess. Benign liver cyst suspected. IMPRESSION: Large gallstone in the gallbladder. [id number] LEFT VENTRICULAR WALL MOTION: NORMAL DOPPLER/COLOR FLOW: SEE BELOW COMMENTS: 1. NORMAL LEFT VENTRICULAR EJECTION FRACTION 60-65% 2. NORMAL WALL MOTION 3. BI-ATRIAL ENLARGEMENT 4. SEVERE TRICUSPID REGURGITATION 5. MILD PULMONIC INSUFFICIENCY 6. MILD MITRAL REGURGITATION Conclusions/Impression: Cardiac Arrest overnight due to VF/ VT Levophed started overnight for hypotension but discontinue at this time Amiodarone gtt & Heparin started for possible ischemic CAD/ elevated troponins -Cardiology following Stage I ALMA in the setting of hypotension ATN may develop given her overnight episode of VF/ VT -No NSAIDs Hyponatremia -Continue Lasix Hypokalemia -Replete as ordered -Continue Spironolactone as tolerated -Repeat BMP today HTN with CHF -Continue Amlodipine -Discontinue Doxazosin at this time Diastolic CHF, A/C Severe TR -Continue diuresis Acute Respiratory Failure -Continue ventilatory support -Pulmonary following Microcytosis with Hx iron deficiency Thrombocytopenia -Monitor CBC -Check iron status Hospitalist and ER notes reviewed Case reviewed with Dr. Sheffield Thank you kindly for the consultation Critical Care: Yes (>30min patient care)
[2023-11-29] MEDS ORDERED: ROCURONIUM 50 MG/5 ML VIAL IV ONE (11:03)
[2023-11-29] MEDS ORDERED: ETOMIDATE 20 MG/10 ML VIAL IV ONE (11:03)
--- NOTE | 2023-11-29 11:09 | P.PN ---
Subjective Date of Service: 11/29/23 Chief Complaint: Elevated troponin Subjective: New changes (Patient went into VT overnight that required CPR/cardioversion x2, got intubated and was started on amiodarone/levophed drips.) Review of Systems is unable to be obtained Physical Examination - Vital Signs Temperature: 97.3 F Blood Pressure: 122/84 Pulse: 66 Respirations: 18 Pulse Ox (%): 100 - Physical Exam General: Other (intubated, sedated) HEENT: Atraumatic Respiratory: Clear to auscultation bilaterally Cardiovascular: Normal S1 S2, Edema Gastrointestinal: Normal bowel sounds Assessment And Plan - Current Problems (Diagnosis) (1) Ventricular tachycardia Current Visit: Yes Status: Acute Plan: unable to review rhythm strip at time of code, can be ischemic vs electrolytes derrangment. continue Amiodarone drip until am. will switch to 200 po BID Replace electrolytes aggressively (K level >4 and Mg>2) start patient on Heparin drip ACS protocol. patient will need coronary angiogram once extubated. follow up on echo. (2) Atrial fibrillation Current Visit: No Status: Chronic Plan: continue amiodarone, heparin. Qualifiers: Atrial fibrillation type: paroxysmal Qualified Code(s): I48.0 - Paroxysmal atrial fibrillation (3) CHF (congestive heart failure) Current Visit: No Status: Chronic Plan: continue Lasix 40 mg IV BID Monitor input and output. Qualifiers: Heart failure type: diastolic Heart failure chronicity: chronic Qualified Code(s): I50.32 - Chronic diastolic (congestive) heart failure
[2023-11-29] MEDS: VANCOMYCIN 2 GM in NA CHLORIDE 0.9% 500 ML IVPB SCH (11:39)
--- NOTE | 2023-11-29 11:49 | RAD REPORT ---
EXAM DESCRIPTION: XR CHEST 1 VIEW CLINICAL HISTORY: Post intubation COMPARISON: None. TECHNIQUE: XR CHEST 1 VIEW 11/29/2023 12:40 AM CDT FINDINGS: The heart is enlarged. The heart is moderately enlarged. Lungs are clear without consolida tion, atelectasis, mass or edema. There is no pleural effusion. There is no pneumothorax. There are n o acute osseous findings. Endotracheal tube tip is in the lower thoracic trachea. NG tube tip is in t he stomach. Right IJ central line tip is in the lower SVC. IMPRESSION: Clear lungs. Electronically signed by: Nestor Weber MD 11/29/2023 02:44 AM CDT Due to temporary technical issues with the PACS/Fluency reporting system, reports are being signed by the in house radiologist without review as a courtesy to ensure prompt reporting. The interpreting r adiologist is fully responsible for the content of the report.
[2023-11-29] MEDS ORDERED: DEXMEDETOMIDINE HCL 200 MCG in NA CHLORIDE 0.9% 98 ML IV SCH (12:00)
[2023-11-29 12:16] LABS: Potassium 2.9 mEq/L (3.5-5.1)
[2023-11-29] MEDS: DEXMEDETOMIDINE HCL 1,000 MCG in NA CHLORIDE 0.9% 490 ML IV SCH (12:16)
--- NOTE | 2023-11-29 12:25 | P.CNS ---
Date of Consult: 11/29/23 Reason for Consult: Cardiac arrest patient on a ventilator Chief Complaint: Cardiac arrest History of Present Illness: Patient is 78 years of age with a past medical history of A-fib diastolic heart failure metabolic syndrome admitted from the emergency room with intractable vomiting she also had a non-STEMI apparently developed a cardiac arrest she also had a gallstone currently on a ventilator unresponsive Allergies amoxicillin Allergy (Verified 03/08/23 01:57) Nausea/Vomiting ciprofloxacin [From Cipro] Allergy (Verified 10/16/17 17:24) Nausea/Vomiting iodine Allergy (Verified 10/16/17 17:24) Itching/Hives/Rash Home Medications: Apixaban [Eliquis *] 5 mg PO BID 10/16/17 Doxazosin Mesylate 4 mg PO BEDTIME 10/16/17 Lovastatin 40 mg PO BEDTIME 10/16/17 Potassium Chloride 20 meq PO DAILY 10/16/17 atenoloL [Tenormin*] 50 mg PO TID 10/16/17 Gabapentin 100 mg PO TID 08/02/20 Furosemide [Lasix] 40 mg PO BID 09/10/22 Hydrocodone 10/APAP 325 [[place] 10/325*] 1 tab PO TID 09/18/22 Allopurinol 300 mg PO DAILY 03/08/23 Amlodipine Besylate 10 mg PO DAILY 03/08/23 Docusate [Colace Cap*] 200 mg PO BID 03/08/23 Famotidine 20 mg PO BID 03/08/23 Spironolactone 25 mg PO DAILY 03/08/23 Hydrocodone 10/APAP 325 [[place] 10/325] 1 tab PO Q8H PRN #30 tab 03/10/23 Medihoney [Medihoney Woundcare Gel*] 1 appl TOP DAILY #1 tube 03/10/23 Potassium Chloride [K-Dur] 10 meq PO DAILY #30 tab 03/10/23 Potassium Oral Tab [Klor-Con 10 mEq Tab*] 20 meq PO DAILY #30 tab 03/10/23 - Past Medical/Surgical History Diabetic: No -: Diastolic CHF/ Severe TR -: HTN -: Afib -: HLD -: Neuropathy -: CAD -: diverticulosis -: bad rotator cuffs -: left elbow sx Psychosocial/ Personal History: Patient is . - Family History Mother Medical History: Heart disease, Diabetes Notes: CHF Brother Medical History: Heart disease, Diabetes Notes: CHF and diabetes complications. and heart attack Father Medical History: Cancer Notes: of colon cancer Sister Medical History: Cancer Notes: skin cancer-living - Social History Smoking Status: Unknown if ever smoked Alcohol use: No CD- Drugs: No Caffeine use: No Review of Systems is unable to be obtained Physical Examination Temp Pulse Resp BP Pulse Ox 97.3 F 66 18 122/84 100 11/29/23 11:10 11/29/23 11:10 11/29/23 11:10 11/29/23 11:10 11/29/23 11:10 General: Comatose Respiratory: Clear to auscultation bilaterally Cardiovascular: No edema, Regular rate/rhythm, Normal S1 S2 - Problems (1) Cardiac arrest Current Visit: Yes Status: Acute Plan: Patient is 78 years of age admitted with nausea vomiting gallstones developed cardiac arrest was resuscitated is currently on a ventilator unresponsive propofol drip plan to wean off the propofol try Precedex there is been a dramatic increase in her troponin patient appears to have chronic renal failure labs reviewed chest x-ray reviewed endotracheal tube in satisfactory position may have some cardiomegaly plan is to continue with supportive therapy right now continue with amiodarone heparinization patient is on vasopressors patient did have evidence of pancreatitis
[2023-11-29] MEDS: Magnesium Sulfate 2gm IVPB 2 G/50 ML BAG IV ONE ×3 (12:32→15:35)
[2023-11-29 12:44] LABS: Ferritin 35.6 ng/mL (8-388)
[2023-11-29] MEDS ORDERED: SODIUM CHLORIDE 0.9% 10ML INJ IV PRN (13:40)
--- NOTE | 2023-11-29 13:49 | ECHO ---
HEIGHT: 5 ft 4 in WEIGHT: 257 lb 15.053 oz DATE OF STUDY: 11/29/[address]: Alena Castro LABELS MOLDER-C 2-DIMENSIONAL: YES M.MODE: YES DOPPLER: YES COLOR FLOW: YES TDS: PORTABLE: YES DEFINITY: BUBBLE STUDY: DIAGNOSIS: HEART FAILURE CARDIAC HISTORY: CATHERIZATION: NO SURGERY: NO PROSTHETIC VALVE: NO PACEMAKER: NO MEASUREMENTS (cm) DIASTOLIC (NORMALS) SYSTOLIC (NORMALS) IVSd 1.0 (0.6-1.2) LA Diam 2.6 (1.9-4.0) LVEF 63% LVIDd 4.2 (3.5-5.7) LVIDs 2.8 (2.0-3.5) %FS 34% LVPWd 1.1 (0.6-1.2) Ao Diam 2.4 (2.0-3.7) 2 DIMENSIONAL ASSESSMENT: RIGHT ATRIUM: NORMAL LEFT ATRIUM: NORMAL RIGHT VENTRICLE: NORMAL LEFT VENTRICLE: NORMAL TRICUSPID VALVE: MODERATE TO SEVERE TRICUSPID REGURGIATION MITRAL VALVE: MILD MITRAL REGURGITATION PULMONIC VALVE: NOT SEEN AORTIC VALVE: NORMAL PERICARDIAL EFFUSION: NONE AORTIC ROOT: NORMAL LEFT VENTRICULAR WALL MOTION: NORMAL DOPPLER/COLOR FLOW: SEE BELOW COMMENTS: 1. NORMAL LEFT VENTRICULAR EJECTION FRACTION 55-60% WITH NORMAL WALL MOTION 2. MILD MITRAL REGURGITATION 3. MODERATE TO SEVERE TRICUSPID REGURGITATION TECHNOLOGIST: KAREEN MAYER
[2023-11-29 15:06] LABS: PT Prothrombin Time 19.6 SECONDS (9.5-12.5); PTT, Activated Partial Thromb 32.7 SECONDS (24.3-36.9); Protime INR 1.81
[2023-11-29] MEDS: HEPARIN/D5W 25,000 UNIT/500 ML BAG IV SCH (15:18)
[2023-11-29] MEDS: LORazepam 2 MG/ML VIAL IV PRN (15:18)
[2023-11-29] MEDS ORDERED: HEPARIN 5000 UNIT/ML 1 ML VIAL SQ SCH (17:00)
[2023-11-29 20:08] LABS: Anion Gap 9.1 mEq/L (5.0-15.0); Potassium 3.1 mEq/L (3.5-5.1)
[2023-11-29] MEDS: PANTOPRAZOLE 40 MG INJ IVP SCH (20:46)
[2023-11-29] MEDS: POTASSIUM 25 MEQ EFFERV TAB FT ONE (21:24)
[2023-11-30] MEDS: KCL 20 MEQ/100 mL IVPB 100 ML IV ONE ×3 (05:21→15:19)
[2023-11-30 10:02] LABS: Absolute Basophils 0.1 K/uL (0-0.5); Absolute Eosinophils 0.1 K/uL (0-0.5); Absolute Lymphocytes (CBC) 1.4 K/uL (0.7-4.9); Absolute Monocytes 0.9 K/uL (0.1-1.3); Absolute Neutrophil 9.7 K/uL (1.8-8.0); Basophils % 0.6 % (0-1.3); Eosinophils % 0.9 % (0-4.4); Hematocrit 44.7 % (36.0-45.0); Hemoglobin 14.4 g/dL (12.0-15.0); Lymphocytes % 11.1 % (15.3-44.8); MCH 25.9 pg (27.0-35.0); MCHC 32.3 g/dL (32.0-36.0); MCV 80.4 fL (80-100); MPV 9.2 fL (7.6-11.3); Monocytes % 7.4 % (3.3-12.3); Platelets 112 thou/uL (152-406); RBC Red Blood Cell Count 5.56 M/uL (3.86-4.86); Red Cell Distribution Width 15.4 % (12.1-15.2)
[2023-11-30 10:09] LABS: Albumin 3.5 g/dL (3.4-5.0); Albumin/Globulin Ratio 0.9 (1.1-1.8); Anion Gap 8.5 mEq/L (5.0-15.0); Bilirubin Direct 0.6 mg/dL (0-0.2); Bilirubin Indirect, Calculated 1.4 mg/dL (0.2-0.8); Globulin 3.8 g/dL (2.3-3.5); Magnesium 2.4 mg/dL (1.6-2.4); Phosphorus 2.2 mg/dL (2.5-4.9); Potassium 3.5 mEq/L (3.5-5.1); Protein, Total 7.3 g/dL (6.4-8.2); Uric Acid 8.4 mg/dL (2.6-6.0)
[2023-11-30] MEDS: HYDROCORTISONE SUC 100 MG INJ IV ONE (11:41)
[2023-11-30] MEDS: HYDROCORTISONE SUC 100 MG INJ ONE (11:42)
[2023-11-30] MEDS: FENTANYL CITR 100 MCG/2 ML IV PRN (12:05)
[2023-11-30] MEDS ORDERED: PHENOL 1.4% ORAL SPRAY 180ML MM PRN (12:15)
[2023-11-30 12:44] LABS: Specific Gravity 1.012 (1.005-1.030); Sqamous Epithelial None Seen /HPF (None Seen); Urine Bacteria <20 /HPF (<20); Urine Bilirubin NEGATIVE (Negative); Urine Blood 3+ (Negative); Urine Clarity Extremely Turbid (Clear); Urine Color Light-Yellow (Yellow); Urine Crystals Unidentified Few /HPF (None Seen); Urine Culture Reflex Order REFLEXED; Urine Glucose NEGATIVE (Negative); Urine Ketones NEGATIVE (Negative); Urine Micro Reflex YN NO BILL MICROSCOPIC; Urine Mucus 1+ /HPF (None Seen); Urine Nitrite NEGATIVE (Negative); Urine Protein NEGATIVE (Negative); Urine RBC 21-50 /HPF (None Seen); Urine Urobilinogen Normal (Normal)
[2023-11-30] MEDS: PHENOL 1.4% ORAL SPRAY 180ML MM PRN (13:05)
[2023-11-30 14:28] LABS: Potassium 3.8 mEq/L (3.5-5.1)
[2023-11-30 14:29] LABS: Troponin High Sensitivity 6132.9 pg/mL (<58.9)
--- NOTE | 2023-11-30 14:41 | EKG ---
Test Date: 2023-11-29 Test Time: 01:36:57 Training Development Specialist: REEMA MEASUREMENT RESULTS: Intervals: Rate: 113 [place]: QRSD: 96 QT: 394 QTc: 540 [place]: P: CA: QRS: 84 T: 35 INTERPRETIVE STATEMENTS: Atrial fibrillation Septal infarct, age undetermined Abnormal ECG Compared to ECG 11/28/2023 10:34:54 Myocardial infarct finding still present Electronically Signed On 11-30-23 14:38:39 CDT by Feliciano Weston
[2023-11-30] MEDS: KCL 20 MEQ/100 mL IVPB 20 MEQ/100 ML BAG IV SCH (15:00)
--- NOTE | 2023-11-30 19:17 | P.PN ---
Subjective Date of Service: 11/30/23 Chief Complaint: Respiratory failure Subjective: Improving (Patient's condition is stable improving responding hemodynamically stable) Review of Systems is unable to be obtained Physical Examination - Vital Signs Temperature: 97.2 F Blood Pressure: 126/68 Pulse: 51 Respirations: 18 Pulse Ox (%): 99 - Physical Exam General: Unresponsive Neck: Supple Respiratory: Clear to auscultation bilaterally Cardiovascular: Regular rate/rhythm Assessment And Plan - Current Problems (Diagnosis) (1) Cardiac arrest Current Visit: Yes Status: Acute Plan: Patient admitted with cardiac arrest doing much better hemodynamically stable plan to wean next labs chemistries reviewed renal function is stable white count declined patient is currently on heparin normal left ventricular wall motion mild to moderate TR reduce Lasix to 40 mg once a day DC IV pantoprazole DC IV vancomycin continue with meropenem for now white count is declining chest x-ray ordered patient is only on 30% FiO2
--- NOTE | 2023-11-30 19:18 | P.PN ---
(S) Seen in the ICU, prior to extubation, non tachypnec, on Amio, hemodynamically stable (O) vitals reviewed in the EMR General: In no apparent distress, HEENT: Atraumatic, sclera anicteric, ET/OT Neck: Supple, Rt IJ CVC Respiratory: vent bs b/l, non rhonchi Cardiovascular: Non tachy, most regular Gastrointestinal: Soft, ND, NT Musculoskeletal: No edema, shins non tender Integumentary: No rashes Urinary: Young catheter Neuro: Awake, responds briefly, moves ext Blood work reviewed in the chart. Imagings Data: [id number] EXAM DESCRIPTION: CT - Abdomen Pelvis Wo Contrast - 11/27/2023 6:35 am CLINICAL HISTORY: The patient is 78 years old and is Female; ABD PAIN TECHNIQUE: Axial computed tomography images of the abdomen and pelvis without intravenous contrast. Sagittal and coronal reformatted images were created and reviewed. This CT exam was performed using one or more of the following dose reduction techniques: automated exposure control, adjustment of the mA and/or kV according to patient size, and/or use of iterative reconstruction technique. COMPARISON: No relevant prior studies available. FINDINGS: Lung bases: Unremarkable. No mass. No consolidation. Mediastinum: Small hiatal hernia. ABDOMEN: Liver: 2.6 cm cyst in the right posterior liver. Gallbladder and bile ducts: 2.2 cm gallstone in the gallbladder. Mildly dilated common bile duct. Pancreas: Unremarkable. No ductal dilation. Spleen: Unremarkable. No splenomegaly. Adrenals: Unremarkable. No mass. Kidneys and ureters: Unremarkable. No obstructing stones. No hydronephrosis. Stomach and bowel: Unremarkable. No obstruction. No mucosal thickening. PELVIS: Appendix: No findings to suggest acute appendicitis. Bladder: Unremarkable. Reproductive: Unremarkable as visualized. ABDOMEN and PELVIS: Intraperitoneal space: Unremarkable. No free air. No significant fluid collection. Bones/joints: Disc space narrowing with degenerative endplate changes in the spine. 7 mm of anterolisthesis of L4 on L5. No acute fracture. No dislocation. Soft tissues: There is a 4.7 x 3.1 x 7.4 cm fat-containing periumbilical hernia. Vasculature: Unremarkable. No abdominal aortic aneurysm. Lymph nodes: Unremarkable. No enlarged lymph nodes. IMPRESSION: 1. 2.2 cm gallstone in the gallbladder. 2. Mildly dilated common bile duct. 3. There is a 4.7 x 3.1 x 7.4 cm fat-containing periumbilical hernia. [id number] EXAM DESCRIPTION: US - Abdomen Exam Limited - 11/27/2023 6:06 am CLINICAL HISTORY: Abdominal pain. COMPARISON: 2020 FINDINGS: 1.8 centimeter stone within the neck of the gallbladder. Gallbladder wall not thickened Common bile duct 7.5 millimeters. The duct measured 1 centimeter on a 2020 exam IMPRESSION: Cholelithiasis without evidence cholecystitis. Given the patient's age there is borderline dilatation of the common bile duct [address] EXAM DESCRIPTION: MRI - Cholangiogram - 11/28/2023 4:17 pm CLINICAL HISTORY: elev lipase,cholithaisis COMPARISON: Abdomen Exam Limited dated 11/27/2023; Abdomen Pelvis Wo Contrast dated 11/27/2023 FINDINGS: Three-dimensional MRCP was performed using maximum intensity projection reconstruction on the same work station. No intrahepatic biliary tree dilatation is seen. The common bile duct is normal caliber without evidence of retained stone, stricture or mass. The pancreatic duct is not pathologically dilated. There is a large gallstone in the gallbladder. Limited T2 sequences through the abdomen demonstrates no bulky adenopathy, significant free fluid or abscess. Benign liver cyst suspected. IMPRESSION: Large gallstone in the gallbladder. [id number] LEFT VENTRICULAR WALL MOTION: NORMAL DOPPLER/COLOR FLOW: SEE BELOW COMMENTS: 1. NORMAL LEFT VENTRICULAR EJECTION FRACTION 60-65% 2. NORMAL WALL MOTION 3. BI-ATRIAL ENLARGEMENT 4. SEVERE TRICUSPID REGURGITATION 5. MILD PULMONIC INSUFFICIENCY 6. MILD MITRAL REGURGITATION Conclusions/Impression: Stage I ALMA in the setting of hemodynamic factors, -Cr level stable fortunately, monitor UOP Hypokalemia -Replete as ordered -Continue Spironolactone as tolerated -Mg level > 2.0 HTN with CHF -BP non elevated, lower Amlodipine, place holding parameters Diastolic CHF, A/C MR/TR Afib unspecified -Continue gentle diuresis, CXR did not show pulm edema
--- NOTE | 2023-11-30 19:20 | P.PN ---
Date of Service: 11/30/23 Subjective Patient is clinically doing better. We went ahead and extubated patient today and patient is doing well. She is awake and interactive with no complaints. Physical Examination - Vital Signs reviewed - Physical Exam General: Awake alert and oriented to person place and time HEENT: Within normal limits Respiratory: Clear bilaterally Cardiovascular: Regular rate rhythm with systolic ejection murmur 2/6 Gastrointestinal: Soft/nontender nondistended bowel sounds positive Musculoskeletal: No clubbing, No swelling; minimal edema; tenderness in the costochondral region Neurological: Moves all extremities Assessment and Plan 1. Acute respiratory distress secondary to cardiac arrest with torsades de pointes; Type II [place]; chronic heart failure along with h/o of atrial fibrillation on chronic anticoagulation Eliquis Patient did well on spontaneous breathing trial. Proceed with extubation. Respiratory status is stable. Monitoring electrolytes. Cardiac catheterization Sunday as long as the she has no difficulties. 2. Acute pancreatitis with intractable nausea and vomiting Continue with gentle hydration. Continue monitoring labs. Outpatient follow-up with general surgery as needed. 3. Metabolic syndrome; hypertension/diabetes/morbid obesity Strict blood pressure and blood sugar control; continue with outpatient follow- up with PCP regarding diet and exercise regimen and weight loss medication. 4. Chronic kidney disease stage III Continue monitoring renal function; gentle hydration and monitor volume status closely; appreciate nephrology input 5. Hypokalemia Repleted and potassium is stabilized. Cardiac diet Full code DVT Eliquis Discharge Plan: Physical therapy consultation-if she does well with physical therapy possible home otherwise SNF or inpatient rehab Plan to discharge in: after extubation Discharge Plan: Home - Code Status/Comfort Care Code Status: Full Code Critical Care: Yes Time Spent Managing PTS Care (In Minutes): 35
--- NOTE | 2023-11-30 19:45 | PN ---
Date of Progress Note: 11/30/2023 Subjective: Seen at bedside. There is no chest pain. She was just extubated and she has a lot of s ecretions and slightly short of breath. No further ventricular tachycardia. Review of Systems: No chest pain, shortness of breath, orthopnea, cough. No nausea, vomiting, diarrhea. All other syst ems reviewed are negative. Physical Examination: Vital signs: Reviewed. Head and Neck: Pupils are equal, reactive to light. Intact eye movements. No JVD. No cervical lym phadenopathy. Neck is supple. Thyroid is not enlarged. Lungs: Rhonchi bilaterally. No accessory muscle use or muscle retraction. Heart: Irregular. No extra sounds. Abdomen: Soft, nontender. Bowel sounds positive. No organomegaly. No masses or hernia. No rigidi ty or rebound. Extremities: No edema, clubbing, or cyanosis. Intact pulses. Skin: No rash. No nodule. Neurologic: Alert, awake, oriented x3. No acute focal deficits appreciated. Investigations: Her troponin today is 6132, BUN is 41, creatinine 1.5. Hemoglobin is 14.4. Assessment/recommendation: 1.Ventricular fibrillation. She went into torsade, which is due to the severe hypokalemia and hypom agnesemia. To keep the potassium level above 4 and magnesium above 2 and to continue the amiodarone 200 mg twice a day by mouth. 2.Atrial fibrillation. Continue amiodarone and heparin drip. 3.Elevated troponin, status post cardiac arrest. This could be due to the cardiac arrest and she wa s shocked twice. Troponins are still kind of borderline. She has no chest pain. Ischemia evaluatio n is warranted. We will plan for coronary angiogram on her on Sunday and then to continue heparin dr ip and trend the troponin until it trends down. On echo, her ejection fraction is normal. 4.Congestive heart failure exacerbation, on Lasix. Carefully monitor BUN, creatinine, electrolytes, especially the potassium level not to drop and monitor magnesium as well. SR/MODL Voice ID: [id number] Report ID: [id number]
--- NOTE | 2023-11-30 21:03 | RAD REPORT ---
EXAM DESCRIPTION: RAD - Chest Single View - 11/30/2023 8:55 pm CLINICAL HISTORY: Respiratory failure admitted COMPARISON: Chest Single View dated 11/29/2023; Chest Single View dated 03/07/2023; Chest Single View [place] 08/01/2020; Chest Pa And Lat (2 Views) dated 10/17/2017 FINDINGS: Lines: Right IJ approach central line with tip overlying the SVC in satisfactory position . The patient has been extubated. Removal of the enteric tube. Lungs: No evidence of edema or pneumonia. Pleural: No significant pleural effusions or pneumothorax. Cardiac: Moderate cardiomegaly. Mediastinum: Within normal limits. Bones: No acute fractures. Other: None IMPRESSION: No acute cardiopulmonary disease. Interval extubation and removal of the enteric tube. R ight IJ approach central line with tip overlying the SVC.
[2023-12-01] MEDS: KCL 20 MEQ/100 mL IVPB 20 MEQ/100 ML BAG IV ONE ×2 (00:03→07:58)
[2023-12-01 06:30] LABS: Absolute Monocytes 0.9 K/uL (0.1-1.3); Absolute Neutrophil 10.3 K/uL (1.8-8.0); Basophils % 0.4 % (0-1.3); Eosinophils % 0.3 % (0-4.4); Hematocrit 38.9 % (36.0-45.0); Hemoglobin 12.7 g/dL (12.0-15.0); Lymphocytes % 8.2 % (15.3-44.8); MCH 26.3 pg (27.0-35.0); MCHC 32.7 g/dL (32.0-36.0); MCV 80.6 fL (80-100); MPV 9.7 fL (7.6-11.3); Neutrophils % 84.1 % (41.7-73.7); Nucleated Red Blood Cells % 0.1 % (0-0); Platelets 105 thou/uL (152-406); RBC Red Blood Cell Count 4.83 M/uL (3.86-4.86); Red Cell Distribution Width 15.7 % (12.1-15.2)
[2023-12-01 06:48] LABS: Albumin 3.1 g/dL (3.4-5.0); Albumin/Globulin Ratio 0.8 (1.1-1.8); Anion Gap 11.5 mEq/L (5.0-15.0); Bilirubin Total 2.4 mg/dL (0.2-1.0); Globulin 3.7 g/dL (2.3-3.5); Phosphorus 2.6 mg/dL (2.5-4.9); Potassium 3.5 mEq/L (3.5-5.1); Protein, Total 6.8 g/dL (6.4-8.2)
[2023-12-01 06:49] LABS: Magnesium 2.1 mg/dL (1.6-2.4)
[2023-12-01 06:52] LABS: Troponin High Sensitivity 3079.7 pg/mL (<58.9)
[2023-12-01] MEDS: FUROSEMIDE 40 MG/4 ML VIAL IV SCH (07:58)
[2023-12-01] MEDS: METOCLOPRAMIDE 10 MG/2mL INJ IV ONE (07:59)
--- NOTE | 2023-12-01 08:05 | RAD REPORT ---
EXAM DESCRIPTION: RAD - Chest Single View - 12/01/2023 5:31 am CLINICAL HISTORY: Respiratory failure admitted COMPARISON: Chest Single View dated 11/30/2023; Chest Single View dated 11/29/2023; Chest Single View [place] 03/07/2023; Chest Single View dated 08/01/2020 FINDINGS: Lines: Right IJ approach central line with tip overlying the SVC. Lungs: No evidence of edema or pneumonia. Pleural: No significant pleural effusions or pneumothorax. Cardiac: Cardiomegaly. Mediastinum: Within normal limits. Bones: No acute fractures. Other: None IMPRESSION: No acute cardiopulmonary disease. Cardiomegaly. Central line in similar positioning.
[2023-12-01] MEDS: AMLODIPINE 5 MG TAB PO SCH (08:27)
--- NOTE | 2023-12-01 09:57 | P.PN ---
Subjective Date of Service: 12/01/23 Chief Complaint: Abdominal pain and nausea Patient was extubated successfully yesterday has been complaining of abdominal pain and nausea with some vomiting Review of Systems General: Weakness Cardiovascular: Chest Pain Gastrointestinal: Nausea, Vomiting, Abdominal Pain Physical Examination - Vital Signs Temperature: 97.5 F Blood Pressure: 131/76 Pulse: 65 Respirations: 18 Pulse Ox (%): 98 - Physical Exam General: Alert, Moderate distress Respiratory: Clear to auscultation bilaterally, Diminished Cardiovascular: No edema, Regular rate/rhythm, Normal S1 S2 Gastrointestinal: Tenderness (Generalized tenderness), Guarding Musculoskeletal: No clubbing, No swelling Assessment And Plan - Current Problems (Diagnosis) (1) Cardiac arrest Current Visit: Yes Status: Acute Plan: S/p cardiac arrest patient extubated (2) Cholecystitis Current Visit: Yes Status: Acute Plan: Patient scheduled for a cardiac cath on Sunday possible cholecystectomy planing of chest pain about 8 transdermal fentanyl is presumably from the CPR complains it on the right side patient's white count is declining change her over to Lovenox add scheduled Reglan DC amlodipine and Lasix for now chest x-ray shows cardiomegaly otherwise all clear labs reviewed
[2023-12-01] MEDS: FENTANYL 25 MCG/PATCH TD SCH (12:20)
[2023-12-01] MEDS: METOCLOPRAMIDE 10 MG/2mL INJ IV PRN (14:02)
--- NOTE | 2023-12-01 14:33 | PN ---
Date of Progress Note: 12/01/2023 Subjective: The patient is seen in room 3 in intensive care unit [facility]. Th e patient is alert, able to answer some questions. She does seem to be in some distress with nausea. Has been evaluated by classroom paraprofessional earlier and has been ordered medications including Reglan to help with nausea. The patient is in atrial fibrillation, but her heart rate is reasonably controlled bet ween 55-70 currently and blood pressure is good at 134/60. She is alert, able to answer some questio ns, does not seem to be having any current chest pain, but has had some chest discomfort going on, is awaiting a cardiac cath if stays stable over the weekend for Sunday and is already being followed by Cardiology and by the hospitalist team. Objective: Vital Signs: Stable currently, blood pressure 134/60, pulse is 70 range, respirations ar ound 14-16, stable, O2 sats are 99%. Heart: The patient is complaining of some discomfort in the chest that comes on and off. She is in atrial fibrillation with heart rate about 70 currently on my exam. She is on 2 L nasal cannula, O2 s ats are 97% to 100% on 2 L nasal cannula. Lungs: Clear to auscultation with decreased breath sounds at the very bases. Abdomen: Soft. Extremities: Trace edema. Abdomen: Does seem to be slightly distended, but soft. No guarding or rebound. Lab Data: Reviewed. WBC count is 12.3, hemoglobin is 12.7, hematocrit is 38.9, platelet count is 10 5. Chemistry shows sodium 133, potassium 3.5, chloride 99, bicarb is 26, BUN is 42, creatinine is 1. 24. Assessment And Plan: The patient with acute kidney injury, question chronic kidney disease. Will ne ed further evaluation once acute issues resolve for assessment of residual kidney damage and treatmen t for same. The patient's creatinine seems to be relatively stable currently and also has actually i mproved slightly from earlier. The patient's volume status seems reasonable. She does seem to have some nausea. Cardiac evaluation awaiting, if the patient gets dye with cardiac catheterization will need to continue monitoring to see if that damages the kidney any further. The patient is close to e uvolemia currently and is actually looking comfortable except for the nausea and abdominal distention . Discussed with the hospitalist, may benefit from getting a KUB and if any evidence of constipation and stool retention, may benefit from relief of that, already on Zofran and Reglan and somewhat tole rating that. Her blood pressure is stable. Potassium slightly on the lower side. Replacement has b een given. Continue to monitor. /TRICIA Voice ID: [id number] Report ID: [id number]
[2023-12-01] MEDS: Enoxaparin 120 MG/0.8 ML SYR SQ SCH (17:28)
[2023-12-01] MEDS: HYDRALAZINE HCL 20 MG/ML VIAL IV PRN (17:31)
--- NOTE | 2023-12-01 19:32 | PN ---
Date of Progress Note: 12/01/2023 Subjective: Seen by bedside, doing better. She has been having on and off chest pain as per her rep ort. No chest pain currently. Review of Systems: No active chest pain. No nausea, vomiting, diarrhea. No abdominal pain. No dysuria, polyuria, or u rinary urgency. No skin rash or headache. All other systems reviewed are negative. Objective: Vital signs: Reviewed. Head and Neck: Pupils are equal, reactive to light. Intact eye movements. No JVD. No cervical lym phadenopathy. Neck is supple. Thyroid is not enlarged. Lungs: Clear to auscultation bilaterally. No rhonchi, wheezing, crackles. No accessory muscle use. Heart: Regular rate and rhythm. No extra sounds. Abdomen: Soft, nontender. Bowel sounds positive. No organomegaly. No masses or hernia. No rigidi ty or rebound. Extremities: No edema, clubbing, cyanosis. Intact pulses. Skin: No rash. No nodule. Neurologic: Alert, awake, oriented x3. No acute focal deficits appreciated. Investigations: BUN 42, creatinine 1.24. Troponin down to 3079. Hemoglobin 12.7. Assessment/recommendation: 1.Cardiac arrest status post torsade and induced cardiac arrest due to electrolyte abnormalities. P lease make sure to maintain potassium above 4 and magnesium above 2. 2.Atrial fibrillation, on amiodarone, can be switched to oral 200 mg twice a day and change anticoag ulation to Lovenox, to dose per kidney function. 3.Elevated troponin, could be due to cardiac arrest versus [id number] myocardial infarction. Troponin is trending down. Continue heparin and baby aspirin. Plan for coronary angiogram on Sunday. 4.Congestive heart failure, stable. Continue current management. SR/MODL Voice ID: [id number] Report ID: [id number]
[2023-12-02 04:52] LABS: Absolute Lymphocytes (CBC) 0.9 K/uL (0.7-4.9); Absolute Monocytes 1.1 K/uL (0.1-1.3); Absolute Neutrophil 11.3 K/uL (1.8-8.0); Basophils % 0.1 % (0-1.3); Eosinophils % 0.1 % (0-4.4); Hematocrit 39.4 % (36.0-45.0); Lymphocytes % 6.9 % (15.3-44.8); MCH 26.5 pg (27.0-35.0); MCHC 32.9 g/dL (32.0-36.0); MCV 80.6 fL (80-100); MPV 9.8 fL (7.6-11.3); Neutrophils % 84.9 % (41.7-73.7); Nucleated Red Blood Cells % 0.1 % (0-0); Platelets 119 thou/uL (152-406); RBC Red Blood Cell Count 4.89 M/uL (3.86-4.86)
[2023-12-02 05:15] LABS: Anion Gap 8.1 mEq/L (5.0-15.0); Magnesium 2.3 mg/dL (1.6-2.4); Potassium 3.1 mEq/L (3.5-5.1)
[2023-12-02] MEDS: KCL 20 MEQ/100 mL IVPB 20 MEQ/100 ML BAG IV SCH (05:59)
[2023-12-02 06:24] VITALS: BMI 42.7
[2023-12-02] MEDS: METOPROLOL TARTRATE 5 MG/5 ML INJ IV SCH (08:42)
--- NOTE | 2023-12-02 17:36 | P.PN ---
Date of Service: 12/01/23 Subjective Patient is clinically doing well. Patient respiratory status has been stable. Gently hydrating and awaiting for proceeding with cardiac catheterization. Patient continues to have some nausea but no vomiting today. Continue with Reglan at this time. Cardiac workup with unremarkable then patient may be able to proceed with laparoscopic cholecystectomy as this could be the etiology of nausea and vomiting. Physical Examination - Vital Signs reviewed - Physical Exam General: Awake alert and oriented to person place and time HEENT: Within normal limits Chest: blood from central line(right subclavian catheter) Respiratory: Clear bilaterally Cardiovascular: Regular rate rhythm with SAVAGE II/ Gastrointestinal: Soft/nontender nondistended bowel sounds positive Musculoskeletal: No clubbing, No swelling; minimal edema; tenderness in the c ostochondral region Neurological: Moves all extremities Assessment and Plan 1. Acute respiratory distress secondary to cardiac arrest with torsades de pointes; Type II [place]; chronic heart failure along with h/o of atrial fibrillation on chronic anticoagulation Eliquis Patient proceeded with extubation. Patient's cardiac status is stable. Proceeding with cardiac catheterization on Sunday. N.p.o. after midnight. 2. Acute pancreatitis with intractable nausea and vomiting Continue with gentle hydration. Continue monitoring labs. Patient started having nausea and vomiting once again. If this is related to the patient's cholelithiasis the patient may need laparoscopic cholecystectomy. We may be abl e to clear patient if cardiac catheterization is unremarkable. 3. Metabolic syndrome; hypertension/diabetes/morbid obesity Strict blood pressure and blood sugar control; diet and exercise regimen and weight loss medication. 4. Chronic kidney disease stage III Continue monitoring renal function; gentle hydration and monitor volume status closely; appreciate nephrology input 5. Hypokalemia Repleted and potassium is stabilized. continue to monitor closely as it may have caused torsades de pointes 6. Stage I sacral decubitus off load and monitor wound Cardiac diet Full code DVT Eliquis Discharge Plan: SNF or inpatient rehab Plan to discharge in: after extubation Discharge Plan: Home - Code Status/Comfort Care Code Status: Full Code Critical Care: Yes Time Spent Managing PTS Care (In Minutes): 35
--- NOTE | 2023-12-02 17:44 | P.PN ---
Date of Service: 12/02/23 Subjective Patient is having nausea and vomiting. Patient clinical symptoms have slightly worsened. Patient been vomiting today. Will try to control it with scheduled Reglan. Patient may need some anxiolytics. Continue monitoring electrolytes closely as patient developed torsades because of hypokalemia. Plan for cardiac catheterization in the morning and with continued gentle hydration. Physical Examination - Vital Signs reviewed - Physical Exam General: Awake alert and oriented to person place and time HEENT: WNL Chest: blood from central line(right subclavian catheter) Respiratory: Clear bilaterally Cardiovascular: Regular rate rhythm with SAVAGE II/ Gastrointestinal: Soft/nontender nondistended bowel sounds positive Musculoskeletal: No clubbing, No swelling; minimal edema; tenderness in the costochondral region Neurological: Moves all extremities Assessment and Plan 1. Acute respiratory distress secondary to cardiac arrest with torsades de pointes; Type II [place]; chronic heart failure along with h/o of atrial fibrillation on chronic anticoagulation Eliquis Patient's hemodynamics are stable. Proceeding with cardiac catheterization on Sunday. N.p.o. after midnight. 2. Acute pancreatitis with intractable nausea and vomiting Continue with gentle hydration. Continue monitoring labs. Patient started having nausea and vomiting once again. If this is related to the patient's cholelithiasis the patient may need laparoscopic cholecystectomy. We may be able to clear patient if cardiac catheterization is unremarkable. 3. Metabolic syndrome; hypertension/diabetes/morbid obesity Strict blood pressure and blood sugar control; diet and exercise regimen and weight loss medication. 4. Chronic kidney disease stage III Continue monitoring renal function; gentle hydration and monitor volume status closely; medication for renal protection prior to cath as needed; appreciate nephrology input 5. Hypokalemia Repleted and potassium is stabilized. continue to monitor closely as it may have caused torsades de pointes 6. Stage I sacral decubitus off load and monitor wound care Cardiac diet Full code DVT on Lovenox but on hold for cardiac cath Discharge Plan: SNF or inpatient rehab Plan to discharge in: 3-5 days Discharge Plan: SNF - Code Status/Comfort Care Code Status: Full Code Critical Care: NO Time Spent Managing PTS Care (In Minutes): 35
[2023-12-02] MEDS: METOCLOPRAMIDE 10 MG/2mL INJ IV SCH (18:26)
[2023-12-02] MEDS: KCL 20 MEQ/100 mL IVPB 20 MEQ/100 ML BAG IV ONE (18:26)
[2023-12-02] MEDS: SPIRONOLACTONE 25 MG TABLET PO SCH (20:20)
[2023-12-02] MEDS: POTASSIUM CL SA 10 MEQ TAB PO SCH (20:21)
[2023-12-03 05:25] LABS: Absolute Monocytes 1.4 K/uL (0.1-1.3); Absolute Neutrophil 12.3 K/uL (1.8-8.0); Basophils % 0.3 % (0-1.3); Eosinophils % 0.1 % (0-4.4); Hematocrit 37.9 % (36.0-45.0); Lymphocytes % 6.8 % (15.3-44.8); MCH 25.8 pg (27.0-35.0); MCHC 31.7 g/dL (32.0-36.0); MCV 81.4 fL (80-100); MPV 10.4 fL (7.6-11.3); Monocytes % 9.3 % (3.3-12.3); Neutrophils % 83.5 % (41.7-73.7); Platelets 151 thou/uL (152-406); RBC Red Blood Cell Count 4.65 M/uL (3.86-4.86); Red Cell Distribution Width 16.4 % (12.1-15.2)
[2023-12-03 05:40] LABS: Anion Gap 7.5 mEq/L (5.0-15.0); Magnesium 2.4 mg/dL (1.6-2.4); Potassium 4.5 mEq/L (3.5-5.1)
[2023-12-03] MEDS: NA CHLORIDE 0.9% 500 ML ONE (09:20)
[2023-12-03] MEDS ORDERED: HEPA 1000U/500MLS 2,000 UNIT/1,000 ML BAG IV ONE (09:54)
[2023-12-03] MEDS ORDERED: LIDOCAINE 1% 20 ML MDV ONE (09:55)
[2023-12-03] MEDS ORDERED: VERAPAMIL HCL 10 MG/4 ML VIAL IV ONE (09:55)
[2023-12-03] MEDS ORDERED: HEPARIN 5000 UNIT/ML 1 ML VIAL ONE (09:55)
[2023-12-03] MEDS ORDERED: MIDAZOLAM HCL 2 MG/2 ML INJ ONE (09:55)
[2023-12-03] MEDS ORDERED: ATROPINE SULF 1 MG/10 ML SYR IV ONE (09:55)
[2023-12-03] MEDS ORDERED: FENTANYL CITR 100 MCG/2 ML ONE (09:55)
[2023-12-03] MEDS ORDERED: TICAGRELOR 90 MG TABLET PO ONE (09:56)
[2023-12-03] MEDS ORDERED: CLOPIDOGREL 75 MG TABLET ONE (09:56)
[2023-12-03] MEDS ORDERED: ASPIRIN 325 MG TAB ONE (09:56)
[2023-12-03] MEDS ORDERED: HEPARIN 10,000 UNIT/10 ML VIAL IV ONE (09:56)
[2023-12-03] MEDS ORDERED: ONDANSETRON 4 MG/2 ML VIAL ONE (10:07)
[2023-12-03] MEDS ORDERED: METHYLPREDNISOLONE 125 MG INJ ONE (10:07)
[2023-12-03] MEDS ORDERED: DIPHENHYDRAMINE 50 MG/ML VIAL ONE (10:07)
--- NOTE | 2023-12-03 12:01 | P.PN ---
Subjective Date of Service: 12/03/23 Chief Complaint: Abdominal pain and nausea Subjective: No new changes Review of Systems 10-point ROS is otherwise unremarkable Physical Examination - Vital Signs Temperature: 97.9 F Blood Pressure: 165/74 Pulse: 95 Respirations: 15 Pulse Ox (%): 98 - Physical Exam General: Alert, Oriented x3 HEENT: Atraumatic Neck: Supple Respiratory: Clear to auscultation bilaterally Cardiovascular: No edema, Normal S1 S2 Gastrointestinal: Normal bowel sounds Assessment And Plan - Current Problems (Diagnosis) (1) Ventricular tachycardia Current Visit: Yes Status: Acute Plan: most likely secondary to hypokalemia as patient had a coronary angiogram done today and did not shows any major blockage continue to correct electrolytes aggressively. (2) Atrial fibrillation Current Visit: No Status: Chronic Plan: Lopressor 25 mg po BID continue heparin, can start patient on Eliquis 5 mg po BID on discharge. d/c Amiodarone. Qualifiers: Qualified Code(s): I48.0 - Paroxysmal atrial fibrillation (3) CHF (congestive heart failure) Current Visit: No Status: Chronic Plan: Patient filling pressure is normal, continue to monitor. Monitor input and output. Qualifiers: Qualified Code(s): I50.32 - Chronic diastolic (congestive) heart failure
--- NOTE | 2023-12-03 12:11 | P.PN ---
Subjective Date of Service: 12/03/23 Chief Complaint: Abdominal pain and nausea Pt is resting comfortably in bed. Cardiology will do cardiac cath today. No complaints of overnight. Review of Systems General: Unremarkable Eyes: Unremarkable ENT: Unremarkable Respiratory: Unremarkable Cardiovascular: Unremarkable Gastrointestinal: Unremarkable Genitourinary: Unremarkable Musculoskeletal: Unremarkable Integumentary: Unremarkable Neurological: Unremarkable Lymphatics: Unremarkable Physical Examination - Vital Signs Temperature: 97.9 F Blood Pressure: 165/74 Pulse: 95 Respirations: 15 Pulse Ox (%): 98 - Physical Exam General: Alert, In no apparent distress, Oriented x3 HEENT: Atraumatic, Normocephalic, PERRLA Neck: Supple, 2+ carotid pulse no bruit Respiratory: Clear to auscultation bilaterally, Normal air movement Cardiovascular: No edema, Normal pulses, Regular rate/rhythm, Normal S1 S2 Capillary refill: <2 Seconds Gastrointestinal: Normal bowel sounds, Soft and benign, Non-distended Musculoskeletal: No clubbing, No swelling Integumentary: No rashes, No breakdown, No significant lesion Neurological: Normal speech, Normal strength at 5/5 x4 extr, Normal tone, Sensation intact Lymphatics: No axilla or inguinal lymphadenopathy Assessment And Plan - Plan Acute respiratory distress secondary to cardiac arrest with torsades de pointes /Type II [place] / chronic heart failure along with h/o of atrial fibrillation: Pt is on chronic anticoagulation Eliquis. Cardiology will do Cardiac today. Pt is NPO. Trponin is elevated 3079 Acute pancreatitis with intractable nausea and vomiting: Will continue gentle hydration. If nausea and vomting persists, will consult Gen surgeon for cholelithiasis; the patient may need laparoscopic cholecystectomy. We may be able to clear patient if cardiac catheterization is unremarkable. Metabolic syndrome: Pt has hypertension/diabetes/morbid obesity. Pt was advised to lose weight and monitor BP and blood sugar. Chronic kidney disease stage III: Cr is 0.92. Will avoid nephrotoxins, gentle hydration and monitor renal function. Nephrology is following. Hypokalemia: resolved. K is 4.5. Will continue to monitor closely as it may have caused torsades de pointes Stage I sacral decubitus: Will continue wound care and change position in bed. Code: Full code DVT ppx: will resume Lovenox
[2023-12-03] MEDS: POLYETHYL GLY 3350 17 GM/DOSE PO PRN (14:46)
[2023-12-03] MEDS: Meropenem 1,000 MG in NA CHLORIDE 0.9% 100 ML IV SCH (17:54)
--- NOTE | 2023-12-03 19:39 | P.PN ---
Date of Service: 12/03/23 Vital Signs Temp Pulse Resp BP Pulse Ox 97.9 F 100 H 20 138/67 95 12/03/23 12:11 12/03/23 18:00 12/03/23 19:15 12/03/23 18:00 12/03/23 19:15 Medications Hydrocodone Bitart/Acetaminophen (Hydrocodone/Apap 7.5/325 Mg Tab) 1 tab PO Q8H PRN PRN Reason: Pain scale 5-7 (Moderate) Last Admin: 12/02/23 17:24 Dose: 1 tab Famotidine (Famotidine 20 Mg Tab) 20 mg PO DAILY [facility]; Protocol Last Admin: 12/03/23 12:08 Dose: 20 mg Fentanyl (Fentanyl 25 Mcg/Patch) 25 mcg TD EVERY 3RD DAY [facility] Last Admin: 12/01/23 12:20 Dose: 25 mcg Fentanyl Citrate (Fentanyl Citr 100 Mcg/2 Ml) 25 mcg IV Q4H PRN PRN Reason: Pain scale 8-10 (Severe) Last Admin: 12/03/23 19:15 Dose: 25 mcg Gabapentin (Gabapentin 100 Mg Cap) 100 mg PO TID [facility] Last Admin: 12/03/23 14:46 Dose: 100 mg Hydralazine HCl (Hydralazine Hcl 20 Mg/Ml Vial) 10 mg IV Q4HP PRN PRN Reason: Goal to achieve SBP in comment Last Admin: 12/03/23 02:25 Dose: 10 mg Amiodarone HCl 900 mg/ (Dextrose) 500 mls @ 0 mls/hr IV Q24H [facility]; Protocol Last Admin: 12/03/23 19:16 Dose: 500 mls Meropenem 1,000 mg/ Sodium (Chloride) 100 mls @ 200 mls/hr IV Q8HR [facility] Last Admin: 12/03/23 17:54 Dose: 100 mls Metoprolol Tartrate (Metoprolol Tartrate 5 Mg/5 Ml Inj) 5 mg IV Q6H [facility] Mupirocin (Mupirocin Nasal 2 Appl/1 Gm Tube) 1 appl JEANETH BID [facility] Stop: 12/03/23 21:01 Last Admin: 12/03/23 08:08 Dose: 1 appl Ondansetron HCl (Ondansetron 4 Mg/2 Ml Vial) 4 mg IV Q6HP PRN PRN Reason: NAUSEA / VOMITING Last Admin: 12/03/23 19:15 Dose: 4 mg Phenol (Phenol 1.4% Oral [place] 180ml) 2 appl MM Q4H PRN PRN Reason: SORE THROAT Polyethylene Glycol (Polyethyl Gly 3350 17 Gm/Dose) 17 gm PO DAILY PRN PRN Reason: CONSTIPATION Last Admin: 12/03/23 14:46 Dose: 17 gm Potassium Chloride (Potassium Cl Sa 10 Meq Tab) 20 meq PO BID [facility] Last Admin: 12/03/23 12:09 Dose: 20 meq Sodium Chloride (Sodium Chl 0.9% 1000 Ml Bag) 1,000 ml IV UD [facility] Last Admin: 11/29/23 00:25 Dose: 1,000 ml Sodium Chloride (Sodium Chloride 0.9% 10ml Inj) 10 ml IV UD PRN PRN Reason: Diluant Spironolactone (Spironolactone 25 Mg Tablet) 25 mg PO BID [facility] Last Admin: 12/03/23 12:08 Dose: 25 mg Assessment/ Plan: Nephrology No dyspnea No chest pain No acute events overnight Seen and examined in postop Vitals, medications, blood work and imaging reviewed in the chart General: In no apparent distress, Obese HEENT: Atraumatic Neck: Supple Respiratory: Clear to auscultation bilaterally, Normal air movement Cardiovascular: No edema, Regular rate/rhythm Gastrointestinal: Non-distended, Tenderness Musculoskeletal: No clubbing, No contractures Integumentary: No rashes, No cyanosis Urinary: Young catheter Blood work reviewed in the chart. Imagings Data: EXAM DESCRIPTION: CT - Abdomen Pelvis Wo Contrast - 11/27/2023 6:35 am CLINICAL HISTORY: The patient is 78 years old and is Female; ABD PAIN TECHNIQUE: Axial computed tomography images of the abdomen and pelvis without intravenous contrast. Sagittal and coronal reformatted images were created and reviewed. This CT exam was performed using one or more of the following dose reduction techniques: automated exposure control, adjustment of the mA and/or kV according to patient size, and/or use of iterative reconstruction technique. COMPARISON: No relevant prior studies available. FINDINGS: Lung bases: Unremarkable. No mass. No consolidation. Mediastinum: Small hiatal hernia. ABDOMEN: Liver: 2.6 cm cyst in the right posterior liver. Gallbladder and bile ducts: 2.2 cm gallstone in the gallbladder. Mildly dilated common bile duct. Pancreas: Unremarkable. No ductal dilation. Spleen: Unremarkable. No splenomegaly. Adrenals: Unremarkable. No mass. Kidneys and ureters: Unremarkable. No obstructing stones. No hydronephrosis. Stomach and bowel: Unremarkable. No obstruction. No mucosal thickening. PELVIS: Appendix: No findings to suggest acute appendicitis. Bladder: Unremarkable. Reproductive: Unremarkable as visualized. ABDOMEN and PELVIS: Intraperitoneal space: Unremarkable. No free air. No significant fluid collection. Bones/joints: Disc space narrowing with degenerative endplate changes in the spine. 7 mm of anterolisthesis of L4 on L5. No acute fracture. No dislocation. Soft tissues: There is a 4.7 x 3.1 x 7.4 cm fat-containing periumbilical hernia. Vasculature: Unremarkable. No abdominal aortic aneurysm. Lymph nodes: Unremarkable. No enlarged lymph nodes. IMPRESSION: 1. 2.2 cm gallstone in the gallbladder. 2. Mildly dilated common bile duct. 3. There is a 4.7 x 3.1 x 7.4 cm fat-containing periumbilical hernia. EXAM DESCRIPTION: US - Abdomen Exam Limited - 11/27/2023 6:06 am CLINICAL HISTORY: Abdominal pain. COMPARISON: 2020 FINDINGS: 1.8 centimeter stone within the neck of the gallbladder. Gallbladder wall not thickened Common bile duct 7.5 millimeters. The duct measured 1 centimeter on a 2020 exam IMPRESSION: Cholelithiasis without evidence cholecystitis. Given the patient's age there is borderline dilatation of the common bile duct EXAM DESCRIPTION: MRI - Cholangiogram - 11/28/2023 4:17 pm CLINICAL HISTORY: elev lipase,cholithaisis COMPARISON: Abdomen Exam Limited dated 11/27/2023; Abdomen Pelvis Wo Contrast dated 11/27/2023 FINDINGS: Three-dimensional MRCP was performed using maximum intensity projection reconstruction on the same work station. No intrahepatic biliary tree dilatation is seen. The common bile duct is normal caliber without evidence of retained stone, stricture or mass. The pancreatic duct is not pathologically dilated. There is a large gallstone in the gallbladder. Limited T2 sequences through the abdomen demonstrates no bulky adenopathy, significant free fluid or abscess. Benign liver cyst suspected. IMPRESSION: Large gallstone in the gallbladder. LEFT VENTRICULAR WALL MOTION: NORMAL DOPPLER/COLOR FLOW: SEE BELOW COMMENTS: 1. NORMAL LEFT VENTRICULAR EJECTION FRACTION 60-65% 2. NORMAL WALL MOTION 3. BI-ATRIAL ENLARGEMENT 4. SEVERE TRICUSPID REGURGITATION 5. MILD PULMONIC INSUFFICIENCY 6. MILD MITRAL REGURGITATION Conclusions/Impression: Stage I ALMA in the setting of hypotension -No NSAIDs Hyponatremia -Continue Lasix Hypokalemia -Continue potassium -Continue Spironolactone HTN with CHF -Monitor BP Diastolic CHF, chronic Severe TR -Continue spironolactone Acute Respiratory Failure, resolved -Pulmonary following Iron Deficiency 7.2% Thrombocytopenia -Monitor CBC -Consider IV iron Hospitalist and Cardiology notes reviewed
[2023-12-03] MEDS: METOPROLOL TARTRATE 5 MG/5 ML INJ IV SCH (20:23)
[2023-12-03] MEDS ORDERED: QUETIAPINE 25 MG TAB PO SCH (21:00)
[2023-12-03] MEDS: PROMETHAZINE INJ 25 MG/ML AMP IV ONE (22:00)
--- NOTE | 2023-12-03 22:36 | OP ---
Date of Procedure: 12/03/2023 Surgeon: Kalyan Rubio Procedures Performed: 1.Left heart catheterization. 2.Selective coronary angiogram. Indication For Procedure: Cardiac arrest. Complications: None. Estimated Blood Loss: Less than 50 cc. Sedation Time: 20 minutes with 1 of Versed and 25 of fentanyl. Access: Right radial, closed by TR band. Description Of Procedure: After risks, benefits, and alternatives were explained to the patient, the patient agreed and signed informed consent. The patient was brought back to the laboratory supervisor, prepped a nd draped in sterile fashion. Time-out was performed. Sedation was administered. Right radial acce ss with a 6-[place] sheath was obtained using an ultrasound-guided micropuncture technique. Next, we advanced the [place] 4 catheter over J-wire to the left ventricular cavity. LVEDP was obtained. Pullb ack did not show any gradients, and same catheter was used for selective coronary angiogram of the le ft and right coronary system. At the end of procedure, catheter was removed over a J-wire. Also, sh eath was removed and a TR band was applied. The patient was moved back to recovery in stable conditi on. Findings: 1.Left main is normal. 2.LAD is normal. 3.Left circ is normal. 4.RCA is normal. 5.LVEDP is 3 mmHg. Assessment And Plan: 1.Normal coronaries. 2.Normal filling pressure. Plan will be to continue medical management. RYLIE/TRICIA Voice ID: [id number] Report ID: [id number]
[2023-12-04] MEDS: LORazepam 2 MG/ML VIAL IV ONE (03:22)
[2023-12-04 05:09] LABS: Absolute Lymphocytes (CBC) 0.6 K/uL (0.7-4.9); Absolute Neutrophil 10.8 K/uL (1.8-8.0); Basophils % 0.2 % (0-1.3); Hematocrit 35.6 % (36.0-45.0); Hemoglobin 11.5 g/dL (12.0-15.0); Lymphocytes % 5.2 % (15.3-44.8); MCH 26.1 pg (27.0-35.0); MCHC 32.3 g/dL (32.0-36.0); MCV 80.8 fL (80-100); MPV 10.6 fL (7.6-11.3); Monocytes % 8.2 % (3.3-12.3); Neutrophils % 86.4 % (41.7-73.7); Platelets 161 thou/uL (152-406); Red Cell Distribution Width 16.1 % (12.1-15.2)
[2023-12-04 05:24] LABS: Magnesium 2.3 mg/dL (1.6-2.4)
[2023-12-04 07:38] LABS: Blood Morphology Comment NOT SEEN (NOT SEEN); Differential Total Cells Count 100; Lymphocytes 6 % (15-42); Monocytes 8 % (0-10); Platelet Estimate ADEQ; Segmented Neutrophils 86 % (40-80)
[2023-12-04] MEDS ORDERED: POTASS/SODIUM PHOSPHATE 1 PKT POWD.PACK PO SCH (09:00)
[2023-12-04] MEDS ORDERED: FENTANYL 25 MCG/PATCH TD SCH (09:00)
[2023-12-04] MEDS: SODIUM PHOSPHATE 15 MM in NA CHLORIDE 0.9% 250 ML IV ONE (09:31)
--- NOTE | 2023-12-04 10:36 | P.PN ---
Subjective Date of Service: 12/04/23 Chief Complaint: Abdominal pain and nausea Pt is resting comfortably in bed. Cardiology did cardiac cath which did not show any significant CAD. She complains of insomnia and nausea. Will give melatonin. Waiting for recommendations from Dr. Anne. No complaints of overnight. Review of Systems General: Unremarkable Eyes: Unremarkable ENT: Unremarkable Respiratory: Unremarkable Cardiovascular: Unremarkable Gastrointestinal: Nausea Genitourinary: Unremarkable Musculoskeletal: Unremarkable Integumentary: Unremarkable Neurological: Unremarkable Lymphatics: Unremarkable Physical Examination - Vital Signs Temperature: 98.2 F Blood Pressure: 142/99 Pulse: 92 Respirations: 17 Pulse Ox (%): 98 - Physical Exam General: Alert, In no apparent distress, Oriented x3, Obese HEENT: Atraumatic, Normocephalic, PERRLA Neck: Supple, 2+ carotid pulse no bruit Respiratory: Clear to auscultation bilaterally, Normal air movement Cardiovascular: No edema, Normal pulses, Regular rate/rhythm, Normal S1 S2 Capillary refill: <2 Seconds Gastrointestinal: Normal bowel sounds, Soft and benign, Non-distended Musculoskeletal: No clubbing, No swelling Integumentary: No rashes, No breakdown Neurological: Normal speech, Normal strength at 5/5 x4 extr, Normal tone, Sensation intact Lymphatics: No axilla or inguinal lymphadenopathy Assessment And Plan - Plan Acute respiratory distress secondary to cardiac arrest with torsades de pointes /Type II [place] / chronic heart failure along with h/o of atrial fibrillation: Pt is on chronic anticoagulation Eliquis. Cardiology did cardiac on 12/03/23. It did not show any significant CAD. Will continue medical therapy. today. Trponin is elevated 3079 Acute pancreatitis with intractable nausea and vomiting: Will continue gentle hydration. Pt still has nausea. Consult Gen surgeon for cholelithiasis; the patient may need laparoscopic cholecystectomy. We may be able to clear patient if cardiac catheterization is unremarkable. Metabolic syndrome: Pt has hypertension/diabetes/morbid obesity. Pt was advised to lose weight and monitor BP and blood sugar. Chronic kidney disease stage III: Cr is 0.78<- 0.92. Will avoid nephrotoxins, gentle hydration and monitor renal function. Nephrology is following. Hypokalemia: resolved. K is 4.5. Will continue to monitor closely as it may have caused torsades de pointes Stage I sacral decubitus: Will continue wound care and change position in bed. Morbid obesity: Pt was advised to lose weight. Code: Full code DVT ppx: will resume Lovenox
--- NOTE | 2023-12-04 14:45 | P.PN ---
Date of Service: 12/04/23 S: Patient has no specific complaints today, says she is been feeling a lot better, got up yesterday and ambulated for a while. Has minimal amount of backache today. Also been having some nausea. O: Vital signs are stable, labs are improved clinically looks well A: Patient is surgically stable at the moment P: This patient, who does have documented gallstones, he had cardiac events last week. The gallbladder was quite inflamed at that time. While the patient is having nausea, this can be treated with oral medication. Should she want to proceed with a definitive surgical procedure, as long as she remains the same as she is now clinically, I would recommend at least 9 to 12 weeks. She is in view of the fact that she had a cardiac event, and the no doubt the inflammation around her gallbladder would create increased difficulty for the surgery at this time. I have explained this to the patient.
--- NOTE | 2023-12-04 16:59 | P.PN ---
Subjective Date of Service: 12/04/23 Chief Complaint: Abdominal pain and nausea Subjective: No new changes Review of Systems 10-point ROS is otherwise unremarkable Physical Examination - Vital Signs Temperature: 98.2 F Blood Pressure: 142/66 Pulse: 98 Respirations: 16 Pulse Ox (%): 98 - Physical Exam General: Alert HEENT: Atraumatic Neck: Supple Respiratory: Clear to auscultation bilaterally Cardiovascular: No edema, Normal S1 S2 Gastrointestinal: Normal bowel sounds Assessment And Plan - Current Problems (Diagnosis) (1) Ventricular tachycardia Current Visit: Yes Status: Acute Plan: most likely secondary to hypokalemia as patient had a coronary angiogram done and did not shows any major blockage continue to correct electrolytes aggressively. (2) Atrial fibrillation Current Visit: No Status: Chronic Plan: Lopressor 25 mg po BID continue heparin, can start patient on Eliquis 5 mg po BID on discharge. d/c Amiodarone. Qualifiers: Atrial fibrillation type: paroxysmal Qualified Code(s): I48.0 - Paroxysmal atrial fibrillation (3) CHF (congestive heart failure) Current Visit: No Status: Chronic Plan: Patient filling pressure is normal, continue to monitor. Monitor input and output. Qualifiers: Heart failure type: diastolic Heart failure chronicity: chronic Qualified Code(s): I50.32 - Chronic diastolic (congestive) heart failure
[2023-12-04] MEDS: METOPROLOL TAR 25 MG TAB PO SCH (17:03)
[2023-12-04] MEDS: APIXABAN 5 MG TABLET PO SCH (20:10)
[2023-12-04] MEDS: MELATONIN 5 MG TABLET PO SCH (20:11)
[2023-12-04] MEDS: PROMETHAZINE INJ 25 MG/ML AMP IV PRN (22:25)
[2023-12-05 06:33] LABS: Absolute Basophils 0.1 K/uL (0-0.5); Absolute Eosinophils 0.2 K/uL (0-0.5); Absolute Lymphocytes (CBC) 2.1 K/uL (0.7-4.9); Absolute Monocytes 1.1 K/uL (0.1-1.3); Absolute Neutrophil 7.9 K/uL (1.8-8.0); Basophils % 0.4 % (0-1.3); Eosinophils % 1.6 % (0-4.4); Hematocrit 36.3 % (36.0-45.0); Hemoglobin 11.8 g/dL (12.0-15.0); Lymphocytes % 18.6 % (15.3-44.8); MCH 26.5 pg (27.0-35.0); MCHC 32.4 g/dL (32.0-36.0); MCV 81.6 fL (80-100); MPV 9.4 fL (7.6-11.3); Monocytes % 9.3 % (3.3-12.3); Neutrophils % 70.1 % (41.7-73.7); Platelets 158 thou/uL (152-406); RBC Red Blood Cell Count 4.45 M/uL (3.86-4.86); Red Cell Distribution Width 16.4 % (12.1-15.2)
[2023-12-05 06:45] LABS: Anion Gap 7.5 mEq/L (5.0-15.0); Potassium 4.5 mEq/L (3.5-5.1)
[2023-12-05 08:58] VITALS: O2SAT 98
[2023-12-05] MEDS: levoFLOXacin 750 MG TAB PO SCH (10:31)
[2023-12-05] MEDS: metroNIDAZOLE 500 MG TABLET PO SCH (13:10)
--- NOTE | 2023-12-05 13:13 | P.DS ---
Admission Date: 11/27/23 Discharge Date: 12/05/23 Reason for Admission: Abdominal pain and nausea Consultations: Dr. Rubio - Cardiology Dr. Anne - General Surgery Procedures: Coronary angiogram - no need for PCI Brief History of Present Illness: 78-year-old female with a past medical history of atrial fibrillation on Eliquis, chronic diastolic congestive heart failure, hypertension, morbid obesity, presents to the emergency room presented to the emergency room with intractable nausea vomiting. She denies alcohol intake, no fever, diarrhea. Reports shortness of breath that is worse with exertion. History of acute on chronic heart failure, reports associated right hip pain, no reported chest pain, HPI is vague, daughter is at bedside, plan to admit for NSTEMI, elevated troponin, acute on chronic heart failure, intractable nausea vomiting, elevated lipase, cholelithiasis without cholecystitis Hospital Course: Ms. Lawrence's hospital stay was complicated by hypokalemia. Secondary to nausea and vomiting and use of Lasix, potassium became low enough to precipitate a run of V. tach. She required intubation, CPR, and defibrillation. Upon stabilization Dr. Rubio took her to the [facility] for a coronary angiogram which was clear and did not necessitate a PCI. Noted on admission, cholelithiasis without cholecystitis, was investigated per Dr. Anne. As this does not seem to be the cause of her nausea and vomiting, he will see her outpatient in 8 to 10 weeks. <Loretta Hayes - Last Filed: 12/05/23 13:22> Admission Date: 11/27/23 Discharge Date: 12/05/23 Hospital Course: Pt seen and examined. I agree with the note by the [facility]. Pt had V-tach due to hypokalemia. Pt coded and was intubated after CPR. She has a brieft stay in the ICU. CArdiology did cardiac cath that was unremarkable. Pt continued to have nausea. Gen surgery evaluated her for cholelithiasis without cholecystitis. Dr. Anne wants her to follow up in 9 - 12 weeks for possible cholecystectomy given recent cardiac arrest. Ok to discharge pt. <Dina Mayer - Last Filed: 12/05/23 13:59> Disposition: ROUTINE DISCHARGE Discharge Condition: GOOD Vital Signs/Physical Exam: Temp Pulse Resp BP Pulse Ox 97.3 F 77 14 131/66 98 12/05/23 12:00 12/05/23 12:00 12/05/23 12:00 12/05/23 12:00 12/05/23 12:00 General: Alert, In no apparent distress, Oriented x3, Cooperative, Obese HEENT: Atraumatic, Normocephalic Neck: Supple Respiratory: Clear to auscultation bilaterally, Normal air movement Cardiovascular: Normal pulses, Regular rate/rhythm Capillary refill: <2 Seconds Gastrointestinal: Soft and benign Musculoskeletal: No clubbing, No swelling Integumentary: No rashes Neurological: Normal speech Lymphatics: No axilla or inguinal lymphadenopathy External genitalia: Deferred Rectal: Deferred Laboratory Data at Discharge: WBC 11.30 thou/uL (4.3-10.9) H 12/05/23 06:20 Hgb 11.8 g/dL (12.0-15.0) L 12/05/23 06:20 Hct 36.3 % (36.0-45.0) 12/05/23 06:20 Plt Count 158 thou/uL (152-406) 12/05/23 06:20 PT 19.6 SECONDS (9.5-12.5) H 11/29/23 14:52 INR 1.81 11/29/23 14:52 APTT 50.7 SECONDS (24.3-36.9) H 12/01/23 08:39 Sodium 133 mEq/L (136-145) L 12/05/23 06:20 Potassium 4.5 mEq/L (3.5-5.1) 12/05/23 06:20 BUN 25 mg/dL (7-18) H 12/05/23 06:20 Creatinine 0.74 mg/dL (0.55-1.02) 12/05/23 06:20 Glucose 88 mg/dL (74-106) 12/05/23 06:20 Uric Acid 8.4 mg/dL (2.6-6.0) H 11/30/23 02:00 Phosphorus 2.0 mg/dL (2.5-4.9) L 12/04/23 04:35 Magnesium 2.3 mg/dL (1.6-2.4) 12/04/23 04:35 Total Bilirubin 2.4 mg/dL (0.2-1.0) H 12/01/23 06:00 AST 58 U/L (15-37) H 12/01/23 06:00 ALT 28 U/L (13-56) 12/01/23 06:00 Alkaline Phosphatase 54 U/L (45-117) 12/01/23 06:00 Lipase 281 U/L (13-75) H 12/03/23 05:00 <Hayes,Loretta Alessandro - Last Filed: 12/05/23 13:22> Vital Signs/Physical Exam: Temp Pulse Resp BP Pulse Ox 97.3 F 77 18 131/66 96 12/05/23 12:00 12/05/23 12:00 12/05/23 13:11 12/05/23 12:00 12/05/23 13:11 Laboratory Data at Discharge: WBC 11.30 thou/uL (4.3-10.9) H 12/05/23 06:20 Hgb 11.8 g/dL (12.0-15.0) L 12/05/23 06:20 Hct 36.3 % (36.0-45.0) 12/05/23 06:20 Plt Count 158 thou/uL (152-406) 12/05/23 06:20 PT 19.6 SECONDS (9.5-12.5) H 11/29/23 14:52 INR 1.81 11/29/23 14:52 APTT 50.7 SECONDS (24.3-36.9) H 12/01/23 08:39 Sodium 133 mEq/L (136-145) L 12/05/23 06:20 Potassium 4.5 mEq/L (3.5-5.1) 12/05/23 06:20 BUN 25 mg/dL (7-18) H 12/05/23 06:20 Creatinine 0.74 mg/dL (0.55-1.02) 12/05/23 06:20 Glucose 88 mg/dL (74-106) 12/05/23 06:20 Uric Acid 8.4 mg/dL (2.6-6.0) H 11/30/23 02:00 Phosphorus 2.0 mg/dL (2.5-4.9) L 12/04/23 04:35 Magnesium 2.3 mg/dL (1.6-2.4) 12/04/23 04:35 Total Bilirubin 2.4 mg/dL (0.2-1.0) H 12/01/23 06:00 AST 58 U/L (15-37) H 12/01/23 06:00 ALT 28 U/L (13-56) 12/01/23 06:00 Alkaline Phosphatase 54 U/L (45-117) 12/01/23 06:00 Lipase 281 U/L (13-75) H 12/03/23 05:00 <Dina Mayer - Last Filed: 12/05/23 13:59> Diet: AHA Activity: Fall precautions <Hayes,Loretta Alessandro - Last Filed: 12/05/23 13:22> <Dina Mayer - Last Filed: 12/05/23 13:59> Home Medications: Lovastatin 40 mg PO BEDTIME 10/16/17 Gabapentin 100 mg PO TID 08/02/20 Furosemide [Lasix] 40 mg PO BID 09/10/22 Allopurinol 300 mg PO DAILY 03/08/23 Famotidine 20 mg PO BID 03/08/23 Hydrocodone 10/APAP 325 [[place] 10/325*] 1 tab PO Q8H PRN #30 tab 03/10/23 Potassium Chloride [K-Dur] 10 meq PO DAILY #30 tab 03/10/23 Apixaban [Eliquis] 5 mg PO BID #180 tab 12/05/23 Melatonin 5 mg PO BEDTIME 12/05/23 Metoprolol Tartrate [Lopressor*] 25 mg PO BID 6AM 6PM #180 tab 12/05/23 Polyethyl Gly 3350 [Glycolax*] 17 gm PO DAILY PRN #1 udbot 12/05/23 Spironolactone [Aldactone*] 25 mg PO BID #180 tab 12/05/23 levoFLOXacin [Levaquin*] 750 mg PO DAILY #7 tab 12/05/23 metroNIDAZOLE [Flagyl*] 500 mg PO TID #21 tab 12/05/23 New Medications: Spironolactone [Aldactone*] 25 mg PO BID #180 tab Apixaban [Eliquis] 5 mg PO BID #180 tab metroNIDAZOLE [Flagyl*] 500 mg PO TID #21 tab Polyethyl Gly 3350 [Glycolax*] 17 gm PO DAILY PRN #1 udbot PRN Reason: Constipation levoFLOXacin [Levaquin*] 750 mg PO DAILY #7 tab Metoprolol Tartrate [Lopressor*] 25 mg PO BID 6AM 6PM #180 tab Physician Discharge Instructions: Ms. Lawrence's hospital stay was complicated by hypokalemia. Secondary to nausea and vomiting and use of Lasix, potassium became low enough to precipitate a run of V. tach. She required intubation, CPR, and defibrillation. Upon stabilization Dr. Rubio took her to the [facility] for a coronary angiogram which was clear and did not necessitate a PCI. Noted on admission, cholelithiasis without cholecystitis, was investigated per Dr. Anne. As this does not seem to be the cause of her nausea and vomiting, he will see her outpatient in 8 to 10 weeks. Okay to DC IV and DC home Follow-up with primary care provider in 1 to 2 weeks Follow-up with cardiology in 1 to 2-week Please call the inpatient unit for any questions or concerns regarding hospital stay Return to the ER for worsening symptoms Followup: Hilario Solano DO [Primary Care Provider] - Kalyan Rubio MD [ACTIVE - CAN ADMIT] - Rakesh Anne MD [ACTIVE - CAN ADMIT] -
[2023-12-05] MEDS: MAGNESIUM HYDROXIDE 8% 30 ML PO ONE (20:05)
--- NOTE | 2023-12-05 21:25 | P.PN ---
Date of Service: 12/05/23 Vital Signs Temp Pulse Resp BP Pulse Ox 97.9 F 90 16 124/59 L 94 12/05/23 16:00 12/05/23 16:00 12/05/23 16:00 12/05/23 16:00 12/05/23 16:00 Medications Hydrocodone Bitart/Acetaminophen (Hydrocodone/Apap 7.5/325 Mg Tab) 1 tab PO Q8H PRN PRN Reason: Pain scale 5-7 (Moderate) Last Admin: 12/05/23 13:11 Dose: 1 tab Apixaban (Apixaban 5 Mg Tablet) 5 mg PO BID [facility] Last Admin: 12/05/23 20:29 Dose: 5 mg Famotidine (Famotidine 20 Mg Tab) 20 mg PO DAILY [facility]; Protocol Last Admin: 12/05/23 10:30 Dose: 20 mg Fentanyl (Fentanyl 25 Mcg/Patch) 25 mcg TD EVERY 3RD DAY [facility] Last Admin: 12/04/23 17:03 Dose: 25 mcg Gabapentin (Gabapentin 100 Mg Cap) 100 mg PO TID [facility] Last Admin: 12/05/23 20:30 Dose: 100 mg Hydralazine HCl (Hydralazine Hcl 20 Mg/Ml Vial) 10 mg IV Q4HP PRN PRN Reason: Goal to achieve SBP in comment Last Admin: 12/03/23 02:25 Dose: 10 mg Levofloxacin (Levofloxacin 750 Mg Tab) 750 mg PO DAILY [facility] Last Admin: 12/05/23 10:31 Dose: 750 mg Melatonin (Melatonin 5 Mg Tablet) 5 mg PO BEDTIME [facility] Last Admin: 12/04/23 20:11 Dose: 5 mg Metoprolol Tartrate (Metoprolol Tar 25 Mg Tab) 25 mg PO BID 6AM 6PM [facility] Last Admin: 12/05/23 17:17 Dose: 25 mg Metronidazole (Metronidazole 500 Mg Tablet) 500 mg PO TID [facility] Last Admin: 12/05/23 20:29 Dose: 500 mg Ondansetron HCl (Ondansetron 4 Mg/2 Ml Vial) 4 mg IV Q6HP PRN PRN Reason: NAUSEA / VOMITING Last Admin: 12/04/23 18:34 Dose: 4 mg Phenol (Phenol 1.4% Oral [place] 180ml) 2 appl MM Q4H PRN PRN Reason: SORE THROAT Polyethylene Glycol (Polyethyl Gly 3350 17 Gm/Dose) 17 gm PO DAILY PRN PRN Reason: CONSTIPATION Last Admin: 12/04/23 17:04 Dose: 17 gm Potassium Chloride (Potassium Cl Sa 10 Meq Tab) 20 meq PO BID [facility] Last Admin: 12/05/23 20:30 Dose: 20 meq Promethazine HCl (Promethazine Inj 25 Mg/Ml Amp) 12.5 mg IV Q6H PRN PRN Reason: NAUSEA / VOMITING Last Admin: 12/04/23 22:25 Dose: 12.5 mg Sodium Chloride (Sodium Chl 0.9% 1000 Ml Bag) 1,000 ml IV UD [facility] Last Admin: 11/29/23 00:25 Dose: 1,000 ml Sodium Chloride (Sodium Chloride 0.9% 10ml Inj) 10 ml IV UD PRN PRN Reason: Diluant Spironolactone (Spironolactone 25 Mg Tablet) 25 mg PO BID [facility] Last Admin: 12/05/23 20:29 Dose: 25 mg Assessment/ Plan: Nephrology No dyspnea No chest pain No acute events overnight Vitals, medications, blood work and imaging reviewed in the chart General: In no apparent distress, Obese HEENT: Atraumatic Neck: Supple Respiratory: Clear to auscultation bilaterally, Normal air movement Cardiovascular: No edema, Regular rate/rhythm Gastrointestinal: Non-distended, Tenderness Musculoskeletal: No clubbing, No contractures Integumentary: No rashes, No cyanosis Urinary: Young catheter Blood work reviewed in the chart. Imagings Data: EXAM DESCRIPTION: CT - Abdomen Pelvis Wo Contrast - 11/27/2023 6:35 am CLINICAL HISTORY: The patient is 78 years old and is Female; ABD PAIN TECHNIQUE: Axial computed tomography images of the abdomen and pelvis without intravenous contrast. Sagittal and coronal reformatted images were created and reviewed. This CT exam was performed using one or more of the following dose reduction techniques: automated exposure control, adjustment of the mA and/or kV according to patient size, and/or use of iterative reconstruction technique. COMPARISON: No relevant prior studies available. FINDINGS: Lung bases: Unremarkable. No mass. No consolidation. Mediastinum: Small hiatal hernia. ABDOMEN: Liver: 2.6 cm cyst in the right posterior liver. Gallbladder and bile ducts: 2.2 cm gallstone in the gallbladder. Mildly dilated common bile duct. Pancreas: Unremarkable. No ductal dilation. Spleen: Unremarkable. No splenomegaly. Adrenals: Unremarkable. No mass. Kidneys and ureters: Unremarkable. No obstructing stones. No hydronephrosis. Stomach and bowel: Unremarkable. No obstruction. No mucosal thickening. PELVIS: Appendix: No findings to suggest acute appendicitis. Bladder: Unremarkable. Reproductive: Unremarkable as visualized. ABDOMEN and PELVIS: Intraperitoneal space: Unremarkable. No free air. No significant fluid collection. Bones/joints: Disc space narrowing with degenerative endplate changes in the spine. 7 mm of anterolisthesis of L4 on L5. No acute fracture. No dislocation. Soft tissues: There is a 4.7 x 3.1 x 7.4 cm fat-containing periumbilical hernia. Vasculature: Unremarkable. No abdominal aortic aneurysm. Lymph nodes: Unremarkable. No enlarged lymph nodes. IMPRESSION: 1. 2.2 cm gallstone in the gallbladder. 2. Mildly dilated common bile duct. 3. There is a 4.7 x 3.1 x 7.4 cm fat-containing periumbilical hernia. EXAM DESCRIPTION: US - Abdomen Exam Limited - 11/27/2023 6:06 am CLINICAL HISTORY: Abdominal pain. COMPARISON: 2020 FINDINGS: 1.8 centimeter stone within the neck of the gallbladder. Gallbladder wall not thickened Common bile duct 7.5 millimeters. The duct measured 1 centimeter on a 2020 exam IMPRESSION: Cholelithiasis without evidence cholecystitis. Given the patient's age there is borderline dilatation of the common bile duct EXAM DESCRIPTION: MRI - Cholangiogram - 11/28/2023 4:17 pm CLINICAL HISTORY: elev lipase,cholithaisis COMPARISON: Abdomen Exam Limited dated 11/27/2023; Abdomen Pelvis Wo Contrast dated 11/27/2023 FINDINGS: Three-dimensional MRCP was performed using maximum intensity project ion reconstruction on the same work station. No intrahepatic biliary tree dilatation is seen. The common bile duct is normal caliber without evidence of retained stone, stricture or mass. The pancreatic duct is not pathologically dilated. There is a large gallstone in the gallbladder. Limited T2 sequences through the abdomen demonstrates no bulky adenopathy, significant free fluid or abscess. Benign liver cyst suspected. IMPRESSION: Large gallstone in the gallbladder. LEFT VENTRICULAR WALL MOTION: NORMAL DOPPLER/COLOR FLOW: SEE BELOW COMMENTS: 1. NORMAL LEFT VENTRICULAR EJECTION FRACTION 60-65% 2. NORMAL WALL MOTION 3. BI-ATRIAL ENLARGEMENT 4. SEVERE TRICUSPID REGURGITATION 5. MILD PULMONIC INSUFFICIENCY 6. MILD MITRAL REGURGITATION Conclusions/Impression: Stage I ALMA in the setting of hypotension -No NSAIDs Hyponatremia -Continue Lasix Hypokalemia -Continue potassium -Continue Spironolactone Hypophosphatemia -Replete as ordered HTN with CHF -Monitor BP Diastolic CHF, chronic Severe TR -Continue spironolactone Acute Respiratory Failure, resolved -Pulmonary following Iron Deficiency 7.2% Thrombocytopenia -Monitor CBC -Consider IV iron Hospitalist and Cardiology notes reviewed
[2023-12-06 05:19] LABS: Absolute Basophils 0.1 K/uL (0-0.5); Absolute Eosinophils 0.5 K/uL (0-0.5); Absolute Lymphocytes (CBC) 2.2 K/uL (0.7-4.9); Absolute Monocytes 1.1 K/uL (0.1-1.3); Absolute Neutrophil 6.7 K/uL (1.8-8.0); Basophils % 0.6 % (0-1.3); Eosinophils % 4.7 % (0-4.4); Hematocrit 34.9 % (36.0-45.0); Hemoglobin 11.5 g/dL (12.0-15.0); Lymphocytes % 20.7 % (15.3-44.8); MCH 26.9 pg (27.0-35.0); MCV 81.6 fL (80-100); MPV 9.4 fL (7.6-11.3); Monocytes % 10.6 % (3.3-12.3); Neutrophils % 63.4 % (41.7-73.7); Platelets 157 thou/uL (152-406); RBC Red Blood Cell Count 4.28 M/uL (3.86-4.86)
[2023-12-06 05:30] LABS: Anion Gap 5.6 mEq/L (5.0-15.0); Potassium 4.6 mEq/L (3.5-5.1)
[2023-12-06] MEDS: LACTULOSE 20 GM/30 ML UCUP PO ONE (08:34)
--- NOTE | 2023-12-06 11:00 | P.PN ---
Subjective Date of Service: 12/06/23 Chief Complaint: Abdominal pain and nausea Pt is resting comfortably in bed. Pt is still working with PT. She needs some assistance to get out of bed. Will need inpatient rehab. Dr. Anne wants pt to follow up in 9 - 12 weeks for possible cholecystectomy. No complaints of overnight. Review of Systems General: Unremarkable Eyes: Unremarkable ENT: Unremarkable Respiratory: Unremarkable Cardiovascular: Unremarkable Gastrointestinal: Unremarkable Genitourinary: Unremarkable Musculoskeletal: Unremarkable Integumentary: Unremarkable Neurological: Unremarkable Lymphatics: Unremarkable Physical Examination - Vital Signs Temperature: 97.6 F Blood Pressure: 131/63 Pulse: 70 Respirations: 16 Pulse Ox (%): 98 - Physical Exam General: Alert, In no apparent distress, Oriented x3, Obese HEENT: Atraumatic, Normocephalic, PERRLA Neck: Supple, 2+ carotid pulse no bruit, JVD not distended Respiratory: Clear to auscultation bilaterally, Normal air movement Cardiovascular: No edema, Normal pulses, Regular rate/rhythm, Normal S1 S2 Capillary refill: <2 Seconds Gastrointestinal: Normal bowel sounds, Soft and benign, Non-distended Musculoskeletal: No clubbing, No swelling Integumentary: No breakdown, No significant lesion, No tenderness/swelling Neurological: Normal speech, Normal strength at 5/5 x4 extr, Normal tone, Sensation intact Lymphatics: No axilla or inguinal lymphadenopathy Assessment And Plan - Plan Acute respiratory distress secondary to cardiac arrest with torsades de pointes /Type II NM / chronic heart failure along with h/o of atrial fibrillation: Pt is on chronic anticoagulation Eliquis. Cardiology did cardiac on 12/03/23. It did not show any significant CAD. Will continue medical therapy. Trponin is elevated 3079 Acute pancreatitis with intractable nausea and vomiting: Will continue gentle hydration. Pt still has nausea. Consult Gen surgeon for cholelithiasis; the patient may need laparoscopic cholecystectomy. We may be able to clear patient if cardiac catheterization is unremarkable. Metabolic syndrome: Pt has hypertension/diabetes/morbid obesity. Pt was advised to lose weight and monitor BP and blood sugar. Chronic kidney disease stage III: Cr is 0.78<- 0.92. Will avoid nephrotoxins, gentle hydration and monitor renal function. Nephrology is following. Hypokalemia: resolved. K is 4.6. Will continue to monitor closely as it may have caused torsades de pointes Stage I sacral decubitus: Will continue wound care and change position in bed. Constipation: Will give lactulose Morbid obesity: Pt was advised to lose weight. Code: Full code DVT ppx: will resume Lovenox
[2023-12-06] MEDS: PROMETHAZINE INJ 25 MG/ML AMP IV PRN (17:32)
--- NOTE | 2023-12-06 20:58 | P.PN ---
Date of Service: 12/06/23 Vital Signs Temp Pulse Resp BP Pulse Ox 97.9 F 88 16 166/72 H 98 12/06/23 16:07 12/06/23 18:14 12/06/23 16:07 12/06/23 18:14 12/06/23 18:14 Medications Hydrocodone Bitart/Acetaminophen (Hydrocodone/Apap 7.5/325 Mg Tab) 1 tab PO Q8H PRN PRN Reason: Pain scale 5-7 (Moderate) Last Admin: 12/06/23 14:32 Dose: 1 tab Apixaban (Apixaban 5 Mg Tablet) 5 mg PO BID [facility] Last Admin: 12/06/23 08:38 Dose: 5 mg Famotidine (Famotidine 20 Mg Tab) 20 mg PO DAILY [facility]; Protocol Last Admin: 12/06/23 08:38 Dose: 20 mg Fentanyl (Fentanyl 25 Mcg/Patch) 25 mcg TD EVERY 3RD DAY [facility] Last Admin: 12/04/23 17:03 Dose: 25 mcg Gabapentin (Gabapentin 100 Mg Cap) 100 mg PO TID [facility] Last Admin: 12/06/23 14:32 Dose: 100 mg Hydralazine HCl (Hydralazine Hcl 20 Mg/Ml Vial) 10 mg IV Q4HP PRN PRN Reason: Goal to achieve SBP in comment Last Admin: 12/06/23 16:15 Dose: 10 mg Levofloxacin (Levofloxacin 750 Mg Tab) 750 mg PO DAILY [facility] Last Admin: 12/06/23 08:37 Dose: 750 mg Melatonin (Melatonin 5 Mg Tablet) 5 mg PO BEDTIME [facility] Last Admin: 12/05/23 21:00 Dose: 5 mg Metoprolol Tartrate (Metoprolol Tar 25 Mg Tab) 25 mg PO BID 6AM 6PM [facility] Last Admin: 12/06/23 18:12 Dose: 25 mg Metronidazole (Metronidazole 500 Mg Tablet) 500 mg PO TID [facility] Last Admin: 12/06/23 14:32 Dose: 500 mg Ondansetron HCl (Ondansetron 4 Mg/2 Ml Vial) 4 mg IV Q6HP PRN PRN Reason: NAUSEA / VOMITING Last Admin: 12/06/23 14:35 Dose: 4 mg Phenol (Phenol 1.4% Oral [place] 180ml) 2 appl MM Q4H PRN PRN Reason: SORE THROAT Polyethylene Glycol (Polyethyl Gly 3350 17 Gm/Dose) 17 gm PO DAILY PRN PRN Reason: CONSTIPATION Last Admin: 12/04/23 17:04 Dose: 17 gm Potassium Chloride (Potassium Cl Sa 10 Meq Tab) 20 meq PO BID [facility] Last Admin: 12/06/23 08:38 Dose: 20 meq Promethazine HCl (Promethazine Inj 25 Mg/Ml Amp) 25 mg IV Q4H PRN PRN Reason: NAUSEA / VOMITING Last Admin: 12/06/23 17:32 Dose: 25 mg Sodium Chloride (Sodium Chl 0.9% 1000 Ml Bag) 1,000 ml IV UD [facility] Last Admin: 11/29/23 00:25 Dose: 1,000 ml Sodium Chloride (Sodium Chloride 0.9% 10ml Inj) 10 ml IV UD PRN PRN Reason: Diluant Spironolactone (Spironolactone 25 Mg Tablet) 25 mg PO BID [facility] Last Admin: 12/06/23 08:37 Dose: 25 mg Assessment/ Plan: Nephrology No dyspnea No chest pain Constipation Participating with PT No acute events overnight Vitals, medications, blood work and imaging reviewed in the chart General: In no apparent distress, Obese HEENT: Atraumatic Neck: Supple Respiratory: Clear to auscultation bilaterally, Normal air movement Cardiovascular: No edema, Regular rate/rhythm Gastrointestinal: Non-distended, Tenderness Musculoskeletal: No clubbing, No contractures Integumentary: No rashes, No cyanosis Urinary: Young catheter Blood work reviewed in the chart. Imagings Data: EXAM DESCRIPTION: CT - Abdomen Pelvis Wo Contrast - 11/27/2023 6:35 am CLINICAL HISTORY: The patient is 78 years old and is Female; ABD PAIN TECHNIQUE: Axial computed tomography images of the abdomen and pelvis without intravenous contrast. Sagittal and coronal reformatted images were created and reviewed. This CT exam was performed using one or more of the following dose reduction techniques: automated exposure control, adjustment of the mA and/or kV according to patient size, and/or use of iterative reconstruction technique. COMPARISON: No relevant prior studies available. FINDINGS: Lung bases: Unremarkable. No mass. No consolidation. Mediastinum: Small hiatal hernia. ABDOMEN: Liver: 2.6 cm cyst in the right posterior liver. Gallbladder and bile ducts: 2.2 cm gallstone in the gallbladder. Mildly dilated common bile duct. Pancreas: Unremarkable. No ductal dilation. Spleen: Unremarkable. No splenomegaly. Adrenals: Unremarkable. No mass. Kidneys and ureters: Unremarkable. No obstructing stones. No hydronephrosis. Stomach and bowel: Unremarkable. No obstruction. No mucosal thickening. PELVIS: Appendix: No findings to suggest acute appendicitis. Bladder: Unremarkable. Reproductive: Unremarkable as visualized. ABDOMEN and PELVIS: Intraperitoneal space: Unremarkable. No free air. No significant fluid collection. Bones/joints: Disc space narrowing with degenerative endplate changes in the spine. 7 mm of anterolisthesis of L4 on L5. No acute fracture. No dislocation. Soft tissues: There is a 4.7 x 3.1 x 7.4 cm fat-containing periumbilical hernia. Vasculature: Unremarkable. No abdominal aortic aneurysm. Lymph nodes: Unremarkable. No enlarged lymph nodes. IMPRESSION: 1. 2.2 cm gallstone in the gallbladder. 2. Mildly dilated common bile duct. 3. There is a 4.7 x 3.1 x 7.4 cm fat-containing periumbilical hernia. EXAM DESCRIPTION: US - Abdomen Exam Limited - 11/27/2023 6:06 am CLINICAL HISTORY: Abdominal pain. COMPARISON: 2020 FINDINGS: 1.8 centimeter stone within the neck of the gallbladder. Gallbladder wall not thickened Common bile duct 7.5 millimeters. The duct measured 1 centimeter on a 2020 exam IMPRESSION: Cholelithiasis without evidence cholecystitis. Given the patient's age there is borderline dilatation of the common bile duct EXAM DESCRIPTION: MRI - Cholangiogram - 11/28/2023 4:17 pm CLINICAL HISTORY: elev lipase,cholithaisis COMPARISON: Abdomen Exam Limited dated 11/27/2023; Abdomen Pelvis Wo Contrast dated 11/27/2023 FINDINGS: Three-dimensional MRCP was performed using maximum intensity projection reconstruction on the same work station. No intrahepatic biliary tree dilatation is seen. The common bile duct is normal caliber without evidence of retained stone, stricture or mass. The pancreatic duct is not pathologically dilated. There is a large gallstone in the gallbladder. Limited T2 sequences through the abdomen demonstrates no bulky adenopathy, signi ficant free fluid or abscess. Benign liver cyst suspected. IMPRESSION: Large gallstone in the gallbladder. LEFT VENTRICULAR WALL MOTION: NORMAL DOPPLER/COLOR FLOW: SEE BELOW COMMENTS: 1. NORMAL LEFT VENTRICULAR EJECTION FRACTION 60-65% 2. NORMAL WALL MOTION 3. BI-ATRIAL ENLARGEMENT 4. SEVERE TRICUSPID REGURGITATION 5. MILD PULMONIC INSUFFICIENCY 6. MILD MITRAL REGURGITATION Conclusions/Impression: Stage I LAMA in the setting of hypotension -No NSAIDs Hyponatremia -Maintain nutrition Hypokalemia -Discontinue potassium -Continue Spironolactone Hypophosphatemia -Replete prn HTN with CHF -Increase Metoprolol 50mg BID Diastolic CHF, chronic Severe TR -Continue spironolactone Acute Respiratory Failure, resolved -Pulmonary following Anemia in chronic illness Iron Deficiency 7.2% Thrombocytopenia, resolved -Monitor CBC -Consider IV iron Hospitalist note reviewed
[2023-12-06] MEDS: METOCLOPRAMIDE 10 MG/2mL INJ IV ONE (21:19)
[2023-12-07] MEDS: METOPROLOL TAR 50 MG TAB PO SCH (05:30)
[2023-12-07 05:39] LABS: Anion Gap 7.4 mEq/L (5.0-15.0); Phosphorus 2.7 mg/dL (2.5-4.9); Potassium 4.4 mEq/L (3.5-5.1)
[2023-12-07 05:51] VITALS: BP 153/73
[2023-12-07 06:14] VITALS: TEMP 97.5
--- NOTE | 2023-12-07 12:38 | P.DS ---
Admission Date: 11/27/23 Discharge Date: 12/07/23 Disposition: TRANSFER TO INPATIENT REHAB Discharge Condition: GOOD Reason for Admission: Abdominal pain and nausea Brief History of Present Illness: 78-year-old female with a past medical history of atrial fibrillation on Eliquis, chronic diastolic congestive heart failure, hypertension, morbid obesity, presents to the emergency room presented to the emergency room with in tractable nausea vomiting. She denies alcohol intake, no fever, diarrhea. Reports shortness of breath that is worse with exertion. History of acute on chronic heart failure, reports associated right hip pain, no reported chest pain, HPI is vague, daughter is at bedside, plan to admit for NSTEMI, elevated troponin, acute on chronic heart failure, intractable nausea vomiting, elevated lipase, cholelithiasis without cholecystitis Hospital Course: Ms. Lawrence's hospital stay was complicated by hypokalemia due to nausea and vomiting and use of Lasix. Her potassium became low enough to precipitate a run of V. tach. She required intubation, CPR, and defibrillation. Upon stabilization Dr. Rubio took her to the Discharge Rn for a coronary angiogram which was unremarkable and did not necessitate a PCI. Noted on admission, cholelithiasis without cholecystitis, was investigated per Dr. Anne. Pt was advised to follow up with Dayana Keys on outpatient in 9 - 12 weeks for possible cholecystectomy given recent cardiac arrest. Pt was in NAD prior to discharge to rehab. Vital Signs/Physical Exam: Temp Pulse Resp BP Pulse Ox 97.5 F 94 H 17 153/73 H 97 12/07/23 08:18 12/07/23 08:18 12/07/23 08:18 12/07/23 08:18 12/07/23 08:18 Laboratory Data at Discharge: WBC 10.50 thou/uL (4.3-10.9) 12/06/23 05:04 Hgb 11.5 g/dL (12.0-15.0) L 12/06/23 05:04 Hct 34.9 % (36.0-45.0) L 12/06/23 05:04 Plt Count 157 thou/uL (152-406) 12/06/23 05:04 PT 19.6 SECONDS (9.5-12.5) H 11/29/23 14:52 INR 1.81 11/29/23 14:52 APTT 50.7 SECONDS (24.3-36.9) H 12/01/23 08:39 Sodium 131 mEq/L (136-145) L 12/07/23 05:18 Potassium 4.4 mEq/L (3.5-5.1) 12/07/23 05:18 BUN 15 mg/dL (7-18) 12/07/23 05:18 Creatinine 0.86 mg/dL (0.55-1.02) 12/07/23 05:18 Glucose 119 mg/dL (74-106) H 12/07/23 05:18 Uric Acid 8.4 mg/dL (2.6-6.0) H 11/30/23 02:00 Phosphorus 2.7 mg/dL (2.5-4.9) 12/07/23 05:18 Magnesium 2.0 mg/dL (1.6-2.4) 12/07/23 05:18 Total Bilirubin 2.4 mg/dL (0.2-1.0) H 12/01/23 06:00 AST 58 U/L (15-37) H 12/01/23 06:00 ALT 28 U/L (13-56) 12/01/23 06:00 Alkaline Phosphatase 54 U/L (45-117) 12/01/23 06:00 Lipase 281 U/L (13-75) H 12/03/23 05:00 Home Medications: Lovastatin 40 mg PO BEDTIME 10/16/17 Gabapentin 100 mg PO TID 08/02/20 Furosemide [Lasix] 40 mg PO BID 09/10/22 Allopurinol 300 mg PO DAILY 03/08/23 Famotidine 20 mg PO BID 03/08/23 Hydrocodone 10/APAP 325 [Horner 10/325*] 1 tab PO Q8H PRN #30 tab 03/10/23 Potassium Chloride [K-Dur] 10 meq PO DAILY #30 tab 03/10/23 Apixaban [Eliquis] 5 mg PO BID #180 tab 12/05/23 Melatonin 5 mg PO BEDTIME 12/05/23 Metoprolol Tartrate [Lopressor*] 25 mg PO BID 6AM 6PM #180 tab 12/05/23 Polyethyl Gly 3350 [Glycolax*] 17 gm PO DAILY PRN #1 udbot 12/05/23 Spironolactone [Aldactone*] 25 mg PO BID #180 tab 12/05/23 New Medications: Spironolactone [Aldactone*] 25 mg PO BID #180 tab Apixaban [Eliquis] 5 mg PO BID #180 tab Polyethyl Gly 3350 [Glycolax*] 17 gm PO DAILY PRN #1 udbot PRN Reason: Constipation Metoprolol Tartrate [Lopressor*] 25 mg PO BID 6AM 6PM #180 tab Physician Discharge Instructions: Ms. Lawrence's hospital stay was complicated by hypokalemia. Secondary to nausea and vomiting and use of Lasix, potassium became low enough to precipitate a run of V. tach. She required intubation, CPR, and defibrillation. Upon stabilization Dr. Rubio took her to the Discharge Rn for a coronary angiogram which was clear and did not necessitate a PCI. Noted on admission, cholelithiasis without cholecystitis, was investigated per Dr. Anne. As this does not seem to be the cause of her nausea and vomiting, he will see her outpatient in 8 to 10 weeks. Okay to DC IV and DC home Follow-up with primary care provider in 1 to 2 weeks Follow-up with cardiology in 1 to 2-week Please call the inpatient unit for any questions or concerns regarding hospital stay Return to the ER for worsening symptoms Diet: AHA Activity: Fall precautions Followup: Kalyan Rubio MD [ACTIVE - CAN ADMIT] - Rakesh Anne MD [ACTIVE - CAN ADMIT] - Hilario Solano DO [Primary Care Provider] -
== END 2023-12-07 09:05 | DRG 871 ==
LOC: ER 01:54 → ERHOLD 06:18 → 2ND 15:22 → 3RD-ICU 11-29 00:39 → 2ND 12-04 19:41
PROVIDERS: ADMIT Hospitalist; ATTEND Hospitalist
PROC: 5A1945Z Respiratory Ventilation, 24-96 Consecutive Hours (ICD-10-PCS; 2023-11-27)
PROC: 0BH17EZ Insertion of Endotracheal Airway into Trachea, Via Natural or Artificial Opening (ICD-10-PCS; 2023-11-27)
PROC: 02HV33Z Insertion of Infusion Device into Superior Vena Cava, Percutaneous Approach (ICD-10-PCS; principal; 2023-11-29)
PROC: 0T9B70Z Drainage of Bladder with Drainage Device, Via Natural or Artificial Opening (ICD-10-PCS; 2023-11-29)
PROC: 5A12012 Performance of Cardiac Output, Single, Manual (ICD-10-PCS; 2023-11-29)
PROC: 4A023N7 Measurement of Cardiac Sampling and Pressure, Left Heart, Percutaneous Approach (ICD-10-PCS; 2023-12-03)
PROC: B2111ZZ Fluoroscopy of Multiple Coronary Arteries using Low Osmolar Contrast (ICD-10-PCS; 2023-12-03)
DX: A41.9 Sepsis, unspecified organism (principal); I21.A1 Myocardial infarction type 2; I50.33 Acute on chronic diastolic (congestive) heart failure; J96.01 Acute respiratory failure with hypoxia; R57.0 Cardiogenic shock; J96.02 Acute respiratory failure with hypercapnia; K85.90 Acute pancreatitis without necrosis or infection, unspecified; I49.01 Ventricular fibrillation; I46.9 Cardiac arrest, cause unspecified; R40.20 Unspecified coma; N17.9 Acute kidney failure, unspecified; Z68.41 Body mass index [BMI] 40.0-44.9, adult; I13.0 Hypertensive heart and chronic kidney disease with heart failure and stage 1 through stage 4 chronic kidney disease, or unspecified chronic kidney disease; E87.20 Acidosis, unspecified; R65.20 Severe sepsis without septic shock; E66.01 Morbid (severe) obesity due to excess calories; N18.30 Chronic kidney disease, stage 3 unspecified; E11.22 Type 2 diabetes mellitus with diabetic chronic kidney disease; E11.40 Type 2 diabetes mellitus with diabetic neuropathy, unspecified; E87.6 Hypokalemia; D69.6 Thrombocytopenia, unspecified; E83.42 Hypomagnesemia; G47.00 Insomnia, unspecified; K59.00 Constipation, unspecified; I48.91 Unspecified atrial fibrillation; L89.151 Pressure ulcer of sacral region, stage 1; K42.9 Umbilical hernia without obstruction or gangrene; I08.1 Rheumatic disorders of both mitral and tricuspid valves; K80.20 Calculus of gallbladder without cholecystitis without obstruction; I25.2 Old myocardial infarction; Z78.1 Physical restraint status; Z88.5 Allergy status to narcotic agent; Z88.1 Allergy status to other antibiotic agents; Z63.5 Disruption of family by separation and divorce; Z79.01 Long term (current) use of anticoagulants; Z28.310 Unvaccinated for COVID-19; Z79.899 Other long term (current) drug therapy
CPT/HCPCS: 36415; 71045; 74176; 74181; 76705; 76937; 80048; 80053; 80076; 80202; 81001; 81003; 82140; 82435; 82550; 82570; 82607; 82728; 82805; 82947; 83540; 83605; 83690; 83735; 83880; 84100; 84132; 84300; 84466; 84484; 84550; 85025; 85610; 85730; 87086; 87088; 93005; 93306; 93458; 94002; 94760; 96361; 96374; 96375; 97110; 97116; 97161; 97165; 97530; 99152; 99153; 99284; C1893; C9113; J0171; J0282; J0360; J0461; J1200; J1644; J1650; J1720; J1940; J2001; J2185; J2250; J2405; J2550; J2704; J2765; J2919; J3010; J3475; J3480; J7030; J7040; J7050; J7060; P9047; Q9966

== ENCOUNTER 2024-10-22 23:42 | Inpatient (IN) | payer MEDICAID, OTHER ==
--- OUTSIDE RECORDS SUMMARY | 2024-10-22 23:47 | XMS REPORT | Continuity of Care Document ---
Author Name Unknown Address [address] [facility] [address] [place] [address] Organization [facility] Address [address] 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 Name Role Phone NIALL HARRIS Attending Clinician Unavailable [id number] Attending Clinician Unavailable ECHO GARZA Attending Clinician Unavail able KORY MORGAN Attending Clinician Unavailable SHEYLA BURNS Attending Clinician Unavai TATIANA Medrano Attending Clinician Unavailable JUD SALAS Attending Clinician Unavailabl ANATOLY Maxwell Attending Clinician Un available MICHAEL DORAN Attending Clinician Unava LIDYA Rodriguez Attending Clinician Macrina ANNIE Oliver Attending Clinician Unavailable MD AMARI Attending Clinician Unavailab JAMEEL Verdugo Attending Clinician Unavailable FRANCIA TROY Attending Clinician Unavailab JANET Razo Attending Clinician Unavaila MATHIEU Godinez Attending Clinician Unavail able NICK DEVINE Attending Clinician Unavailable DON SCHULZ Attending Clinician Unavailable THIEN COYNE Attending Clinician Unavailable NIC SANTANA Attending Clinician Unavailable GENEVIEVE CHOWDHURY Attending Clinician Unavaila CHELSEA Allen Attending Clinician Unavailable EMILI NEVAREZ Attending Clinician Unavailable Payers Payer Name Policy Type Policy Number Effective Date Expirati on Date Source [facility] [employer] [facility] [place] H[place] C-SNP 7 [id number] 2024 00:00:00 [facility] [place] FFS 5 [id number] 2024 00:00:00 [employer] H[employer]-POS 16 [id number] 2023 00:00:00 [employer] G[employer]US 42 OA 7 [id number] 2022 00:00:00 Problems Condition Name Condition Details Condition Category Status Onset Date Resolution Date Last Treatment Date Treating Clinician Comments Source Gastroesop hageal reflux disease without esophagiti s Gastroesop hageal reflux disease without esophagiti s Disease Active 2-10 00:00: 00 Angela Stokesa eduardo Chronic, continuous use of opioids Chronic, continuous use of opioids Disease Active 5-30 00:00: 00 Angela Hewitt - Externa l Body mass index (BMI) 50.0-59.9, adult Body mass index (BMI) 50.0-59.9, adult Disease Active 4- 00:00: 00 Angela Hewitt - Kikea eduardo Other constipati on Other constipati on Disease Active 2-14 00:00: 00 Angela Hewitt - Externa eduardo Chronic kidney disease, stage 3a Chronic kidney disease, stage 3a Disease Active 03-30 00:00: 00 Angela Hewitt - Externa l Chronic diastolic CHF (congestiv e heart failure) (multi HCC) Chronic diastolic CHF (congestiv e heart failure) (multi HCC) Disease Active 01-05 00:00: 00 Angela Hewitt - Externa l Chronic anticoagul ation Chronic anticoagul ation Disease Active 01-05 00:00: 00 Angela Hewitt - Externa l DM type 2 with diabetic mixed hyperlipid emia (multi HCC) DM type 2 with diabetic mixed hyperlipid emia (multi HCC) Disease Active 01-05 00:00: 00 Angela Hewitt - Externa l 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 Disease Active 01-05 00:00: 00 Angela Hewitt - Externa l Chronic bilateral low back pain without sciatica Chronic bilateral low back pain without sciatica Disease Active 01-05 00:00: 00 Angela Hewitt - Externa l Chronic pain of both shoulders Chronic pain of both shoulders Disease Active 01-05 00:00: 00 Angela clark Chronic pain syndrome Chronic pain syndrome Disease Active 01-05 00:00: 00 Angela clark Obesity due to excess calories Obesity due to excess calories Disease Active 01-05 00:00: 00 Angela clark Obesity due to excess calories Obesity due to excess calories Disease Active 01-05 00:00: 00 Angela clark Morbid obesity Morbid obesity Disease Active 01-05 00:00: 00 Angela clark Hypercoagu lable state due to atrial fibrillati on (multi HCC) Hypercoagu lable state due to atrial fibrillati on (multi HCC) Disease Active 10-03 00:00: 00 Angela clark Hypercoagu lable state due to atrial fibrillati on Hypercoagu lable state due to atrial fibrillati on Disease Active 10-03 00:00: 00 Angela clark Hyperlipid emia Hyperlipid emia Disease Active 08-14 00:00: 00 Angela clark Neuropathy Neuropathy Disease Active 08-14 00:00: 00 Angela clark Paroxysmal A-fib (multi HCC) Paroxysmal A-fib (multi HCC) Disease Active 08-14 00:00: 00 Angela clark Primary hypertensi on Primary hypertensi on Disease Active 08-14 00:00: 00 Angela Stokesa eduardo Venous insufficie ncy of both lower extremitie s Venous insufficie ncy of both lower extremitie s Disease Active 08-14 00:00: 00 Angela clark Mixed hyperlipid emia Mixed hyperlipid emia Disease Active 08-14 00:00: 00 Angela clark CHF (congestiv e heart failure) CHF (congestiv e heart failure) Disease Active 08-14 00:00: 00 Angela clark 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) Disease Active Angela Hewitt - Externa l Type 2 diabetes mellitus with stage 3a chronic kidney disease (multi HCC) Type 2 diabetes mellitus with stage 3a chronic kidney disease (multi HCC) Disease Active Angela Seybold - Externa l Diabetic neuropathy (multi HCC) Diabetic neuropathy (multi HCC) Disease Active Angela Seybold - Externa l Allergies, Adverse Reactions, Alerts Allergy Name Allergy Type Status Severity Reaction(s) Onset Date Inactive Date Treating Clinician Comments Source Ciprofib rate Propensi ty to adverse reaction s Active 09-18 00:00: 00 Angela Braswellold - Externa l Iodine I 131 Tositumo mab Propensi ty to adverse reaction s Active 09-18 00:00: 00 Angela Braswellold - Externa l Augmenti n Propensi ty to adverse reaction s Active Nausea and Vomiting 08-16 00:00: 00 Angela Hewitt - Externa l Ciproflo xacin Hydrochl oride Propensi ty to adverse reaction s Active 10-16 00:00: 00 Other reaction( s): Nausea/Vo miting Angela Hewitt - Externa l Iodine Propensi ty to adverse reaction s Active 10-16 00:00: 00 Other reaction( s): Itching/H rasheed/Rash Angela Hewitt - Externa l Social History Social Habit Start Date Stop Date Quantity Comments Source Gender identity Kaitlin Hewitt - External Sexual orientation Doug Hewitt - External ASSERTION Not Angela Hewitt - External Alcoholic beverage intake 2024-09-08 00:00:00 2024-09-08 00:00:00 Lifetime non-drinker (finding) Angela Hewitt - External Alcohol intake 2023-09-12 00:00:00 2023-09-12 00:00:00 Lifetime non-drinker (finding) Angela Hewitt - External History of Social function 2023-03-14 00:00:00 2023-03-14 00:00:00 Angela Hewitt - External Sex 2021-02-25 15:44:55 2021-02-25 15:44:55 Female (finding) Angela Quezada Sex assigned at 1945 00:00:00 1945 00:00:00 Angela Quezada Smoking Status Start Date Stop Date Source Never smoked tobacco Angela Quezada Medications Ordered Medication Name Filled Medication Name Start Date Stop Date Current Medication? Ordering Clinician Indication Dosage Frequency Signature (SIG) Comments Components Source HYDROcodone -Acetaminop hen (Shiloh) 7.5-325 MG oral Tablet 09-08 16:29: 27 Yes 1{tbl} Q.49965312 [id number] 3D Take 1 tablet by mouth every 8 hours as needed for pain. Angela clark Metoprolol Tartrate (LOPRESSOR) 25 MG oral Tablet 09-08 00:00: 00 Yes 87 25mg Q.5D TAKE 1 TABLET (25 MG TOTAL) BY MOUTH 2 TIMES DAILY. INDICATION S: HIGH BLOOD PRESSURE DISORDER Angela clark metOLazone 2.5 MG oral Tablet tablet 09-08 00:00: 00 Yes [id number] 2.5mg QD TAKE 1 TABLET (2.5 MG TOTAL) BY MOUTH DAILY NEEDED (EDEMA). Angela clark Famotidine (PEPCID) 20 MG oral tablet 09-08 00:00: 00 Yes [id number] 20mg Q.5D TAKE 1 TABLET BY MOUTH TWICE A DAY Angela clark Allopurinol 100 MG oral Tablet 09-08 00:00: 00 Yes [id number] 100mg QD Take 1 tablet (100 mg total) by mouth daily. Angela clark Magnesium 250 MG oral Tablet 09-08 00:00: 00 09-08 00:00 :00 Yes 1{tbl} QD Take 1 tablet by mouth daily To get total of 750 mg a day, this was recommende d at hospital discharge. . Angela clark Furosemide 40 MG oral Tablet 09-05 00:00: 00 Yes 40mg Q.5D TAKE 1 TABLET BY MOUTH 2 TIMES DAILY Angela clark Furosemide (LASIX) 20 MG oral Tablet 1-20 00:00: 00 09-08 00:00 :00 No [id number] 20mg Q.5D TAKE 1 TABLET BY MOUTH TWICE A DAY Angela clark Spironolact one 25 MG oral Tablet 04-23 00:00: 00 Yes [id number] 25mg QD Take 1 tablet (25 mg total) by mouth daily. Angela clark Allopurinol 300 MG oral Tablet 04-23 00:00: 00 09-08 00:00 :00 No [id number] 300mg QD take 1 tablet by mouth every day Angela clark Doxazosin Mesylate 4 MG oral Tablet 03-17 00:00: 00 Yes [id number] 4mg QD Take 1 tablet (4 mg total) by mouth nightly. Angela clark Lovastatin 40 MG oral Tablet 03-17 00:00: 00 Yes [id number] 40mg QD Take 1 tablet (40 mg total) by mouth nightly. Angela clark Tizanidine HCl 2 MG oral Tablet 02-19 00:00: 00 Yes [id number] 2mg QD TAKE 1 TABLET BY MOUTH NIGHTLY NEEDED FOR MUSCLE SPASMS. Angela clark Tizanidine HCl 2 MG oral Tablet 01-28 00:00: 00 Yes [id number] 2mg QD Take 1 tablet (2 mg total) by mouth nightly as needed for muscle spasms. Angela clark HYDROcodone -Acetaminop hen (Shiloh) 7.5-325 MG oral Tablet 01-27 15:32: 51 Yes 1{tbl} Q.27544672 [id number] 3D Take 1 tablet by mouth every 8 hours as needed for pain. Angela clark Famotidine (PEPCID) 20 MG oral tablet 01-27 15:32: 51 Yes 20mg Q.5D Take 1 tablet (20 mg total) by mouth 2 times daily. Angela clark Magnesium 250 MG oral Tablet 01-27 15:31: 59 Yes 3{tbl} QD Take 3 tablets by mouth daily To get total of 750 mg a day, this was recommende d at hospital discharge. . Angela clark Metoprolol Tartrate (LOPRESSOR) 25 MG oral Tablet 01-24 00:00: 00 Yes 87 25mg Q.5D Take 1 tablet (25 mg total) by mouth 2 times daily. Indication s: High Blood Pressure Disorder Angela clark Spironolact one 25 MG oral Tablet 01-03 00:00: 00 Yes [id number] 25mg QD Take 1 tablet (25 mg total) by mouth daily. Angela clark CALCIUM MAGNESIUM 750 OR 12-26 15:06: 54 Yes 1{tbl} Take 1 tablet by mouth 2 times daily. Angela clark Metoprolol Tartrate (LOPRESSOR) 25 MG oral Tablet 12-26 15:05: 23 Yes 87 25mg Take 1 tablet (25 mg total) by mouth 2 times daily. Indication s: High Blood Pressure Disorder Angela clark Pantoprazol e Sodium (Protonix) 40 MG oral Tablet Delayed Response 12-26 15:03: 30 Yes 939 40mg Take 1 tablet (40 mg total) by mouth daily. Indication s: Gastroesop hageal Reflux Disease Angela clark Lidocaine 4 % apply externally Patch 12-26 00:00: 00 Yes [id number] 1{patch } Apply 1 patch topically daily. Angela clark Ketoconazol e 2 % apply externally Cream 12-26 00:00: 00 Yes [id number] 1{appli cation} Apply 1 Applicatio n topically 2 times daily. Angela clark Mupirocin (BACTROBAN) 2 % apply externally Ointment 12-26 00:00: 00 Yes [id number] 107 Apply 1 applicatio n. topically 2 times daily. Angela clark Apixaban (Eliquis) 5 MG oral Tablet 17 00:00: 00 Yes [id number] 9103 5mg Q.5D Take 1 tablet (5 mg total) by mouth 2 times daily. Angela clark Famotidine (PEPCID) 20 MG oral tablet 11-11 00:00: 00 12-26 00:00 :00 No [id number] 20mg Take 1 tablet (20 mg total) by mouth 2 times daily. Angela clark Potassium Chloride Marisol ER 20 MEQ oral Tab CR tablet 11-06 00:00: 00 Yes [id number] 20meq QD Take 1 tablet (20 mEq total) by mouth daily. Angela clark HYDROcodone -Acetaminop hen (Shiloh) 7.5-325 MG oral Tablet 10-23 15:37: 53 Yes 1{tbl} Q.67042758 [id number] 3D Take 1 tablet by mouth every 8 hours as needed for pain. Angela clark HYDROcodone -Acetaminop hen (Shiloh) 7.5-325 MG oral Tablet 09-18 14:46: 13 Yes 1{tbl} Q.80660581 [id number] 3D Take 1 tablet by mouth every 8 hours as needed for pain. Angela clark HYDROcodone -Acetaminop hen (Shiloh) 7.5-325 MG oral Tablet 14 15:11: 17 Yes 1{tbl} Q.88845206 [id number] 3D Take 1 tablet by mouth every 8 hours as needed for pain. Angela clark HYDROcodone -Acetaminop hen 10-325 MG oral Tablet 09-12 15:11: 03 09-12 00:00 :00 No [id number] 1{tbl} Q.41819857 [id number] 3D Take 1 tablet by mouth 3 times daily as needed for pain. Angela clark Ferrous Sulfate 325 (65 Fe) MG oral Tablet 14 15:10: 46 09-12 00:00 :00 No 325mg Take 1 tablet (325 mg total) by mouth daily (with breakfast) . Angela clark Lovastatin 40 MG oral Tablet 2022-0718 00:00: 00 Yes 40mg QD Take 1 tablet (40 mg total) by mouth nightly. Angela clark Furosemide 40 MG oral Tablet 2022-07 00:00: 00 Yes 40mg Q.5D Take 1 tablet (40 mg total) by mouth 2 times daily. Angela clark Allopurinol 300 MG oral Tablet 2022-07 00:00: 00 Yes [id number] 300mg QD Take 1 tablet (300 mg total) by mouth daily. Angela clark Atenolol (TENORMIN) 50 MG oral Tablet 2022-07 00:00: 00 12-26 00:00 :00 No 50mg Take 1 tablet (50 mg total) by mouth 3 times daily. Angela clark Famotidine (PEPCID) 20 MG oral tablet 04-23 00:00: 00 Yes [id number] 20mg TAKE 1 TABLET BY MOUTH TWICE A DAY Angela clark metOLazone 2.5 MG oral Tablet tablet 04-03 00:00: 00 Yes [id number] 2.5mg QD Take 1 tablet (2.5 mg total) by mouth daily as needed (edema). Angela clark metOLazone 2.5 MG oral Tablet tablet 03-29 00:00: 00 Yes [id number] 2.5mg QD Take 1 tablet (2.5 mg total) by mouth daily as needed (edema). Angela clark Apixaban (Eliquis) 5 MG oral Tablet 03-29 00:00: 00 Yes [id number] 9103 5mg Take 1 tablet (5 mg total) by mouth 2 times daily. Angela clark Ferrous Sulfate 325 (65 Fe) MG oral Tablet 03-27 15:27: 19 Yes 325mg Take 1 tablet (325 mg total) by mouth daily (with breakfast) . Angela clark HYDROcodone -Acetaminop hen 10-325 MG oral Tablet 03-27 15:27: 19 Yes [id number] 1{tbl} Q.21332669 [id number] 3D Take 1 tablet by mouth 3 times daily as needed for pain. Angela clark Apixaban (Eliquis) 5 MG oral Tablet 03-27 00:00: 00 Yes [id number] 5mg Take 1 tablet (5 mg total) by mouth 2 times daily. Angela clark Lovastatin 40 MG oral Tablet 03-27 00:00: 00 Yes 40mg Take 1 tablet (40 mg total) by mouth nightly. Angela clark Famotidine (Pepcid) 20 MG oral tablet 03-27 00:00: 00 Yes [id number] 20mg Take 1 tablet (20 mg total) by mouth 2 times daily. Angela clark Allopurinol 300 MG oral Tablet 03-27 00:00: 00 Yes [id number] 300mg Take 1 tablet (300 mg total) by mouth daily. Angela clark Doxazosin Mesylate 4 MG oral Tablet 03-27 00:00: 00 Yes [id number] 4mg QD Take 1 tablet (4 mg total) by [...] MG oral tablet 02-21 00:00: 00 Yes [id number] 20mg Take 1 tablet (20 mg total) by mouth 2 times daily Angela clark Glucose Blood in vitro Strip 02-21 00:00: 00 Yes [id number] 3 1{each} 1 each by other route daily Check BS twice daily Angela clark Blood Glucose Monitoring Suppl (Blood Glucose Monitor System) w/Device does not apply Kit 02-21 00:00: 00 Yes [id number] 3 Check BS twice daily Angela clark Glucose Blood in vitro Strip 02-21 00:00: 00 Yes [id number] 3 1{each} QD 1 each by other route daily Check BS twice daily Angela clark Lancets 33G does not apply Misc 02-21 00:00: 00 Yes [id number] 3 1U Q.5D 1 unit by does not apply route [...] MG oral Tablet 01-25 11:16: 15 Yes [id number] 1{tbl} Q.38726635 [id number] 3D Take 1 tablet by mouth 3 times daily as needed for pain Angela clark Allopurinol 300 MG oral Tablet 01-25 00:00: 00 Yes [id number] 300mg Take 1 tablet (300 mg total) by mouth daily Angela clark Allopurinol 300 MG oral Tablet 01-24 00:00: 00 Yes [id number] 300mg Take 1 tablet (300 mg total) by mouth daily Angela clark HYDROcodone -Acetaminop hen 10-325 MG oral Tablet 01-05 16:49: 29 Yes [id number] 1{tbl} Q.30270854 [id number] 3D Take 1 tablet by mouth 3 [...] oral Tablet tablet 01-05 00:00: 00 Yes [id number] 2.5mg QD Take 1 tablet (2.5 mg total) by mouth daily as needed (edema) Angela clark Apixaban (Eliquis) 5 MG oral Tablet 01-05 00:00: 00 Yes [id number] 5mg Take 1 tablet (5 mg total) by mouth 2 times daily Angela clark Potassium Chloride Marisol ER 20 MEQ oral Tab CR tablet 01-05 00:00: 00 Yes [id number] 20meq Take 1 tablet (20 mEq total) by mouth daily When taking Lasix Angela clark Gabapentin 100 MG oral Capsule 01-05 00:00: 00 Yes [id number] 100mg Q.5D Take 1 capsule (100 mg total) by mouth 2 times daily Angela clark Polyethylen e Glycol 3350 (MiraLax) 17 g oral Pack 01-05 00:00: 00 09-12 00:00 :00 No [id number] 17g QD Take 17 g by mouth [...] mg total) by mouth daily (with breakfast) Angeal clark metOLazone 2.5 MG oral Tablet tablet 12-29 00:00: 00 Yes [id number] 2.5mg Take 1 tablet (2.5 mg total) by mouth daily Angela clark Spironolact one 25 MG oral Tablet 12-29 00:00: 00 Yes [id number] 25mg Take 1 tablet (25 mg total) by mouth daily Angela clark metOLazone 2.5 MG oral Tablet tablet 12-22 00:00: 00 12-29 00:00 :00 No [id number] 2.5mg Take 1 tablet (2.5 mg total) [...] 2.5 mg by mouth daily Angela clark Spironolact one 25 MG oral Tablet 10-04 00:00: 00 Yes [id number] 25mg Take 1 tablet (25 mg total) by mouth daily Angela clark Allopurinol 100 MG oral Tablet 10-04 00:00: 00 Yes [id number] 100mg Take 1 tablet (100 mg total) by mouth daily Angela clark Doxazosin Mesylate 4 MG oral Tablet 10-04 00:00: 00 Yes [id number] 4mg Take 1 tablet (4 mg total) by mouth nightly Angela lcark Potassium Chloride Marisol ER 20 MEQ oral Tab CR tablet 10-04 00:00: 00 01-05 00:00 :00 No [id number] 20meq Take 1 tablet (20 mEq total) by mouth every morning Angela clark Spironolact one 25 MG oral Tablet 3-05 00:00: 00 10-04 00:00 :00 No Angela clark Docusate Sodium 100 MG oral Capsule 2-20 00:00: 00 12-26 00:00 :00 No 100mg Take 1 capsule [...] Amoxicillin -Pot Clavulanate 500-125 MG oral Tablet 18 00:00: 00 08-21 00:00 :00 No [id number] 1{tbl} Take 1 tablet by mouth 3 times daily Angela clark Lovastatin 40 MG oral Tablet 08-14 11:13: 31 Yes 40mg Take 40 mg by mouth nightly Angela clark metOLazone 2.5 MG oral Tablet tablet 08-14 11:13: 31 Yes 2.5mg Take 2.5 mg by mouth daily Angela clark Doxazosin Mesylate 4 MG oral Tablet -16 11:13: 31 Yes 4mg Take 4 mg by mouth nightly Angela clark Furosemide 40 MG oral Tablet 08-11 00:00: 00 03-15 00:00 :00 No 40mg Take 1 tablet (40 mg total) by mouth 2 times daily Angela clark HYDROcodone -Acetaminop hen 7.5-325 MG oral Tablet 08-11 00:00: 00 01-05 00:00 :00 No TAKE 1 TABLET 2 TO 3 TIMES A DAY NEEDED FOR PAIN Angela clark Eliquis 5 MG oral Tablet 08-10 00:00: 00 Yes 5mg Take 5 mg by mouth 2 times daily Angela clark Eliquis 5 MG oral Tablet 08-10 00:00: 00 Yes 2.5mg Take 0.5 tablets (2.5 mg total) [...] by mouth 3 times daily Angela clark Gabapentin 100 MG oral Capsule 2021-07 00:00: 00 Yes 100mg Take 1 capsule (100 mg total) by mouth 3 times daily Angela clark Potassium Chloride Marisol ER 20 MEQ oral Tab CR tablet 2021-07 00:00: 00 10-04 00:00 :00 No 20meq Take 20 mEq by mouth every morning Angela clark Vital Signs Vital Name Observation Time Observation Value Comments S ource Heart rate 2024-09-08 22:22:00 77 /min Justin Quezada Body temperature 2024-09-08 22:22:00 36.78 Pearl Angela Seybold - External Respiratory rate 2024-09-08 22:22:00 16 /min Angela Seybold - External Body height 2024-09-08 22:22:00 160 cm Kaitlin ey Seybold - External Body weight 2024-09-08 22:22:00 123.378 kg Kaitlin ey Seybold - External BMI 2024-09-08 22:22:00 48.18 kg/m2 Kaitlin ey Seybold - External Systolic blood pressure 2024-02-01 21:27:00 133 mm[Hg] Angela Seybo ld - External Diastolic blood pressure 2024-02-01 21:27:00 81 mm[Hg] Angela Seybo ld - External Heart rate 2024-02-01 21:27:00 90 /min Twyla y Seybold - External Body temperature 2024-02-01 21:27:00 36.78 Pearl Angela Seybold - External Respiratory rate 2024-02-01 21:27:00 16 /min Angela Seybold - External Body height 2024-02-01 21:27:00 160 cm Kaitlin ey Seybold - External Body weight 2024-02-01 21:27:00 107.049 kg Kaitlin ey Seybold - External BMI 2024-02-01 21:27:00 41.81 kg/m2 Kaitlin ey Seybold - External Oxygen saturation in Arterial blood by Pulse oximetry 2024-02-01 21:27:00 100 /min Angela Seybo ld - External Systolic blood pressure 2023-12-27 19:25:00 132 mm[Hg] Angela Seybo ld - External Diastolic blood pressure 2023-12-27 19:25:00 78 mm[Hg] Angela Seybo ld - External Body temperature 2023-12-27 19:25:00 36.67 Pearl Angela Seybold - External Respiratory rate 2023-12-27 19:25:00 15 /min Angela Seybold - External Body height 2023-12-27 19:25:00 160 cm Kaitlin ey Seybold - External Body weight 2023-12-27 19:25:00 109.317 kg Kaitlin ey Seybold - External BMI 2023-12-27 19:25:00 42.69 kg/m2 Kaitlin ey Seybold - External Oxygen saturation in Arterial blood by Pulse oximetry 2023-12-27 19:25:00 100 /min Angela Seybo ld - External Body weight 2023-09-12 21:17:00 125.193 kg Kaitlin ey Seybold - External BMI 2023-09-12 21:17:00 48.89 kg/m2 Kaitlin ey Seybold - External Systolic blood pressure 2023-09-12 20:59:00 145 mm[Hg] Angela Seybo ld - External Diastolic blood pressure 2023-09-12 20:59:00 61 mm[Hg] Angela Seybo ld - External Heart rate 2023-09-12 20:59:00 75 [...] Pulse oximetry 2023-03-14 16:22:00 99 /min Angela Seybo ld - External Systolic blood pressure 2023-02-21 [...] External Heart rate 2023-01-25 16:15:00 64 /min Obeyse y Seybold - External Body temperature 2023-01-25 [...] External Heart rate 2023-01-05 21:23:00 69 /min Kelse y Seybold - External Body temperature 2023-01-05 [...] End Date/Time Encounter Type Admission Type Attending [facility] Care Department Encounter ID Source 2024-10-21 00:00:00 2024-10-21 00:00:00 Outpatient NIALL [id number] Angela Doughertyfunmilayo 2024-10-17 00:00:00 2024-10-17 00:00:00 Outpatient PREZAS, NIALL JADE ANGELA [id number] Angela Doughertyfunmilayo 2024-10-15 00:00:00 2024-10-15 00:00:00 Outpatient PREZAS, NIALL JADE [facility] [id number] [facility]:00:00 2024-09-23 00:00:00 Outpatient PREZAS, NIALL JADE ANGELA [id number] [facility]24-09-08 16:15:00 2024-09-08 16:15:00 Outpatient PREZAS, NIALL ANGELA JADE [id number] [facility] 2024-09-06 00:00:00 2024-09-06 00:00:00 Outpatient PREZAS, NIALL ANGELA JADE [id number] Angela [facility] 2024-09-05 00:00:00 2024-09-05 00:00:00 Outpatient PREZAS, NIALL ANGELA JADE [id number] [facility]24-09-05 00:00:00 2024-09-05 00:00:00 Outpatient PREZAS, [facility] [id number] [facility]24-[facility]:00:00 2024-09-05 00:00:00 Outpatient PREZAS, NIALL ANGELA JADE [id number] [facility] 2024-09-04 11:30:00 2024-09-04 11:30:00 Outpatient LAB90 ANGELA JADE [id number] [facility] 2024-08-19 00:00:00 2024-08-19 00:00:00 Outpatient PREZAS, NIALL ANGELA JADE [id number] [facility] 2024-08-15 00:00:00 2024-08-15 00:00:00 Outpatient PREZAS, NIALL ANGELA JADE [id number] [facility] 2024-08-13 00:00:00 2024-08-13 00:00:00 Outpatient PREZAS, NIALL JADE [id number] Angela Seybold 2024-07-11 00:00:00 2024-07-11 00:00:00 Outpatient ANGELA ANGELA [id number] Angela Seybold 2024-06-06 00:00:00 2024-06-06 00:00:00 Outpatient PREZAS, NIALL JADE [id number] Angela Seybold 2024-05-14 00:00:00 2024-05-14 00:00:00 Outpatient PREZAS, NIALL JADE ANGELA [id number] Angela Seybold 2024-05-02 00:00:00 2024-05-02 00:00:00 Outpatient PREZAS, NIALL JADE ANGELA [id number] Angela Seybold 2024-04-29 15:00:00 2024-04-29 15:00:00 Outpatient PREZAS, NIALL JADE ANGELA [id number] Angela Seybold 2024-04-25 00:00:00 2024-04-25 00:00:00 Outpatient ANGELA ANGELA [id number] Angela Seybold 2024-04-23 14:00:00 2024-04-23 14:00:00 Outpatient PREZAS, NIALL JADE ANGELA [id number] Angela Seybold 2024-04-22 00:00:00 2024-04-22 00:00:00 Outpatient PREZAS, NIALL JADE ANGELA [id number] Angela Seybold 2024-04-18 00:00:00 2024-04-18 00:00:00 Outpatient ANGELA JADE [id number] Angela Seybold 2024-04-17 00:00:00 2024-04-17 00:00:00 Outpatient PREZAS, NIALL ANGELA JADE [id number] Angela Seybold 2024-04-10 00:00:00 2024-04-10 00:00:00 Outpatient PREZAS, NIALL PORTILLOJG JADE [id number] Angela Seybold 2024 00:00:00 2024 00:00:00 Outpatient PREZAS, NIALL ANGELA JADE [id number] Angela Seybold 2024 00:00:00 2024 00:00:00 Outpatient PREZASNIALL ANGELA [id number] Angela Seybfunmilayo 2024-03-10 00:00:00 2024-03-10 00:00:00 Outpatient ANEGLA JADE [id number] Angela Seybfunmilayo 2024-02-25 00:00:00 2024-02-25 00:00:00 Outpatient ANGELA JADE [id number] [facility] 2024-02-20 00:00:00 2024-02-20 00:00:00 Outpatient PREZASNIALL ANGELA JADE [id number] Anegla Doughertyybfunmilayo 2024-02-08 00:00:00 2024-02-08 00:00:00 Outpatient ANGELA JADE [id number] [facility] 2024-02-07 00:00:00 2024-02-07 00:00:00 Outpatient PREZASNIALL ANGELA JADE [id number] [facility] 2024-02-06 00:00:00 2024-02-06 00:00:00 Outpatient PREZAS, NIALL JADE ANGELA [id number] [facility] 2024-02-06 00:00:00 2024-02-06 00:00:00 Outpatient PREZAS, NIALL JADE ANGELA [id number] [facility] 2024-02-06 00:00:00 2024-02-06 00:00:00 Outpatient PREZASNIALL ANGELA JADE [id number] [facility] 2024-02-04 00:00:00 2024-02-04 00:00:00 Outpatient ANGELA JADE [id number] [facility] 2024-02-02 00:00:00 2024-02-02 00:00:00 Outpatient ECHO GARZA ANGELA JADE [id number] Angela [facility] 2024-02-01 16:55:00 2024-02-01 16:55:00 Outpatient LAB90 ANGELA JADE [id number] Angela [facility] 2024-02-01 16:30:00 2024-02-01 16:30:00 Outpatient PREZAS NIALL ANGELA PORTILLOSEY [id number] [facility] 2024-01-29 00:00:00 2024-01-29 00:00:00 Outpatient PREZANIALL Blanco ANGELA [id number] [facility] 2024-01-28 00:00:00 2024-01-28 00:00:00 Outpatient PREZASNIALL ANGELA JADE [id number] [facility] 2024-01-24 00:00:00 2024-01-24 00:00:00 Outpatient ANGELA JADE [id number] [facility] 2024-01-23 00:00:00 2024-01-23 00:00:00 Outpatient PREZASNIALL [facility]ELA [facility]ADE [id number] [facility]23 [facility]:00:00 2024-01-23 00:00:00 Outpatient KORY MORGAN ANGELA JADE [id number] [facility] 2024-01-23 00:00:00 2024-01-23 00:00:00 Outpatient PREZANIALL Blanco ANGELA JADE [id number] [facility] 2024-01-21 00:00:00 2024-01-21 00:00:00 Outpatient SHEYLA BURNS [facility]GELA JADE [id number] [facility] 2024-01-14 00:00:00 2024-01-14 00:00:00 Outpatient TATIANA PLATA ANGELA JADE [id number] [facility] 2024-01-04 11:00:00 2024-01-04 11:00:00 Outpatient JUD SALAS ANGELA JADE [id number] Angela [facility] 2024-01-04 00:00:00 2024-01-04 00:00:00 Outpatient PREZAS NIALL ANGELA JADE [id number] Angela [facility] 2024-01-04 00:00:00 2024-01-04 00:00:00 Outpatient PREZAS NIALL JADE [id number] Angela [facility] 2024-01-03 00:00:00 2024-01-03 00:00:00 Outpatient [facility]ELA JADE [id number] [facility] 2024-01-03 00:00:00 2024-01-03 00:00:00 Outpatient ANGELA ANGEAL [id number] Angela [facility] 2024-01-03 00:00:00 2024-01-03 00:00:00 Outpatient ANGELA ANGELA [id number] [facility] 2024-01-03 00:00:00 2024-01-03 00:00:00 Outpatient PREZASNIALL ANGELA [id number] [facility] 2024-01-03 00:00:00 2024-01-03 00:00:00 Outpatient PREZASNIALL ANGELA ANGELA [id number] [facility] 2024-01-02 16:00:00 2024-01-02 16:00:00 Outpatient SHANDRAANATOLY ANGELA JADE [id number] [facility] 2024-01-01 00:00:00 2024-01-01 00:00:00 Outpatient MICHAEL DORAN [id number] [facility] 2023-12-31 00:00:00 2023-12-31 00:00:00 Outpatient ANGELA ANGELA [id number] [facility] 2023-12-31 00:00:00 2023-12-31 00:00:00 Outpatient PREZAS, NIALL ANGELA ANGELA [id number] [facility] 2023-12-31 00:00:00 2023-12-31 00:00:00 Outpatient PREZAS, NIALL ANGELA ANGELA [id number] [facility] 2023-12-31 00:00:00 2023-12-31 00:00:00 Outpatient PREZASNIALL ANGELA JADE [id number] [facility] 2023-12-27 15:30:00 2023-12-27 15:30:00 Outpatient REUBENFarhana JADE [id number] [facility] 2023-12-27 14:30:00 2023-12-27 14:30:00 Outpatient PREZAS, NIALL ANGELA JADE [id number] [facility] 2023-12-27 00:00:00 2023-12-27 00:00:00 Outpatient LIDYA GARG ANGELA [id number] [facility] 2023-12-26 00:00:00 2023-12-26 00:00:00 Outpatient ANGELA ANGELA [id number] [facility] 2023-12-26 00:00:00 2023-12-26 00:00:00 Outpatient NIALL HARRIS ANGELA [id number] Angela [facility] 2023-12-25 00:00:00 2023-12-25 00:00:00 Outpatient NIALL HARRIS ANGELA [id number] Angela [facility] 2023-12-19 00:00:00 2023-12-19 00:00:00 Outpatient NIALL HARRIS ANGELA ANGELA [id number] [facility] 2023-12-18 00:00:00 2023-12-18 00:00:00 Outpatient ANGELA JADE [id number] Angela [facility] 2023-12-14 00:00:00 2023-12-14 00:00:00 Outpatient ANGELA ANGELA [id number] [facility] 2023-12-14 00:00:00 2023-12-14 00:00:00 Outpatient ANGELA ANGELA [id number] [facility] 2023-12-14 00:00:00 2023-12-14 00:00:00 Outpatient ANGELA ANGELA [id number] [facility] 2023-12-14 00:00:00 2023-12-14 00:00:00 Outpatient ANGELA ANGELA [id number] Angela [facility] 2023-12-10 00:00:00 2023-12-10 00:00:00 Outpatient ANGELA ANGELA [id number] [facility] 2023-12-06 00:00:00 2023-12-06 00:00:00 Outpatient ANGELA ANGELA [id number] Angela [facility] 2023-12-06 00:00:00 2023-12-06 00:00:00 Outpatient ANGELA ANGELA [id number] Angela [facility] 2023-11-30 00:00:00 2023-11-30 00:00:00 Outpatient ANGELA ANGELA [id number] [facility] 2023-11-29 00:00:00 2023-11-29 00:00:00 Outpatient NIALL HARRIS ANGELA [id number] Angela [facility] 2023-11-27 11:00:00 2023-11-27 11:00:00 Outpatient NIALL HARRIS ANGELA [id number] Angela [facility] 2023-11-26 00:00:00 2023-11-26 00:00:00 Outpatient ANGELA JADE [id number] Angela [facility] 2023-11-20 00:00:00 2023-11-20 00:00:00 Outpatient PREZANIALL Blanco ANGELA [id number] [facility] 2023-11-13 00:00:00 2023-11-13 00:00:00 Outpatient NIALL HARRIS ANGELA [id number] [facility] 2023-11-11 00:00:00 2023-11-11 00:00:00 Outpatient NIALL HARRIS ANGELA [id number] Angela [facility] 2023-11-02 00:00:00 2023-11-02 00:00:00 Outpatient ESPINOZA MICHAEL ANGELA JADE [id number] Angela [facility] 2023-10-31 14:30:00 2023-10-31 14:30:00 Outpatient NIALL HARRIS ANGELA JADE [id number] Angela [facility] 2023-10-29 00:00:00 2023-10-29 00:00:00 Outpatient ANGELA JADE [id number] Angela [facility] 2023-10-25 00:00:00 2023-10-25 00:00:00 Outpatient ANGELA JADE [id number] [facility] 2023-10-24 00:00:00 2023-10-24 00:00:00 Outpatient MAXWELLRAJEEVPayton JADE [id number] Angela [facility] 2023-10-02 00:00:00 2023-10-02 00:00:00 Outpatient ANGELA JADE [id number] [facility] 2023-09-20 00:00:00 2023-09-20 00:00:00 Outpatient MD ANGELA SAAB [id number] [facility] 2023-09-18 14:40:00 2023-09-18 14:40:00 Outpatient JAMEEL ELIZABETH [id number] [facility] 2023-09-18 00:00:00 2023-09-18 00:00:00 Outpatient FRANCIA TROY [id number] [facility] 2023-09-12 15:00:00 2023-09-12 15:00:00 Outpatient PREZABella NIALL JADE [id number] [facility] 2023-09-04 00:00:00 2023-09-04 00:00:00 Outpatient ANGELA JADE [id number] [facility] 2023-08-07 00:00:00 2023-08-07 00:00:00 Outpatient ANGELA JADE [id number] [facility] 2023-08-07 00:00:00 2023-08-07 00:00:00 Outpatient ANGELA JADE [id number] [facility] 2023-08-06 00:00:00 2023-08-06 00:00:00 Outpatient PREZAS NIALL JADE [id number] [facility] 2023-07-26 14:20:00 2023-07-26 14:20:00 Outpatient JAMEEL ELIZABETH [id number] [facility] 2023-07-11 00:00:00 2023-07-11 00:00:00 Outpatient PREZAS NIALL JADE [id number] [facility] 2023-07-10 00:00:00 2023-07-10 00:00:00 Outpatient PREZASNIALL [id number] Angela [facility] 2023-07-10 00:00:00 2023-07-10 00:00:00 Outpatient MICHAEL DORAN [id number] [facility] 2023-07-04 00:00:00 2023-07-04 00:00:00 Outpatient MICHAEL DORAN [id number] [facility] 2023-07-03 15:00:00 2023-07-03 15:00:00 Outpatient VU, JAMEEL JADE [id number] [facility] 2023-07-03 13:00:00 2023-07-03 13:00:00 Outpatient VU, JAMEEL JADE [id number] [facility] 2023-06-19 14:40:00 2023-06-19 14:40:00 Outpatient VU, JAMEEL ANGELA JADE [id number] [facility] 2023-06-13 00:00:00 2023-06-13 00:00:00 Outpatient MICHAEL DORAN [id number] [facility] 2023-06-01 00:00:00 2023-06-01 00:00:00 Outpatient VU, JAMEEL JADE [id number] [facility] 2023-05-31 00:00:00 2023-05-31 00:00:00 Outpatient MICHAEL DORAN [id number] [facility] 2023-05-29 15:00:00 2023-05-29 15:00:00 Outpatient PREZAS, NIALLALIS JADE [id number] [facility] 2023-05-08 00:00:00 2023-05-08 00:00:00 Outpatient ANGELA JADE [id number] [facility] 2023-05-02 00:00:00 2023-05-02 00:00:00 Outpatient ANGELA JADE [id number] [facility] 2023-04-27 14:00:00 2023-04-27 14:00:00 Outpatient PREZAS, NIALL JADE [id number] [facility] 2023-04-21 00:00:00 2023-04-21 00:00:00 Outpatient PREZAS, NIALL JADE [id number] [facility] 2023-04-16 00:00:00 2023-04-16 00:00:00 Outpatient PREZAS, NIALL JADE [id number] [facility] 2023-04-16 00:00:2023-04-16 00:00:00 Outpatient ANGELA JADE [id number] [facility] 2023-04-12 00:00:00 2023-04-12 00:00:00 Outpatient MICHAEL DORAN [id number] Angela [facility] 2023-04-09 00:00:00 2023-04-09 00:00:00 Outpatient RICH FINKINE ANGELA JADE [id number] [facility] 2023-04-06 00:00:00 2023-04-06 00:00:00 Outpatient NIALL HARRIS ANGELA JADE [id number] [facility] 2023-04-03 00:00:00 2023-04-03 00:00:00 Outpatient KIMBERLY NIALL JADE [id number] [facility] 2023-03-30 15:30:00 2023-03-30 15:30:00 Outpatient MATHIEU URBANO [id number] [facility] 2023-03-29 00:00:00 2023-03-29 00:00:00 Outpatient NIALL HARRIS ANGELA JADE [id number] [facility] 2023-03-29 00:00:00 2023-03-29 00:00:00 Outpatient ANGELA JADE [id number] [facility] 2023-03-27 00:00:00 2023-03-27 00:00:00 Outpatient ANGELA JADE [id number] [facility] 2023-03-27 00:00:00 2023-03-27 00:00:00 Outpatient MICHAEL DORAN [id number] [facility] 2023-03-26 13:30:00 2023-03-26 13:30:00 Outpatient MICHAEL DORAN [id number] [facility] 2023-03-22 00:00:00 2023-03-22 00:00:00 Outpatient ANGELA JADE [id number] [facility] 2023-03-21 00:00:00 2023-03-21 00:00:00 Outpatient NICK DEVINE [id number] [facility] 2023-03-20 00:00:00 2023-03-20 00:00:00 Outpatient PREZAS, NIALL PORTILLOJG JADE [id number] [facility] 2023-03-20 00:00:00 2023-03-20 00:00:00 Outpatient PREZAS, NIALL JADE ANGELA [id number] [facility] 2023-03-20 00:00:00 2023-03-20 00:00:00 Outpatient PREZAS, NIALL JADE ANGELA [id number] [facility] 2023-03-19 16:10:00 2023-03-19 16:10:00 Outpatient LAB90 ANGELA JADE [id number] [facility] 2023-03-19 00:00:00 2023-03-19 00:00:00 Outpatient PREZAS, NIALL ANGELA JADE [id number] [facility] 2023-03-16 00:00:00 2023-03-16 00:00:00 Outpatient SYBIL, NICK ANGELA JADE [id number] [facility] 2023-03-15 00:00:00 2023-03-15 00:00:00 Outpatient PREZAS, NIALL ANGELA JADE [id number] [facility] 2023-03-14 13:00:00 2023-03-14 13:00:00 Outpatient LAB90 ANGELA AJDE [id number] [facility] 2023-03-14 11:00:00 2023-03-14 11:00:00 Outpatient SYBIL, NICK ANGELA JADE [id number] [facility] 2023-03-14 00:00:00 2023-03-14 00:00:00 Outpatient PREZAS, NIALL ANGELA JADE [id number] [facility] 2023-03-13 00:00:00 2023-03-13 00:00:00 Outpatient JAZZ KRISTAJORGE ANGELA JADE [id number] [facility] 2023-03-13 00:00:00 2023-03-13 00:00:00 Outpatient ANGELA JADE [id number] [facility] 2023-03-12 00:00:00 2023-03-12 00:00:00 Outpatient ESPINOZAMICHAEL DAVILA ANGELA ANGELA [id number] [facility] 2023-03-12 00:00:00 2023-03-12 00:00:00 Outpatient MICHAEL DORAN ANGELA [id number] [facility] 2023-03-09 16:30:00 2023-03-09 16:30:00 Outpatient PREZAS, NIALL ANGELA ANGELA [id number] [facility] 2023-03-08 00:00:00 2023-03-08 00:00:00 Outpatient ANGELA ANGELA [id number] [facility] 2023-03-07 00:00:00 2023-03-07 00:00:00 Outpatient PREZAS, NIALL ANGELA JADE [id number] [facility] 2023-03-07 00:00:00 2023-03-07 00:00:00 Outpatient ANGELA JADE [id number] [facility] 2023-03-07 00:00:00 2023-03-07 00:00:00 Outpatient PREZAS, NIALL ANGELA ANGELA [id number] [facility] 2023-03-06 11:20:00 2023-03-06 11:20:00 Outpatient LAB90 ANGELA JADE [id number] [facility] 2023-03-05 00:00:00 2023-03-05 00:00:00 Outpatient PREZAS, NIALL ANGELA JADE [id number] [facility] 2023-03-03 00:00:00 2023-03-03 00:00:00 Outpatient PREZAS, NIALL ANGELA JADE [id number] [facility] 2023-02-21 16:30:00 2023-02-21 16:30:00 Outpatient PREZAS, NIALL ANGELA JADE [id number] [facility] 2023-02-19 00:00:00 2023-02-19 00:00:00 Outpatient PREZAS, NIALL ANGELA JADE [id number] [facility] 2023-02-15 00:00:00 2023-02-15 00:00:00 Outpatient PREZAS, NIALL JADE [id number] [facility] 2023-02-02 00:00:00 2023-02-02 00:00:00 Outpatient ANGELA ANGELA [id number] [facility] 2023-01-29 00:00:00 2023-01-29 00:00:00 Outpatient ANGELA ANGELA [id number] [facility] 2023-01-29 00:00:00 2023-01-29 00:00:00 Outpatient PREZAS, NIALL JADE ANGELA [id number] [facility] 2023-01-26 00:00:00 2023-01-26 00:00:00 Outpatient PREZAS, NIALL JADE ANGELA [id number] [facility] 2023-01-25 11:30:00 2023-01-25 11:30:00 Outpatient PREZAS, NIALL JADE ANGELA [id number] [facility] 2023-01-24 00:00:00 2023-01-24 00:00:00 Outpatient PREZAS, NIALL JADE ANGELA [id number] [facility] 2023-01-22 11:20:00 2023-01-22 11:20:00 Outpatient LAB90 ANGELA ANGELA [id number] [facility] 2023-01-19 16:30:00 2023-01-19 16:30:00 Outpatient PREZAS, NIALL JADE ANGELA [id number] [facility] 2023-01-15 00:00:00 2023-01-15 00:00:00 Outpatient PREZAS, NIALL ANGELA ANGLEA [id number] [facility] 2023-01-05 16:45:00 2023-01-05 16:45:00 Outpatient PREZAS, NIALL ANGELA JADE [id number] [facility] 2023-01-02 16:30:00 2023-01-02 16:30:00 Outpatient PREZAS, NIALL ANGELA JADE [id number] [facility] 2023-01-01 00:00:00 2023-01-01 00:00:00 Outpatient ANGELA JADE [id number] [facility] 2022-12-29 16:45:00 2022-12-29 16:45:00 Outpatient MICHAEL DORAN ANGELA JADE [id number] [facility] 2022-12-22 00:00:00 2022-12-22 00:00:00 Outpatient MICHAEL DORAN ANGELA JADE [id number] [facility] 2022-12-04 14:00:00 2022-12-04 14:00:00 Outpatient THIEN COYNE ANGELA JADE [id number] [facility] 2022-11-16 00:00:00 2022-11-16 00:00:00 Outpatient ESPINOZAMICHAEL ANGELA JADE [id number] [facility] 2022-11-09 13:40:00 2022-11-09 13:40:00 Outpatient MAX NICRODOLFO JADE [id number] [facility] 2022-10-27 00:00:00 2022-10-27 00:00:00 Outpatient GENEVIEVE CHOWDHURY [id number] [facility] 2022-10-16 00:00:00 2022-10-16 00:00:00 Outpatient ANGELA JADE [id number] [facility] 2022-10-11 00:00:00 2022-10-11 00:00:00 Outpatient CHELSEA CASTRO [id number] [facility] 2022-10-11 00:00:00 2022-10-11 00:00:00 Outpatient EMILI NEVAREZ [id number] [facility] 2022-10-06 00:00:00 2022-10-06 00:00:00 Outpatient NIALL HARRIS [id number] [facility] 2022-10-04 11:30:00 2022-10-04 11:30:00 Outpatient MICHAEL DORAN [id number] [facility] 2022-10-04 00:00:00 2022-10-04 00:00:00 Outpatient MD ANGELA SAAB [id number] [facility] 2022-10-04 00:00:00 2022-10-04 00:00:00 Outpatient MICHAEL DORAN ANGELA JADE [id number] [facility] 2022-10-04 00:00:00 2022-10-04 00:00:00 Outpatient ANGELA JADE [id number] [facility] 2022-10-03 00:00:00 2022-10-03 00:00:00 Outpatient MICHAEL DORAN ANGELA JADE [id number] [facility] 2022-09-20 00:00:00 2022-09-20 00:00:00 Outpatient ANGELA JADE [id number] [facility] 2022-09-18 14:00:00 2022-09-18 14:00:00 Outpatient MICHAEL DORAN ANGELA JADE [id number] [facility] 2022-09-14 00:00:00 2022-09-14 00:00:00 Outpatient ANGELA JADE [id number] [facility] 2022-08-30 00:00:00 2022-08-30 00:00:00 Outpatient MICHAEL DORAN ANGELA JADE [id number] [facility] 2022-08-22 00:00:00 2022-08-22 00:00:00 Outpatient ANGELA JADE [id number] [facility] 2022-08-22 00:00:00 2022-08-22 00:00:00 Outpatient MICHAEL DORAN ANGELA JADE [id number] [facility] 2022-08-21 16:00:00 2022-08-21 16:00:00 Outpatient LABFarhana JADE [id number] [facility] 2022-08-21 15:00:00 2022-08-21 15:00:00 Outpatient MICHAEL DORAN ANGELA JADE [id number] [facility] 2022-08-16 00:00:00 2022-08-16 00:00:00 Outpatient MICHAEL DORAN ANGELA JADE [id number] [facility] 2022-08-15 00:00:00 2022-08-15 00:00:00 Outpatient ANGELA JADE [id number] [facility] 2022-08-15 00:00:00 2022-08-15 00:00:00 Outpatient ANGELA JADE [id number] [facility] 2022-08-15 00:00:00 2022-08-15 00:00:00 Outpatient ANGELA ANGELA [id number] [facility] 2022-08-15 00:00:00 2022-08-15 00:00:00 Outpatient MICHAEL DORAN [id number] [facility] 2022-08-14 12:20:00 2022-08-14 12:20:00 Outpatient LAB90 ANGELA JADE [id number] [facility] 2022-08-14 11:00:00 2022-08-14 11:00:00 Outpatient MICHAEL DORAN [id number] [facility] 2022-08-14 00:00:00 2022-08-14 00:00:00 Outpatient MAGUE AMAYA MD [facility] [id number] [facility] Notes Date/Time Note Provider Source 2024-09-08 16:29:28 Chief Complaint Patient presents with REFILLS-NURSE/ Hip Pain Right side Neto Dan MA [facility] 2023-03-14 11:23:20 Formatting of this n ote might be different from the original. Patient is here for hospital follow up, reports she had weeping edema. Hospital paperwork brought to appt. VSS. Salma Young [facility]
[2024-10-23] MEDS ORDERED: FAMOTIDINE 20 MG/2 ML VIAL IV ONE (00:50)
[2024-10-23] MEDS ORDERED: ONDANSETRON 4 MG/2 ML VIAL ONE ×4 (00:50→11:22)
[2024-10-23] MEDS ORDERED: MORPHINE 4 MG/ML SYR ONE ×2 (00:50→02:38)
[2024-10-23] MEDS ORDERED: NA CHLORIDE 0.9% 500 ML ONE (00:50)
[2024-10-23 00:58] LABS: Absolute Lymphocytes (CBC) 0.7 K/uL (0.7-4.9); Absolute Monocytes 0.3 K/uL (0.1-1.3); Absolute Neutrophil 8.3 K/uL (1.8-8.0); Basophils % 0.3 % (0-1.3); Eosinophils % 0.1 % (0-4.4); Hematocrit 43.4 % (36.0-45.0); Hemoglobin 14.7 g/dL (12.0-15.0); Lymphocytes % 7.4 % (15.3-44.8); MCH 27.5 pg (27.0-35.0); MCHC 33.9 g/dL (32.0-36.0); MCV 81.1 fL (80-100); MPV 9.2 fL (7.6-11.3); Monocytes % 3.7 % (3.3-12.3); Neutrophils % 88.5 % (41.7-73.7); Nucleated Red Blood Cells % 0.1 % (0-0); Platelets 133 thou/uL (152-406); RBC Red Blood Cell Count 5.35 M/uL (3.86-4.86); Red Cell Distribution Width 15.5 % (12.1-15.2)
[2024-10-23 01:17] LABS: Albumin 3.9 g/dL (3.4-5.0); Albumin/Globulin Ratio 0.9 (1.1-1.8); Anion Gap 11.6 mEq/L (5.0-15.0); Bilirubin Total 1.2 mg/dL (0.2-1.0); Globulin 4.3 g/dL (2.3-3.5); Magnesium 1.8 mg/dL (1.6-2.4); Potassium 3.6 mEq/L (3.5-5.1); Protein, Total 8.2 g/dL (6.4-8.2)
[2024-10-23 01:33] LABS: Troponin High Sensitivity 166.6 pg/mL (<58.9)
[2024-10-23] MEDS ORDERED: METOCLOPRAMIDE 10 MG/2mL INJ ONE (02:38)
--- NOTE | 2024-10-23 03:59 | ER ---
Nurse's Notes [facility] Name: Le Lawrence Age: 79 yrs Sex: Female : 1945 Arrival Date: 10/22/2024 Time: 23:42 Bed 2 Private MD: Hilario Solano Diagnosis: Nausea with vomiting, unspecified;elevated troponin Presentation: 10/23 00:00 Method Of Arrival: Wheelchair al5 00:00 Acuity: CAROL 3 al5 00:00 Chief complaint: Patient states: c/o n/v/d and weakness starting yesterday, abdominal al5 and back pain started about a week ago. Coronavirus screen: At this time, the client does not indicate any symptoms associated with coronavirus-19. Ebola Screen: No symptoms or risks identified at this time. Initial Sepsis Screen: Does the patient meet any 2 criteria? No. Patient's initial sepsis screen is negative. Does the patient have a suspected source of infection? No. Patient's initial sepsis screen is negative. Risk Assessment: Do you want to hurt yourself or someone else? Patient reports no desire to harm self or others. Onset of symptoms was October 22, 2024. Triage Assessment: 00:00 General: Appears in no apparent distress. uncomfortable, ill, obese, well groomed, well al5 developed, Behavior is cooperative, restless. Pain: Complains of pain in back and abdomen Pain currently is 8 out of 10 on a pain scale. EENT: No signs and/or symptoms were reported regarding the EENT system. Neuro: Level of Consciousness is awake, alert, obeys commands, Oriented to person, place, time, situation. Cardiovascular: Capillary refill < 3 seconds Patient's skin is warm and dry. Respiratory: Airway is patent Respiratory effort is even, unlabored, Respiratory pattern is regular, symmetrical. GI: Reports lower abdominal pain, upper abdominal pain, diarrhea, nausea, vomiting. : No signs and/or symptoms were reported regarding the genitourinary system. Derm: Skin is intact, Skin is pink, warm \T\ dry. normal, Parent/caregiver reports the patient having rash from side of abdomen to back side, states it may be consistent with shingles. Musculoskeletal: No signs and/or symptoms reported regarding the musculoskeletal system. Historical: - Allergies: 00:00 Amoxicillin; al5 00:00 Augmentin; al5 00:00 Cipro; al5 00:00 Iodine; al5 - Home Meds: 00:00 allopurinol 300 mg Oral tablet daily [Active]; atenolol 50 mg Oral tablet [Active]; al5 doxazosin 4 mg Oral tablet daily [Active]; Eliquis 5 mg Oral tablet once [Active]; famotidine 20 mg Oral tablet 2 times per day [Active]; furosemide 40 mg Oral tablet 2 times per day [Active]; gabapentin 100 mg Oral capsule 3 times per day [Active]; Hydrocodone-Acetaminophen Oral [Active]; lovastatin 40 mg Oral tablet daily [Active]; potassium chloride 20 mEq Oral tablet daily [Active]; spironolactone 25 mg Oral tablet daily [Active]; - PMHx: 00:00 Asthma; Atrial Fib; Congestive heart failure; diabetes mellitus; Hypertension; al5 neuropathy; - PSHx: 00:00 right arm; al5 - Immunization history:: Adult Immunizations not up to date. - Infectious Disease History:: Denies. - Social history:: Smoking status: Patient denies any tobacco usage or history of. Screenin:00 [facility] ED Fall Risk Assessment (Adult) History of falling in the last 3 months, al5 including since admission No falls in past 3 months (0 pts) Confusion or Disorientation No (0 pts) Intoxicated or Sedated No (0 pts) Impaired Gait Yes (1 pt) Mobility Assist Device Used Yes (1 pt) Altered Elimination Yes (1 pt) Score/Fall Risk Level 3 or more points = High Risk Oriented to surroundings, Maintained a safe environment, Hourly rounding (assess needs \T\ fall precautionary measures) done, Utilized family, sitter, or virtual embedded case manager as indicated. Abuse screen: Denies threats or abuse. Denies injuries from another. Nutritional screening: No deficits noted. Tuberculosis screening: No symptoms or risk factors identified. Assessment: 00:00 Reassessment: see triage assessment. al5 00:00 Pain: Pain does not radiate. Pain began 1 week ago. al5 01:20 Reassessment: Patient appears in no apparent distress at this time. Patient and/or al5 family updated on plan of care and expected duration. Pain level reassessed. Patient is alert, oriented x 3, equal unlabored respirations, skin warm/dry/pink. pain and nausea decreased. 02:19 Reassessment: Patient appears in no apparent distress at this time. No changes from al5 previously documented assessment. Patient and/or family updated on plan of care and expected duration. Pain level reassessed. Patient is alert, oriented x 3, equal unlabored respirations, skin warm/dry/pink. c/o nausea, nausea medication given. 03:22 Reassessment: Patient appears in no apparent distress at this time. No changes from al5 previously documented assessment. Patient and/or family updated on plan of care and expected duration. Pain level reassessed. Patient is alert, oriented x 3, equal unlabored respirations, skin warm/dry/pink. 04:15 Reassessment: Patient appears in no apparent distress at this time. No changes from al5 previously documented assessment. Patient and/or family updated on plan of care and expected duration. Pain level reassessed. Patient is alert, oriented x 3, equal unlabored respirations, skin warm/dry/pink. Vital Signs: 00:00 BP 112 / 84; Pulse 67; Resp 16; Temp 98.5; Pulse Ox 100% on R/A; Weight 124.74 kg; al5 Height 5 ft. 3 in. ; Pain 8/10; 00:45 BP 143 / 73; Pulse 60; Resp 18; Pulse Ox 100% on R/A; al5 01:00 BP 160 / 79; Pulse 56; Resp 18; Pulse Ox 99% ; al5 01:30 BP 158 / 72; Pulse 63; Resp 19; Pulse Ox 94% ; al5 02:00 BP 138 / 70; Pulse 66; Resp 16; Pulse Ox 94% ; al5 02:30 BP 154 / 71; Pulse 74; Resp 18; Pulse Ox 95% ; al5 03:00 BP 144 / 66; Pulse 67; Resp 19; Pulse Ox 94% ; al5 03:30 BP 147 / 67; Pulse 64; Resp 18; Pulse Ox 95% ; al5 04:00 BP 143 / 72; Pulse 64; Resp 16; Pulse Ox 97% ; al5 00:00 Body Mass Index 48.71 (124.74 kg, 160.02 cm) al5 00:00 Pain Scale: Adult al5 ED Course: 10/22 23:46 Patient arrived in ED. gm2 23:47 Hilario Solano DO is Private Physician. gm2 23:52 Joann Haile MD is Attending Physician. sw6 10/23 00:00 Arm band placed on right wrist. Patient placed in the treatment room, in view of staff al5 members, on forensic accountant, on pulse oximetry. 00:01 Patient has correct armband on for positive identification. Bed in low position. Call al5 light in reach. Side rails up X2. Provided Education on: plan of care. Client placed on continuous cardiac and pulse oximetry monitoring. NIBP monitoring applied. collections assistant on. 00:01 Patient maintains SpO2 saturation greater than 95% on room air. al5 00:42 Edith Randhawa, HARVEY is Primary Nurse. al5 00:47 No provider procedures requiring assistance completed. Inserted saline lock: 22 gauge al5 in left antecubital area, using aseptic technique. Blood collected. Flushed with 10 mL NS. 01:19 Triage completed. al5 01:32 Abdomen In Process Unspecified. EDMS 03:58 Prince Umanzor MD is Hospitalizing Provider. sw6 04:15 Patient admitted, IV remains in place. al5 Administered Medications: 01:03 Drug: Famotidine IVP 20 mg IVP once; dilute with 10 mL 0.9% NaCl; give over 2 minutes al5 Route: IVP; Site: right antecubital; 01:20 Follow up: Response: No adverse reaction; Pain is decreased al5 01:03 Drug: Ondansetron IVP 4 mg IVP once; over 2 minutes Route: IVP; Site: right antecubital;al5 01:20 Follow up: Response: No adverse reaction; Nausea is decreased al5 01:03 Drug: morphine IVP or IV 4 mg IVP once over 4 mins Route: IVP; Infused Over: 4 mins; al5 Site: right antecubital; 01:20 Follow up: Response: No adverse reaction; Pain is decreased al5 01:03 Drug: NS 0.9% IV 500 ml IV at bolus once; to be given as a bolus over 30 minutes Route: al5 IV; Rate: bolus; Site: right antecubital; 04:30 Follow up: Response: No adverse reaction; IV Status: Completed infusion; IV Intake: al5 500ml 02:46 Drug: metoCLOPramide IVP 10 mg IVP once; over 1 to 2 minutes Route: IVP; Site: left al5 antecubital; 04:30 Follow up: Response: No adverse reaction; Nausea unchanged al5 02:46 Drug: morphine IVP or IV 4 mg IVP once over 4 mins Route: IVP; Infused Over: 4 mins; al5 Site: left antecubital; 04:31 Follow up: Response: No adverse reaction; Pain is unchanged, physician notified al5 Medication: 00:00 VIS not applicable for this client. al5 Intake: 04:30 IV: 500ml; Total: 500ml. al5 Outcome: 03:58 Decision to Hospitalize by Provider. sw6 04:16 Admitted to ER Hold. Please see [facility] for further documentation. al5 04:16 Condition: stable 04:16 Instructed on the need for admit, 16:14 Patient left the ED. ph Signatures: Dispatcher [employer] EDMS Jennifer Elena RN RN Phoebe Espinoza [facility] Joann Haile MD MD [facility] Edith Randhawa RN RN al5 Corrections: (The following items were deleted from the chart) :18 Chief complaint: Patient states: c/o n/v/d and weakness starting yesterday, al5 abdominal and back pain started about a week ago al5 :18 Coronavirus screen: At this time, the client does not indicate any symptoms al5 associated with coronavirus-19. al5 :18 Ebola Screen: No symptoms or risks identified at this time. al5 al5 :18 Initial Sepsis Screen: Does the patient meet any 2 criteria? No. Patient's al5 initial sepsis screen is negative. Does the patient have a suspected source of infection? No. Patient's initial sepsis screen is negative. al5 :18 Risk Assessment: Do you want to hurt yourself or someone else? Patient reports no al5 desire to harm self or others. al5 :18 Onset of symptoms was October 22, 2024 al5 al5 :18 Method Of Arrival: Wheelchair al5 al5 01:18 BP 112 / 84; Pulse 67bpm; Resp 16bpm; Pulse Ox 100% RA; Temp 98.5F; 124.74 kg; al5 Height 5 ft. 3 in.; BMI: 48.7; Pain 8/10, Adult; al5 01:18 Acuity: CAROL 3 al5 al5 00:00 Allergies: Morphine; al5 5 01:23 Reassessment: see triage assessment 5 01:23 Pain: Pain does not radiate. Pain began 1 week ago al5 al5
--- NOTE | 2024-10-23 03:59 | EDPHYS ---
Physician Documentation [facility] Name: Le Lawrence Age: 79 yrs Sex: Female : 1945 Arrival Date: 10/22/2024 Time: 23:42 Bed 2 Private MD: Hilario Solano ED Physician Joann Haile HPI: 10/23 00:03 This 79 yrs old Female presents to ER via Unassigned with complaints of sw6 Irregular Pulse, Nausea/Vomiting/Diarrhea, Fever, Unable to take afib medication due to vomiting. 00:03 The patient presents to the emergency department with nausea, vomiting, diarrhea, sw6 abdominal pain. Onset: The symptoms/episode began/occurred Sunday. Today is Sunday. Possible causes: unknown. The symptoms are aggravated by food , The symptoms are alleviated by nothing. Associated signs and symptoms: Pertinent positives: abdominal pain, Pertinent negatives: constipation, dysuria, fever, GI bleeding. Severity of symptoms: At their worst the symptoms were moderate in the emergency department the symptoms are unchanged. The patient has experienced a previous episode, last year. The patient presents from home with family for evaluation for nausea, vomiting as well as diarrhea that started on Sunday. She also complains of generalized abdominal pain and cramps. No chest pain or pressure. No shortness of breath. No sick contacts. No recent trips, travel or antibiotics. No bad food exposure. No medications tried at home for her symptoms. She is concerned as she has had a previous episode where her potassium level was low leading to a cardiac arrest. She does have a history of atrial fibrillation, chronic kidney disease as well as congestive heart failure and diabetes. She reports she did take her diuretic this morning however was unable to get her Eliquis down this evening due to vomiting. She last had an episode of vomiting as well as diarrhea about 30 minutes prior to arrival. No blood in either. She does use a walker for ambulation. She feels lightheaded but has not had a syncopal episode. Here for evaluation.. Historical: - Allergies: 00:00 Amoxicillin; al5 00:00 Augmentin; al5 00:00 Cipro; al5 00:00 Iodine; al5 - Home Meds: 00:00 allopurinol 300 mg Oral tablet daily [Active]; atenolol 50 mg Oral tablet [Active]; al5 doxazosin 4 mg Oral tablet daily [Active]; Eliquis 5 mg Oral tablet once [Active]; famotidine 20 mg Oral tablet 2 times per day [Active]; furosemide 40 mg Oral tablet 2 times per day [Active]; gabapentin 100 mg Oral capsule 3 times per day [Active]; Hydrocodone-Acetaminophen Oral [Active]; lovastatin 40 mg Oral tablet daily [Active]; potassium chloride 20 mEq Oral tablet daily [Active]; spironolactone 25 mg Oral tablet daily [Active]; - PMHx: 00:00 Asthma; Atrial Fib; Congestive heart failure; diabetes mellitus; Hypertension; al5 neuropathy; - PSHx: 00:00 right arm; al5 - Immunization history:: Adult Immunizations not up to date. - Infectious Disease History:: Denies. - Social history:: Smoking status: Patient denies any tobacco usage or history of. ROS: 00:03 Constitutional: Negative for fever, chills, and weight loss, Cardiovascular: Negative sw6 for chest pain, palpitations, and edema, Respiratory: Negative for shortness of breath, cough, wheezing, and pleuritic chest pain, 00:03 Abdomen/GI: Positive for abdominal pain, nausea, vomiting, and diarrhea, 00:03 All other systems are negative, Exam: 00:03 Constitutional: This is a well developed, well nourished patient who is awake, alert, sw6 and in no acute distress. Cardiovascular: Regular rate and rhythm with a normal S1 and S2. No gallops, murmurs, or rubs. Normal PMI, no JVD. No pulse deficits. Respiratory: Lungs have equal breath sounds bilaterally, clear to auscultation and percussion. No rales, rhonchi or wheezes noted. No increased work of breathing, no retractions or nasal flaring. 00:03 MS/ Extremity: Pulses equal, no cyanosis. Neurovascular intact. Full, normal range of motion. Psych: Awake, alert, with orientation to person, place and time. Behavior, mood, and affect are within normal limits. 00:03 Constitutional: The patient appears obese, 00:03 ENT: Dry mucous membranes. 00:03 Abdomen/GI: Palpation: soft, mild abdominal tenderness, in all quadrants, rebound tenderness, is not appreciated, 01:36 ECG was reviewed by the Attending Physician. sw6 Vital Signs: 00:00 BP 112 / 84; Pulse 67; Resp 16; Temp 98.5; Pulse Ox 100% on R/A; Weight 124.74 kg; al5 Height 5 ft. 3 in. ; Pain 8/10; 00:45 BP 143 / 73; Pulse 60; Resp 18; Pulse Ox 100% on R/A; al5 01:00 BP 160 / 79; Pulse 56; Resp 18; Pulse Ox 99% ; al5 01:30 BP 158 / 72; Pulse 63; Resp 19; Pulse Ox 94% ; al5 02:00 BP 138 / 70; Pulse 66; Resp 16; Pulse Ox 94% ; al5 02:30 BP 154 / 71; Pulse 74; Resp 18; Pulse Ox 95% ; al5 03:00 BP 144 / 66; Pulse 67; Resp 19; Pulse Ox 94% ; al5 03:30 BP 147 / 67; Pulse 64; Resp 18; Pulse Ox 95% ; al5 04:00 BP 143 / 72; Pulse 64; Resp 16; Pulse Ox 97% ; al5 00:00 Body Mass Index 48.71 (124.74 kg, 160.02 cm) al5 00:00 Pain Scale: Adult al5 MDM: 10/22 23:52 Medical Screening Exam initiated 10/23 00:03 Differential diagnosis: Nonspecific abd pain, gastritis, pancreatitis, viral [facility] gastroenteritis, gastroenteritis, Hypokalemia, hypomagnesia, ACS. Data reviewed: vital signs, nurses notes. 01:36 Data reviewed: lab test result(s), EKG. ED course: The patient is doing well from the [facility] ER. Her laboratory studies show an elevated troponin of 166.6. Her potassium and magnesium levels are appropriate. Her EKG shows atrial fibrillation, no STEMI which is her baseline rhythm. Due to her elevated troponin she will require admission for continued management. Pending results of the CT of her abdomen pelvis.. 03:58 ED course: The patient is doing well here in the ER. Her nausea and vomiting has improved with medications given above. The CT of her abdomen and pelvis shows no acute intra-abdominal pathology. Spoke with with the internal medicine service the patient was accepted for admission for continued management.. 10/23 00:03 Order name: CBC with Diff 10/23 01:20 Interpretation: Within normal limits. 10/23 00:03 Order name: CMP; Complete Time: 01:35 10/23 01:35 Interpretation: Within normal limits. 10/23 00:03 Order name: Lipase; Complete Time: 01:35 10/23 01:35 Interpretation: Within normal limits. 10/23 00:03 Order name: Urinalysis w/ reflexes 10/23 00:03 Order name: Magnesium; Complete Time: 01:35 10/23 01:35 Interpretation: Within normal limits. 10/23 00:03 Order name: Troponin High Sensitivity; Complete Time: 01:35 10/23 01:35 Interpretation: Abnormal: Elevated troponin. 10/23 00:03 Order name: BNP; Complete Time: 01:35 10/23 01:35 Interpretation: Abnormal: Elevated bnp. 10/23 04:28 Order name: Lactate w/ 2H reflex if indic. EDMS 10/23 04:28 Order name: Magnesium EDMS 10/23 04:28 Order name: Phosphorus EDMS 10/23 04:28 Order name: Urinalysis w/ reflexes EDMS 10/23 04:28 Order name: Basic Metabolic Panel EDMS 10/23 04:28 Order name: Basic Metabolic Panel EDMS 10/23 04:28 Order name: CBC with Automated Diff EDMS 10/23 04:28 Order name: CBC with Automated Diff EDMS 10/23 04:28 Order name: Lipid Profile EDMS 10/23 04:28 Order name: Lipid Profile EDMS 10/23 04:28 Order name: Troponin High Sensitivity EDMS 10/23 04:28 Order name: Troponin High Sensitivity EDMS 10/23 04:28 Order name: Troponin High Sensitivity EDMS 10/23 04:28 Order name: Troponin High Sensitivity EDMS 10/23 04:34 Order name: CBC Smear Scan EDMS 10/23 01:08 Order name: Abdomen EDMS 10/23 04:28 Order name: Physical Therapy Consult EDMS 10/23 00:03 Order name: IV Saline Lock; Complete Time: 01:03 10/23 00:03 Order name: Labs collected and sent; Complete Time: 01:03 EC:36 Rate is 69 beats/min. Rhythm is irregularly irregular, A fib. QRS interval is normal. sw6 QT interval is normal. No Q waves. T waves are Normal. No ST changes noted. Administered Medications: 01:03 Drug: Famotidine IVP 20 mg IVP once; dilute with 10 mL 0.9% NaCl; give over 2 minutes al5 Route: IVP; Site: right antecubital; 01:20 Follow up: Response: No adverse reaction; Pain is decreased al5 01:03 Drug: Ondansetron IVP 4 mg IVP once; over 2 minutes Route: IVP; Site: right antecubital;al5 01:20 Follow up: Response: No adverse reaction; Nausea is decreased al5 01:03 Drug: morphine IVP or IV 4 mg IVP once over 4 mins Route: IVP; Infused Over: 4 mins; al5 Site: right antecubital; 01:20 Follow up: Response: No adverse reaction; Pain is decreased al5 01:03 Drug: NS 0.9% IV 500 ml IV at bolus once; to be given as a bolus over 30 minutes Route: al5 IV; Rate: bolus; Site: right antecubital; 04:30 Follow up: Response: No adverse reaction; IV Status: Completed infusion; IV Intake: al5 500ml 02:46 Drug: metoCLOPramide IVP 10 mg IVP once; over 1 to 2 minutes Route: IVP; Site: left al5 antecubital; 04:30 Follow up: Response: No adverse reaction; Nausea unchanged al5 02:46 Drug: morphine IVP or IV 4 mg IVP once over 4 mins Route: IVP; Infused Over: 4 mins; al5 Site: left antecubital; 04:31 Follow up: Response: No adverse reaction; Pain is unchanged, physician notified al5 Disposition Summary: 10/23/24 03:58 Hospitalization Ordered Notes: Hospitalization Status: Observation sw6 Provider: Prince adrian Umanzor Condition: Fair sw6 Problem: new sw6 Symptoms: have improved sw6 Bed/Room Type: Standard [facility] Location: Telemetry/MedSurg (Inpatient)(10/23/24 15:16) bc6 Room Assignment: 220(10/23/24 15:16) bc6 Diagnosis - Nausea with vomiting, unspecified sw6 - elevated troponin sw6 Forms: - Medication Reconciliation Form sw6 - SBAR form sw6 - Leadership Thank You Letter sw6 Signatures: Dispatcher [employer] EDMS Kiarra Tineo, RN RN ss Swetha Orr, RN RN vc1 Juany Fritz 6 Joann Haile MD MD sw6 Edith Randhawa RN RN al5 Corrections: (The following items were deleted from the chart) 00:04 00:04 CBC+H.LAB.BRZ ordered. EDMS EDMS 00:04 00:04 COMPREHENSIVE METABOLIC PANEL+C.LAB.BRZ ordered. EDMS EDMS 00:04 00:04 LIPASE+C.LAB.BRZ ordered. EDMS EDMS 00:04 00:04 Urinalysis+U.LAB.BRZ ordered. EDMS EDMS 00:04 00:04 MAGNESIUM+C.LAB.BRZ ordered. EDMS EDMS 00:04 00:04 Troponin High Sensitivity+C.LAB.BRZ ordered. EDMS EDMS 00:04 00:04 PROBNP+C.LAB.BRZ ordered. EDMS EDMS 00:04 00:04 Abdomen Pelvis W Con+CT.RAD.BRZ ordered. EDMS EDMS 01:21 00:00 Allergies: Morphine; al5 al5 04:10 03:58 Telemetry/MedSurg (observation) 6 vc1 04:10 03:58 6 vc1 15:02 04:10 [facility] ER HOLD vc1 ss 15:02 04:10 ERHOLD- vc1 ss 15:13 15:02 Telemetry/MedSurg (observation) ss bc6 15:13 15:02 220 ss bc6 15:16 15:13 [facility] ER HOLD bc6 bc6 15:16 15:13 bc6 bc6
[2024-10-23] MEDS ORDERED: ACETAMINOPHEN 500 MG TAB PO PRN (04:24)
[2024-10-23 04:33] LABS: Blood Morphology Comment NOT SEEN (NOT SEEN); Platelet Estimate DECR; White Blood Cell Scan OK (OK)
--- NOTE | 2024-10-23 04:36 | P.HP ---
Certification for Inpatient Patient admitted to: Observation With expected LOS: <2 Midnights Practitioner: I am a practitioner with admitting privileges, knowledge of patient current condition, hospital course, and medical plan of care. Services: Services provided to patient in accordance with Admission requirements found in Title 42 Section 412.3 of the Code of Federal Regulations Patient History Date of Service: 10/23/24 Reason for admission: gastroenteritis, elevated trop History of Present Illness: Patient is a 73-year-old female with past medical history of h ypertension, type 2 diabetes mellitus, diastolic CHF and atrial fibrillation currently on Eliquis. She presented to the ER complaining of an acute onset of nausea, vomiting and diarrhea. Patient denies any fever. She has had the diarrheal episode while in the ER as well. Additionally, she is also complaining of left-sided back pain. She was noted to have shingles along the dermatomal distribution. Workup in the ER including CT abdomen and pelvis which was negative. During my evaluation, patient appeared lethargic. She has substernal chest pain, which she attributes from vomiting. Her troponin is 116. Allergies amoxicillin Allergy (Verified 03/08/23 01:57) Nausea/Vomiting ciprofloxacin [From Cipro] Allergy (Verified 10/16/17 17:24) Nausea/Vomiting iodine Allergy (Verified 10/16/17 17:24) Itching/Hives/Rash clavulanic acid [From Augmentin] Adverse Reaction (Verified 12/02/23 15:34) Nausea/Vomiting Home Medications: Acetaminophen [Tylenol*] 650 mg PO Q4H PRN tab 12/21/23 Apixaban [Eliquis] 5 mg PO BID #60 12/21/23 Atorvastatin Calcium [Lipitor] 40 mg PO BEDTIME #30 tab 12/21/23 Docusate/Senna [Senokot-S*] 1 tab PO BID #60 tab 12/21/23 Famotidine [Pepcid*] 20 mg PO BID #60 tab 12/21/23 Furosemide [Lasix*] 40 mg PO BIDL #60 tab 12/21/23 Gabapentin [Neurontin*] 100 mg PO BID #60 cap 12/21/23 Lactulose [Cephulac*] 30 ml PO DAILY PRN 30 Days 12/21/23 Lidocaine 4% Patch [Lidoderm 5% Patch*] 2 patch TOP DAILY #60 pat 12/21/23 Mag Hydroxide 8% [Milk Of Magnesia*] 30 ml PO DAILY PRN 30 Days 12/21/23 Magnesium Oxide [Mag 0X*] 800 mg PO BID 30 Days tab 12/21/23 Melatonin 5 mg PO BEDTIME #30 12/21/23 Metoprolol Tartrate [Lopressor*] 25 mg PO BID 6AM 6PM #60 tab 12/21/23 Nystatin Powder [Mycostatin (Powder)*] 1 appl TOP BID #1 bottle 12/21/23 PE-Ep/Mo/Slov/Pet [Formulation R*] 1 appl ID BID PRN #1 tube 12/21/23 Pantoprazole [Protonix Tab*] 40 mg PO DAILYAC #30 tab 12/21/23 Potassium Oral Tab [Klor-Con 10 mEq Tab*] 10 meq PO BID #60 tab 12/21/23 Spironolactone [Aldactone*] 25 mg PO DAILY #30 tab 12/21/23 allopurinoL [Zyloprim*] 300 mg PO DAILY #30 tab 12/21/23 - Past Medical/Surgical History Diabetic: Yes -: Diastolic CHF/ Severe TR -: HTN -: Afib -: HLD -: Neuropathy -: CAD -: diverticulosis -: bad rotator cuffs -: left elbow sx -: Sp gall bladder surgery Psychosocial/ Personal History: Patient is . - Family History Mother -: Heart disease, Diabetes Notes: CHF Brother -: Heart disease, Diabetes Notes: CHF and diabetes complications. and heart attack Father -: Cancer Notes: of colon cancer Sister -: Cancer Notes: skin cancer-living - Social History Alcohol use: No CD- Drugs: No Caffeine use: Yes Physical Examination - Physical Exam General: Obese, Other (lethargic) HEENT: Atraumatic, Normocephalic Respiratory: Clear to auscultation bilaterally, Normal air movement Cardiovascular: No edema, Normal pulses, Regular rate/rhythm, Normal S1 S2 Gastrointestinal: Non-distended, Tenderness Integumentary: Rash(es) (shingles across left flank) Neurological: Normal speech - Studies Laboratory Data (last 24 hrs) 10/23/24 10/23/24 00:37 00:37 WBC 9.40 Hgb 14.7 Hct 43.4 Plt Count 133 L Sodium 132 L Potassium 3.6 BUN 18 Creatinine 1.05 H Glucose 154 H Magnesium 1.8 Total Bilirubin 1.2 H AST 18 ALT 19 Alkaline Phosphatase 63 Lipase 47 Assessment and Plan - Problems (Diagnosis) (1) Gastroenteritis Current Visit: Yes Status: Acute (2) Elevated troponin Current Visit: Yes Status: Acute (3) Chronic diastolic heart failure Current Visit: No Status: Acute (4) Chronic pain syndrome Current Visit: No Status: Acute (5) Atrial fibrillation Current Visit: No Status: Chronic Qualifiers: (6) Hypertension Current Visit: No Status: Chronic Qualifiers: - Plan Assessment 79-year-old female who is currently being admitted after she presented with symptoms of gastroenteritis. Workup included CT abdomen and pelvis which was unremarkable. Laboratory test significant for elevated troponin at 116. Patient also has evidence of shingles along the left flank dermatomal distribution. Gastroenteritis Elevated troponin Varicella-zoster Atrial fibrillation on Eliquis Diastolic CHF Hypertension Type 2 diabetes mellitus Obesity Plan: Will admit under observation telemetry Volume repletion and antiemetics Will also add PPI Start valacyclovir Standard precautions TTE ordered for elevated troponin. This is most likely demand ischemia Will trend troponin Cardiology consulted Resume rest of home medications upon reconciliation - Advance Directives Does patient have a Living Will: No Does patient have a Durable POA for Healthcare: No
[2024-10-23] MEDS ORDERED: SODIUM CHLORIDE 0.9% 10ML INJ IV PRN ×2 (04:40→11:43)
[2024-10-23] MEDS ORDERED: VALACYCLOVIR 500 MG TAB ONE (05:21)
[2024-10-23] MEDS ORDERED: NA CHLORIDE 0.9% 1,000 ML ONE (05:23)
[2024-10-23] MEDS ORDERED: PANTOPRAZOLE 40 MG INJ ONE (05:23)
[2024-10-23] MEDS: ONDANSETRON 4 MG/2 ML VIAL IV PRN (05:43)
[2024-10-23] MEDS: VALACYCLOVIR 500 MG TAB PO SCH (05:43)
[2024-10-23] MEDS: NA CHLORIDE 0.9% 1,000 ML IV SCH (05:43)
[2024-10-23] MEDS: PANTOPRAZOLE 40 MG INJ IVP SCH ×2 (05:43→11:43)
[2024-10-23 05:47] LABS: Magnesium 1.8 mg/dL (1.6-2.4); Phosphorus 3.5 mg/dL (2.5-4.9)
[2024-10-23] MEDS: MAGNESIUM SULFATE 1 gm IVPB 1 GM/100 ML BAG IV ONE (07:31)
[2024-10-23] MEDS ORDERED: MAGNESIUM SULFATE 1 gm IVPB 1 GM/100 ML BAG IV ONE (07:46)
[2024-10-23] MEDS ORDERED: POTASSIUM CL SA 10 MEQ TAB PO ONE (07:46)
[2024-10-23] MEDS: POTASSIUM CL SA 10 MEQ TAB PO SCH (09:00)
[2024-10-23] MEDS ORDERED: ENOXAPARIN 40 MG/0.4 ML SQ SCH (09:00)
[2024-10-23 09:14] VITALS: O2SAT 98
--- NOTE | 2024-10-23 10:55 | ECHO ---
HEIGHT: 5 ft 3 in WEIGHT: 245 lb 0 oz DATE OF STUDY: 10/23/[address]: Prince Payton Umanzor MD 2-DIMENSIONAL: YES M.MODE: YES DOPPLER: YES COLOR FLOW: YES TDS: YES PORTABLE: YES DEFINITY: BUBBLE STUDY: DIAGNOSIS: ELEVATED TROPONIN CARDIAC HISTORY: CATHERIZATION: NO SURGERY: NO PROSTHETIC VALVE: NO PACEMAKER: NO MEASUREMENTS (cm) DIASTOLIC (NORMALS) SYSTOLIC (NORMALS) IVSd 1.0 (0.6-1.2) LA Diam 4.5 (1.9-4.0) LVEF 60-65% LVIDd 4.9 (3.5-5.7) LVIDs 3.8 (2.0-3.5) %FS LVPWd 1.1 (0.6-1.2) Ao Diam 3.1 (2.0-3.7) 2 DIMENSIONAL ASSESSMENT: RIGHT ATRIUM: NORMAL LEFT ATRIUM: SEVERELY DILATED RIGHT VENTRICLE: NORMAL LEFT VENTRICLE: NORMAL TRICUSPID VALVE: MODERATE TRICUSPID REGURGITATION MITRAL VALVE: MILD MITRAL REGURGITATION PULMONIC VALVE: NORMAL AORTIC VALVE: NORMAL PERICARDIAL EFFUSION: NONE AORTIC ROOT: NORMAL LEFT VENTRICULAR WALL MOTION: NORMAL DOPPLER/COLOR FLOW: DIASTOLIC DYSFUNCTION COMMENTS: 1. NORMAL LEFT VENTRICULAR SYSTOLIC FUNCTION, EJECTION FRACTION 60-65%, NORMAL WALL MOTION 2. DIASTOLIC DYSFUNCTION 3. MODERATE TRICUSPID REGURGITATION 4. MODERATE PULMONARY HYPERTENSION (RIGHT VENTRICULAR SYSTOLIC PRESSURE 45-50 mmHg) 5. ELEVATED FILLING PRESSURE (RIGHT ATRIAL PRESSURE 10-15 mmHg) TECHNOLOGIST: KAREEN MAYER
[2024-10-23] MEDS: APIXABAN 5 MG TABLET PO SCH (11:20)
[2024-10-23] MEDS ORDERED: APIXABAN 5 MG TABLET ONE (11:22)
--- NOTE | 2024-10-23 12:01 | P.CNS ---
Date of Consult: 10/23/24 Chief Complaint: gastroenteritis, elevated trop History of Present Illness: Patient with PMH of AF, diastolic heart failure, presented with abdominal pain, nausea, vomiting and diarrhea, denies any chest pain, no palpitations, no syncope. Allergies amoxicillin Allergy (Verified 03/08/23 01:57) Nausea/Vomiting ciprofloxacin [From Cipro] Allergy (Verified 10/16/17 17:24) Nausea/Vomiting iodine Allergy (Verified 10/16/17 17:24) Itching/Hives/Rash clavulanic acid [From Augmentin] Adverse Reaction (Verified 12/02/23 15:34) Nausea/Vomiting Home medications list reviewed: Yes Home Medications: Metoprolol Tartrate [Lopressor*] 25 mg PO BID 6AM 6PM #60 tab 12/21/23 Spironolactone [Aldactone*] 25 mg PO DAILY #30 tab 12/21/23 allopurinoL [Zyloprim*] 300 mg PO DAILY #30 tab 12/21/23 Apixaban [Eliquis] 5 mg PO DAILY 10/23/24 Doxazosin [Cardura*] 4 mg PO BEDTIME 10/23/24 Famotidine [Pepcid*] 20 mg PO DAILY 10/23/24 Furosemide [Lasix*] 20 mg PO BID 10/23/24 Gabapentin [Neurontin*] 100 mg PO TID 10/23/24 Lovastatin 40 mg PO BEDTIME 10/23/24 Magnesium Oxide [Magnesium] 250 mg PO DAILY 10/23/24 Potassium Oral Tab [Klor-Con 10 mEq Tab*] 20 meq PO DAILY 10/23/24 metOLazone [Zaroxolyn*] 2.5 mg PO PRN 10/23/24 - Past Medical/Surgical History Diabetic: No -: Diastolic CHF/ Severe TR -: HTN -: Afib -: HLD -: Neuropathy -: CAD -: diverticulosis -: bad rotator cuffs -: left elbow sx -: Sp gall bladder surgery Psychosocial/ Personal History: Patient is . - Family History Mother Medical History: Heart disease, Diabetes Notes: CHF Brother Medical History: Heart disease, Diabetes Notes: CHF and diabetes complications. and heart attack Father Medical History: Cancer Notes: of colon cancer Sister Medical History: Cancer Notes: skin cancer-living - Social History Smoking Status: Unknown if ever smoked Alcohol use: No CD- Drugs: No Caffeine use: Yes Place of Residence: Home Review of Systems 10-point ROS is otherwise unremarkable Physical Examination Temp Pulse Resp BP Pulse Ox 98.1 F 67 18 162/68 H 95 10/23/24 08:00 10/23/24 08:00 10/23/24 08:00 10/23/24 08:00 10/23/24 08:00 General: Alert, In no apparent distress HEENT: Atraumatic, PERRLA, Mucous membr. moist/pink, EOMI, Sclerae nonicteric Neck: Supple, 2+ carotid pulse no bruit, No LAD, Without JVD or thyroid abnormality Respiratory: Clear to auscultation bilaterally, Normal air movement Cardiovascular: Regular rate/rhythm, Normal S1 S2 Gastrointestinal: Normal bowel sounds, No tenderness Musculoskeletal: No tenderness Integumentary: No rashes Neurological: Normal gait, Normal speech, Normal tone, Normal affect Lymphatics: No axilla or inguinal lymphadenopathy Laboratory Data (last 24 hrs) 10/23/24 10/23/24 00:37 00:37 WBC 9.40 Hgb 14.7 Hct 43.4 Plt Count 133 L Sodium 132 L Potassium 3.6 BUN 18 Creatinine 1.05 H Glucose 154 H Magnesium 1.8 Total Bilirubin 1.2 H AST 18 ALT 19 Alkaline Phosphatase 63 Lipase 47 - Problems (1) Type 2 TX (myocardial infarction) Current Visit: Yes Status: Acute Plan: Patient is having mild elak in troponin, patient had a recent coronary angiogram that shown normal coronaries. troponin leak is type 2 TX. continue medical management no Further cardiac work up needed. cardiology will sign off, please call with nay questions. (2) Atrial fibrillation Current Visit: No Status: Chronic Plan: continue Eliquis 5 mg po BID continue metoprolol 25 mg po BID Qualifiers: (3) CHF (congestive heart failure) Current Visit: No Status: Chronic Plan: CHRONIC DIASTOLIC HEART FAILURE WITH mild elevated filling pressure on echo lasix 40 mg IV while in hospital then switch back to home dose of 20 mg po bid continue aldactone 25 mg daily Qualifiers: Heart failure type: diastolic Heart failure chronicity: chronic Qualified Code(s): I50.32 - Chronic diastolic (congestive) heart failure
--- NOTE | 2024-10-23 14:10 | P.PN ---
Subjective Date of Service: 10/23/24 Chief Complaint: gastroenteritis, elevated trop Subjective: No chest pain or shortness of breath. Nausea, vomiting, diarrhea improving. c/o abdominal pain. No obvious bleeding. Looks comfortable in the bed. Objective: General appearance: Alert and comfortable CVS: Normal S1 and S2 Lungs: Clear to auscultation bilaterally Abdomen: Soft, bowel sounds present, mild tenderness in the epigastirc area Extremities: mild lower extremity edema Physical Examination - Vital Signs Temperature: 98.1 F Blood Pressure: 162/68 Pulse: 67 Respirations: 18 Pulse Ox (%): 95 - Studies Laboratory Data (last 24 hrs) 10/23/24 10/23/24 00:37 00:37 WBC 9.40 Hgb 14.7 Hct 43.4 Plt Count 133 L Sodium 132 L Potassium 3.6 BUN 18 Creatinine 1.05 H Glucose 154 H Magnesium 1.8 Total Bilirubin 1.2 H AST 18 ALT 19 Alkaline Phosphatase 63 Lipase 47 Assessment And Plan - Plan Assessment 79-year-old female who is currently being admitted after she presented with symptoms of gastroenteritis. Workup included CT abdomen and pelvis which was unremarkable as per admit note. Laboratory test significant for elevated troponin at 116. Patient also has evidence of shingles along the left flank dermatomal distribution. 1. Gastroenteritis: Still having abdominal pain and some nausea, start metronidazole for now, allergic to penicillins and also quinolones. -CT abdomen was done, but result is not available to me. 2. Elevated troponin: Cardiology is following. -Echo showed 60 to 65% EF, moderate TR and moderate pulmonary hypertension. 3. Varicella-zoster: Getting valacyclovir, ID consult requested. 4. Atrial fibrillation on Eliquis 5. Diastolic CHF: Monitor volume status closely with fluids. 6. Hypertension: Home med, Monitor closely. 7. Type 2 diabetes mellitus: monitor sugars closely 8. Obesity 9. Chronic thrombocytopenia: Monitor closely. Plan discussed with the patient, answered all questions.
[2024-10-23] MEDS: METOPROLOL TAR 25 MG TAB PO SCH (14:20)
[2024-10-23] MEDS ORDERED: OXYCODONE HCL 5 MG TAB ONE (14:59)
[2024-10-23] MEDS ORDERED: METOPROLOL TAR 25 MG TAB ONE (14:59)
[2024-10-23] MEDS: OXYCODONE HCL 5 MG TAB PO PRN (15:16)
[2024-10-23] MEDS: METRONIDAZOLE 500mg IVPB 500 MG/100 ML BAG IV SCH (17:25)
[2024-10-23] MEDS: PNEUMOCOCCAL VACCINE 0.5 ML IMVAC ONE (19:00)
[2024-10-23] MEDS: FLU (Fluarix Triv) TS24-25(6MOS UP)/PF 45 MCG/0.5 ML Syringe IM ONE (19:00)
--- NOTE | 2024-10-23 19:30 | CON ---
History Of Present Illness: This is a 79-year-old female, I was consulted for evaluation of herpes z olivier infection to the left lower back and lumbar region. The patient has significant past medical h istory of hypertension; diabetes mellitus, type 2; diastolic congestive heart failure; atrial fibrill ation; morbid obesity, coming to the emergency room with the onset of nausea, vomiting, and diarrhea. Also having severe left back pain. Denies any varicella-zoster vaccination. Denies any other prob lems. Past Medical History: As per HPI. Social History: Nonsmoker, nondrinker. Family History: Heart disease, diabetes mellitus. Medications: Flagyl and Valtrex. See MARs for other medications. Allergies: AMOXIL, CIPRO, IODINE, AND CLAVULANIC ACID. Review of Systems: A 10-point review was performed. Physical Examination: General: This is a 79-year-old female, lying in bed, not in any acute cardiopulmonary distress. Vital Signs: Temperature 98, pulse 67, respiration 18, blood pressure 162/68. HEENT: Unremarkable. Neck: Supple. Lungs: Basal crackles. Heart: S1, S2. Regular. Abdomen: Soft, nontender. Bowel sounds present. Extremities: Trace edema. Skin: Left L4 region shows multiple blistering lesions in clusters. Laboratory Data: Shows WBC 9.4, hemoglobin 14.7, platelets 133. Chemistry shows BUN of 18, creatini ne 1.05. Albumin level 3.9. Assessment And Plan: 1. Colitis versus gastroenteritis in a 79-year-old female coming in with elevated troponin. 2. Shingles to the lumbar region on the left side. Recommend Zovirax ointment and continue Valtrex. 3. Agree with Flagyl. 4. Thrombocytopenia. 5. Diabetes mellitus. 6. Obesity. 7. Monitor signs of infection with WBC and fever trend. Thank you for consult. NF/MODL Voice ID: [id number] Report ID: [id number]
[2024-10-23] MEDS: ATORVASTATIN 10 MG TAB PO SCH (21:36)
[2024-10-23] MEDS: PROMETHAZINE INJ 25 MG/ML AMP IV ONE (22:25)
[2024-10-24 05:52] VITALS: BMI 48.6
[2024-10-24 06:27] LABS: Absolute Lymphocytes (CBC) 0.7 K/uL (0.7-4.9); Absolute Monocytes 0.8 K/uL (0.1-1.3); Absolute Neutrophil 8.5 K/uL (1.8-8.0); Basophils % 0.4 % (0-1.3); Eosinophils % 0.1 % (0-4.4); Hematocrit 40.3 % (36.0-45.0); Hemoglobin 13.5 g/dL (12.0-15.0); Lymphocytes % 6.8 % (15.3-44.8); MCH 27.5 pg (27.0-35.0); MCHC 33.6 g/dL (32.0-36.0); MCV 81.6 fL (80-100); MPV 9.2 fL (7.6-11.3); Monocytes % 7.9 % (3.3-12.3); Neutrophils % 84.8 % (41.7-73.7); Platelets 112 thou/uL (152-406); RBC Red Blood Cell Count 4.93 M/uL (3.86-4.86); Red Cell Distribution Width 15.9 % (12.1-15.2)
[2024-10-24 06:46] LABS: Anion Gap 10.7 mEq/L (5.0-15.0); Potassium 4.7 mEq/L (3.5-5.1)
[2024-10-24] MEDS: HYDROMORPHONE HCL 1 MG/ML INJ IV ONE (07:00)
--- NOTE | 2024-10-24 08:03 | RAD REPORT ---
EXAMINATION: CT Abdomen Pelvis Wo Contrast CLINICAL INDICATION: Female, 79 years old. ABD PAIN TECHNIQUE: CT abdomen and pelvis was performed, without IV contrast, as per department protocol. Axia l, sagittal and coronal reconstructions were obtained. One or more of the following dose reduction techniques were used: Automated exposure control, adjustment of the mA and kV according to the patien t size, and iterative reconstruction. Unless otherwise specified, incidental findings do not require dedicated imaging follow-up. COMPARISON: 12/12/2023 FINDINGS: The lack of intravenous contrast limits the sensitivity of this exam for evaluation of solid visceral organs, vascular structures, and retroperitoneum. LOWER CHEST: The visualized lung bases are clear. LIVER: Normal in size and contour. Hepatic dome subcapsular 2.4 cm fluid density cyst, stable. No oth er focal lesion. BILIARY SYSTEM: Status post cholecystectomy with prominence of the common bile duct. SPLEEN: Normal size. No focal lesion. PANCREAS: No mass, ductal dilation, or howard-pancreatic fluid. ADRENALS: Normal; no mass. KIDNEYS AND URETERS: Normal size and contour. No hydronephrosis. URINARY BLADDER: Decompressed limiting evaluation. GASTROINTESTINAL TRACT: No evidence of bowel obstruction, significant free fluid, free air or abscess . APPENDIX: Normal appendix. LYMPH NODES: No lymphadenopathy. MUSCULOSKELETAL: Multilevel lumbar spine degenerative changes with stable grade 1 anterolisthesis of L4 over L5. Progressive superior endplate central compression deformity with mild vertebral body height loss. ADDITIONAL FINDINGS: Stable umbilical hernia containing fat. Small calcified fibroids at the fundus. IMPRESSION: Progressive superior endplate compression deformity at L3, of indeterminate age, although shows inter colette progression since November 2023. Please correlate for focal symptoms at that level. No other acute or concerning abnormalities in the abdomen or pelvis, with evaluation limited by lack of IV contrast.
--- NOTE | 2024-10-24 14:47 | P.PN ---
Subjective Date of Service: 10/24/24 Chief Complaint: gastroenteritis, elevated trop Subjective: No chest pain or shortness of breath. Nausea, vomiting, diarrhea improved, feels constipated now. abdominal pain improved. No obvious bleeding. Looks comfortable in the bed. c/o pain from shingles Objective: General appearance: Alert and comfortable CVS: Normal S1 and S2 Lungs: Clear to auscultation bilaterally Abdomen: Soft, bowel sounds present, no tenderness Extremities: mild lower extremity edema Skin: shingles on left back has early crust formation, no active blisters Physical Examination - Vital Signs Temperature: 98.6 F Blood Pressure: 135/63 Pulse: 67 Respirations: 16 Pulse Ox (%): 95 Assessment And Plan - Plan Assessment 79-year-old female who is currently being admitted after she presented with symptoms of gastroenteritis. Workup included CT abdomen and pelvis which was unremarkable as per admit note. Laboratory test significant for elevated troponin at 116. Patient also has evidence of shingles along the left flank dermatomal distribution. 1. Gastroenteritis: improving, cont metronidazole for now, allergic to penicillins and also quinolones. -CT abdomen neg 2. Elevated troponin: Cardiology signed off -Echo showed 60 to 65% EF, moderate TR and moderate pulmonary hypertension. 3. Varicella-zoster: Getting valacyclovir, ID consult requested. -gabapentin for pain 4. Atrial fibrillation on Eliquis 5. Diastolic CHF: Monitor volume status closely. -DC IV fluids. 6. Hypertension: Home med, Monitor closely. 7. Type 2 diabetes mellitus: monitor sugars closely 8. Obesity 9. Chronic thrombocytopenia: Monitor closely. Plan discussed with the patient, answered all questions.
[2024-10-24] MEDS: GABAPENTIN 100 MG CAP PO SCH (16:24)
[2024-10-24] MEDS: ONDANSETRON 4 MG/2 ML VIAL IV PRN (16:25)
[2024-10-24] MEDS: POLYETHYL GLY 3350 17 GM/DOSE PO PRN (19:23)
[2024-10-24] MEDS ORDERED: GABAPENTIN 100 MG CAP PO SCH (21:00)
[2024-10-25 07:17] LABS: Absolute Lymphocytes (CBC) 0.7 K/uL (0.7-4.9); Absolute Monocytes 0.9 K/uL (0.1-1.3); Absolute Neutrophil 8.2 K/uL (1.8-8.0); Basophils % 0.3 % (0-1.3); Eosinophils % 0.2 % (0-4.4); Hematocrit 43.3 % (36.0-45.0); Hemoglobin 14.4 g/dL (12.0-15.0); Lymphocytes % 7.3 % (15.3-44.8); MCH 27.4 pg (27.0-35.0); MCHC 33.3 g/dL (32.0-36.0); MCV 82.2 fL (80-100); MPV 8.8 fL (7.6-11.3); Monocytes % 8.8 % (3.3-12.3); Neutrophils % 83.4 % (41.7-73.7); Platelets 122 thou/uL (152-406); RBC Red Blood Cell Count 5.27 M/uL (3.86-4.86); Red Cell Distribution Width 15.7 % (12.1-15.2)
[2024-10-25] MEDS: SPIRONOLACTONE 25 MG TABLET PO SCH (09:55)
[2024-10-25] MEDS: DOXAZOSIN 2 MG TAB PO SCH (09:56)
--- NOTE | 2024-10-25 12:51 | P.PN ---
Subjective Date of Service: 10/25/24 Chief Complaint: gastroenteritis, elevated trop Subjective: No chest pain or shortness of breath. Nausea, vomiting, diarrhea improved. abdominal pain improved yesterday but feels some pain today. No obvious bleeding. Looks comfortable in the bed. c/o pain from shingles Objective: General appearance: Alert and comfortable CVS: Normal S1 and S2 Lungs: Clear to auscultation bilaterally Abdomen: Soft, bowel sounds present, no tenderness Extremities: mild lower extremity edema 10/24: Skin: shingles on left back has early crust formation, no active blisters Physical Examination - Vital Signs Temperature: 98.6 F Blood Pressure: 141/65 Pulse: 80 Respirations: 14 Pulse Ox (%): 97 Assessment And Plan - Plan Assessment 79-year-old female who is currently being admitted after she presented with symptoms of gastroenteritis. Workup included CT abdomen and pelvis which was unremarkable as per admit note. Laboratory test significant for elevated troponin at 116. Patient also has evidence of shingles along the left flank dermatomal distribution. 1. Gastroenteritis: improving, cont metronidazole for now, allergic to penicillins and also quinolones. -CT abdomen neg 2. Elevated troponin: Cardiology signed off -Echo showed 60 to 65% EF, moderate TR and moderate pulmonary hypertension. 3. Varicella-zoster: Getting valacyclovir, ID consult on board -gabapentin for pain 4. Atrial fibrillation on Eliquis 5. Diastolic CHF: Monitor volume status closely. 6. Hypertension: Home med, Monitor closely. 7. Type 2 diabetes mellitus: monitor sugars closely 8. Obesity 9. Chronic thrombocytopenia: Monitor closely. Plan discussed with the patient, answered all questions. DC home in the next 1-2 days when symptoms better, feels not ready to go home
[2024-10-26] MEDS: MORPHINE 2 MG/ML SYR IV ONE
[2024-10-26] MEDS: GABAPENTIN 300 MG CAP PO ONE (04:44)
[2024-10-26 06:55] LABS: Absolute Basophils 0.1 K/uL (0-0.5); Absolute Eosinophils 0.1 K/uL (0-0.5); Absolute Lymphocytes (CBC) 1.1 K/uL (0.7-4.9); Absolute Monocytes 0.7 K/uL (0.1-1.3); Absolute Neutrophil 6.7 K/uL (1.8-8.0); Basophils % 0.8 % (0-1.3); Eosinophils % 0.7 % (0-4.4); Hematocrit 41.7 % (36.0-45.0); Hemoglobin 13.7 g/dL (12.0-15.0); Lymphocytes % 12.9 % (15.3-44.8); MCH 27.2 pg (27.0-35.0); MCHC 32.9 g/dL (32.0-36.0); MCV 82.5 fL (80-100); MPV 8.5 fL (7.6-11.3); Monocytes % 8.4 % (3.3-12.3); Neutrophils % 77.2 % (41.7-73.7); Nucleated Red Blood Cells % 0.1 % (0-0); Platelets 119 thou/uL (152-406); RBC Red Blood Cell Count 5.05 M/uL (3.86-4.86); Red Cell Distribution Width 15.4 % (12.1-15.2)
[2024-10-26 07:10] LABS: Anion Gap 7.8 mEq/L (5.0-15.0); Potassium 3.8 mEq/L (3.5-5.1)
[2024-10-26] MEDS: GABAPENTIN 100 MG CAP PO SCH (09:44)
[2024-10-26] MEDS: FUROSEMIDE 20 MG TABLET PO SCH (09:44)
[2024-10-26] MEDS: METOPROLOL TAR 50 MG TAB PO SCH (09:44)
[2024-10-26] MEDS ORDERED: HYDRALAZINE HCL 20 MG/ML VIAL IV PRN (11:46)
--- NOTE | 2024-10-26 11:48 | P.PN ---
Subjective Date of Service: 10/26/24 Chief Complaint: gastroenteritis, elevated trop Subjective: No chest pain or shortness of breath. Nausea, vomiting, diarrhea improved. abdominal pain improved. No obvious bleeding. Looks comfortable in the chair. c/o pain from shingles Objective: General appearance: Alert and comfortable CVS: Normal S1 and S2 Lungs: Clear to auscultation bilaterally Abdomen: Soft, bowel sounds present, no tenderness Extremities: mild lower extremity edema 10/24: Skin: shingles on left back has early crust formation, no active blisters Physical Examination - Vital Signs Temperature: 98.6 F Blood Pressure: 149/69 Pulse: 70 Respirations: 16 Pulse Ox (%): 96 Assessment And Plan - Plan Assessment 79-year-old female who is currently being admitted after she presented with symptoms of gastroenteritis,. Workup included CT abdomen and pelvis which was unremarkable as per admit note. Laboratory test significant for elevated troponin at 116. Patient also has evidence of shingles along the left flank dermatomal distribution. Gastroenteritis symptoms improving with antibiotics. Still having some pain from shingles, if clinically better, home tomorrow. 1. Gastroenteritis: improving, cont metronidazole for now, allergic to penicillins and also quinolones. -CT abdomen neg 2. Elevated troponin: Cardiology signed off -Echo showed 60 to 65% EF, moderate TR and moderate pulmonary hypertension. 3. Varicella-zoster: Getting valacyclovir, ID consult on board -gabapentin for pain 4. Atrial fibrillation on Eliquis 5. Diastolic CHF: Monitor volume status closely. 6. Hypertension: Home med, Monitor closely. Blood Pressure high, medications adjusted today. 7. Type 2 diabetes mellitus: monitor sugars closely 8. Obesity 9. Chronic thrombocytopenia: Monitor closely. Plan discussed with the patient, answered all questions. DC home in the next 1-2 days when symptoms better, feels not ready to go home yet
[2024-10-27 06:07] LABS: Anion Gap 8.9 mEq/L (5.0-15.0); Potassium 3.9 mEq/L (3.5-5.1)
[2024-10-27 06:11] LABS: Absolute Basophils 0.1 K/uL (0-0.5); Absolute Eosinophils 0.1 K/uL (0-0.5); Absolute Lymphocytes (CBC) 1.8 K/uL (0.7-4.9); Absolute Monocytes 0.9 K/uL (0.1-1.3); Absolute Neutrophil 6.1 K/uL (1.8-8.0); Basophils % 0.6 % (0-1.3); Eosinophils % 1.6 % (0-4.4); Hematocrit 44.1 % (36.0-45.0); Hemoglobin 14.9 g/dL (12.0-15.0); Lymphocytes % 19.7 % (15.3-44.8); MCH 27.7 pg (27.0-35.0); MCHC 33.7 g/dL (32.0-36.0); MCV 82.2 fL (80-100); MPV 9.3 fL (7.6-11.3); Monocytes % 10.1 % (3.3-12.3); Nucleated Red Blood Cells % 0.1 % (0-0); Platelets 107 thou/uL (152-406); RBC Red Blood Cell Count 5.37 M/uL (3.86-4.86); Red Cell Distribution Width 15.4 % (12.1-15.2)
--- NOTE | 2024-10-27 11:35 | EKG ---
Test Date: 2024-10-23 Test Time: 00:38:13 Triage Registered Nurse: NUHA MEASUREMENT RESULTS: Intervals: Rate: 69 RI: QRSD: 84 QT: 394 QTc: 422 [place]: P: RI: QRS: 122 T: 25 INTERPRETIVE STATEMENTS: Atrial fibrillation Low voltage QRS Septal infarct, age undetermined Lateral infarct, age undetermined Abnormal ECG Compared to ECG 11/29/2023 01:36:57 Low QRS voltage now present Myocardial infarct finding still present Electronically Signed On 10-27-24 11:24:35 CDT by Kalyan Rubio
--- NOTE | 2024-10-27 15:07 | PN ---
Subjective: The patient sitting in the easy chair, not in any acute distress. Vital signs reviewed. Continued to have pain in her left leg, where the shingles is. Objective: Lungs: Basal crackles. Heart: S1, S2. Regular. Abdomen: Soft, nontender. Bowel sounds present. Extremities: Trace edema. Laboratory Data: Shows WBC 8.9, hemoglobin 14.9, platelets 107. Chemistry shows BUN of 18, creatini ne 0.9. The patient currently on Flagyl and Valtrex. Assessment And Plan: Gastroenteritis, improving. Left lumbar area shingles, currently on Valtrex. Recommend also Zovirax ointment to the shingles area. Continue supportive care and wound care. Viry tor signs of infection. We will follow the patient as needed. NF/MODL Voice ID: [id number] Report ID: [id number]
[2024-10-27] MEDS: TRAMADOL HCL 50 MG TAB PO PRN (18:08)
--- NOTE | 2024-10-28 04:00 | P.DS ---
Admission Date: 10/25/24 Discharge Date: 10/28/24 Reason for Admission: gastroenteritis, elevated trop Brief History of Present Illness: 73-year-old female with past medical history of hypertension, type 2 diabetes mellitus, diastolic CHF and atrial fibrillation currently on Eliquis. She presented to the ER complaining of an acute onset of nausea, vomiting and diarrhea. Patient denies any fever. She has had the diarrheal episode while in the ER as well. Additionally, she is also complaining of left-sided back pain. She was noted to have shingles along the dermatomal distribution. Workup in the ER including CT abdomen and pelvis which was negative. During my evaluation, patient appeared lethargic. She has substernal chest pain, which she attributes from vomiting. Her troponin is 116. - Physical Exam General: Obese, Other oriented x 3 HEENT: Atraumatic, Normocephalic Respiratory: Clear to auscultation bilaterally, Normal air movement Cardiovascular: No edema, Normal pulses, Regular rate/rhythm, Normal S1 S2 Gastrointestinal: Non-distended, Tenderness Integumentary: Rash(es) (shingles across left flank) Neurological: Normal speech Hospital Course: 73-year-old female with past medical history of hypertension, type 2 diabetes mellitus, diastolic CHF and atrial fibrillation currently on Eliquis. She presented to the ER complaining of an acute onset of nausea, vomiting and diarrhea. Patient denies any fever. She has had the diarrheal episode while in the ER as well. Additionally, she is also complaining of left-sided back pain. She was noted to have shingles along the dermatomal distribution. CT abdomen and pelvis which was negative. During my evaluation, She has substernal chest pain, secondary to nausea vomiting, mildly elevated troponin. Which she attributes from vomiting. Her troponin is 116. Cardiology was consulted patient was noted to have an WA type II, continue metoprolol, Eliquis after discharge for A-fib was treated with diuretics, Lasix, Aldactone transition to p.o. after discharge. Plan to discharge home with home health Acute on chronic heart failure -metoprolol, Lasix p.o., Aldactone p.o. after discharge Left lumbar Shingles-Recommend also Zovirax ointment to the shingles area, continue p.o. Valtrex Diarrhea- encourage hydration after discharge-resolved Assessment Gastroenteritis-IV fluids, trend stool cultures-CT negative-improved Nausea vomiting-as needed antiemetics, IV fluids, PPI-resolved -WA type II Chest pain-on Eliquis-cardiology was consulted NSTEMI, elevated troponin Acute on chronic heart failure Chronic pain patient was treated with diuretics, Lasix, Aldactone transition to p.o. after discharge. Atrial fibrillation Hypertension resume home meds Shingles herpes iftzzf-grxupbdtcamn-ewocjwckzl disease consulted Thrombocytopenia trend platelets Diabetes type 2 with hyperglycemia, blood glucose monitoring, resume home meds after discharge Continue home medicines as previously prescribed GOAL: Clear understanding of disease process INSTRUCTIONS: Physician Discharge Instructions: -Follow-up with cardiology after discharge -Follow-up with GI after discharge -Follow-up with PCP in 1 to 2 weeks -Please call Dr. Sheffield at [phone] if any questions regarding hospital stay -Please call nursing station at [phone] if any nursing or medication questions -Return to the emergency room if symptoms worsen Diet: ADA, low sodium Activity: Fall precautions <Alena Castro - Last Filed: 10/29/24 00:34> Admission Date: 10/25/24 Discharge Date: 10/28/24 Hospital Course: Patient was seen and examined. Events of the last 24 hours have been noted. Spoke with with BRENDA regarding patient's clinical picture after evaluating and examining the patient independently. I performed a substantial part of the MDM during this patient's care today. I personally made or approved the documented management plan and acknowledge its risk of complications. I agree with the findings and documentation provided in the BRENDA's notes. <Lisa Sheffield - Last Filed: 11/06/24 12:30> Disposition: [facility] CARE Discharge Condition: GOOD Vital Signs/Physical Exam: Temp Pulse Resp BP Pulse Ox 97.4 F 70 16 121/57 L 96 10/27/24 20:00 10/27/24 20:00 10/28/24 01:01 10/27/24 20:00 10/28/24 01:01 Laboratory Data at Discharge: WBC 8.90 thou/uL (4.3-10.9) 10/27/24 05:35 Hgb 14.9 g/dL (12.0-15.0) D 10/27/24 05:35 Hct 44.1 % (36.0-45.0) 10/27/24 05:35 Plt Count 107 thou/uL (152-406) L 10/27/24 05:35 Sodium 136 mEq/L (136-145) 10/27/24 05:35 Potassium 3.9 mEq/L (3.5-5.1) 10/27/24 05:35 BUN 18 mg/dL (7-18) 10/27/24 05:35 Creatinine 0.90 mg/dL (0.55-1.02) 10/27/24 05:35 Glucose 112 mg/dL (74-106) H 10/27/24 05:35 Phosphorus 3.5 mg/dL (2.5-4.9) 10/23/24 05:16 Magnesium 2.0 mg/dL (1.6-2.4) 10/24/24 05:33 Total Bilirubin 1.2 mg/dL (0.2-1.0) H 10/23/24 00:37 AST 18 U/L (15-37) 10/23/24 00:37 ALT 19 U/L (13-56) 10/23/24 00:37 Alkaline Phosphatase 63 U/L (45-117) 10/23/24 00:37 Triglycerides 86 mg/dL (<150) 10/24/24 05:33 Cholesterol 133 mg/dL (<200) 10/24/24 05:33 HDL Cholesterol 48 mg/dL (40-60) 10/24/24 05:33 Cholesterol/HDL Ratio 2.77 10/24/24 05:33 Lipase 47 U/L (13-75) 10/23/24 00:37 <Alena Castro - Last Filed: 10/29/24 00:34> Vital Signs/Physical Exam: Temp Pulse Resp BP Pulse Ox 98.0 F 69 16 119/58 L 98 10/28/24 12:00 10/28/24 12:00 10/28/24 12:00 10/28/24 12:00 10/28/24 12:00 Laboratory Data at Discharge: WBC 8.80 thou/uL (4.3-10.9) 10/28/24 05:45 Hgb 13.2 g/dL (12.0-15.0) D 10/28/24 05:45 Hct 38.5 % (36.0-45.0) 10/28/24 05:45 Plt Count 106 thou/uL (152-406) L 10/28/24 05:45 Sodium 134 mEq/L (136-145) L 10/28/24 05:45 Potassium 3.8 mEq/L (3.5-5.1) 10/28/24 05:45 BUN 14 mg/dL (7-18) 10/28/24 05:45 Creatinine 0.81 mg/dL (0.55-1.02) 10/28/24 05:45 Glucose 124 mg/dL (74-106) H 10/28/24 05:45 Phosphorus 3.5 mg/dL (2.5-4.9) 10/23/24 05:16 Magnesium 2.0 mg/dL (1.6-2.4) 10/24/24 05:33 Total Bilirubin 1.2 mg/dL (0.2-1.0) H 10/23/24 00:37 AST 18 U/L (15-37) 10/23/24 00:37 ALT 19 U/L (13-56) 10/23/24 00:37 Alkaline Phosphatase 63 U/L (45-117) 10/23/24 00:37 Triglycerides 86 mg/dL (<150) 10/24/24 05:33 Cholesterol 133 mg/dL (<200) 10/24/24 05:33 HDL Cholesterol 48 mg/dL (40-60) 10/24/24 05:33 Cholesterol/HDL Ratio 2.77 10/24/24 05:33 Lipase 47 U/L (13-75) 10/23/24 00:37 <Lisa Sheffield - Last Filed: 11/06/24 12:30> Time spent managing pt's care (in minutes): 45 <Alena Castro - Last Filed: 10/29/24 00:34> <Lisa Sheffield - Last Filed: 11/06/24 12:30> Home Medications: Metoprolol Tartrate [Lopressor*] 25 mg PO BID 6AM 6PM #60 tab 12/21/23 Spironolactone [Aldactone*] 25 mg PO DAILY #30 tab 12/21/23 allopurinoL [Zyloprim*] 300 mg PO DAILY #30 tab 12/21/23 Apixaban [Eliquis] 5 mg PO DAILY 10/23/24 Doxazosin [Cardura*] 4 mg PO BEDTIME 10/23/24 Famotidine [Pepcid*] 20 mg PO DAILY 10/23/24 Furosemide [Lasix*] 20 mg PO BID 10/23/24 Lovastatin 40 mg PO BEDTIME 10/23/24 Magnesium Oxide [Magnesium] 250 mg PO DAILY 10/23/24 Potassium Oral Tab [Klor-Con 10 mEq Tab*] 20 meq PO DAILY 10/23/24 metOLazone [Zaroxolyn*] 2.5 mg PO PRN 10/23/24 Oxycodone HCl [Oxyir (Oxycodone HCl Imr)*] 5 mg PO Q6H PRN #30 tab 10/27/24 Acyclovir [Zovirax] 15 appl TOP DAILY 7 Days #2 tube 10/28/24 Apixaban [Eliquis] 5 mg PO BID 10/28/24 Atorvastatin Calcium [Lipitor*] 10 mg PO BEDTIME tab 10/28/24 Doxazosin [Cardura*] 4 mg PO DAILY tab 10/28/24 Furosemide [Lasix*] 20 mg PO BIDL tab 10/28/24 Gabapentin 300 mg PO TID 30 Days #90 tab 10/28/24 Metoprolol Tartrate [Lopressor*] 50 mg PO BID 6AM 6PM #60 tab 10/28/24 Oxycodone HCl/Acetaminophen [Percocet 5-325 mg Tablet] 1 each PO Q6HP PRN #20 tab 10/28/24 Polyethyl Gly 3350 [Glycolax*] 17 gm PO DAILY PRN #14 sunitha 10/28/24 Valacyclovir [Valtrex] 1,000 mg PO BID 7 Days #14 tab 10/28/24 New Medications: Gabapentin 300 mg PO TID 30 Days #90 tab Polyethyl Gly 3350 [Glycolax*] 17 gm PO DAILY PRN #14 sunitha PRN Reason: Constipation Metoprolol Tartrate [Lopressor*] 50 mg PO BID 6AM 6PM #60 tab Oxycodone HCl [Oxyir (Oxycodone HCl Imr)*] 5 mg PO Q6H PRN #30 tab PRN Reason: Pain Scale 5-7 (Moderate) Oxycodone HCl/Acetaminophen [Percocet 5-325 mg Tablet] 1 each PO Q6HP PRN #20 tab PRN Reason: Pain Scale 8-10 (Severe) Valacyclovir [Valtrex] 1,000 mg PO BID 7 Days #14 tab Acyclovir [Zovirax] 15 appl TOP DAILY 7 Days #2 tube Physician Discharge Instructions: -Follow-up with Cardiology after discharge -Follow-up with GI after discharge -Follow-up with PCP in 1 to 2 weeks -Please call Dr. Sheffield at [phone] if any questions regarding hospital stay -Please call nursing station at [phone] if any nursing or medication questions -Return to the emergency room if symptoms worsen Followup: Hilario Solano DO [Primary Care Provider] - 1-2 Weeks
[2024-10-28 06:02] LABS: Absolute Basophils 0.1 K/uL (0-0.5); Absolute Eosinophils 0.1 K/uL (0-0.5); Absolute Lymphocytes (CBC) 1.8 K/uL (0.7-4.9); Absolute Monocytes 0.7 K/uL (0.1-1.3); Absolute Neutrophil 6.1 K/uL (1.8-8.0); Basophils % 0.8 % (0-1.3); Eosinophils % 1.6 % (0-4.4); Hematocrit 38.5 % (36.0-45.0); Hemoglobin 13.2 g/dL (12.0-15.0); Lymphocytes % 20.5 % (15.3-44.8); MCH 27.5 pg (27.0-35.0); MCHC 34.4 g/dL (32.0-36.0); MCV 80.2 fL (80-100); MPV 8.9 fL (7.6-11.3); Monocytes % 8.3 % (3.3-12.3); Neutrophils % 68.8 % (41.7-73.7); Nucleated Red Blood Cells % 0.2 % (0-0); Platelets 106 thou/uL (152-406); Red Cell Distribution Width 15.6 % (12.1-15.2)
[2024-10-28 06:08] LABS: Anion Gap 7.8 mEq/L (5.0-15.0); Potassium 3.8 mEq/L (3.5-5.1)
[2024-10-28 12:33] VITALS: BP 119/58; TEMP 98
--- NOTE | 2024-10-28 15:23 | PN ---
Subjective: The patient sitting in bedside chair. Denies any headache, nausea, or vomiting. Contin ued to have pain in her back from shingles. Objective: Vital Signs: Temperature 98, pulse 70, respirations 16, blood pressure 141/74. Lungs: Basal crackles. Heart: S1, S2. Regular. Abdomen: Soft, nontender. Bowel sounds present. Extremities: Trace edema. Laboratory Data: Shows WBC 8.8, hemoglobin 13, platelets are 106. Chemistry shows BUN of 14, creati nine 0.8. Assessment And Plan: Colitis, improved. Left lumbar area shingles with severe pain. Continue Valtrex. Thrombocytopenia. Consider stopping Flagyl. We will consider giving prescription for Zovirax on dis charge. We will follow the patient closely. NESTOR/TRICIA Voice ID: [id number] Report ID: [id number]
== END 2024-10-28 16:36 | disposition home health service (06) | DRG 391 ==
LOC: ER 23:42 → ERHOLD 10-23 04:24 → 2ND 10-23 15:24 → OBSVTOIN 10-25 12:32
PROVIDERS: ADMIT Internal Medicine; ATTEND Hospitalist
DX: K52.9 Noninfective gastroenteritis and colitis, unspecified (principal); I21.A1 Myocardial infarction type 2; I50.33 Acute on chronic diastolic (congestive) heart failure; I48.20 Chronic atrial fibrillation, unspecified; Z68.42 Body mass index [BMI] 45.0-49.9, adult; B02.8 Zoster with other complications; E66.01 Morbid (severe) obesity due to excess calories; I11.0 Hypertensive heart disease with heart failure; G89.4 Chronic pain syndrome; D69.59 Other secondary thrombocytopenia; I27.20 Pulmonary hypertension, unspecified; E11.40 Type 2 diabetes mellitus with diabetic neuropathy, unspecified; E11.65 Type 2 diabetes mellitus with hyperglycemia; I25.10 Atherosclerotic heart disease of native coronary artery without angina pectoris; R79.89 Other specified abnormal findings of blood chemistry; Z88.0 Allergy status to penicillin; Z88.1 Allergy status to other antibiotic agents; Z79.01 Long term (current) use of anticoagulants; Z79.899 Other long term (current) drug therapy
CPT/HCPCS: 36415; 74176; 80048; 80053; 80061; 82947; 83036; 83605; 83690; 83735; 83880; 84100; 84484; 85025; 93005; 93306; 97110; 97161; 97530; 99285; G0378; J1171; J2270; J2405; J2470; J2550; J2765; J3475; J7030; J7040